=== PATIENT | male | born 1990 | race American Indian/Alaskan Native ===

== ENCOUNTER 2017-10-02 16:16 | Emergency (ER) | payer OTHER ==
--- NOTE | 2017-10-02 17:42 | XRay Report ---
FINAL REPORT EXAM: XR CHEST ROUTINE 2V HISTORY: Shortness of breath TECHNIQUE: 2 view examination of the chest PRIORS: None FINDINGS: Limited examination due to prominent soft tissue attenuation. Lung bases partly obscured. Lateral view limited. There is no visible pulmonary consolidation, pleural effusion, or pneumothorax. The regional skeleton is without acute pathology. The cardiac silhouette size is slightly enlarged without evidence of vascular congestion or pulmonary edema. IMPRESSION: No evidence of acute pulmonary disease Suggestion of slight cardiomegaly without definite radiographic evidence of vascular congestion.
[2017-10-02 17:55] LABS: Basophils # (Auto) 0.1 K/mm3 (0.0-0.1); Basophils % (Auto) 1.2 % (0.0-1.8); Eosinophils # (Auto) 0.1 K/mm3 (0.0-0.4); Eosinophils % (Auto) 1.5 % (0.0-4.3); Hemoglobin 15.9 gm/dl (11.8-15.2); Lymphocytes # (Auto) 1.4 K/mm3 (1.2-5.4); Lymphocytes % (Auto) 20.5 % (13.4-35.0); Mean Corpuscular HGB Conc 32 % (32-34); Mean Corpuscular Hemoglobin 30 pg (28-32); Mean Corpuscular Volume 93 fl (84-94); Monocytes # (Auto) 0.6 K/mm3 (0.0-0.8); Monocytes % (Auto) 9.4 % (0.0-7.3); Platelet Count 227 K/mm3 (140-440); Red Blood Count 5.39 M/mm3 (3.65-5.03); Red Cell Distribution Width 15.2 % (13.2-15.2)
[2017-10-02 18:22] LABS: BUN/Creatinine Ratio 15; Blood Urea Nitrogen 19 mg/dL (9-20); Calcium 8.8 mg/dL (8.4-10.2); Hemolysis Index 34
--- NOTE | 2017-10-02 19:03 | Emergency Department Report ---
Blank Doc - Documentation Documentation: Patient is a 27-year-old black male who is presenting with shortness of breath for 2 days. Patient states that she shortness of breath is worse when he lays flat it feels like he is drowning and also when he will exerts himself. Patient denies any chest pain. Patient blood pressure was severely elevated he has run out of his blood pressure medicines. Patient does not have a history of CHF and knows of. Patient will be moved to the main for blood pressure control on Lasix he does have a large body habitus but does have some lower extremity edema and Rales
[2017-10-02] MEDS ORDERED: NORMODYNE IV ONE ×4 (19:04→22:56)
[2017-10-02] MEDS ORDERED: LASIX IV ONE (19:04)
[2017-10-02] MEDS ORDERED: ULTRAM PO ONE (19:36)
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
[2017-10-02 20:12] LABS: Alanine Aminotransferase 23 units/L (7-56); Albumin 2.8 g/dL (3.9-5); BUN/Creatinine Ratio 17; Blood Urea Nitrogen 20 mg/dL (9-20); Calcium 8.4 mg/dL (8.4-10.2); Hemolysis Index 28
[2017-10-02 20:18] LABS: INR 1.03 (0.87-1.13)
[2017-10-02 20:19] LABS: Partial Thromboplastin Time 31.8 Sec. (24.2-36.6)
[2017-10-02] MEDS ORDERED: NACL ONE (20:25)
--- NOTE | 2017-10-02 20:38 | XRay Report ---
FINAL REPORT EXAM: XR KNEE 1-2V LT HISTORY: Knee pain TECHNIQUE: Left knee 4 views PRIORS: None. FINDINGS: No fracture is identified. No dislocation seen. No evidence of joint effusion. Patella demonstrates normal positioning. No acute bony abnormality identified. IMPRESSION: Negative knee series
--- NOTE | 2017-10-02 22:11 | Cat Scan Report ---
FINAL REPORT EXAM: CT ANGIO CHEST HISTORY: hypo TECHNIQUE: CT chest CT angiogram with reconstructions PRIORS: None. FINDINGS: There is no evidence of filling defect within the central pulmonary vasculature to suggest the presence of acute pulmonary embolus. There is an intimal flap present within the descending thoracic aorta originating just distal to the origin of the great vessels. The dissection continues through the visualized portion of the abdominal aorta and cannot be evaluated below the level of the origin of the celiac artery which appears patent. No evidence of mediastinal pathologic lymph node enlargement Heart and great vessels are unremarkable. The aorta is normal in caliber. No focal pulmonary infiltrate identified. No pleural fluid collection seen. No acute pulmonary abnormality noted. IMPRESSION: Findings are consistent with an acute type B aortic dissection originating just below the origin great vessels continuing through the descending aorta and visualized portion of the abdominal aorta. Additional evaluation of the abdominal aorta recommended Findings were discussed with Dr. Pulido at 10:05 p.m. EST on October 02, 2017
[2017-10-02] MEDS ORDERED: BREVIBLOC DRIP 2.5GM/250ML 2.5 GM/250 ML BAG IV ONE (22:17)
[2017-10-02] MEDS ORDERED: BREVIBLOC IV ONE (22:31)
--- NOTE | 2017-10-03 00:13 | Emergency Department Report ---
Blank Doc - Documentation Documentation: I received a call from radiology regarding Mr Abebe chest CTA that showed Aortic Dissection. I immediately at 10:07 PM, informed my colleague Dr Syed who is taking care of this patient.
[2017-10-03 00:22] VITALS: BP 188/124
== END 2017-10-03 00:30 | disposition other institution (70) ==
LOC: ED 16:16
DX: I71.00 Dissection of unspecified site of aorta (principal); I16.1 Hypertensive emergency; I10 Essential (primary) hypertension; M25.562 Pain in left knee; V87.7XXA Person injured in collision between other specified motor vehicles (traffic), initial encounter; Y93.89 Activity, other specified; Y99.8 Other external cause status; Y92.410 Unspecified street and highway as the place of occurrence of the external cause
CPT/HCPCS: 36415; 71046; 71275; 73560; 80048; 80053; 83880; 84484; 85025; 85610; 85730; 93005; 93010; 96365; 96375; 96376; 99285; J1940; Q9967

== ENCOUNTER 2017-10-20 11:53 | Emergency (ER) | payer OTHER ==
[2017-10-20 12:34] LABS: BUN/Creatinine Ratio 13; Blood Urea Nitrogen 16 mg/dL (9-20); Calcium 8.9 mg/dL (8.4-10.2); Hemolysis Index 11
[2017-10-20 12:35] LABS: Basophils # (Auto) 0.1 K/mm3 (0.0-0.1); Basophils % (Auto) 1.3 % (0.0-1.8); Eosinophils # (Auto) 0.1 K/mm3 (0.0-0.4); Eosinophils % (Auto) 2.7 % (0.0-4.3); Hemoglobin 13.8 gm/dl (11.8-15.2); Lymphocytes # (Auto) 0.7 K/mm3 (1.2-5.4); Lymphocytes % (Auto) 14.3 % (13.4-35.0); Mean Corpuscular HGB Conc 33 % (32-34); Mean Corpuscular Hemoglobin 30 pg (28-32); Mean Corpuscular Volume 91 fl (84-94); Monocytes # (Auto) 0.5 K/mm3 (0.0-0.8); Monocytes % (Auto) 10.8 % (0.0-7.3); Platelet Count 203 K/mm3 (140-440); Red Blood Count 4.64 M/mm3 (3.65-5.03); Red Cell Distribution Width 14.5 % (13.2-15.2)
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
--- NOTE | 2017-10-20 12:43 | XRay Report ---
AP CHEST: HISTORY: Dyspnea Compared to 10/02/17. Heart size and pulmonary vascularity are borderline. The lungs are clear. No evidence for pneumonia, CHF or pneumothorax. The bony structures are grossly intact. IMPRESSION: Borderline heart size and pulmonary vascularity.
[2017-10-20] MEDS ORDERED: NACL 0.9% 1000 ML 1,000 ML ONE (14:52)
--- NOTE | 2017-10-20 16:14 | Cat Scan Report ---
FINAL REPORT EXAM: CT ANGIO ABDOMEN PELVIS HISTORY: dissection . recent diagnosis of acute type B aortic dissection in the chest. Evaluate extension into the abdomen. TECHNIQUE: Standard enhanced CT of the abdomen and pelvis. Coronal and sagittal reconstruction was also performed. 3D reconstruction of the aorta was also obtained. Contrast: Intravenous contrast given PRIORS: CT chest 10/02/2017 FINDINGS: This exam is technically limited due to the patient's body habitus. However, within those limits, with correlation with the prior CT of the chest, there is evidence for a complicated aortic dissection which extends to the level of aortic bifurcation. I cannot confirm extension beyond the bifurcation, due to technical limits. However, on sagittal imaging, there is a suspicion of the intimal flap extending into the left common iliac artery. No evidence for aortic rupture or periaortic hematoma is identified. The thoracic false lumen appears to be located to the right side of the aorta to the level of the left pulmonary veins and extends 2 the level of the origins of the superior mesenteric artery (sagittal image 141). At the level of the left pulmonary veins, there appears to be a 2nd intimal flap along the left side of the aorta (axial image 5) with the true lumen located centrally (cat's eye appearance). At the level of the diaphragmatic hiatus, the tortuosity of the aorta accentuates the presence of the false lumens. However, at all levels, there is enhanced flow of blood through all true and false lumens. There is normal enhancement of all the branches off the aorta including the celiac artery, SMA, ANABELL, bilateral renal arteries, and both common iliac arteries. Visceral organs appear to have homogeneous enhancement throughout without evidence for infarct. Within the abdomen, the liver, spleen, pancreas, gallbladder, adrenal glands, and kidneys are unremarkable. Low-density ascites is noted around the liver and spleen. No evidence for retroperitoneal or pelvic lymphadenopathy is seen. The bowel loops have normal caliber. No soft tissue mass, fluid collection, inflammatory change, or free air is seen within the abdomen or pelvis. Within the pelvis, the bladder is unremarkable. The prostate is normal. No evidence for mass or lymphadenopathy is seen in the pelvis. Images through the upper abdomen include the lung bases which demonstrates linear atelectasis in each lung base posteriorly. Bony structures show no focal abnormalities and are intact. IMPRESSION: 1. Complex thoracic and abdominal aortic dissection with at least 2 separate intimal flaps identified. The thoracic intimal flap appears to extend to the level just beyond the superior mesenteric artery. There is a suspicion that the 2nd intimal flap extends into the proximal left common iliac arteries although visualization is limited by patient body habitus. There is enhanced blood flow through all lumens including the true and false lumens and all major aortic branches demonstrate enhancement without evidence for infarction of the visceral organs. No evidence for rupture or periaortic hemorrhage is seen. 2. Amount of low-density ascites within the abdomen and pelvis 3. Bibasilar atelectasis
[2017-10-20 18:11] VITALS: BP 163/91
== END 2017-10-20 17:30 | disposition home or self-care (01) ==
LOC: ED 11:53
DX: R07.9 Chest pain, unspecified (principal); M25.562 Pain in left knee; I10 Essential (primary) hypertension
CPT/HCPCS: 36415; 71045; 74174; 80048; 85025; 85379; 93005; 93010; 99285; J7030; Q9967

== ENCOUNTER 2018-05-09 21:11 | Inpatient (IN) | payer OTHER ==
[2018-05-09] MEDS ORDERED: NITRO-BID 2% TP ONE (23:10)
[2018-05-09] MEDS ORDERED: LASIX 100 MG in NACL 0.9% 50 ML IV ONE (23:21)
[2018-05-09] MEDS ORDERED: NORMODYNE IV ONE (23:21)
--- NOTE | 2018-05-09 23:37 | Event Note ---
Date: 05/09/18 27 year old male with type B dissection who presents with SOB with hypertensive urgency being followed by outside vascular provider. Contacted regarding advice regarding treatment of type B dissections. Recommend repeat CTA of the chest/abdomen/pelvis to assess if enlargement of the dissection has occurred or conversion to type A dissection which is unlikely greater than 2 weeks out from the acute dissection. Type A dissection would require transfer to outside facility. Recommend IV antihypertensive drugs to keep SBP less than 130/120, and then the HR less than 60, if patient can tolerate HR less than 60. Antihypertensive drugs and rate controlling drugs are essential for dissections. This has been shown to be optimal medical therapy for dissections to prevent them from enlarging (dissecting aneurysm), and propagating. This also bwill reduce dynamic complications associated with hypoperfusion to the true lumen.
[2018-05-09 23:38] LABS: Hematocrit 48.4 % (35.5-45.6); Hemoglobin 15.8 gm/dl (11.8-15.2); Mean Corpuscular HGB Conc 33 % (32-34); Mean Corpuscular Hemoglobin 29 pg (28-32); Mean Corpuscular Volume 90 fl (84-94); Platelet Count 280 K/mm3 (140-440); Red Blood Count 5.37 M/mm3 (3.65-5.03); Red Cell Distribution Width 15.2 % (13.2-15.2)
[2018-05-09] MEDS ORDERED: NORMODYNE 200 MG in D5W 160 ML IV ONE (23:39)
[2018-05-09] MEDS ORDERED: CARDENE 50 MG in NACL 0.9% 250ML 230 ML IV SCH (23:45)
--- NOTE | 2018-05-09 23:58 | Emergency Department Report ---
ED General Adult HPI - General Chief complaint: Dyspnea/Respdistress Stated complaint: SOB Time Seen by Provider: 05/09/18 23:04 Source: patient Mode of arrival: Wheelchair Limitations: Physical Limitation - History of Present Illness Initial comments: Mr. Abebe is a 27-year-old male with history of sleep apnea, severe obesity, hypertension, type B dissection and chronic kidney disease who presents with shortness of breath and abdominal swelling for the past 2 weeks. . He denies any pain. he admitted that he "slacked off" and did not take his medications for several days. He was diagnosed with type B dissection in September here in our ER. He was transferred to [facility]. He Is Being Medically Managed at This Time Followed by Dr. Blank Who Recommended Annual Evaluation to Monitor Dissection. No known history of CHF. He does take Lasix 40 mg twice a day. Other medications include labetalol isosorbide nitrate. He uses 2 liters NC at home. PCP [facility] - Related Data Allergies Allergy/AdvReac Type Severity Reaction Status Date / Time No Known Allergies Allergy Unverified 10/02/17 17:09 ED Review of Systems ROS: Stated complaint: SOB Other details as noted in HPI Comment: All other systems reviewed and negative Constitutional: denies: fever, malaise Respiratory: shortness of breath. denies: cough Cardiovascular: denies: chest pain ED Past Medical Hx - Past Medical History Previous Medical History?: Yes Hx Hypertension: Yes Additional medical history: heart failure, AORTIC DISSECTION - Social History Smoking Status: Never Smoker Substance Use Type: None ED Physical Exam - General Limitations: Physical Limitation General appearance: alert, other (speaking full words sentences with mild work of breathign) - Head Head exam: Present: atraumatic - Eye Eye exam: Present: normal appearance. Absent: scleral icterus, conjunctival injection - ENT ENT exam: Present: normal orophraynx, mucous membranes moist - Neck Neck exam: Present: normal inspection - Respiratory Respiratory exam: Present: decreased breath sounds. Absent: wheezes, rales, rhonchi - Cardiovascular Cardiovascular Exam: Present: regular rate, normal rhythm. Absent: rubs, gallop - GI/Abdominal GI/Abdominal exam: Present: soft, distended, other (abdominal wall edema with hyperpigmentation due to venous stasis). Absent: tenderness, guarding, rebound , rigid - Extremities Exam Extremities exam: Present: pedal edema, other (leg edema with venous stasis changes lichenification) - Neurological Exam Neurological exam: Present: alert, oriented X3 - Psychiatric Psychiatric exam: Present: normal affect, normal mood - Skin Skin exam: Present: warm, dry, intact, normal color ED Course Vital Signs 05/09/18 05/09/18 05/09/18 22:42 22:46 23:02 Temperature 99.0 F 99 F Pulse Rate 91 H 91 H 92 H Respiratory 16 24 16 Rate Blood Pressure 204/150 204/150 O2 Sat by Pulse 94 95 88 Oximetry 05/09/18 05/09/18 05/09/18 23:15 23:29 23:31 Temperature Pulse Rate 90 93 H 84 Respiratory 20 13 17 Rate Blood Pressure 183/122 183/122 154/55 O2 Sat by Pulse 93 94 95 Oximetry 05/09/18 05/09/18 05/09/18 23:32 23:35 23:42 Temperature Pulse Rate 81 83 Respiratory 13 29 H Rate Blood Pressure 161/91 161/91 158/91 O2 Sat by Pulse 92 95 Oximetry 05/09/18 05/09/18 05/09/18 23:45 23:46 23:49 Temperature Pulse Rate 79 80 79 Respiratory 19 17 22 Rate Blood Pressure 159/83 159/83 159/83 O2 Sat by Pulse 97 89 89 Oximetry 05/09/18 05/09/18 05/09/18 23:51 23:53 23:55 Temperature Pulse Rate 79 83 77 Respiratory 14 13 19 Rate Blood Pressure 159/83 159/83 159/83 O2 Sat by Pulse 93 96 92 Oximetry 05/09/18 05/09/18 05/10/18 23:57 23:59 00:00 Temperature Pulse Rate 78 79 67 Respiratory 11 L 19 13 Rate Blood Pressure 159/83 161/91 166/82 O2 Sat by Pulse 83 L 81 L 81 L Oximetry 05/10/18 05/10/18 05/10/18 00:03 00:05 00:07 Temperature Pulse Rate 81 72 76 Respiratory 23 15 12 Rate Blood Pressure 166/82 166/82 166/82 O2 Sat by Pulse 76 L 84 89 Oximetry 05/10/18 05/10/18 05/10/18 00:09 00:11 00:12 Temperature Pulse Rate 79 78 76 Respiratory 13 18 13 Rate Blood Pressure 166/82 166/82 166/82 O2 Sat by Pulse 91 93 95 Oximetry 05/10/18 05/10/18 05/10/18 00:13 00:15 00:17 Temperature Pulse Rate 78 76 77 Respiratory 14 8 L 9 L Rate Blood Pressure 166/82 153/77 153/77 O2 Sat by Pulse 94 92 94 Oximetry 05/10/18 05/10/18 05/10/18 00:19 00:21 00:23 Temperature Pulse Rate 75 76 75 Respiratory 13 11 L 11 L Rate Blood Pressure 153/77 153/77 153/77 O2 Sat by Pulse 93 93 91 Oximetry 05/10/18 05/10/18 05/10/18 00:25 00:27 00:29 Temperature Pulse Rate 75 76 75 Respiratory 13 15 12 Rate Blood Pressure 153/77 153/77 157/100 O2 Sat by Pulse 94 93 94 Oximetry 05/10/18 05/10/18 05/10/18 00:30 00:33 00:35 Temperature Pulse Rate 75 75 74 Respiratory 13 21 20 Rate Blood Pressure 157/100 157/100 157/100 O2 Sat by Pulse 91 93 92 Oximetry ED Medical Decision Making - Lab Data Result diagrams: 05/09/18 23:22 05/09/18 23:22 - EKG Data Interpretation: no acute changes - Medical Decision Making Mr. Abebe presents with anasarca and acute on chronic respiratory failure with hypoxia. Concerned for right sided heart failure, cor pulmonale as a result of sleep apnea and severe obesity. Also suspect obesity hypoventilation syndrome. I highly appreciate the input of Dr. Bullard vascular surgeon who recommended ICU admission for hypertensive crisis. With known hx of type B aortic dissection, Mr Abebe requires tight BP control and HR control. Dr. Bullard recommended IV labetalol continuous infusion. CTA showed stable type B dissection. Dr. Lynch hospitalist agreed to admit. Critical Care Time: Yes Critical care time in (mins) excluding proc time.: 60 Critical care attestation.: If time is entered above; I have spent that time in minutes in the direct care of this critically ill patient, excluding procedure time. 40 minutes of critical care time excluding procedures were used in the care of the patient. Patient required multiple assessments and interventions. I reviewed the electronic medical record. I spoke with consultants involved in the care of the patient. ED Disposition Clinical Impression: Right heart failure, Anasarca, Acute and chronic respiratory failure, H/O aortic dissection, Hypertensive crisis Disposition: DC-[id number] OP ADMIT IP TO THIS HOSP Is pt being admited?: Yes Does the pt Need Aspirin: No Condition: Stable
--- NOTE | 2018-05-10 00:09 | XRay Report ---
FINAL REPORT EXAM: XR CHEST 1V AP HISTORY: Dyspnea TECHNIQUE: A portable view of the chest was obtained and compared to the study of 10/02/2017. FINDINGS: The heart is [id number] enlarged. The lungs are not congested. There are no infiltrates or effusions. The skeletal structures do not show any acute changes. IMPRESSION: Cardiomegaly. No acute process in the chest.
[2018-05-10 00:33] LABS: BUN/Creatinine Ratio 17; Blood Urea Nitrogen 24 mg/dL (9-20); Calcium 8.6 mg/dL (8.4-10.2); Hemolysis Index 57
--- NOTE | 2018-05-10 01:33 | Cat Scan Report ---
FINAL REPORT EXAM: CT ANGIO CHEST HISTORY: dissection TECHNIQUE: A CT angiogram was obtained of the chest abdomen and pelvis following intravenous injection of iodinated contrast. Comparison is made to the previous examinations of 10/20/2017 and 10/02/2017. MIP sagittal coronal reconstructions were obtained. Rotational MIP reconstruction was also obtained. FINDINGS: There is a stable [place] type B thoracoabdominal dissection with both the true and false lumens opacify with contrast. The dissection begins just beyond the origin of the left subclavian artery. There is no involvement of the ascending aorta or aortic arch. The dissection extends well into the abdominal aorta with partial extension into the left common iliac artery. In the thorax there is no evidence of pulmonary embolus. The heart is mildly enlarged. Pericardial fluid is not seen. There is no evidence of adenopathy. The lungs are not congested. Pleural fluid is not seen. In the abdomen and pelvis there is normal visualization of the celiac and superior mesenteric arteries. Both renal arteries opacify normally. The inferior mesenteric artery opacifies normally. The liver, gallbladder, spleen and pancreas appear normal. The adrenal glands appear normal. The kidneys enhance normally. There is minimal free fluid in the upper abdomen. The visualized bowel loops are not distended. The study is limited in the abdomen and pelvis because of the patient's obese habitus. In the pelvis the bladder and prostate gland appear normal. The skeletal structures do not show any acute changes. Patient's and habitus. IMPRESSION: Stable [place] type B thoracoabdominal aortic dissection as described with both the true and false lumens opacifying. No evidence of pulmonary embolus, vascular congestion, or infiltrates in the chest. No evidence of bowel ischemia or other acute process in the abdomen and pelvis.
--- NOTE | 2018-05-10 01:37 | Cat Scan Report ---
FINAL REPORT EXAM: CT ANGIO ABDOMEN PELVIS HISTORY: aortic dissection TECHNIQUE: A CT angiogram was obtained of the abdomen and pelvis following the intravenous injection of iodinated contrast. Correlation is made to the previous study of 10/20/2017. FINDINGS: There is a stable chronic dissection of the thoracoabdominal aorta with both the true and false lumens opacifying. There is normal visualization of the celiac and superior mesenteric arteries. Both renal arteries opacify normally. The inferior mesenteric artery opacifies normally. The dissection flap extends into the left common iliac artery. Once again this is unchanged the previous study. The liver, gallbladder, pancreas, spleen, and adrenal glands appear normal. The kidneys enhance normally. Adenopathy is not seen. The study is limited because the patient's large habitus. In the pelvis the bladder and prostate gland appear normal. The skeletal structures do not show any acute changes. IMPRESSION: Stable chronic thoracoabdominal dissection with both the true and false lumens opacifying. No evidence of vascular compromise involving the great vessels in the abdomen and pelvis. No acute process in the abdomen and pelvis otherwise.
[2018-05-10 02:51] LABS: Band Neutrophils # (Manual) 0.8 K/mm3; Basophils % (Manual) 0 % (0.0-1.8); Eosinophils % (Manual) 0 % (0.0-4.3); Total Cells Counted 100
[2018-05-10 02:52] LABS: Platelet Estimate Consistent w Auto
[2018-05-10] MEDS ORDERED: ZOFRAN IV PRN (03:41)
[2018-05-10] MEDS ORDERED: SODIUM CHLORIDE FLUSH SYRINGE 10 ML IV PRN (03:41)
[2018-05-10] MEDS ORDERED: TYLENOL PO PRN (03:41)
--- NOTE | 2018-05-10 03:44 | History and Physical Report ---
History of Present Illness Date of examination: 05/10/18 History of present illness: 27-year-old man with a history of type B aortic dissection, hypertension, sleep apnea and obesity comes to emergency room with complaint of shortness of breath , dyspnea on exertion and swelling in his abdomen and legs. Symptoms have been ongoing for the last 2 weeks. Patient was given IV Lasix, started on labetalol drip and put on BiPAP Review of systems Constitutional: no weight loss, chills, fever Ears, eyes, nose, mouth and throat: no nasal congestion, no nasal discharge, no sinus pressure, no vision change, no red eye. Neck: No neck pain or rigidity. Cardiovascular: no chest pain, palpitations Respiratory: no cough Gastrointestinal: no abdominal pain hematochezia Genitourinary : no frequency , no hematuria Musculoskeletal: no joint swelling or muscle ache Integumentary: no rash, no pruritis Neurological: no parathesias, no numbness, no focal weakness Endocrine: no cold or heat intolerance, no polyuria or polydipsia Hematologic/Lymphatic: no easy bruising, no easy bleeding, no gland swelling Allergic/Immunologic: no urticaria, no angioedema. PAST MEDICAL HISTORY: type B aortic dissection, hypertension, sleep apnea and obesity PAST SURGICAL HISTORY: None SOCIAL HISTORY: No alcohol, no drugs, tobacco FAMILY HISTORY: Hypertension Medications and Allergies Allergies Allergy/AdvReac Type Severity Reaction Status Date / Time No Known Allergies Allergy Unverified 10/02/17 17:09 Active Meds: Active Medications Acetaminophen (Tylenol) 650 mg PO Q4H PRN PRN Reason: Pain MILD(1-3)/Fever >100.5/[place] Enoxaparin Sodium (Lovenox) 30 mg SUB-Q QDAY ELIEL Furosemide (Lasix) 40 mg IV BID ELIEL Ondansetron HCl (Zofran) 4 mg IV Q8H PRN PRN Reason: Nausea And Vomiting Sodium Chloride (Sodium Chloride Flush Syringe 10 Ml) 10 ml IV BID ELIEL Sodium Chloride (Sodium Chloride Flush Syringe 10 Ml) 10 ml IV PRN PRN PRN Reason: LINE FLUSH Exam - Physical Exam Narrative exam: Gen. appearance: Patient lying in bed, no apparent distress HEENT: Normocephalic, atraumatic, pupils equally round and reactive to light, extraocular movement intact, and no sclericterus,. No JVD or thyromegaly or nodule,neck supple, no carotid bruit ,mucous membranes moist, no exudate or erythema Heart: S1, S2, regular rate and rhythm Lungs: Clear bilaterally, breathing comfortable Abdomen: Positive bowel sounds, + edema, non-tender, nondistended, no organomegaly Extremity:+ edema, no cyanosis, clubbing Skin: no rash, dry, warm Neuro: Oriented 3, cranial nerves II-12 intact, speech is fluent, motor and sensory intact - Constitutional Vitals: Temp Pulse Resp BP Pulse Ox 99 F 68 9 L 133/70 92 05/09/18 22:46 05/10/18 03:30 05/10/18 03:30 05/10/18 03:30 05/10/18 03:30 Results - Labs CBC & Chem 7: 05/10/18 03:45 05/09/18 23:22 Labs: Abnormal lab results 05/09/18 05/09/18 05/09/18 Range/Units 23:22 23:22 23:22 RBC 5.37 H (3.65-5.03) M/mm3 Hgb 15.8 H (11.8-15.2) gm/dl Hct 48.4 H (35.5-45.6) % Lymphocytes % (Manual) 11.0 L (13.4-35.0) % Monocytes % (Manual) 12.0 H (0.0-7.3) % Nucleated RBC % 1.0 H (0.0-0.9) % Lymphocytes # (Manual) 0.9 L (1.2-5.4) K/mm3 Monocytes # (Manual) 1.0 H (0.0-0.8) K/mm3 POC ABG pH (7.35-7.45) POC ABG pCO2 (35-45) POC ABG pO2 (80-105) Chloride 94.3 L (98-107) mmol/L Carbon Dioxide 39 H (22-30) mmol/L BUN 24 H (9-20) mg/dL NT-Pro-B Natriuret Pep 2554 H (0-450) pg/mL 05/10/18 Range/Units 02:40 RBC (3.65-5.03) M/mm3 Hgb (11.8-15.2) gm/dl Hct (35.5-45.6) % Lymphocytes % (Manual) (13.4-35.0) % Monocytes % (Manual) (0.0-7.3) % Nucleated RBC % (0.0-0.9) % Lymphocytes # (Manual) (1.2-5.4) K/mm3 Monocytes # (Manual) (0.0-0.8) K/mm3 POC ABG pH 7.315 L (7.35-7.45) POC ABG pCO2 72.0 H (35-45) POC ABG pO2 64 L (80-105) Chloride (98-107) mmol/L Carbon Dioxide (22-30) mmol/L BUN (9-20) mg/dL NT-Pro-B Natriuret Pep (0-450) pg/mL - Imaging and Cardiology Chest x-ray: report reviewed CT scan - abdomen: report reviewed CT scan - chest: report reviewed CT scan - pelvis: report reviewed Assessment and Plan Assessment Hypertension emergency Shortness of breath, rule out CHF Acute respiratory failure type B aortic dissection sleep apnea obesity Plan Admit to medicine Continue labetalol drip, start IV Lasix Check cardiac enzymes, echo Consult critical care, cardiology DVT prophylaxis
[2018-05-10] MEDS ORDERED: NORMODYNE 200 MG in D5W 160 ML IV ONE (04:13)
[2018-05-10 04:14] LABS: Basophils % (Auto) 0.6 % (0.0-1.8); Eosinophils # (Auto) 0.1 K/mm3 (0.0-0.4); Eosinophils % (Auto) 0.8 % (0.0-4.3); Hematocrit 48.8 % (35.5-45.6); Hemoglobin 15.6 gm/dl (11.8-15.2); Lymphocytes # (Auto) 1.3 K/mm3 (1.2-5.4); Lymphocytes % (Auto) 16.3 % (13.4-35.0); Mean Corpuscular HGB Conc 32 % (32-34); Mean Corpuscular Hemoglobin 29 pg (28-32); Mean Corpuscular Volume 90 fl (84-94); Monocytes # (Auto) 0.6 K/mm3 (0.0-0.8); Monocytes % (Auto) 8.1 % (0.0-7.3); Platelet Count 280 K/mm3 (140-440); Red Blood Count 5.41 M/mm3 (3.65-5.03); Red Cell Distribution Width 15.4 % (13.2-15.2)
[2018-05-10 04:52] LABS: BUN/Creatinine Ratio 18; Blood Urea Nitrogen 24 mg/dL (9-20); Calcium 8.2 mg/dL (8.4-10.2); Hemolysis Index 15
[2018-05-10 04:52] LABS: Creatine Kinase MB 6.5 ng/mL (0.0-4.0)
[2018-05-10 09:45] LABS: Creatine Kinase MB 5.5 ng/mL (0.0-4.0)
[2018-05-10] MEDS ORDERED: LOVENOX SUB-Q SCH (10:00)
--- NOTE | 2018-05-10 10:18 | Event Note ---
Date: 05/10/18 Patient with acute resp failure. I have seen and examined him. Continue BIPAP.
[2018-05-10] MEDS: LOVENOX SUB-Q SCH (10:46)
[2018-05-10] MEDS: LASIX IV SCH ×2 (10:46→21:02)
[2018-05-10] MEDS: SODIUM CHLORIDE FLUSH SYRINGE 10 ML IV SCH ×2 (10:47→21:02)
--- NOTE | 2018-05-10 11:07 | Consultation ---
History of Present Illness Consult date: 05/10/18 Requesting physician: ANTHONY LIN Reason for consult: other (Hypertensive Emergency and Dyspnea) History of present illness: 27 y/o male known HTN, PAUL and type B dissection admitted with Hypertensive Emergency and shortness of breath secondary to noncompliance with medications. Mother at bedside. Patient states that he missed several doses of medication. Shortness of breath has been building up for about 2 weeks. he was recently diagnosed with a type B dissection followed on the outside. He cannot give much history about this, nor can his mother. He is off labetalol drip now and HR is in the 60's and BP is normal. He is on oxygen and does not feel short of breath. Past History Past Medical History: hypertension, hypothyroidism, other (obesity, PAUL) Social history: no significant social history Family history: no significant family history Medications and Allergies Allergies Allergy/AdvReac Type Severity Reaction Status Date / Time No Known Allergies Allergy Unverified 10/02/17 17:09 Home Medications Medication Instructions Recorded Confirmed Last Taken Type Furosemide 40 mg PO DAILY 05/10/18 05/10/18 05/09/18 History Isosorbide Dinitrate 10 mg PO QID 05/10/18 05/10/18 05/09/18 History Labetalol 300 mg PO TID 05/10/18 05/10/18 05/09/18 History Levothyroxine 50 mcg PO DAILY 05/10/18 05/10/18 05/09/18 07:00 History cloNIDine-TTS PATCH 0.3 mg TRANSDERMA 1XW 05/10/18 05/10/18 05/08/18 History Active Meds: Active Medications Acetaminophen (Tylenol) 650 mg PO Q4H PRN PRN Reason: Pain MILD(1-3)/Fever >100.5/[place] Enoxaparin Sodium (Lovenox) 40 mg SUB-Q QDAY@1000 [facility] Last Admin: 05/10/18 10:46 Dose: 40 mg Furosemide (Lasix) 40 mg IV BID [facility] Last Admin: 05/10/18 10:46 Dose: 40 mg Ondansetron HCl (Zofran) 4 mg IV Q8H PRN PRN Reason: Nausea And Vomiting Sodium Chloride (Sodium Chloride Flush Syringe 10 Ml) 10 ml IV BID [facility] Last Admin: 05/10/18 10:47 Dose: 10 ml Sodium Chloride (Sodium Chloride Flush Syringe 10 Ml) 10 ml IV PRN PRN PRN Reason: LINE FLUSH Review of Systems All systems: negative Physical Examination Vital signs: Vital Signs Temp Pulse Resp BP Pulse Ox 99.0 F 91 H 16 204/150 94 05/09/18 22:42 05/09/18 22:42 05/09/18 22:42 05/09/18 22:42 05/09/18 22:42 General appearance: no acute distress, alert, other (morbidly obese) Eyes: non-icteric ENT: oropharynx moist Neck: supple, no lymphadenopathy, other (large in circumference) Effort: normal Ascultation: Bilateral: diminished breath sounds Percussion: Bilateral: not dull Tactile fremitus: Bilateral: diminished (secondary to body habitus) Cardiovascular: regular rate and rhythm Gastrointestinal: normoactive bowel sounds, soft Integumentary: normal Extremities: anasarca normal mental status, non-focal exam Results - Laboratory Findings CBC and BMP: 05/10/18 03:45 05/10/18 03:45 ABG POC ABG pH 7.315 (7.35-7.45) L 05/10/18 02:40 POC ABG pCO2 72.0 (35-45) H 05/10/18 02:40 POC ABG pO2 64 (80-105) L 05/10/18 02:40 POC ABG HCO3 36.7 05/10/18 02:40 POC ABG Total CO2 39 05/10/18 02:40 POC ABG O2 Sat 89 05/10/18 02:40 Abnormal lab findings: Abnormal Labs 05/09/18 05/09/18 05/09/18 23:22 23:22 23:22 RBC 5.37 H Hgb 15.8 H Hct 48.4 H RDW [place] % (Auto) Seg Neutrophils % Lymphocytes % (Manual) 11.0 L Monocytes % (Manual) 12.0 H Nucleated RBC % 1.0 H Lymphocytes # (Manual) 0.9 L Monocytes # (Manual) 1.0 H POC ABG pH POC ABG pCO2 POC ABG pO2 Chloride 94.3 L Carbon Dioxide 39 H BUN 24 H Glucose Calcium Total Creatine Kinase CK-MB (CK-2) NT-Pro-B Natriuret Pep 2554 H 05/10/18 05/10/18 05/10/18 02:40 03:45 03:45 RBC 5.41 H Hgb 15.6 H Hct 48.8 H RDW 15.4 H [place] % (Auto) 8.1 H Seg Neutrophils % 74.2 H Lymphocytes % (Manual) Monocytes % (Manual) Nucleated RBC % Lymphocytes # (Manual) Monocytes # (Manual) POC ABG pH 7.315 L POC ABG pCO2 72.0 H POC ABG pO2 64 L Chloride 97.0 L Carbon Dioxide 33 H BUN 24 H Glucose 111 H Calcium 8.2 L Total Creatine Kinase CK-MB (CK-2) NT-Pro-B Natriuret Pep 05/10/18 05/10/18 03:57 09:12 RBC Hgb Hct RDW [place] % (Auto) Seg Neutrophils % Lymphocytes % (Manual) Monocytes % (Manual) Nucleated RBC % Lymphocytes # (Manual) Monocytes # (Manual) POC ABG pH POC ABG pCO2 POC ABG pO2 Chloride Carbon Dioxide BUN Glucose Calcium Total Creatine Kinase 635 H 487 H CK-MB (CK-2) 6.5 H 5.5 H NT-Pro-B Natriuret Pep - Diagnostic Findings Chest x-ray: image reviewed CT scan - chest: image reviewed Assessment and Plan 27 y/o morbidly obese male with known PAUL, hypothyroidism, HTN and Type B dissection, admitted with Hypertensive urgency and dyspnea. 1. Needs echo if not done in the past 6 months 2. Agree with vascular recs in regards to BP and HR control 3. Re-introduce home medications. Patient currently is wearing a clonidine patch. Will at least restart TID labetalol. Hold on Imdur and Nifedipine for right now 4. Check Thyroid levels 5. Bipap QHS, patient will need outpatient therapy as he does not have a machine at home that works 6. Continue ICU monitoring to make sure BP can be controlled off drip CCT 31 minutes.
--- NOTE | 2018-05-10 11:11 | Consultation ---
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 He is morbidly obese and has PAUL as well as probable chronic heart failure. He is not aware of a history of heart failure, he is on chronic furosemide therapy at 40 mg twice a day. He has hypertension and claims that his BP has been well controlled. About 2 weeks ago, he developed progressively increasing abdominal girth, leg edema as well as exertional dyspnea. He admits to chronic orthopnea. There is no chest pain. Chest and abdominal CT scan revealed stable type B thoracoabdominal dissection. At presentation, his BP was severely elevated. He was apparently placed on IV labetalol and his BP has normalized at this time. Past History Past Medical History: hypertension, other (PAUL, Chronic type B thoracoabdominal aortic dissection.) Past Surgical History: No surgical history Social history: denies: smoking, alcohol abuse Family history: no significant family history Medications and Allergies Allergies Allergy/AdvReac Type Severity Reaction Status Date / Time No Known Allergies Allergy Unverified 10/02/17 17:09 Home Medications Medication Instructions Recorded Confirmed Last Taken Type Furosemide 40 mg PO DAILY 05/10/18 05/10/18 05/09/18 History Isosorbide Dinitrate 10 mg PO QID 05/10/18 05/10/18 05/09/18 History Labetalol 300 mg PO TID 05/10/18 05/10/18 05/09/18 History Levothyroxine 50 mcg PO DAILY 05/10/18 05/10/18 05/09/18 07:00 History cloNIDine-TTS PATCH 0.3 mg TRANSDERMA 1XW 05/10/18 05/10/18 05/08/18 History Active Meds: Active Medications Acetaminophen (Tylenol) 650 mg PO Q4H PRN PRN Reason: Pain MILD(1-3)/Fever >100.5/[place] Enoxaparin Sodium (Lovenox) 40 mg SUB-Q QDAY@1000 [facility] Last Admin: 05/10/18 10:46 Dose: 40 mg Furosemide (Lasix) 40 mg IV BID [facility] Last Admin: 05/10/18 10:46 Dose: 40 mg Ondansetron HCl (Zofran) 4 mg IV Q8H PRN PRN Reason: Nausea And Vomiting Sodium Chloride (Sodium Chloride Flush Syringe 10 Ml) 10 ml IV BID [facility] Last Admin: 05/10/18 10:47 Dose: 10 ml Sodium Chloride (Sodium Chloride Flush Syringe 10 Ml) 10 ml IV PRN PRN PRN Reason: LINE FLUSH Review of Systems Constitutional: no fever, no chills Ears, nose, mouth and throat: no ear pain, no ear discharge, no sore throat Cardiovascular: orthopnea, edema, dyspnea on exertion, no chest pain, no palpitations Respiratory: dyspnea on exertion, no cough, no hemoptysis Gastrointestinal: no abdominal pain, no nausea, no vomiting, no diarrhea, no constipation Genitourinary Male: no dysuria, no urinary frequency Rectal: no pain, no bleeding Musculoskeletal: no neck stiffness, no neck pain, no myalgias Integumentary: no rash, no pruritis Endocrine: no cold intolerance, no heat intolerance Hematologic/Lymphatic: no easy bruising, no easy bleeding Allergic/Immunologic: no urticaria, no wheezing Physical Examination Vital Signs Vital Signs - 12hr 05/09/18 05/09/18 05/09/18 23:29 23:31 23:32 Pulse Rate 93 H 84 81 Respiratory 13 17 13 Rate Blood Pressure 183/122 154/55 161/91 O2 Sat by Pulse 94 95 Oximetry 05/09/18 05/09/18 05/09/18 23:35 23:42 23:45 Pulse Rate 83 79 Respiratory 29 H 19 Rate Blood Pressure 161/91 158/91 159/83 O2 Sat by Pulse 92 95 97 Oximetry 05/09/18 05/09/18 05/09/18 23:46 23:49 23:51 Pulse Rate 80 79 79 Respiratory 17 22 14 Rate Blood Pressure 159/83 159/83 159/83 O2 Sat by Pulse 89 89 93 Oximetry 05/09/18 05/09/18 05/09/18 23:53 23:55 23:57 Pulse Rate 83 77 78 Respiratory 13 19 11 L Rate Blood Pressure 159/83 159/83 159/83 O2 Sat by Pulse 96 92 83 L Oximetry 05/09/18 05/10/18 05/10/18 23:59 00:00 00:03 Pulse Rate 79 67 81 Respiratory 19 24 23 Rate Blood Pressure 161/91 166/82 166/82 O2 Sat by Pulse 81 L 93 76 L Oximetry 05/10/18 05/10/18 05/10/18 00:05 00:07 00:09 Pulse Rate 72 76 79 Respiratory 15 12 13 Rate Blood Pressure 166/82 166/82 166/82 O2 Sat by Pulse 84 89 91 Oximetry 05/10/18 05/10/18 05/10/18 00:11 00:12 00:13 Pulse Rate 78 76 78 Respiratory 18 13 14 Rate Blood Pressure 166/82 166/82 166/82 O2 Sat by Pulse 93 95 94 Oximetry 05/10/18 05/10/18 05/10/18 00:15 00:17 00:19 Pulse Rate 76 77 75 Respiratory 8 L 9 L 13 Rate Blood Pressure 153/77 153/77 153/77 O2 Sat by Pulse 92 94 93 Oximetry 05/10/18 05/10/18 05/10/18 00:21 00:23 00:25 Pulse Rate 76 75 75 Respiratory 11 L 11 L 13 Rate Blood Pressure 153/77 153/77 153/77 O2 Sat by Pulse 93 91 94 Oximetry 05/10/18 05/10/18 05/10/18 00:27 00:29 00:30 Pulse Rate 76 75 75 Respiratory 15 12 13 Rate Blood Pressure 153/77 157/100 157/100 O2 Sat by Pulse 93 94 91 Oximetry 05/10/18 05/10/18 05/10/18 00:33 00:35 00:45 Pulse Rate 75 74 74 Respiratory 21 20 24 Rate Blood Pressure 157/100 157/100 157/100 O2 Sat by Pulse 93 92 Oximetry 05/10/18 05/10/18 05/10/18 01:33 01:45 02:01 Pulse Rate 76 73 77 Respiratory 36 H 25 H Rate Blood Pressure 157/100 154/92 157/100 O2 Sat by Pulse 92 91 90 Oximetry 05/10/18 05/10/18 05/10/18 02:08 02:15 02:31 Pulse Rate 72 103 H 73 Respiratory 13 8 L Rate Blood Pressure 154/92 151/94 127/77 O2 Sat by Pulse 84 90 Oximetry 05/10/18 05/10/18 05/10/18 02:45 03:00 03:10 Pulse Rate 62 61 71 Respiratory 17 26 H 20 Rate Blood Pressure 144/56 139/67 O2 Sat by Pulse 94 90 97 Oximetry 05/10/18 05/10/18 05/10/18 03:15 03:30 03:45 Pulse Rate 81 68 66 Respiratory 30 H 9 L 20 Rate Blood Pressure 139/67 133/70 128/71 O2 Sat by Pulse 100 92 92 Oximetry 05/10/18 05/10/18 05/10/18 05:07 05:38 05:41 Pulse Rate 78 68 66 Respiratory 21 26 H 25 H Rate Blood Pressure O2 Sat by Pulse 89 84 89 Oximetry 05/10/18 05/10/18 05/10/18 05:51 06:01 06:10 Pulse Rate 65 65 64 Respiratory 16 24 12 Rate Blood Pressure 118/58 O2 Sat by Pulse 86 85 87 Oximetry 05/10/18 05/10/18 05/10/18 06:21 06:30 06:41 Pulse Rate 63 64 63 Respiratory 24 22 16 Rate Blood Pressure 118/58 122/63 122/63 O2 Sat by Pulse 89 87 92 Oximetry Last Vital Signs Temp 99 F 05/09/18 22:46 Pulse 57 L 05/10/18 08:51 Resp 29 H 05/10/18 08:51 BP 117/69 05/10/18 08:51 Pulse Ox 94 05/10/18 09:20 General appearance: no acute distress HEENT: Positive: EOMI, Normocephaly, Mucus Membranes Moist Neck: Positive: neck supple, trachea midline, JVD/HJR (elevated) Cardiac: Positive: Reg Rate and Rhythm, S1/S2 Lungs: Positive: clear to auscultation Neuro: Positive: Grossly Intact Abdomen: Positive: Soft, Active Bowel Sounds. Negative: Tender Skin: Positive: Other (venous stasis changes in both legs.) Musculoskeletal: Normal Range of Motion Extremities: Present: +2 Edema (pitting bilateral edema) Results 05/10/18 03:45 05/10/18 03:45 Cardiac Enzymes 05/10/18 05/10/18 Range/Units 03:57 09:12 CK-MB (CK-2) 6.5 H 5.5 H (0.0-4.0) ng/mL CBC 05/09/18 05/10/18 Range/Units 23:22 03:45 WBC 8.5 7.9 (4.5-11.0) K/mm3 RBC 5.37 H 5.41 H (3.65-5.03) M/mm3 Hgb 15.8 H 15.6 H (11.8-15.2) gm/dl Hct 48.4 H 48.8 H (35.5-45.6) % Plt Count 280 280 (140-440) K/mm3 Lymph # 1.3 (1.2-5.4) K/mm3 [place] # 0.6 (0.0-0.8) K/mm3 Eos # 0.1 (0.0-0.4) K/mm3 Baso # 0.0 (0.0-0.1) K/mm3 Comprehensive Metabolic Panel 05/09/18 05/10/18 Range/Units 23:22 03:45 Sodium 140 138 (137-145) mmol/L Potassium 4.6 4.6 (3.6-5.0) mmol/L Chloride 94.3 L 97.0 L (98-107) mmol/L Carbon Dioxide 39 H 33 H (22-30) mmol/L BUN 24 H 24 H (9-20) mg/dL Creatinine 1.4 1.3 (0.8-1.5) mg/dL Glucose 95 111 H (75-100) mg/dL Calcium 8.6 8.2 L (8.4-10.2) mg/dL - Imaging and Cardiology EKG: image reviewed EKG interpretations - Telemetry EKG Rhythm: Sinus Rhythm - EKG Sinus rhythms and dysrhythmias: sinus rhythm AV and intraventricular conduction: right bundle branch block Assessment and Plan Will initiate oral antihypertensive regimen and IV diuretics. Obtain echocardiogram. - Patient Problems (1) Acute on chronic heart failure Current Visit: Yes Status: Acute (2) Chronic thoracic aortic dissection Current Visit: Yes Status: Chronic (3) Hypertensive emergency Current Visit: Yes Status: Acute (4) PAUL (obstructive sleep apnea) Current Visit: Yes Status: Chronic (5) Morbid obesity Current Visit: Yes Status: Chronic
[2018-05-10] MEDS: NORMODYNE PO SCH ×2 (14:11→22:04)
--- NOTE | 2018-05-10 18:28 | Consultation ---
History of Present Illness - Reason for Consult Consult date: 05/10/18 Type B dissection - History of Present Illness 64 year old male with past medical history of severely morbidly obese, type B thoracoabdominal aortic dissection diagnosed in October 2017, PAUL, chronic heart failure that was diagnosed by cardiology with uncontrolled hypertension. About 2 weeks ago, he developed progressively increasing abdominal girth, leg edema as well as exertional dyspnea. He admits to chronic orthopnea. There is no chest pain. At presentation, his BP was severely elevated. Patient's blood pressure has been poorly controlled because he has been titrating his blood pressure medications so that he could drive without issue. Past History Past Medical History: hypertension, other (PAUL, Chronic type B thoracoabdominal aortic dissection.) Past Surgical History: No surgical history Social history: denies: smoking, alcohol abuse Family history: no significant family history Medications and Allergies Allergies Allergy/AdvReac Type Severity Reaction Status Date / Time No Known Allergies Allergy Unverified 10/02/17 17:09 Home Medications Medication Instructions Recorded Confirmed Last Taken Type Furosemide 40 mg PO DAILY 05/10/18 05/10/18 05/09/18 History Isosorbide Dinitrate 10 mg PO QID 05/10/18 05/10/18 05/09/18 History Labetalol 300 mg PO TID 05/10/18 05/10/18 05/09/18 History Levothyroxine 50 mcg PO DAILY 05/10/18 05/10/18 05/09/18 07:00 History Nifedipine ER 90 mg PO BID 05/10/18 05/10/18 Unknown History cloNIDine-TTS PATCH 0.3 mg TRANSDERMA 1XW 05/10/18 05/10/18 05/08/18 History Active Meds: Active Medications Acetaminophen (Tylenol) 650 mg PO Q4H PRN PRN Reason: Pain MILD(1-3)/Fever >100.5/[place] Enoxaparin Sodium (Lovenox) 40 mg SUB-Q QDAY@1000 [facility] Last Admin: 05/10/18 10:46 Dose: 40 mg Furosemide (Lasix) 40 mg IV BID [facility] Last Admin: 05/10/18 10:46 Dose: 40 mg Labetalol HCl (Normodyne) 300 mg PO Q8HR [facility] Last Admin: 05/10/18 14:11 Dose: 300 mg Lisinopril (Zestril) 20 mg PO BID [facility] Ondansetron HCl (Zofran) 4 mg IV Q8H PRN PRN Reason: Nausea And Vomiting Sodium Chloride (Sodium Chloride Flush Syringe 10 Ml) 10 ml IV BID [facility] Last Admin: 05/10/18 10:47 Dose: 10 ml Sodium Chloride (Sodium Chloride Flush Syringe 10 Ml) 10 ml IV PRN PRN PRN Reason: LINE FLUSH Review of Systems All systems: negative (see HPI) Exam - Constitutional Vitals: Temp Pulse Resp BP Pulse Ox 99 F 64 24 131/72 92 05/09/18 22:46 05/10/18 17:31 05/10/18 17:31 05/10/18 17:31 05/10/18 17:31 General appearance: Present: no acute distress - EENT Eyes: Present: EOM intact ENT: hearing intact - Respiratory Respiratory effort: normal, other (5L NC) - Extremities Extremities: normal temperature, normal color - Abdominal General gastrointestinal: Present: non-tender - Psychiatric Psychiatric: appropriate mood/affect, cooperative Results - Labs CBC & Chem 7: 05/10/18 03:45 05/10/18 03:45 Labs: Abnormal lab results 05/09/18 05/09/18 05/09/18 Range/Units 23:22 23:22 23:22 RBC 5.37 H (3.65-5.03) M/mm3 Hgb 15.8 H (11.8-15.2) gm/dl Hct 48.4 H (35.5-45.6) % RDW (13.2-15.2) % [place] % (Auto) (0.0-7.3) % Seg Neutrophils % (40.0-70.0) % Lymphocytes % (Manual) 11.0 L (13.4-35.0) % Monocytes % (Manual) 12.0 H (0.0-7.3) % Nucleated RBC % 1.0 H (0.0-0.9) % Lymphocytes # (Manual) 0.9 L (1.2-5.4) K/mm3 Monocytes # (Manual) 1.0 H (0.0-0.8) K/mm3 POC ABG pH (7.35-7.45) POC ABG pCO2 (35-45) POC ABG pO2 (80-105) Chloride 94.3 L (98-107) mmol/L Carbon Dioxide 39 H (22-30) mmol/L BUN 24 H (9-20) mg/dL Glucose (75-100) mg/dL Calcium (8.4-10.2) mg/dL Total Creatine Kinase (55-170) units/L CK-MB (CK-2) (0.0-4.0) ng/mL NT-Pro-B Natriuret Pep 2554 H (0-450) pg/mL 05/10/18 05/10/18 05/10/18 Range/Units 02:40 03:45 03:45 RBC 5.41 H (3.65-5.03) M/mm3 Hgb 15.6 H (11.8-15.2) gm/dl Hct 48.8 H (35.5-45.6) % RDW 15.4 H (13.2-15.2) % [place] % (Auto) 8.1 H (0.0-7.3) % Seg Neutrophils % 74.2 H (40.0-70.0) % Lymphocytes % (Manual) (13.4-35.0) % Monocytes % (Manual) (0.0-7.3) % Nucleated RBC % (0.0-0.9) % Lymphocytes # (Manual) (1.2-5.4) K/mm3 Monocytes # (Manual) (0.0-0.8) K/mm3 POC ABG pH 7.315 L (7.35-7.45) POC ABG pCO2 72.0 H (35-45) POC ABG pO2 64 L (80-105) Chloride 97.0 L (98-107) mmol/L Carbon Dioxide 33 H (22-30) mmol/L BUN 24 H (9-20) mg/dL Glucose 111 H (75-100) mg/dL Calcium 8.2 L (8.4-10.2) mg/dL Total Creatine Kinase (55-170) units/L CK-MB (CK-2) (0.0-4.0) ng/mL NT-Pro-B Natriuret Pep (0-450) pg/mL 05/10/18 05/10/18 Range/Units 03:57 09:12 RBC (3.65-5.03) M/mm3 Hgb (11.8-15.2) gm/dl Hct (35.5-45.6) % RDW (13.2-15.2) % [place] % (Auto) (0.0-7.3) % Seg Neutrophils % (40.0-70.0) % Lymphocytes % (Manual) (13.4-35.0) % Monocytes % (Manual) (0.0-7.3) % Nucleated RBC % (0.0-0.9) % Lymphocytes # (Manual) (1.2-5.4) K/mm3 Monocytes # (Manual) (0.0-0.8) K/mm3 POC ABG pH (7.35-7.45) POC ABG pCO2 (35-45) POC ABG pO2 (80-105) Chloride (98-107) mmol/L Carbon Dioxide (22-30) mmol/L BUN (9-20) mg/dL Glucose (75-100) mg/dL Calcium (8.4-10.2) mg/dL Total Creatine Kinase 635 H 487 H (55-170) units/L CK-MB (CK-2) 6.5 H 5.5 H (0.0-4.0) ng/mL NT-Pro-B Natriuret Pep (0-450) pg/mL - Imaging and Cardiology CT scan - abdomen: report reviewed, image reviewed CT scan - chest: report reviewed, image reviewed Assessment and Plan 27-year-old male with type B dissection who presents with shortness of breath with exertion for the last 2 weeks who presented. Patient also presents with a hypertensive urgency likely secondary to patient self adjusting his blood pressure medications. CT demonstrates stable type B dissection with involvement of his visceral vessels. Initially placed on IV labetalol which has controlled his blood pressure and heart rate. Optimally, systolic blood pressure should be below 130 or 120, and heart rate should be below 60. No acute surgical interventions required. Patient will require outpatient follow-up with his outside vascular provider. I discussed with him that if he continues to adjust his blood pressure medications, he is at high risk for mobility and mortality. Explain the importance of maintaining his blood pressure and heart rate.
[2018-05-10] MEDS: ZESTRIL PO SCH (21:01)
[2018-05-11] MEDS ORDERED: MORPHINE IV PRN (03:40)
[2018-05-11 05:40] LABS: Hematocrit 49.4 % (35.5-45.6); Hemoglobin 15.6 gm/dl (11.8-15.2); Mean Corpuscular HGB Conc 32 % (32-34); Mean Corpuscular Hemoglobin 29 pg (28-32); Mean Corpuscular Volume 91 fl (84-94); Platelet Count 256 K/mm3 (140-440); Red Blood Count 5.42 M/mm3 (3.65-5.03); Red Cell Distribution Width 15.9 % (13.2-15.2)
[2018-05-11 06:09] LABS: BUN/Creatinine Ratio 17; Blood Urea Nitrogen 27 mg/dL (9-20); Calcium 8.3 mg/dL (8.4-10.2); Hemolysis Index 32
[2018-05-11] MEDS: NORMODYNE PO SCH ×3 (06:32→23:03)
--- NOTE | 2018-05-11 09:13 | Progress Note ---
Assessment and Plan Assessment and plan: Acute respiratory failure. Admitted in ICU Was on BIPAP yesterday, now on Oxygen by [place] Pulmonology following Acute on chronic CHF. Echo done, report pending Hypertensive emergency. Now on Labetalol, Lisinopril sleep apnea. CPAP Type B Aortic dissection Morbid Obesity Full code status Discussed with case management about assisting him obtain CPAP machine History Interval history: Feels much better, less shortness of breath Hospitalist Physical - Constitutional Vitals: Temp Pulse Resp BP Pulse Ox 98.5 F 60 22 116/62 93 05/11/18 03:37 05/11/18 07:01 05/11/18 07:01 05/11/18 07:01 05/11/18 08:40 General appearance: Present: no acute distress, obese (morbidly obese) - EENT Eyes: Present: PERRL ENT: hearing intact - Neck Neck: Present: supple - Respiratory Respiratory: bilateral: diminished, rales, rhonchi - Cardiovascular Rhythm: regular Heart Sounds: Present: S1 & S2 (S1 and s2 reg, no murmurs,rubs or gallop) - Abdominal General gastrointestinal: soft, non-tender, non-distended, normal bowel sounds - Psychiatric Psychiatric: appropriate mood/affect, intact judgment & insight - Neurologic Neurologic: moves all extremities, other (AAO x 3) Results - Labs CBC & Chem 7: 05/11/18 05:20 05/11/18 05:20 Labs: Laboratory Last Values WBC 6.6 K/mm3 (4.5-11.0) 05/11/18 05:20 RBC 5.42 M/mm3 (3.65-5.03) H 05/11/18 05:20 Hgb 15.6 gm/dl (11.8-15.2) H 05/11/18 05:20 Hct 49.4 % (35.5-45.6) H 05/11/18 05:20 MCV 91 fl (84-94) 05/11/18 05:20 MCH 29 pg (28-32) 05/11/18 05:20 MCHC 32 % (32-34) 05/11/18 05:20 RDW 15.9 % (13.2-15.2) H 05/11/18 05:20 Plt Count 256 K/mm3 (140-440) 05/11/18 05:20 Lymph % (Auto) 16.3 % (13.4-35.0) 05/10/18 03:45 [place] % (Auto) 8.1 % (0.0-7.3) H 05/10/18 03:45 Eos % (Auto) 0.8 % (0.0-4.3) 05/10/18 03:45 Baso % (Auto) 0.6 % (0.0-1.8) 05/10/18 03:45 Lymph # 1.3 K/mm3 (1.2-5.4) 05/10/18 03:45 [place] # 0.6 K/mm3 (0.0-0.8) 05/10/18 03:45 Eos # 0.1 K/mm3 (0.0-0.4) 05/10/18 03:45 Baso # 0.0 K/mm3 (0.0-0.1) 05/10/18 03:45 Add Manual Diff Complete 05/09/18 23:22 Total Counted 100 05/09/18 23:22 Seg Neutrophils % 74.2 % (40.0-70.0) H 05/10/18 03:45 Seg Neuts % (Manual) 68.0 % (40.0-70.0) 05/09/18 23:22 Band Neutrophils % 9.0 % 05/09/18 23:22 Lymphocytes % (Manual) 11.0 % (13.4-35.0) L 05/09/18 23:22 Reactive Lymphs % (Man) 0 % 05/09/18 23:22 Monocytes % (Manual) 12.0 % (0.0-7.3) H 05/09/18 23:22 Eosinophils % (Manual) 0 % (0.0-4.3) 05/09/18 23:22 Basophils % (Manual) 0 % (0.0-1.8) 05/09/18 23:22 Metamyelocytes % 0 % 05/09/18 23:22 Myelocytes % 0 % 05/09/18 23:22 Promyelocytes % 0 % 05/09/18 23:22 Blast Cells % 0 % 05/09/18 23:22 Nucleated RBC % 1.0 % (0.0-0.9) H 05/09/18 23:22 Seg Neutrophils # 5.9 K/mm3 (1.8-7.7) 05/10/18 03:45 Seg Neutrophils # Man 5.8 K/mm3 (1.8-7.7) 05/09/18 23:22 Band Neutrophils # 0.8 K/mm3 05/09/18 23:22 Lymphocytes # (Manual) 0.9 K/mm3 (1.2-5.4) L 05/09/18 23:22 Abs React Lymphs (Man) 0.0 K/mm3 05/09/18 23:22 Monocytes # (Manual) 1.0 K/mm3 (0.0-0.8) H 05/09/18 23:22 Eosinophils # (Manual) 0.0 K/mm3 (0.0-0.4) 05/09/18 23:22 Basophils # (Manual) 0.0 K/mm3 (0.0-0.1) 05/09/18 23:22 Metamyelocytes # 0.0 K/mm3 05/09/18 23:22 Myelocytes # 0.0 K/mm3 05/09/18 23:22 Promyelocytes # 0.0 K/mm3 05/09/18 23:22 Blast Cells # 0.0 K/mm3 05/09/18 23:22 WBC Morphology Not Reportable 05/09/18 23:22 Hypersegmented Neuts Not Reportable 05/09/18 23:22 Hyposegmented Neuts Not Reportable 05/09/18 23:22 Hypogranular Neuts Not Reportable 05/09/18 23:22 Smudge Cells Not Reportable 05/09/18 23:22 Toxic Granulation Not Reportable 05/09/18 23:22 Toxic Vacuolation Not Reportable 05/09/18 23:22 Dohle Bodies Not Reportable 05/09/18 23:22 Pelger-Huet Anomaly Not Reportable 05/09/18 23:22 Carlito Rods Not Reportable 05/09/18 23:22 Platelet Estimate Consistent w auto 05/09/18 23:22 Clumped Platelets Not Reportable 05/09/18 23:22 Plt Clumps, EDTA Not Reportable 05/09/18 23:22 Large Platelets Not Reportable 05/09/18 23:22 Giant Platelets Not Reportable 05/09/18 23:22 Platelet Satelliting Not Reportable 05/09/18 23:22 Plt Morphology Comment Not Reportable 05/09/18 23:22 RBC Morphology Not Reportable 05/09/18 23:22 Dimorphic RBCs Not Reportable 05/09/18 23:22 Polychromasia 1+ 05/09/18 23:22 Hypochromasia Not Reportable 05/09/18 23:22 Poikilocytosis Not Reportable 05/09/18 23:22 Anisocytosis Not Reportable 05/09/18 23:22 Microcytosis Not Reportable 05/09/18 23:22 Macrocytosis Not Reportable 05/09/18 23:22 Spherocytes Not Reportable 05/09/18 23:22 Pappenheimer Bodies Not Reportable 05/09/18 23:22 Sickle Cells Not Reportable 05/09/18 23:22 Target Cells Not Reportable 05/09/18 23:22 Tear Drop Cells Not Reportable 05/09/18 23:22 Ovalocytes Not Reportable 05/09/18 23:22 Helmet Cells Not Reportable 05/09/18 23:22 [place] Bodies Not Reportable 05/09/18 23:22 [place] Rings Not Reportable 05/09/18 23:22 Ana Cells Not Reportable 05/09/18 23:22 Bite Cells Not Reportable 05/09/18 23:22 Crenated Cell Not Reportable 05/09/18 23:22 Elliptocytes Not Reportable 05/09/18 23:22 Acanthocytes (Spur) Not Reportable 05/09/18 23:22 Rouleaux Not Reportable 05/09/18 23:22 Hemoglobin C Crystals Not Reportable 05/09/18 23:22 Schistocytes Not Reportable 05/09/18 23:22 Malaria parasites Not Reportable 05/09/18 23:22 Nicolas Bodies Not Reportable 05/09/18 23:22 Hem Pathologist Commnt No 05/09/18 23:22 POC ABG pH 7.315 (7.35-7.45) L 05/10/18 02:40 POC ABG pCO2 72.0 (35-45) H 05/10/18 02:40 POC ABG pO2 64 (80-105) L 05/10/18 02:40 POC ABG HCO3 36.7 05/10/18 02:40 POC ABG Total CO2 39 05/10/18 02:40 POC ABG O2 Sat 89 05/10/18 02:40 POC ABG Base Excess 11 05/10/18 02:40 FiO2 36 % 05/10/18 02:40 Sodium 141 mmol/L (137-145) 05/11/18 05:20 Potassium 4.9 mmol/L (3.6-5.0) 05/11/18 05:20 Chloride 94.3 mmol/L (98-107) L 05/11/18 05:20 Carbon Dioxide 36 mmol/L (22-30) H 05/11/18 05:20 Anion Gap 16 mmol/L 05/11/18 05:20 BUN 27 mg/dL (9-20) H 05/11/18 05:20 Creatinine 1.6 mg/dL (0.8-1.5) H 05/11/18 05:20 Estimated GFR > 60 ml/min 05/11/18 05:20 BUN/Creatinine Ratio 17 % 05/11/18 05:20 Glucose 98 mg/dL (75-100) 05/11/18 05:20 Calcium 8.3 mg/dL (8.4-10.2) L 05/11/18 05:20 Total Creatine Kinase 487 units/L (55-170) H 05/10/18 09:12 CK-MB (CK-2) 5.5 ng/mL (0.0-4.0) H 05/10/18 09:12 CK-MB (CK-2) Rel Index 1.1 (0-4) 05/10/18 09:12 Troponin T < 0.010 ng/mL (0.00-0.029) 05/10/18 09:16 NT-Pro-B Natriuret Pep 2554 pg/mL (0-450) H 05/09/18 23:22 TSH 5.180 mlU/mL (0.270-4.200) H 05/10/18 17:50 Free T4 1.03 ng/dL (0.76-1.46) 05/10/18 17:50 Thyroxine (T4) 4.9 ug/dL (4.0-12.0) 05/10/18 17:50
--- NOTE | 2018-05-11 09:45 | Progress Note ---
Assessment and Plan Cont present cardiac regimen. Monitor renal indices. Await echo. TSH noted to be elevated and pt was taking synthroid at home - recommend continuation per primary. Currently stable cardiac status. Pt may tx out of CCU to telemetry from cardiology standpoint. The patient has been seen in conjunction with Dr. Mckee who agrees with the assessment and plan of care. - Patient Problems (1) Acute on chronic heart failure Current Visit: Yes Status: Acute (2) Hypertensive emergency Current Visit: Yes Status: Acute (3) Chronic thoracic aortic dissection Current Visit: Yes Status: Chronic (4) SHAWNA (acute kidney injury) Current Visit: Yes Status: Acute (5) Morbid obesity Current Visit: Yes Status: Chronic (6) PAUL (obstructive sleep apnea) Current Visit: Yes Status: Chronic (7) Hypothyroidism Current Visit: Yes Status: Chronic (8) Medical non-compliance Current Visit: Yes Status: Chronic Subjective Date of service: 05/11/18 Principal diagnosis: HF; chronic type B aortic dissection Interval history: Pt resting comfortably in bed, states he is feeling better. Objective Last Vital Signs Temp 98.5 F 05/11/18 03:37 Pulse 60 05/11/18 07:01 Resp 22 05/11/18 07:01 BP 116/62 05/11/18 07:01 Pulse Ox 93 05/11/18 08:40 - Physical Examination HEENT: Positive: EOMI, Normocephaly, Mucus Membranes Moist Neck: Positive: neck supple, trachea midline, JVD/HJR (elevated) Cardiac: Positive: Reg Rate and Rhythm, S1/S2 Lungs: Positive: Decreased Breath Sounds Neuro: Positive: Grossly Intact Abdomen: Positive: Soft, Active Bowel Sounds. Negative: Tender Skin: Positive: Other (venous stasis changes in both legs.) Musculoskeletal: Normal Range of Motion Extremities: Present: +2 Edema (pitting bilateral edema) - Labs and Meds Cardiac Enzymes 05/10/18 Range/Units 09:12 CK-MB (CK-2) 5.5 H (0.0-4.0) ng/mL CBC 05/11/18 Range/Units 05:20 WBC 6.6 (4.5-11.0) K/mm3 RBC 5.42 H (3.65-5.03) M/mm3 Hgb 15.6 H (11.8-15.2) gm/dl Hct 49.4 H (35.5-45.6) % Plt Count 256 (140-440) K/mm3 Comprehensive Metabolic Panel 05/11/18 Range/Units 05:20 Sodium 141 (137-145) mmol/L Potassium 4.9 (3.6-5.0) mmol/L Chloride 94.3 L (98-107) mmol/L Carbon Dioxide 36 H (22-30) mmol/L BUN 27 H (9-20) mg/dL Creatinine 1.6 H (0.8-1.5) mg/dL Glucose 98 (75-100) mg/dL Calcium 8.3 L (8.4-10.2) mg/dL - Imaging and Cardiology EKG: report reviewed, image reviewed Echo: pending - Telemetry EKG Rhythm: Sinus Rhythm - EKG Sinus rhythms and dysrhythmias: sinus rhythm AV and intraventricular conduction: right bundle branch block
[2018-05-11] MEDS: ZESTRIL PO SCH ×2 (10:04→23:04)
[2018-05-11] MEDS: SODIUM CHLORIDE FLUSH SYRINGE 10 ML IV SCH ×2 (10:04→23:04)
[2018-05-11] MEDS: LOVENOX SUB-Q SCH (10:04)
[2018-05-11] MEDS: LASIX IV SCH ×2 (10:36→23:04)
--- NOTE | 2018-05-11 15:30 | Progress Note ---
Assessment and Plan Imp: 1. Accelerated HTN due to noncompliance 2. Type B Aortic dissection related to #1 3. Severe PAUL, noncompliant with CPAP x years 4. OHS 5. Morbid obesity 6. Polycythemia 2/2 #3 7. A/C respiratory failure, hypoxia and hypercapnea Rec: 1. Weight loss 2. BP control and adherence to meds; see vascular note 3. Diuretics as tolerated; f/u Echo 4. Optimally needs BIPAP at home for OHS, but CPAP QHS would be okay as well; he will need repeat sleep studies as an outpatient (initial sleep studies were done in our office a few years ago and he refused therapy at that time) 5. Has home O2 6. Poor long-term prognosis due to medical noncompliance Plan of care reviewed w/ patient, he understands/agrees; no family present Subjective Date of service: 05/11/18 Principal diagnosis: HF; chronic type B aortic dissection Interval history: No events. Awake, alert. On NC. SOB better. No new complaints. Active Medications Acetaminophen (Tylenol) 650 mg PO Q4H PRN PRN Reason: Pain MILD(1-3)/Fever >100.5/[place] Enoxaparin Sodium (Lovenox) 40 mg SUB-Q QDAY@1000 [facility] Last Admin: 05/11/18 10:04 Dose: 40 mg Furosemide (Lasix) 40 mg IV BID [facility] Last Admin: 05/11/18 10:36 Dose: 40 mg Labetalol HCl (Normodyne) 300 mg PO Q8HR [facility] Last Admin: 05/11/18 13:34 Dose: 300 mg Lisinopril (Zestril) 20 mg PO BID [facility] Last Admin: 05/11/18 10:04 Dose: 20 mg Morphine Sulfate (Morphine) 2 mg IV Q4H PRN PRN Reason: Pain, Moderate (4-6) Last Admin: 05/11/18 03:55 Dose: 2 mg Ondansetron HCl (Zofran) 4 mg IV Q8H PRN PRN Reason: Nausea And Vomiting Sodium Chloride (Sodium Chloride Flush Syringe 10 Ml) 10 ml IV BID [facility] Last Admin: 05/11/18 10:04 Dose: 10 ml Sodium Chloride (Sodium Chloride Flush Syringe 10 Ml) 10 ml IV PRN PRN PRN Reason: LINE FLUSH Objective Vital Signs - 12hr 05/11/18 05/11/18 05/11/18 03:30 03:37 03:41 Temperature 98.5 F Pulse Rate 61 Pulse Rate [ From Monitor] Respiratory 21 13 Rate Blood Pressure 138/73 138/73 O2 Sat by Pulse 95 89 Oximetry 05/11/18 05/11/18 05/11/18 03:50 03:55 04:00 Temperature Pulse Rate 63 Pulse Rate [ 65 From Monitor] Respiratory 28 H 18 12 Rate Blood Pressure 122/80 O2 Sat by Pulse 95 95 Oximetry 05/11/18 05/11/18 05/11/18 04:01 04:11 04:21 Temperature Pulse Rate 65 60 58 L Pulse Rate [ From Monitor] Respiratory 21 11 L 14 Rate Blood Pressure 140/64 140/64 140/64 O2 Sat by Pulse 80 L 94 93 Oximetry 05/11/18 05/11/18 05/11/18 04:31 04:41 04:51 Temperature Pulse Rate 59 L 67 60 Pulse Rate [ From Monitor] Respiratory 15 13 12 Rate Blood Pressure 140/79 140/79 140/79 O2 Sat by Pulse 92 Oximetry 05/11/18 05/11/18 05/11/18 05:01 05:10 05:21 Temperature Pulse Rate 61 59 L 60 Pulse Rate [ From Monitor] Respiratory 16 13 20 Rate Blood Pressure 140/79 151/99 151/99 O2 Sat by Pulse 83 L 92 94 Oximetry 05/11/18 05/11/18 05/11/18 05:31 05:41 05:51 Temperature Pulse Rate 62 56 L 64 Pulse Rate [ From Monitor] Respiratory 21 21 25 H Rate Blood Pressure 135/82 135/82 135/82 O2 Sat by Pulse 82 L 66 L 84 Oximetry 05/11/18 05/11/18 05/11/18 06:01 06:11 06:21 Temperature Pulse Rate 66 67 64 Pulse Rate [ From Monitor] Respiratory 24 24 18 Rate Blood Pressure 153/72 153/72 153/72 O2 Sat by Pulse 76 L 72 L 87 Oximetry 05/11/18 05/11/18 05/11/18 06:31 06:32 06:41 Temperature Pulse Rate 63 66 62 Pulse Rate [ From Monitor] Respiratory 18 15 Rate Blood Pressure 144/66 144/66 144/66 O2 Sat by Pulse 87 93 Oximetry 05/11/18 05/11/18 05/11/18 06:51 07:01 07:11 Temperature Pulse Rate 60 60 61 Pulse Rate [ From Monitor] Respiratory 23 22 14 Rate Blood Pressure 144/66 116/62 116/62 O2 Sat by Pulse 88 40 L 92 Oximetry 05/11/18 05/11/18 05/11/18 07:21 07:31 07:41 Temperature Pulse Rate 63 63 55 L Pulse Rate [ From Monitor] Respiratory 11 L 16 19 Rate Blood Pressure 116/62 123/70 123/70 O2 Sat by Pulse 94 93 95 Oximetry 05/11/18 05/11/18 05/11/18 07:51 08:00 08:01 Temperature 98.8 F Pulse Rate 62 59 L Pulse Rate [ 67 From Monitor] Respiratory 15 15 16 Rate Blood Pressure 123/70 126/69 O2 Sat by Pulse 94 88 95 Oximetry 05/11/18 05/11/18 05/11/18 08:11 08:21 08:31 Temperature Pulse Rate 63 58 L 62 Pulse Rate [ From Monitor] Respiratory 11 L 11 L 18 Rate Blood Pressure 126/69 126/69 173/104 O2 Sat by Pulse 91 95 95 Oximetry 05/11/18 05/11/18 05/11/18 08:40 08:41 08:51 Temperature Pulse Rate 61 66 Pulse Rate [ From Monitor] Respiratory 9 L 11 L Rate Blood Pressure 173/104 173/104 O2 Sat by Pulse 93 93 93 Oximetry 05/11/18 05/11/18 05/11/18 09:00 09:11 09:21 Temperature Pulse Rate 63 64 59 L Pulse Rate [ From Monitor] Respiratory 16 29 H 10 L Rate Blood Pressure 173/104 106/86 106/86 O2 Sat by Pulse 90 89 89 Oximetry 05/11/18 05/11/18 05/11/18 09:30 09:41 09:51 Temperature Pulse Rate 64 65 66 Pulse Rate [ From Monitor] Respiratory 11 L 15 21 Rate Blood Pressure 109/76 109/76 109/76 O2 Sat by Pulse 92 91 91 Oximetry 05/11/18 05/11/18 05/11/18 10:00 10:01 10:11 Temperature Pulse Rate 60 68 65 Pulse Rate [ From Monitor] Respiratory 17 19 Rate Blood Pressure 109/76 155/77 O2 Sat by Pulse 92 92 Oximetry 05/11/18 05/11/18 05/11/18 10:21 10:31 10:41 Temperature Pulse Rate 61 57 L 67 Pulse Rate [ From Monitor] Respiratory 13 20 14 Rate Blood Pressure 155/77 137/74 137/74 O2 Sat by Pulse 91 82 L 80 L Oximetry 05/11/18 05/11/18 05/11/18 10:51 11:00 11:11 Temperature Pulse Rate 70 65 68 Pulse Rate [ From Monitor] Respiratory 12 16 18 Rate Blood Pressure 137/74 140/78 140/78 O2 Sat by Pulse 76 L 93 89 Oximetry 05/11/18 05/11/18 05/11/18 11:21 11:30 11:41 Temperature Pulse Rate 61 52 L 61 Pulse Rate [ From Monitor] Respiratory 11 L 13 16 Rate Blood Pressure 140/78 149/86 149/86 O2 Sat by Pulse 91 66 L 94 Oximetry 05/11/18 05/11/18 05/11/18 11:50 11:51 12:00 Temperature 97.4 F L Pulse Rate 57 L 60 59 L Pulse Rate [ 65 From Monitor] Respiratory 20 14 25 H Rate Blood Pressure 149/86 149/86 133/73 O2 Sat by Pulse 96 98 88 Oximetry 05/11/18 05/11/18 05/11/18 12:11 12:21 12:30 Temperature Pulse Rate 55 L 55 L 62 Pulse Rate [ From Monitor] Respiratory 20 25 H 14 Rate Blood Pressure 133/73 133/73 130/76 O2 Sat by Pulse 97 98 97 Oximetry 05/11/18 05/11/18 05/11/18 12:41 12:51 13:00 Temperature Pulse Rate 57 L 66 65 Pulse Rate [ From Monitor] Respiratory 20 22 22 Rate Blood Pressure 133/73 133/73 132/75 O2 Sat by Pulse 94 87 87 Oximetry 05/11/18 05/11/18 05/11/18 13:11 13:21 13:30 Temperature Pulse Rate 66 67 69 Pulse Rate [ From Monitor] Respiratory 19 24 16 Rate Blood Pressure 130/76 130/76 139/112 O2 Sat by Pulse 86 87 91 Oximetry 05/11/18 05/11/18 05/11/18 13:34 13:41 13:50 Temperature Pulse Rate 70 65 66 Pulse Rate [ From Monitor] Respiratory 13 12 Rate Blood Pressure 139/112 139/112 139/112 O2 Sat by Pulse 93 Oximetry Constitutional: no acute distress, alert, other (morbidly obese) Eyes: non-icteric ENT: oropharynx moist Neck: supple, no lymphadenopathy, other (large in circumference) Effort: normal Ascultation: Bilateral: diminished breath sounds Tactile fremitus: Bilateral: diminished (secondary to body habitus) Cardiovascular: regular rate and rhythm Gastrointestinal: normoactive bowel sounds, soft Integumentary: other (chronic venous stasis dermatitis changes lower extremities ) Extremities: no cyanosis, anasarca Neurologic: normal mental status, non-focal exam, pupils equal and round Psychiatric: mood appropriate, affect normal CBC and BMP: 05/11/18 05:20 05/11/18 05:20 ABG, PT/INR, D-dimer: ABG POC ABG pH 7.315 (7.35-7.45) L 05/10/18 02:40 POC ABG pCO2 72.0 (35-45) H 05/10/18 02:40 POC ABG pO2 64 (80-105) L 05/10/18 02:40 POC ABG HCO3 36.7 05/10/18 02:40 POC ABG Total CO2 39 05/10/18 02:40 POC ABG O2 Sat 89 05/10/18 02:40 Abnormal lab findings: Abnormal Labs 05/09/18 05/09/18 05/09/18 23:22 23:22 23:22 RBC 5.37 H Hgb 15.8 H Hct 48.4 H RDW [place] % (Auto) Seg Neutrophils % Lymphocytes % (Manual) 11.0 L Monocytes % (Manual) 12.0 H Nucleated RBC % 1.0 H Lymphocytes # (Manual) 0.9 L Monocytes # (Manual) 1.0 H POC ABG pH POC ABG pCO2 POC ABG pO2 Chloride 94.3 L Carbon Dioxide 39 H BUN 24 H Creatinine Glucose Calcium Total Creatine Kinase CK-MB (CK-2) NT-Pro-B Natriuret Pep 2554 H TSH 05/10/18 05/10/18 05/10/18 02:40 03:45 03:45 RBC 5.41 H Hgb 15.6 H Hct 48.8 H RDW 15.4 H [place] % (Auto) 8.1 H Seg Neutrophils % 74.2 H Lymphocytes % (Manual) Monocytes % (Manual) Nucleated RBC % Lymphocytes # (Manual) Monocytes # (Manual) POC ABG pH 7.315 L POC ABG pCO2 72.0 H POC ABG pO2 64 L Chloride 97.0 L Carbon Dioxide 33 H BUN 24 H Creatinine Glucose 111 H Calcium 8.2 L Total Creatine Kinase CK-MB (CK-2) NT-Pro-B Natriuret Pep TSH 05/10/18 05/10/18 05/10/18 03:57 09:12 17:50 RBC Hgb Hct RDW [place] % (Auto) Seg Neutrophils % Lymphocytes % (Manual) Monocytes % (Manual) Nucleated RBC % Lymphocytes # (Manual) Monocytes # (Manual) POC ABG pH POC ABG pCO2 POC ABG pO2 Chloride Carbon Dioxide BUN Creatinine Glucose Calcium Total Creatine Kinase 635 H 487 H CK-MB (CK-2) 6.5 H 5.5 H NT-Pro-B Natriuret Pep TSH 5.180 H 05/11/18 05/11/18 05:20 05:20 RBC 5.42 H Hgb 15.6 H Hct 49.4 H RDW 15.9 H [place] % (Auto) Seg Neutrophils % Lymphocytes % (Manual) Monocytes % (Manual) Nucleated RBC % Lymphocytes # (Manual) Monocytes # (Manual) POC ABG pH POC ABG pCO2 POC ABG pO2 Chloride 94.3 L Carbon Dioxide 36 H BUN 27 H Creatinine 1.6 H Glucose Calcium 8.3 L Total Creatine Kinase CK-MB (CK-2) NT-Pro-B Natriuret Pep TSH Chest x-ray: report reviewed, image reviewed CT scan - chest: report reviewed, image reviewed
[2018-05-11] MEDS ORDERED: LEVOTHYROXINE 50 MCG PO SCH (18:15)
[2018-05-11] MEDS ORDERED: ISOSORBIDE DINITRATE 10 MG PO SCH (22:00)
[2018-05-11] MEDS: ISORDIL TITRADOSE PO SCH (23:02)
[2018-05-12] MEDS: NORMODYNE PO SCH ×3 (05:49→21:37)
[2018-05-12] MEDS: SYNTHROID PO SCH (05:49)
[2018-05-12 06:20] LABS: BUN/Creatinine Ratio 18; Blood Urea Nitrogen 28 mg/dL (9-20); Calcium 8.1 mg/dL (8.4-10.2); Hemolysis Index 17
[2018-05-12] MEDS: ISORDIL TITRADOSE PO SCH ×4 (09:47→21:38)
[2018-05-12] MEDS: LASIX IV SCH ×2 (09:47→21:39)
[2018-05-12] MEDS: SODIUM CHLORIDE FLUSH SYRINGE 10 ML IV SCH ×2 (09:48→21:39)
[2018-05-12] MEDS: LOVENOX SUB-Q SCH (09:48)
[2018-05-12] MEDS: ZESTRIL PO SCH ×2 (09:49→21:38)
--- NOTE | 2018-05-12 12:56 | Progress Note ---
Assessment and Plan Cont present cardiac regimen. Monitor renal indices. Will obtain serum Mg and cont beta tiffanie in setting of NSVT. Await echo. Synthroid resumed per primary. The patient has been seen in conjunction with Dr. Mckee who agrees with the assessment and plan of care. - Patient Problems (1) Acute on chronic heart failure Current Visit: Yes Status: Acute (2) Hypertensive emergency Current Visit: Yes Status: Acute (3) Chronic thoracic aortic dissection Current Visit: Yes Status: Chronic (4) SHAWNA (acute kidney injury) Current Visit: Yes Status: Acute (5) Morbid obesity Current Visit: Yes Status: Chronic (6) PAUL (obstructive sleep apnea) Current Visit: Yes Status: Chronic (7) Hypothyroidism Current Visit: Yes Status: Chronic (8) NSVT (nonsustained ventricular tachycardia) Current Visit: Yes Status: Acute (9) Medical non-compliance Current Visit: Yes Status: Chronic Subjective Date of service: 05/12/18 Principal diagnosis: HF; chronic type B aortic dissection Interval history: Pt sitting at bedside, he is very sleep today and states he did not sleep well last night due to frequent interruptions. tele reviewed - pt in SR with 6 beat NSVT noted this AM, pt asymptomatic. Objective Last Vital Signs Temp 97.9 F 05/12/18 12:43 Pulse 61 05/12/18 12:43 Resp 18 05/12/18 12:43 BP 118/55 05/12/18 12:43 Pulse Ox 90 05/12/18 12:43 - Physical Examination General: No Apparent Distress HEENT: Positive: EOMI, Normocephaly, Mucus Membranes Moist Neck: Positive: neck supple, trachea midline, JVD/HJR (elevated) Cardiac: Positive: Reg Rate and Rhythm, S1/S2 Lungs: Positive: Decreased Breath Sounds Neuro: Positive: Grossly Intact Abdomen: Positive: Soft, Active Bowel Sounds. Negative: Tender Skin: Positive: Other (venous stasis changes in both legs.) Musculoskeletal: Normal Range of Motion Extremities: Present: +2 Edema (pitting bilateral edema) - Labs and Meds Comprehensive Metabolic Panel 05/12/18 Range/Units 04:38 Sodium 138 (137-145) mmol/L Potassium 4.5 (3.6-5.0) mmol/L Chloride 95.2 L (98-107) mmol/L Carbon Dioxide 34 H (22-30) mmol/L BUN 28 H (9-20) mg/dL Creatinine 1.6 H (0.8-1.5) mg/dL Glucose 83 (75-100) mg/dL Calcium 8.1 L (8.4-10.2) mg/dL - Imaging and Cardiology EKG: report reviewed, image reviewed Echo: pending - EKG Sinus rhythms and dysrhythmias: sinus rhythm AV and intraventricular conduction: right bundle branch block
--- NOTE | 2018-05-12 13:18 | Progress Note ---
Assessment and Plan Assessment and plan: Acute respiratory failure. Continue BIPAP as clinically indicated, now on Oxygen by NC. Optimally needs BIPAP at home for OHS, Pulmonology following Acute on chronic CHF. Echo done, report pending Accelerated hypertension. Continue Labetalol, Lisinopril sleep apnea. CPAP Type B Aortic dissection Morbid Obesity. Patient has been counseled on weight loss and lifestyle modifications. Full code status Disposition/discharge planning. We will Discuss with case management about assisting him in obtaining a CPAP last BiPAP machine History Interval history: No new issues overnight. Hospitalist Physical - Constitutional Vitals: Temp Pulse Resp BP Pulse Ox 97.9 F 61 18 118/55 90 05/12/18 12:43 05/12/18 12:43 05/12/18 12:43 05/12/18 12:43 05/12/18 12:43 General appearance: Present: no acute distress, obese (morbidly obese) - EENT Eyes: Present: PERRL, EOM intact ENT: hearing intact, clear oral mucosa, dentition normal - Neck Neck: Present: supple, normal ROM - Respiratory Respiratory effort: normal Respiratory: bilateral: CTA - Cardiovascular Rhythm: regular Heart Sounds: Present: S1 & S2. Absent: gallop, rub - Extremities Extremities: no ischemia, No edema, Full ROM - Abdominal General gastrointestinal: soft, non-tender, non-distended, normal bowel sounds - Integumentary Integumentary: Present: clear, warm, dry - Neurologic Neurologic: CNII-XII intact, moves all extremities Results - Labs CBC & Chem 7: 05/11/18 05:20 05/12/18 04:38 Labs: Laboratory Last Values WBC 6.6 K/mm3 (4.5-11.0) 05/11/18 05:20 RBC 5.42 M/mm3 (3.65-5.03) H 05/11/18 05:20 Hgb 15.6 gm/dl (11.8-15.2) H 05/11/18 05:20 Hct 49.4 % (35.5-45.6) H 05/11/18 05:20 MCV 91 fl (84-94) 05/11/18 05:20 MCH 29 pg (28-32) 05/11/18 05:20 MCHC 32 % (32-34) 05/11/18 05:20 RDW 15.9 % (13.2-15.2) H 05/11/18 05:20 Plt Count 256 K/mm3 (140-440) 05/11/18 05:20 Lymph % (Auto) 16.3 % (13.4-35.0) 05/10/18 03:45 [place] % (Auto) 8.1 % (0.0-7.3) H 05/10/18 03:45 Eos % (Auto) 0.8 % (0.0-4.3) 05/10/18 03:45 Baso % (Auto) 0.6 % (0.0-1.8) 05/10/18 03:45 Lymph # 1.3 K/mm3 (1.2-5.4) 05/10/18 03:45 [place] # 0.6 K/mm3 (0.0-0.8) 05/10/18 03:45 Eos # 0.1 K/mm3 (0.0-0.4) 05/10/18 03:45 Baso # 0.0 K/mm3 (0.0-0.1) 05/10/18 03:45 Add Manual Diff Complete 05/09/18 23:22 Total Counted 100 05/09/18 23:22 Seg Neutrophils % 74.2 % (40.0-70.0) H 05/10/18 03:45 Seg Neuts % (Manual) 68.0 % (40.0-70.0) 05/09/18 23:22 Band Neutrophils % 9.0 % 05/09/18 23:22 Lymphocytes % (Manual) 11.0 % (13.4-35.0) L 05/09/18 23:22 Reactive Lymphs % (Man) 0 % 05/09/18 23:22 Monocytes % (Manual) 12.0 % (0.0-7.3) H 05/09/18 23:22 Eosinophils % (Manual) 0 % (0.0-4.3) 05/09/18 23:22 Basophils % (Manual) 0 % (0.0-1.8) 05/09/18 23:22 Metamyelocytes % 0 % 05/09/18 23:22 Myelocytes % 0 % 05/09/18 23:22 Promyelocytes % 0 % 05/09/18 23:22 Blast Cells % 0 % 05/09/18 23:22 Nucleated RBC % 1.0 % (0.0-0.9) H 05/09/18 23:22 Seg Neutrophils # 5.9 K/mm3 (1.8-7.7) 05/10/18 03:45 Seg Neutrophils # Man 5.8 K/mm3 (1.8-7.7) 05/09/18 23:22 Band Neutrophils # 0.8 K/mm3 05/09/18 23:22 Lymphocytes # (Manual) 0.9 K/mm3 (1.2-5.4) L 05/09/18 23:22 Abs React Lymphs (Man) 0.0 K/mm3 05/09/18 23:22 Monocytes # (Manual) 1.0 K/mm3 (0.0-0.8) H 05/09/18 23:22 Eosinophils # (Manual) 0.0 K/mm3 (0.0-0.4) 05/09/18 23:22 Basophils # (Manual) 0.0 K/mm3 (0.0-0.1) 05/09/18 23:22 Metamyelocytes # 0.0 K/mm3 05/09/18 23:22 Myelocytes # 0.0 K/mm3 05/09/18 23:22 Promyelocytes # 0.0 K/mm3 05/09/18 23:22 Blast Cells # 0.0 K/mm3 05/09/18 23:22 WBC Morphology Not Reportable 05/09/18 23:22 Hypersegmented Neuts Not Reportable 05/09/18 23:22 Hyposegmented Neuts Not Reportable 05/09/18 23:22 Hypogranular Neuts Not Reportable 05/09/18 23:22 Smudge Cells Not Reportable 05/09/18 23:22 Toxic Granulation Not Reportable 05/09/18 23:22 Toxic Vacuolation Not Reportable 05/09/18 23:22 Dohle Bodies Not Reportable 05/09/18 23:22 Pelger-Huet Anomaly Not Reportable 05/09/18 23:22 Carlito Rods Not Reportable 05/09/18 23:22 Platelet Estimate Consistent w auto 05/09/18 23:22 Clumped Platelets Not Reportable 05/09/18 23:22 Plt Clumps, EDTA Not Reportable 05/09/18 23:22 Large Platelets Not Reportable 05/09/18 23:22 Giant Platelets Not Reportable 05/09/18 23:22 Platelet Satelliting Not Reportable 05/09/18 23:22 Plt Morphology Comment Not Reportable 05/09/18 23:22 RBC Morphology Not Reportable 05/09/18 23:22 Dimorphic RBCs Not Reportable 05/09/18 23:22 Polychromasia 1+ 05/09/18 23:22 Hypochromasia Not Reportable 05/09/18 23:22 Poikilocytosis Not Reportable 05/09/18 23:22 Anisocytosis Not Reportable 05/09/18 23:22 Microcytosis Not Reportable 05/09/18 23:22 Macrocytosis Not Reportable 05/09/18 23:22 Spherocytes Not Reportable 05/09/18 23:22 Pappenheimer Bodies Not Reportable 05/09/18 23:22 Sickle Cells Not Reportable 05/09/18 23:22 Target Cells Not Reportable 05/09/18 23:22 Tear Drop Cells Not Reportable 05/09/18 23:22 Ovalocytes Not Reportable 05/09/18 23:22 Helmet Cells Not Reportable 05/09/18 23:22 [place] Bodies Not Reportable 05/09/18 23:22 [place] Rings Not Reportable 05/09/18 23:22 Ana Cells Not Reportable 05/09/18 23:22 Bite Cells Not Reportable 05/09/18 23:22 Crenated Cell Not Reportable 05/09/18 23:22 Elliptocytes Not Reportable 05/09/18 23:22 Acanthocytes (Spur) Not Reportable 05/09/18 23:22 Rouleaux Not Reportable 05/09/18 23:22 Hemoglobin C Crystals Not Reportable 05/09/18 23:22 Schistocytes Not Reportable 05/09/18 23:22 Malaria parasites Not Reportable 05/09/18 23:22 Nicolas Bodies Not Reportable 05/09/18 23:22 Hem Pathologist Commnt No 05/09/18 23:22 POC ABG pH 7.315 (7.35-7.45) L 05/10/18 02:40 POC ABG pCO2 72.0 (35-45) H 05/10/18 02:40 POC ABG pO2 64 (80-105) L 05/10/18 02:40 POC ABG HCO3 36.7 05/10/18 02:40 POC ABG Total CO2 39 05/10/18 02:40 POC ABG O2 Sat 89 05/10/18 02:40 POC ABG Base Excess 11 05/10/18 02:40 FiO2 36 % 05/10/18 02:40 Sodium 138 mmol/L (137-145) 05/12/18 04:38 Potassium 4.5 mmol/L (3.6-5.0) 05/12/18 04:38 Chloride 95.2 mmol/L (98-107) L 05/12/18 04:38 Carbon Dioxide 34 mmol/L (22-30) H 05/12/18 04:38 Anion Gap 13 mmol/L 05/12/18 04:38 BUN 28 mg/dL (9-20) H 05/12/18 04:38 Creatinine 1.6 mg/dL (0.8-1.5) H 05/12/18 04:38 Estimated GFR > 60 ml/min 05/12/18 04:38 BUN/Creatinine Ratio 18 % 05/12/18 04:38 Glucose 83 mg/dL (75-100) 05/12/18 04:38 Calcium 8.1 mg/dL (8.4-10.2) L 05/12/18 04:38 Total Creatine Kinase 487 units/L (55-170) H 05/10/18 09:12 CK-MB (CK-2) 5.5 ng/mL (0.0-4.0) H 05/10/18 09:12 CK-MB (CK-2) Rel Index 1.1 (0-4) 05/10/18 09:12 Troponin T < 0.010 ng/mL (0.00-0.029) 05/10/18 09:16 NT-Pro-B Natriuret Pep 2554 pg/mL (0-450) H 05/09/18 23:22 TSH 5.180 mlU/mL (0.270-4.200) H 05/10/18 17:50 Free T4 1.03 ng/dL (0.76-1.46) 05/10/18 17:50 Thyroxine (T4) 4.9 ug/dL (4.0-12.0) 05/10/18 17:50
--- NOTE | 2018-05-12 14:37 | Progress Note ---
Assessment and Plan Imp: 1. Accelerated HTN due to noncompliance 2. Type B Aortic dissection related to #1 3. Severe PAUL, noncompliant with CPAP x years 4. OHS 5. Morbid obesity 6. Polycythemia 2/2 #3 7. A/C respiratory failure, hypoxia and hypercapnea Rec: 1. Weight loss 2. BP control and adherence to meds; see vascular note 3. Diuretics as tolerated; f/u Echo 4. Optimally needs BIPAP at home for OHS, but CPAP QHS would be okay as well if insurance will cover; he will need repeat sleep studies as an outpatient either way (initial sleep studies were done in our office a few years ago and he refused therapy at that time) 5. Has home O2 6. Poor long-term prognosis due to medical noncompliance Plan of care reviewed w/ patient, he understands/agrees; no family present Subjective Date of service: 05/12/18 Principal diagnosis: HF; chronic type B aortic dissection Interval history: No events. Awake, alert. On NC. SOB better. No new complaints. Active Medications Acetaminophen (Tylenol) 650 mg PO Q4H PRN PRN Reason: Pain MILD(1-3)/Fever >100.5/[place] Enoxaparin Sodium (Lovenox) 40 mg SUB-Q QDAY@1000 [facility] Last Admin: 05/12/18 09:48 Dose: 40 mg Furosemide (Lasix) 40 mg IV BID [facility] Last Admin: 05/12/18 09:47 Dose: 40 mg Isosorbide Dinitrate (Isordil Titradose) 10 mg PO QID [facility] Last Admin: 05/12/18 14:32 Dose: 10 mg Labetalol HCl (Normodyne) 300 mg PO Q8HR [facility] Last Admin: 05/12/18 14:31 Dose: 300 mg Levothyroxine Sodium (Synthroid) 50 mcg PO DAILY@0600 [facility] Last Admin: 05/12/18 05:49 Dose: 50 mcg Lisinopril (Zestril) 20 mg PO BID [facility] Last Admin: 05/12/18 09:49 Dose: 20 mg Morphine Sulfate (Morphine) 2 mg IV Q4H PRN PRN Reason: Pain, Moderate (4-6) Last Admin: 05/11/18 03:55 Dose: 2 mg Ondansetron HCl (Zofran) 4 mg IV Q8H PRN PRN Reason: Nausea And Vomiting Sodium Chloride (Sodium Chloride Flush Syringe 10 Ml) 10 ml IV BID [facility] Last Admin: 05/12/18 09:48 Dose: 10 ml Sodium Chloride (Sodium Chloride Flush Syringe 10 Ml) 10 ml IV PRN PRN PRN Reason: LINE FLUSH Objective Vital Signs - 12hr 05/12/18 05/12/18 05/12/18 04:28 05:20 05:49 Temperature 97.5 F L Pulse Rate 62 62 Respiratory 22 Rate Blood Pressure 145/91 145/91 O2 Sat by Pulse 96 87 Oximetry 05/12/18 05/12/18 05/12/18 08:41 09:47 09:49 Temperature 98.6 F Pulse Rate 58 L 66 66 Respiratory 18 Rate Blood Pressure 130/71 130/70 130/70 O2 Sat by Pulse 90 Oximetry 05/12/18 05/12/18 05/12/18 10:00 12:43 14:31 Temperature 97.9 F Pulse Rate 69 61 61 Respiratory 18 Rate Blood Pressure 118/55 118/55 O2 Sat by Pulse 93 90 Oximetry 05/12/18 14:32 Temperature Pulse Rate 61 Respiratory Rate Blood Pressure 118/55 O2 Sat by Pulse Oximetry Constitutional: no acute distress, alert, other (morbidly obese) Eyes: non-icteric ENT: oropharynx moist Neck: supple, no lymphadenopathy, other (large in circumference) Effort: normal Ascultation: Bilateral: diminished breath sounds Percussion: Bilateral: not dull Tactile fremitus: Bilateral: diminished (secondary to body habitus) Cardiovascular: regular rate and rhythm Gastrointestinal: normoactive bowel sounds, soft Integumentary: other (chronic venous stasis dermatitis changes lower extremities ) Extremities: no cyanosis, anasarca Neurologic: normal mental status, non-focal exam, pupils equal and round Psychiatric: mood appropriate, affect normal CBC and BMP: 05/11/18 05:20 05/12/18 04:38 ABG, PT/INR, D-dimer: ABG POC ABG pH 7.315 (7.35-7.45) L 05/10/18 02:40 POC ABG pCO2 72.0 (35-45) H 05/10/18 02:40 POC ABG pO2 64 (80-105) L 05/10/18 02:40 POC ABG HCO3 36.7 05/10/18 02:40 POC ABG Total CO2 39 05/10/18 02:40 POC ABG O2 Sat 89 05/10/18 02:40 Abnormal lab findings: Abnormal Labs 05/09/18 05/09/18 05/09/18 23:22 23:22 23:22 RBC 5.37 H Hgb 15.8 H Hct 48.4 H RDW [place] % (Auto) Seg Neutrophils % Lymphocytes % (Manual) 11.0 L Monocytes % (Manual) 12.0 H Nucleated RBC % 1.0 H Lymphocytes # (Manual) 0.9 L Monocytes # (Manual) 1.0 H POC ABG pH POC ABG pCO2 POC ABG pO2 Chloride 94.3 L Carbon Dioxide 39 H BUN 24 H Creatinine Glucose Calcium Total Creatine Kinase CK-MB (CK-2) NT-Pro-B Natriuret Pep 2554 H TSH 05/10/18 05/10/18 05/10/18 02:40 03:45 03:45 RBC 5.41 H Hgb 15.6 H Hct 48.8 H RDW 15.4 H [place] % (Auto) 8.1 H Seg Neutrophils % 74.2 H Lymphocytes % (Manual) Monocytes % (Manual) Nucleated RBC % Lymphocytes # (Manual) Monocytes # (Manual) POC ABG pH 7.315 L POC ABG pCO2 72.0 H POC ABG pO2 64 L Chloride 97.0 L Carbon Dioxide 33 H BUN 24 H Creatinine Glucose 111 H Calcium 8.2 L Total Creatine Kinase CK-MB (CK-2) NT-Pro-B Natriuret Pep TSH 05/10/18 05/10/18 05/10/18 03:57 09:12 17:50 RBC Hgb Hct RDW [place] % (Auto) Seg Neutrophils % Lymphocytes % (Manual) Monocytes % (Manual) Nucleated RBC % Lymphocytes # (Manual) Monocytes # (Manual) POC ABG pH POC ABG pCO2 POC ABG pO2 Chloride Carbon Dioxide BUN Creatinine Glucose Calcium Total Creatine Kinase 635 H 487 H CK-MB (CK-2) 6.5 H 5.5 H NT-Pro-B Natriuret Pep TSH 5.180 H 05/11/18 05/11/18 05/12/18 05:20 05:20 04:38 RBC 5.42 H Hgb 15.6 H Hct 49.4 H RDW 15.9 H [place] % (Auto) Seg Neutrophils % Lymphocytes % (Manual) Monocytes % (Manual) Nucleated RBC % Lymphocytes # (Manual) Monocytes # (Manual) POC ABG pH POC ABG pCO2 POC ABG pO2 Chloride 94.3 L 95.2 L Carbon Dioxide 36 H 34 H BUN 27 H 28 H Creatinine 1.6 H 1.6 H Glucose Calcium 8.3 L 8.1 L Total Creatine Kinase CK-MB (CK-2) NT-Pro-B Natriuret Pep TSH Chest x-ray: report reviewed, image reviewed
[2018-05-13 06:16] LABS: Calcium 8.3 mg/dL (8.4-10.2)
[2018-05-13] MEDS: NORMODYNE PO SCH ×3 (06:16→21:32)
[2018-05-13] MEDS: SYNTHROID PO SCH (06:16)
[2018-05-13] MEDS: ZESTRIL PO SCH ×2 (09:11→21:31)
[2018-05-13] MEDS: SODIUM CHLORIDE FLUSH SYRINGE 10 ML IV SCH ×2 (09:12→21:32)
[2018-05-13] MEDS: LOVENOX SUB-Q SCH (09:12)
[2018-05-13] MEDS: ISORDIL TITRADOSE PO SCH ×4 (09:12→21:31)
[2018-05-13] MEDS: LASIX IV SCH ×2 (09:12→21:31)
--- NOTE | 2018-05-13 11:40 | Progress Note ---
Assessment and Plan Echo reviewed - EF 45-50%, impaired relaxation, RV mildly dilated, RV systolic function mod reduced. Cont present cardiac regimen. Possible d/c home tomorrow. The patient has been seen in conjunction with Dr. Mckee who agrees with the assessment and plan of care. - Patient Problems (1) Acute on chronic heart failure Current Visit: Yes Status: Acute (2) Hypertensive emergency Current Visit: Yes Status: Acute (3) Chronic thoracic aortic dissection Current Visit: Yes Status: Chronic (4) SHAWNA (acute kidney injury) Current Visit: Yes Status: Acute (5) Morbid obesity Current Visit: Yes Status: Chronic (6) PAUL (obstructive sleep apnea) Current Visit: Yes Status: Chronic (7) Hypothyroidism Current Visit: Yes Status: Chronic (8) NSVT (nonsustained ventricular tachycardia) Current Visit: Yes Status: Acute (9) Medical non-compliance Current Visit: Yes Status: Chronic Subjective Date of service: 05/13/18 Principal diagnosis: HF; chronic type B aortic dissection Interval history: Pt resting comfortably in bed, he states he is feeling quite well today. tele reviewed - pt in SR, no NSVT noted overnight. Objective Last Vital Signs Temp 98.3 F 05/13/18 07:56 Pulse 67 05/13/18 09:12 Resp 20 05/13/18 07:56 BP 124/59 05/13/18 09:12 Pulse Ox 92 05/13/18 07:56 - Physical Examination General: No Apparent Distress HEENT: Positive: EOMI, Normocephaly, Mucus Membranes Moist Neck: Positive: neck supple, trachea midline, JVD/HJR (elevated) Cardiac: Positive: Reg Rate and Rhythm, S1/S2 Lungs: Positive: Decreased Breath Sounds Neuro: Positive: Grossly Intact Abdomen: Positive: Soft, Active Bowel Sounds. Negative: Tender Skin: Positive: Other (venous stasis changes in both legs.) Musculoskeletal: Normal Range of Motion Extremities: Present: +2 Edema (pitting bilateral edema) - Labs and Meds Comprehensive Metabolic Panel 05/13/18 Range/Units 05:41 Sodium 140 (137-145) mmol/L Potassium 5.0 (3.6-5.0) mmol/L Chloride 95.0 L (98-107) mmol/L Carbon Dioxide 39 H (22-30) mmol/L BUN 24 H (9-20) mg/dL Creatinine 1.7 H (0.8-1.5) mg/dL Glucose 97 (75-100) mg/dL Calcium 8.3 L (8.4-10.2) mg/dL - Imaging and Cardiology EKG: report reviewed, image reviewed Echo: pending - EKG Sinus rhythms and dysrhythmias: sinus rhythm AV and intraventricular conduction: right bundle branch block
--- NOTE | 2018-05-13 13:07 | Progress Note ---
Assessment and Plan Assessment and plan: Acute respiratory failure. Continue BIPAP as clinically indicated, now on Oxygen by DC. Patient has home O2. Optimally needs BIPAP at home for OHS, awake his management follow-up. Pulmonology following Acute on chronic CHF. Echo done, report pending Accelerated hypertension. Continue Labetalol, Lisinopril sleep apnea. CPAP Type B Aortic dissection Morbid Obesity. Patient has been counseled on weight loss and lifestyle modifications. Full code status Disposition/discharge planning. We will Discuss with case management about assisting him in obtaining a CPAP last BiPAP machine History Interval history: No new issues overnight. Hospitalist Physical - Constitutional Vitals: Temp Pulse Resp BP Pulse Ox 97.6 F 73 22 125/74 96 05/13/18 11:51 05/13/18 13:02 05/13/18 11:51 05/13/18 13:02 05/13/18 11:51 General appearance: Present: no acute distress, obese (morbidly obese) - EENT Eyes: Present: PERRL, EOM intact ENT: hearing intact, clear oral mucosa, dentition normal - Neck Neck: Present: supple, normal ROM - Respiratory Respiratory effort: normal Respiratory: bilateral: CTA - Cardiovascular Rhythm: regular Heart Sounds: Present: S1 & S2. Absent: gallop, rub - Extremities Extremities: no ischemia, No edema, Full ROM - Abdominal General gastrointestinal: soft, non-tender, non-distended, normal bowel sounds - Integumentary Integumentary: Present: clear, warm, dry - Neurologic Neurologic: CNII-XII intact, moves all extremities Results - Labs CBC & Chem 7: 05/11/18 05:20 05/13/18 05:41 Labs: Laboratory Last Values WBC 6.6 K/mm3 (4.5-11.0) 05/11/18 05:20 RBC 5.42 M/mm3 (3.65-5.03) H 05/11/18 05:20 Hgb 15.6 gm/dl (11.8-15.2) H 05/11/18 05:20 Hct 49.4 % (35.5-45.6) H 05/11/18 05:20 MCV 91 fl (84-94) 05/11/18 05:20 MCH 29 pg (28-32) 05/11/18 05:20 MCHC 32 % (32-34) 05/11/18 05:20 RDW 15.9 % (13.2-15.2) H 05/11/18 05:20 Plt Count 256 K/mm3 (140-440) 05/11/18 05:20 Lymph % (Auto) 16.3 % (13.4-35.0) 05/10/18 03:45 [place] % (Auto) 8.1 % (0.0-7.3) H 05/10/18 03:45 Eos % (Auto) 0.8 % (0.0-4.3) 05/10/18 03:45 Baso % (Auto) 0.6 % (0.0-1.8) 05/10/18 03:45 Lymph # 1.3 K/mm3 (1.2-5.4) 05/10/18 03:45 [place] # 0.6 K/mm3 (0.0-0.8) 05/10/18 03:45 Eos # 0.1 K/mm3 (0.0-0.4) 05/10/18 03:45 Baso # 0.0 K/mm3 (0.0-0.1) 05/10/18 03:45 Add Manual Diff Complete 05/09/18 23:22 Total Counted 100 05/09/18 23:22 Seg Neutrophils % 74.2 % (40.0-70.0) H 05/10/18 03:45 Seg Neuts % (Manual) 68.0 % (40.0-70.0) 05/09/18 23:22 Band Neutrophils % 9.0 % 05/09/18 23:22 Lymphocytes % (Manual) 11.0 % (13.4-35.0) L 05/09/18 23:22 Reactive Lymphs % (Man) 0 % 05/09/18 23:22 Monocytes % (Manual) 12.0 % (0.0-7.3) H 05/09/18 23:22 Eosinophils % (Manual) 0 % (0.0-4.3) 05/09/18 23:22 Basophils % (Manual) 0 % (0.0-1.8) 05/09/18 23:22 Metamyelocytes % 0 % 05/09/18 23:22 Myelocytes % 0 % 05/09/18 23:22 Promyelocytes % 0 % 05/09/18 23:22 Blast Cells % 0 % 05/09/18 23:22 Nucleated RBC % 1.0 % (0.0-0.9) H 05/09/18 23:22 Seg Neutrophils # 5.9 K/mm3 (1.8-7.7) 05/10/18 03:45 Seg Neutrophils # Man 5.8 K/mm3 (1.8-7.7) 05/09/18 23:22 Band Neutrophils # 0.8 K/mm3 05/09/18 23:22 Lymphocytes # (Manual) 0.9 K/mm3 (1.2-5.4) L 05/09/18 23:22 Abs React Lymphs (Man) 0.0 K/mm3 05/09/18 23:22 Monocytes # (Manual) 1.0 K/mm3 (0.0-0.8) H 05/09/18 23:22 Eosinophils # (Manual) 0.0 K/mm3 (0.0-0.4) 05/09/18 23:22 Basophils # (Manual) 0.0 K/mm3 (0.0-0.1) 05/09/18 23:22 Metamyelocytes # 0.0 K/mm3 05/09/18 23:22 Myelocytes # 0.0 K/mm3 05/09/18 23:22 Promyelocytes # 0.0 K/mm3 05/09/18 23:22 Blast Cells # 0.0 K/mm3 05/09/18 23:22 WBC Morphology Not Reportable 05/09/18 23:22 Hypersegmented Neuts Not Reportable 05/09/18 23:22 Hyposegmented Neuts Not Reportable 05/09/18 23:22 Hypogranular Neuts Not Reportable 05/09/18 23:22 Smudge Cells Not Reportable 05/09/18 23:22 Toxic Granulation Not Reportable 05/09/18 23:22 Toxic Vacuolation Not Reportable 05/09/18 23:22 Dohle Bodies Not Reportable 05/09/18 23:22 Pelger-Huet Anomaly Not Reportable 05/09/18 23:22 Carlito Rods Not Reportable 05/09/18 23:22 Platelet Estimate Consistent w auto 05/09/18 23:22 Clumped Platelets Not Reportable 05/09/18 23:22 Plt Clumps, EDTA Not Reportable 05/09/18 23:22 Large Platelets Not Reportable 05/09/18 23:22 Giant Platelets Not Reportable 05/09/18 23:22 Platelet Satelliting Not Reportable 05/09/18 23:22 Plt Morphology Comment Not Reportable 05/09/18 23:22 RBC Morphology Not Reportable 05/09/18 23:22 Dimorphic RBCs Not Reportable 05/09/18 23:22 Polychromasia 1+ 05/09/18 23:22 Hypochromasia Not Reportable 05/09/18 23:22 Poikilocytosis Not Reportable 05/09/18 23:22 Anisocytosis Not Reportable 05/09/18 23:22 Microcytosis Not Reportable 05/09/18 23:22 Macrocytosis Not Reportable 05/09/18 23:22 Spherocytes Not Reportable 05/09/18 23:22 Pappenheimer Bodies Not Reportable 05/09/18 23:22 Sickle Cells Not Reportable 05/09/18 23:22 Target Cells Not Reportable 05/09/18 23:22 Tear Drop Cells Not Reportable 05/09/18 23:22 Ovalocytes Not Reportable 05/09/18 23:22 Helmet Cells Not Reportable 05/09/18 23:22 [place] Bodies Not Reportable 05/09/18 23:22 [place] Rings Not Reportable 05/09/18 23:22 [place] Cells Not Reportable 05/09/18 23:22 Bite Cells Not Reportable 05/09/18 23:22 Crenated Cell Not Reportable 05/09/18 23:22 Elliptocytes Not Reportable 05/09/18 23:22 Acanthocytes (Spur) Not Reportable 05/09/18 23:22 Rouleaux Not Reportable 05/09/18 23:22 Hemoglobin C Crystals Not Reportable 05/09/18 23:22 Schistocytes Not Reportable 05/09/18 23:22 Malaria parasites Not Reportable 05/09/18 23:22 Nicolas Bodies Not Reportable 05/09/18 23:22 Hem Pathologist Commnt No 05/09/18 23:22 POC ABG pH 7.315 (7.35-7.45) L 05/10/18 02:40 POC ABG pCO2 72.0 (35-45) H 05/10/18 02:40 POC ABG pO2 64 (80-105) L 05/10/18 02:40 POC ABG HCO3 36.7 05/10/18 02:40 POC ABG Total CO2 39 05/10/18 02:40 POC ABG O2 Sat 89 05/10/18 02:40 POC ABG Base Excess 11 05/10/18 02:40 FiO2 36 % 05/10/18 02:40 Sodium 140 mmol/L (137-145) 05/13/18 05:41 Potassium 5.0 mmol/L (3.6-5.0) 05/13/18 05:41 Chloride 95.0 mmol/L (98-107) L 05/13/18 05:41 Carbon Dioxide 39 mmol/L (22-30) H 05/13/18 05:41 Anion Gap 11 mmol/L 05/13/18 05:41 BUN 24 mg/dL (9-20) H 05/13/18 05:41 Creatinine 1.7 mg/dL (0.8-1.5) H 05/13/18 05:41 Estimated GFR 58 ml/min 05/13/18 05:41 BUN/Creatinine Ratio 14 % 05/13/18 05:41 Glucose 97 mg/dL (75-100) 05/13/18 05:41 Calcium 8.3 mg/dL (8.4-10.2) L 05/13/18 05:41 Magnesium 2.00 mg/dL (1.7-2.3) 05/12/18 04:38 Total Creatine Kinase 487 units/L (55-170) H 05/10/18 09:12 CK-MB (CK-2) 5.5 ng/mL (0.0-4.0) H 05/10/18 09:12 CK-MB (CK-2) Rel Index 1.1 (0-4) 05/10/18 09:12 Troponin T < 0.010 ng/mL (0.00-0.029) 05/10/18 09:16 NT-Pro-B Natriuret Pep 2554 pg/mL (0-450) H 05/09/18 23:22 TSH 5.180 mlU/mL (0.270-4.200) H 05/10/18 17:50 Free T4 1.03 ng/dL (0.76-1.46) 05/10/18 17:50 Thyroxine (T4) 4.9 ug/dL (4.0-12.0) 05/10/18 17:50
--- NOTE | 2018-05-13 14:23 | Progress Note ---
Assessment and Plan Imp: 1. Accelerated HTN due to noncompliance 2. Type B Aortic dissection related to #1 3. Severe PAUL, noncompliant with CPAP x years 4. OHS 5. Morbid obesity 6. Polycythemia 2/2 #3 7. A/C respiratory failure, hypoxia and hypercapnea 8. 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 Weight loss 2. BP control and adherence to meds; see vascular note 3. Diuretics as tolerated; f/u Echo 4. Optimally needs BIPAP at home for OHS, but CPAP QHS would be okay as well if insurance will cover; he will need repeat sleep studies as an outpatient either way (initial sleep studies were done in our office a few years ago and he refused therapy at that time) 5. Has home O2 6. Poor long-term prognosis due to medical noncompliance and poor f/u Plan of care reviewed w/ patient, he understands/agrees; no family present Subjective Date of service: 05/13/18 Principal diagnosis: HF; chronic type B aortic dissection Interval history: No events. Asleep. Snoring. Having hypopneas. On 2-3L NC. Active Medications Acetaminophen (Tylenol) 650 mg PO Q4H PRN PRN Reason: Pain MILD(1-3)/Fever >100.5/[place] Enoxaparin Sodium (Lovenox) 40 mg SUB-Q QDAY@1000 [facility] Last Admin: 05/13/18 09:12 Dose: 40 mg Furosemide (Lasix) 40 mg IV BID [facility] Last Admin: 05/13/18 09:12 Dose: 40 mg Isosorbide Dinitrate (Isordil Titradose) 10 mg PO QID [facility] Last Admin: 05/13/18 13:02 Dose: 10 mg Labetalol HCl (Normodyne) 300 mg PO Q8HR [facility] Last Admin: 05/13/18 13:00 Dose: 300 mg Levothyroxine Sodium (Synthroid) 50 mcg PO DAILY@0600 [facility] Last Admin: 05/13/18 06:16 Dose: 50 mcg Lisinopril (Zestril) 20 mg PO BID [facility] Last Admin: 05/13/18 09:11 Dose: 20 mg Morphine Sulfate (Morphine) 2 mg IV Q4H PRN PRN Reason: Pain, Moderate (4-6) Last Admin: 05/11/18 03:55 Dose: 2 mg Ondansetron HCl (Zofran) 4 mg IV Q8H PRN PRN Reason: Nausea And Vomiting Sodium Chloride (Sodium Chloride Flush Syringe 10 Ml) 10 ml IV BID [facility] Last Admin: 05/13/18 09:12 Dose: 10 ml Sodium Chloride (Sodium Chloride Flush Syringe 10 Ml) 10 ml IV PRN PRN PRN Reason: LINE FLUSH Objective Vital Signs - 12hr 05/13/18 05/13/18 05/13/18 03:30 06:16 07:56 Temperature 98.3 F Pulse Rate 64 68 67 Respiratory 20 20 Rate Blood Pressure 123/73 124/59 Blood Pressure [Left] O2 Sat by Pulse 98 92 Oximetry 05/13/18 05/13/18 05/13/18 09:11 09:12 11:51 Temperature 97.6 F Pulse Rate 67 67 73 Respiratory 22 Rate Blood Pressure 124/59 124/59 Blood Pressure 125/74 [Left] O2 Sat by Pulse 96 Oximetry 05/13/18 05/13/18 13:00 13:02 Temperature Pulse Rate 73 73 Respiratory Rate Blood Pressure 125/74 125/74 Blood Pressure [Left] O2 Sat by Pulse Oximetry Constitutional: no acute distress, asleep, other (morbidly obese) Eyes: non-icteric ENT: oropharynx moist Neck: supple, no lymphadenopathy, other (large in circumference) Effort: normal Ascultation: Bilateral: diminished breath sounds (due to obesity) Cardiovascular: regular rate and rhythm (no mrg) Gastrointestinal: normoactive bowel sounds, soft Integumentary: other (chronic venous stasis dermatitis changes lower extremities ) Extremities: no cyanosis, anasarca Neurologic: normal mental status, non-focal exam, pupils equal and round Psychiatric: mood appropriate, affect normal CBC and BMP: 05/11/18 05:20 05/13/18 05:41 ABG, PT/INR, D-dimer: ABG POC ABG pH 7.315 (7.35-7.45) L 05/10/18 02:40 POC ABG pCO2 72.0 (35-45) H 05/10/18 02:40 POC ABG pO2 64 (80-105) L 05/10/18 02:40 POC ABG HCO3 36.7 05/10/18 02:40 POC ABG Total CO2 39 09/30/18 02:40 POC ABG O2 Sat 89 05/10/18 02:40 Abnormal lab findings: Abnormal Labs 05/09/18 05/09/18 05/09/18 23:22 23:22 23:22 RBC 5.37 H Hgb 15.8 H Hct 48.4 H RDW [place] % (Auto) Seg Neutrophils % Lymphocytes % (Manual) 11.0 L Monocytes % (Manual) 12.0 H Nucleated RBC % 1.0 H Lymphocytes # (Manual) 0.9 L Monocytes # (Manual) 1.0 H POC ABG pH POC ABG pCO2 POC ABG pO2 Chloride 94.3 L Carbon Dioxide 39 H BUN 24 H Creatinine Glucose Calcium Total Creatine Kinase CK-MB (CK-2) NT-Pro-B Natriuret Pep 2554 H TSH 05/10/18 05/10/18 05/10/18 02:40 03:45 03:45 RBC 5.41 H Hgb 15.6 H Hct 48.8 H RDW 15.4 H [place] % (Auto) 8.1 H Seg Neutrophils % 74.2 H Lymphocytes % (Manual) Monocytes % (Manual) Nucleated RBC % Lymphocytes # (Manual) Monocytes # (Manual) POC ABG pH 7.315 L POC ABG pCO2 72.0 H POC ABG pO2 64 L Chloride 97.0 L Carbon Dioxide 33 H BUN 24 H Creatinine Glucose 111 H Calcium 8.2 L Total Creatine Kinase CK-MB (CK-2) NT-Pro-B Natriuret Pep TSH 05/10/18 05/10/18 05/10/18 03:57 09:12 17:50 RBC Hgb Hct RDW [place] % (Auto) Seg Neutrophils % Lymphocytes % (Manual) Monocytes % (Manual) Nucleated RBC % Lymphocytes # (Manual) Monocytes # (Manual) POC ABG pH POC ABG pCO2 POC ABG pO2 Chloride Carbon Dioxide BUN Creatinine Glucose Calcium Total Creatine Kinase 635 H 487 H CK-MB (CK-2) 6.5 H 5.5 H NT-Pro-B Natriuret Pep TSH 5.180 H 05/11/18 05/11/18 05/12/18 05:20 05:20 04:38 RBC 5.42 H Hgb 15.6 H Hct 49.4 H RDW 15.9 H [place] % (Auto) Seg Neutrophils % Lymphocytes % (Manual) Monocytes % (Manual) Nucleated RBC % Lymphocytes # (Manual) Monocytes # (Manual) POC ABG pH POC ABG pCO2 POC ABG pO2 Chloride 94.3 L 95.2 L Carbon Dioxide 36 H 34 H BUN 27 H 28 H Creatinine 1.6 H 1.6 H Glucose Calcium 8.3 L 8.1 L Total Creatine Kinase CK-MB (CK-2) NT-Pro-B Natriuret Pep TSH 05/13/18 05:41 RBC Hgb Hct RDW [place] % (Auto) Seg Neutrophils % Lymphocytes % (Manual) Monocytes % (Manual) Nucleated RBC % Lymphocytes # (Manual) Monocytes # (Manual) POC ABG pH POC ABG pCO2 POC ABG pO2 Chloride 95.0 L Carbon Dioxide 39 H BUN 24 H Creatinine 1.7 H Glucose Calcium 8.3 L Total Creatine Kinase CK-MB (CK-2) NT-Pro-B Natriuret Pep TSH Chest x-ray: report reviewed, image reviewed
[2018-05-14] MEDS: SYNTHROID PO SCH (05:58)
[2018-05-14] MEDS: NORMODYNE PO SCH ×3 (05:58→21:10)
[2018-05-14] MEDS: LOVENOX SUB-Q SCH (09:50)
[2018-05-14] MEDS: ISORDIL TITRADOSE PO SCH ×4 (09:50→21:11)
[2018-05-14] MEDS: LASIX IV SCH (09:50)
[2018-05-14] MEDS: SODIUM CHLORIDE FLUSH SYRINGE 10 ML IV SCH ×2 (09:51→21:11)
[2018-05-14] MEDS: ZESTRIL PO SCH ×2 (09:51→21:11)
--- NOTE | 2018-05-14 10:53 | Progress Note ---
Assessment and Plan Assessment and plan: Acute respiratory failure. Continue BIPAP as clinically indicated, now on Oxygen by MS. Patient has home O2. Optimally needs BIPAP at home for OHS, awake his management follow-up. Pulmonology following Acute on chronic diastolic CHF. Echo revealed left ventricular chamber size mildly dilated with EF of 45-50%. Patient with abnormal left ventricular diastolic filling consistent with impaired relaxation. Accelerated hypertension. Continue Labetalol, Lisinopril sleep apnea. CPAP. Patient ideally needs BiPAP Type B Aortic dissection Morbid Obesity. Patient has been counseled on weight loss and lifestyle modifications. Full code status Disposition/discharge planning. We will Discuss with case management about assisting him in obtaining a BiPAP machine History Interval history: No new issues overnight. Hospitalist Physical - Constitutional Vitals: Temp Pulse Resp BP Pulse Ox 98.5 F 71 22 144/80 98 05/14/18 07:46 05/14/18 09:50 05/14/18 07:46 05/14/18 09:50 05/14/18 09:27 General appearance: Present: no acute distress, obese (morbidly obese) - EENT Eyes: Present: PERRL, EOM intact ENT: hearing intact, clear oral mucosa, dentition normal - Neck Neck: Present: supple, normal ROM - Respiratory Respiratory effort: normal Respiratory: bilateral: CTA - Cardiovascular Rhythm: regular Heart Sounds: Present: S1 & S2. Absent: gallop, rub - Extremities Extremities: no ischemia, No edema, Full ROM - Abdominal General gastrointestinal: soft, non-tender, non-distended, normal bowel sounds - Integumentary Integumentary: Present: clear, warm, dry - Neurologic Neurologic: CNII-XII intact, moves all extremities Results - Labs CBC & Chem 7: 05/11/18 05:20 05/13/18 05:41 Labs: Laboratory Last Values WBC 6.6 K/mm3 (4.5-11.0) 05/11/18 05:20 RBC 5.42 M/mm3 (3.65-5.03) H 05/11/18 05:20 Hgb 15.6 gm/dl (11.8-15.2) H 05/11/18 05:20 Hct 49.4 % (35.5-45.6) H 05/11/18 05:20 MCV 91 fl (84-94) 05/11/18 05:20 MCH 29 pg (28-32) 05/11/18 05:20 MCHC 32 % (32-34) 05/11/18 05:20 RDW 15.9 % (13.2-15.2) H 05/11/18 05:20 Plt Count 256 K/mm3 (140-440) 05/11/18 05:20 Lymph % (Auto) 16.3 % (13.4-35.0) 05/10/18 03:45 Park % (Auto) 8.1 % (0.0-7.3) H 05/10/18 03:45 Eos % (Auto) 0.8 % (0.0-4.3) 05/10/18 03:45 Baso % (Auto) 0.6 % (0.0-1.8) 05/10/18 03:45 Lymph # 1.3 K/mm3 (1.2-5.4) 05/10/18 03:45 Park # 0.6 K/mm3 (0.0-0.8) 05/10/18 03:45 Eos # 0.1 K/mm3 (0.0-0.4) 05/10/18 03:45 Baso # 0.0 K/mm3 (0.0-0.1) 05/10/18 03:45 Add Manual Diff Complete 05/09/18 23:22 Total Counted 100 05/09/18 23:22 Seg Neutrophils % 74.2 % (40.0-70.0) H 05/10/18 03:45 Seg Neuts % (Manual) 68.0 % (40.0-70.0) 05/09/18 23:22 Band Neutrophils % 9.0 % 05/09/18 23:22 Lymphocytes % (Manual) 11.0 % (13.4-35.0) L 05/09/18 23:22 Reactive Lymphs % (Man) 0 % 05/09/18 23:22 Monocytes % (Manual) 12.0 % (0.0-7.3) H 05/09/18 23:22 Eosinophils % (Manual) 0 % (0.0-4.3) 05/09/18 23:22 Basophils % (Manual) 0 % (0.0-1.8) 05/09/18 23:22 Metamyelocytes % 0 % 05/09/18 23:22 Myelocytes % 0 % 05/09/18 23:22 Promyelocytes % 0 % 05/09/18 23:22 Blast Cells % 0 % 05/09/18 23:22 Nucleated RBC % 1.0 % (0.0-0.9) H 05/09/18 23:22 Seg Neutrophils # 5.9 K/mm3 (1.8-7.7) 05/10/18 03:45 Seg Neutrophils # Man 5.8 K/mm3 (1.8-7.7) 05/09/18 23:22 Band Neutrophils # 0.8 K/mm3 05/09/18 23:22 Lymphocytes # (Manual) 0.9 K/mm3 (1.2-5.4) L 05/09/18 23:22 Abs React Lymphs (Man) 0.0 K/mm3 05/09/18 23:22 Monocytes # (Manual) 1.0 K/mm3 (0.0-0.8) H 05/09/18 23:22 Eosinophils # (Manual) 0.0 K/mm3 (0.0-0.4) 05/09/18 23:22 Basophils # (Manual) 0.0 K/mm3 (0.0-0.1) 05/09/18 23:22 Metamyelocytes # 0.0 K/mm3 05/09/18 23:22 Myelocytes # 0.0 K/mm3 05/09/18 23:22 Promyelocytes # 0.0 K/mm3 05/09/18 23:22 Blast Cells # 0.0 K/mm3 05/09/18 23:22 WBC Morphology Not Reportable 05/09/18 23:22 Hypersegmented Neuts Not Reportable 05/09/18 23:22 Hyposegmented Neuts Not Reportable 05/09/18 23:22 Hypogranular Neuts Not Reportable 05/09/18 23:22 Smudge Cells Not Reportable 05/09/18 23:22 Toxic Granulation Not Reportable 05/09/18 23:22 Toxic Vacuolation Not Reportable 05/09/18 23:22 Dohle Bodies Not Reportable 05/09/18 23:22 Pelger-Huet Anomaly Not Reportable 05/09/18 23:22 Carlito Rods Not Reportable 05/09/18 23:22 Platelet Estimate Consistent w auto 05/09/18 23:22 Clumped Platelets Not Reportable 05/09/18 23:22 Plt Clumps, EDTA Not Reportable 05/09/18 23:22 Large Platelets Not Reportable 05/09/18 23:22 Giant Platelets Not Reportable 05/09/18 23:22 Platelet Satelliting Not Reportable 05/09/18 23:22 Plt Morphology Comment Not Reportable 05/09/18 23:22 RBC Morphology Not Reportable 05/09/18 23:22 Dimorphic RBCs Not Reportable 05/09/18 23:22 Polychromasia 1+ 05/09/18 23:22 Hypochromasia Not Reportable 05/09/18 23:22 Poikilocytosis Not Reportable 05/09/18 23:22 Anisocytosis Not Reportable 05/09/18 23:22 Microcytosis Not Reportable 05/09/18 23:22 Macrocytosis Not Reportable 05/09/18 23:22 Spherocytes Not Reportable 05/09/18 23:22 Pappenheimer Bodies Not Reportable 05/09/18 23:22 Sickle Cells Not Reportable 05/09/18 23:22 Target Cells Not Reportable 05/09/18 23:22 Tear Drop Cells Not Reportable 05/09/18 23:22 Ovalocytes Not Reportable 05/09/18 23:22 Helmet Cells Not Reportable 05/09/18 23:22 [place] Bodies Not Reportable 05/09/18 23:22 [place] Rings Not Reportable 05/09/18 23:22 [place] Cells Not Reportable 05/09/18 23:22 Bite Cells Not Reportable 05/09/18 23:22 Crenated Cell Not Reportable 05/09/18 23:22 Elliptocytes Not Reportable 05/09/18 23:22 Acanthocytes (Spur) Not Reportable 05/09/18 23:22 Rouleaux Not Reportable 05/09/18 23:22 Hemoglobin C Crystals Not Reportable 05/09/18 23:22 Schistocytes Not Reportable 05/09/18 23:22 Malaria parasites Not Reportable 05/09/18 23:22 Nicolas Bodies Not Reportable 05/09/18 23:22 Hem Pathologist Commnt No 05/09/18 23:22 POC ABG pH 7.315 (7.35-7.45) L 05/10/18 02:40 POC ABG pCO2 72.0 (35-45) H 05/10/18 02:40 POC ABG pO2 64 (80-105) L 05/10/18 02:40 POC ABG HCO3 36.7 05/10/18 02:40 POC ABG Total CO2 39 05/10/18 02:40 POC ABG O2 Sat 89 05/10/18 02:40 POC ABG Base Excess 11 05/10/18 02:40 FiO2 36 % 05/10/18 02:40 Sodium 140 mmol/L (137-145) 05/13/18 05:41 Potassium 5.0 mmol/L (3.6-5.0) 05/13/18 05:41 Chloride 95.0 mmol/L (98-107) L 05/13/18 05:41 Carbon Dioxide 39 mmol/L (22-30) H 05/13/18 05:41 Anion Gap 11 mmol/L 05/13/18 05:41 BUN 24 mg/dL (9-20) H 05/13/18 05:41 Creatinine 1.7 mg/dL (0.8-1.5) H 05/13/18 05:41 Estimated GFR 58 ml/min 05/13/18 05:41 BUN/Creatinine Ratio 14 % 05/13/18 05:41 Glucose 97 mg/dL (75-100) 05/13/18 05:41 Calcium 8.3 mg/dL (8.4-10.2) L 05/13/18 05:41 Magnesium 2.00 mg/dL (1.7-2.3) 05/12/18 04:38 Total Creatine Kinase 487 units/L (55-170) H 05/10/18 09:12 CK-MB (CK-2) 5.5 ng/mL (0.0-4.0) H 05/10/18 09:12 CK-MB (CK-2) Rel Index 1.1 (0-4) 05/10/18 09:12 Troponin T < 0.010 ng/mL (0.00-0.029) 05/10/18 09:16 NT-Pro-B Natriuret Pep 2554 pg/mL (0-450) H 05/09/18 23:22 TSH 5.180 mlU/mL (0.270-4.200) H 05/10/18 17:50 Free T4 1.03 ng/dL (0.76-1.46) 05/10/18 17:50 Thyroxine (T4) 4.9 ug/dL (4.0-12.0) 05/10/18 17:50
--- NOTE | 2018-05-14 12:35 | Progress Note ---
Assessment and Plan Currently stable cardiac status. Pt appears to be nearing/at euvolemia. Convert IV lasix to 40mg PO daily. Repeat BMP now as serum Cr was slowly trending upwards. Pending renal function is stable, pt may discharge home from cardiology standpoint. Pt states that [place] He states that he will follow up with his nursing program chair within 3-5 days of hospital discharge. If desired, pt may follow up in our office with Dr. Chavez ([phone]). The patient has been seen in conjunction with Dr. Mckee who agrees with the assessment and plan of care. - Patient Problems (1) Acute on chronic heart failure Current Visit: Yes Status: Acute (2) Hypertensive emergency Current Visit: Yes Status: Acute (3) Chronic thoracic aortic dissection Current Visit: Yes Status: Chronic (4) SHAWNA (acute kidney injury) Current Visit: Yes Status: Acute (5) Morbid obesity Current Visit: Yes Status: Chronic (6) PAUL (obstructive sleep apnea) Current Visit: Yes Status: Chronic (7) Hypothyroidism Current Visit: Yes Status: Chronic (8) NSVT (nonsustained ventricular tachycardia) Current Visit: Yes Status: Acute (9) Medical non-compliance Current Visit: Yes Status: Chronic Subjective Date of service: 05/14/18 Principal diagnosis: HF; chronic type B aortic dissection Interval history: Pt resting comfortably in bed, he states he is feeling quite well today and is ready to discharge home. tele reviewed - pt in SR, no NSVT noted overnight. Objective Last Vital Signs Temp 98.4 F 05/14/18 11:27 Pulse 65 05/14/18 11:27 Resp 20 05/14/18 11:27 BP 143/81 05/14/18 11:27 Pulse Ox 95 05/14/18 11:27 - Physical Examination General: No Apparent Distress HEENT: Positive: EOMI, Normocephaly, Mucus Membranes Moist Neck: Positive: neck supple, trachea midline, JVD/HJR (elevated) Cardiac: Positive: Reg Rate and Rhythm, S1/S2 Lungs: Positive: clear to auscultation Neuro: Positive: Grossly Intact Abdomen: Positive: Soft, Active Bowel Sounds. Negative: Tender Skin: Positive: Other (venous stasis changes in both legs.) Musculoskeletal: Normal Range of Motion Extremities: Present: +2 Edema (pitting bilateral edema) - Imaging and Cardiology EKG: report reviewed, image reviewed Echo: report reviewed (EF 45-50%, impaired relaxation, RV mildly dilated, RV systolic function mod reduced) - Telemetry EKG Rhythm: Sinus Rhythm - EKG Sinus rhythms and dysrhythmias: sinus rhythm AV and intraventricular conduction: right bundle branch block
--- NOTE | 2018-05-14 14:08 | Progress Note ---
Assessment and Plan Imp: 1. Accelerated HTN due to noncompliance 2. Type B Aortic dissection related to #1 3. Severe PAUL, noncompliant with CPAP x years 4. OHS 5. Morbid obesity 6. Polycythemia 2/2 #3 7. A/C respiratory failure, hypoxia and hypercapnea 8. 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 Weight loss 2. BP control and adherence to meds; see vascular note 3. Diuretics as tolerated; d/w him re: 2 gram sodium restriction and fluid restriction 4. Optimally needs BIPAP at home for OHS, but CPAP QHS would be okay as well if insurance will cover; he will need repeat sleep studies as an outpatient either way (initial sleep studies were done in our office a few years ago and he refused therapy at that time) 5. Has home O2 -> advised to use this 03/03 6. Poor long-term prognosis will be expected if he continues to be noncompliant with medical recommendations/CPAP, etc.; this was again discussed in great detail in the presence of his mother, they expressed understanding 7. Can go home pulm-lee once all equipment arranged, etc. Plan of care reviewed w/ patient/mother, they understand/agree Subjective Date of service: 05/14/18 Principal diagnosis: HF; chronic type B aortic dissection Interval history: No events. SOB and LE edema better. Wants to go home. Active Medications Acetaminophen (Tylenol) 650 mg PO Q4H PRN PRN Reason: Pain MILD(1-3)/Fever >100.5/[place] Enoxaparin Sodium (Lovenox) 40 mg SUB-Q QDAY@1000 [facility] Last Admin: 05/14/18 09:50 Dose: 40 mg Furosemide (Lasix) 40 mg PO QDAY [facility] Isosorbide Dinitrate (Isordil Titradose) 10 mg PO QID [facility] Last Admin: 05/14/18 13:52 Dose: 10 mg Labetalol HCl (Normodyne) 300 mg PO Q8HR [facility] Last Admin: 05/14/18 13:51 Dose: 300 mg Levothyroxine Sodium (Synthroid) 50 mcg PO DAILY@0600 [facility] Last Admin: 05/14/18 05:58 Dose: 50 mcg Lisinopril (Zestril) 20 mg PO BID [facility] Last Admin: 05/14/18 09:51 Dose: 20 mg Morphine Sulfate (Morphine) 2 mg IV Q4H PRN PRN Reason: Pain, Moderate (4-6) Last Admin: 05/11/18 03:55 Dose: 2 mg Ondansetron HCl (Zofran) 4 mg IV Q8H PRN PRN Reason: Nausea And Vomiting Sodium Chloride (Sodium Chloride Flush Syringe 10 Ml) 10 ml IV BID [facility] Last Admin: 05/14/18 09:51 Dose: 10 ml Sodium Chloride (Sodium Chloride Flush Syringe 10 Ml) 10 ml IV PRN PRN PRN Reason: LINE FLUSH Objective Vital Signs - 12hr 05/14/18 05/14/18 05/14/18 03:00 05:48 05:58 Temperature Pulse Rate 63 63 Respiratory 18 Rate Blood Pressure 150/76 150/76 O2 Sat by Pulse 98 Oximetry 05/14/18 05/14/18 05/14/18 07:46 09:27 09:50 Temperature 98.5 F Pulse Rate 71 71 Respiratory 22 Rate Blood Pressure 144/80 144/80 O2 Sat by Pulse 94 98 Oximetry 05/14/18 05/14/18 05/14/18 11:27 13:51 13:52 Temperature 98.4 F Pulse Rate 65 65 65 Respiratory 20 Rate Blood Pressure 143/81 143/81 143/81 O2 Sat by Pulse 95 Oximetry Constitutional: no acute distress, asleep, other (morbidly obese) Eyes: non-icteric ENT: oropharynx moist Neck: supple, no lymphadenopathy, other (large in circumference) Effort: normal Ascultation: Bilateral: diminished breath sounds (due to obesity) Percussion: Bilateral: not dull Cardiovascular: regular rate and rhythm (no mrg) Gastrointestinal: normoactive bowel sounds, soft, non-tender, other (obese) Integumentary: other (chronic venous stasis dermatitis changes lower extremities ) Extremities: no cyanosis, edema (2+ bilateral LE edema) Neurologic: normal mental status, non-focal exam, pupils equal and round Psychiatric: mood appropriate, affect normal CBC and BMP: 05/11/18 05:20 05/13/18 05:41 ABG, PT/INR, D-dimer: ABG POC ABG pH 7.315 (7.35-7.45) L 05/10/18 02:40 POC ABG pCO2 72.0 (35-45) H 05/10/18 02:40 POC ABG pO2 64 (80-105) L 05/10/18 02:40 POC ABG HCO3 36.7 05/10/18 02:40 POC ABG Total CO2 39 05/10/18 02:40 POC ABG O2 Sat 89 05/10/18 02:40 Abnormal lab findings: Abnormal Labs 05/09/18 05/09/18 05/09/18 23:22 23:22 23:22 RBC 5.37 H Hgb 15.8 H Hct 48.4 H RDW [place] % (Auto) Seg Neutrophils % Lymphocytes % (Manual) 11.0 L Monocytes % (Manual) 12.0 H Nucleated RBC % 1.0 H Lymphocytes # (Manual) 0.9 L Monocytes # (Manual) 1.0 H POC ABG pH POC ABG pCO2 POC ABG pO2 Chloride 94.3 L Carbon Dioxide 39 H BUN 24 H Creatinine Glucose Calcium Total Creatine Kinase CK-MB (CK-2) NT-Pro-B Natriuret Pep 2554 H TSH 05/10/18 05/10/18 05/10/18 02:40 03:45 03:45 RBC 5.41 H Hgb 15.6 H Hct 48.8 H RDW 15.4 H [place] % (Auto) 8.1 H Seg Neutrophils % 74.2 H Lymphocytes % (Manual) Monocytes % (Manual) Nucleated RBC % Lymphocytes # (Manual) Monocytes # (Manual) POC ABG pH 7.315 L POC ABG pCO2 72.0 H POC ABG pO2 64 L Chloride 97.0 L Carbon Dioxide 33 H BUN 24 H Creatinine Glucose 111 H Calcium 8.2 L Total Creatine Kinase CK-MB (CK-2) NT-Pro-B Natriuret Pep TSH 05/10/18 05/10/18 05/10/18 03:57 09:12 17:50 RBC Hgb Hct RDW [place] % (Auto) Seg Neutrophils % Lymphocytes % (Manual) Monocytes % (Manual) Nucleated RBC % Lymphocytes # (Manual) Monocytes # (Manual) POC ABG pH POC ABG pCO2 POC ABG pO2 Chloride Carbon Dioxide BUN Creatinine Glucose Calcium Total Creatine Kinase 635 H 487 H CK-MB (CK-2) 6.5 H 5.5 H NT-Pro-B Natriuret Pep TSH 5.180 H 05/11/18 05/11/18 05/12/18 05:20 05:20 04:38 RBC 5.42 H Hgb 15.6 H Hct 49.4 H RDW 15.9 H [place] % (Auto) Seg Neutrophils % Lymphocytes % (Manual) Monocytes % (Manual) Nucleated RBC % Lymphocytes # (Manual) Monocytes # (Manual) POC ABG pH POC ABG pCO2 POC ABG pO2 Chloride 94.3 L 95.2 L Carbon Dioxide 36 H 34 H BUN 27 H 28 H Creatinine 1.6 H 1.6 H Glucose Calcium 8.3 L 8.1 L Total Creatine Kinase CK-MB (CK-2) NT-Pro-B Natriuret Pep TSH 05/13/18 05:41 RBC Hgb Hct RDW [place] % (Auto) Seg Neutrophils % Lymphocytes % (Manual) Monocytes % (Manual) Nucleated RBC % Lymphocytes # (Manual) Monocytes # (Manual) POC ABG pH POC ABG pCO2 POC ABG pO2 Chloride 95.0 L Carbon Dioxide 39 H BUN 24 H Creatinine 1.7 H Glucose Calcium 8.3 L Total Creatine Kinase CK-MB (CK-2) NT-Pro-B Natriuret Pep TSH Chest x-ray: report reviewed, image reviewed
[2018-05-14 14:28] LABS: BUN/Creatinine Ratio 18; Blood Urea Nitrogen 20 mg/dL (9-20); Calcium 8.8 mg/dL (8.4-10.2); Hemolysis Index 21
[2018-05-15] MEDS: SYNTHROID PO SCH (05:12)
[2018-05-15] MEDS: NORMODYNE PO SCH (05:12)
[2018-05-15 08:19] VITALS: BP 132/76
--- NOTE | 2018-05-15 09:14 | Discharge Summary ---
Providers - Providers Date of Admission: 05/10/18 03:41 Date of discharge: 05/15/18 Attending physician: MOR HAYNES 05/09/18 23:36 Consult to Physician [CONS] Stat Comment: Dr. Underwood spoke with Dr. Zapien @ [phone] Consulting Provider: BERNARDO ZAPIEN Physician Instructions: Reason For Exam: aortic dissection 05/10/18 02:12 Consult to Physician [CONS] Stat Comment: Dr. Underwood spoke with Dr. Arias @ [phone] Consulting Provider: JOLYNN ARIAS Physician Instructions: Reason For Exam: CHF 05/10/18 03:45 Consult to Physician [CONS] Routine Comment: Consulting Provider: RAMYA HOPKINS Physician Instructions: Reason For Exam: sob. e/o chf 05/14/18 11:08 Consult to Case Management [CONS] Stat Services Needed at Discharge: DME Equipment Notified:: Judith Was contact made?: Yes Additional Physician Instructions: Please arrange for patient to have CPAP machine-NPI#[id number], 99 months Primary care physician: [employer] Hospitalization Reason for admission: Hypertensive Emergency and Dyspnea Condition: Stable Hospital course: 27 y/o male known HTN, PAUL and type B dissection admitted with Hypertensive Emergency secondary to medical noncompliance with medications and acute on chronic hypoxemic hypercapnic respiratory failure secondary to pulmonary hypertension, PAUL/OHS and diastolic CHF. Patient stated that he missed several doses of medication. Shortness of breath had been building up for about 2 weeks [employer]. He was recently diagnosed with a type B dissection followed on the outside. The patient was admitted to the ICU and placed on a labetalol drip for the hypertensive emergency which was later weaned off. The patient was later transferred to the floor. Patient was seen by pulmonary in consultation. Patient's blood pressure was much better controlled with by mouth medications. Recommendations were for the patient to have weight loss and close blood pressure control and adherence to medications. Pulmonary felt that the patient Optimally needs BIPAP at home for OHS, but CPAP QHS would be okay as well if insurance will cover and he will need repeat sleep studies as an outpatient. Case management was consult and arrange for the outpatient sleep study. Unfortunately, the patient has oor long-term prognosis will be expected if he continues to be noncompliant with medical recommendations/CPAP, etc.; this was again discussed in great detail in the presence of his mother and they expressed understanding. Dedicated discharge time 32 minutes. Disposition: DC-01 TO HOME OR SELFCARE Time spent for discharge: 32 - Discharge Diagnoses (1) Acute and chronic respiratory failure Status: Acute (2) Acute on chronic heart failure Status: Acute (3) H/O aortic dissection Status: Acute (4) Hypertensive emergency Status: Acute (5) Hypothyroidism Status: Chronic (6) Medical non-compliance Status: Chronic (7) Morbid obesity Status: Chronic (8) PAUL (obstructive sleep apnea) Status: Chronic Core Measure Documentation - Palliative Care Palliative Care/ Comfort Measures: Not Applicable - Core Measures Any of the following diagnoses?: none Exam - Constitutional Vitals: Temp Pulse Resp BP Pulse Ox 98.2 F 75 18 132/76 72 L 05/15/18 07:09 05/15/18 07:09 05/15/18 07:09 05/15/18 07:09 05/15/18 07:09 General appearance: Present: no acute distress, well-nourished - EENT Eyes: Present: PERRL ENT: hearing intact, clear oral mucosa - Neck Neck: Present: supple, normal ROM - Respiratory Respiratory effort: normal Respiratory: bilateral: CTA - Cardiovascular Heart Sounds: Present: S1 & S2. Absent: rub, click - Extremities Extremities: pulses symmetrical, No edema Peripheral Pulses: within normal limits - Abdominal General gastrointestinal: Present: soft, non-tender, non-distended, normal bowel sounds Male genitourinary: Present: normal - Integumentary Integumentary: Present: clear, warm, dry - Musculoskeletal Musculoskeletal: gait normal, strength equal bilaterally - Psychiatric Psychiatric: appropriate mood/affect, intact judgment & insight - Neurologic Neurologic: CNII-XII intact, moves all extremities Plan Activity: no restrictions Weight Bearing Status: Full Weight Bearing Diet: low fat, low cholesterol Durable Medical Equipment Needed Upon Discharge: other (CPAP or BIPAp whichever is covered. Preferably bipap) Follow up with: [facility] AUGUST MD [Primary Care Provider] - 7 Days ELADIO DE ANDA MD [Staff Physician] - 7 Days Prescriptions: cloNIDine-TTS PATCH 0.3 mg TRANSDERMA 1XW #6 Furosemide 40 mg PO DAILY #30 Isosorbide Dinitrate 10 mg PO QID #120 Labetalol 300 mg PO TID #90 Levothyroxine 50 mcg PO DAILY #30 Lisinopril [Zestril TAB] 20 mg PO BID #60 tablet Nifedipine ER 90 mg PO BID #60
[2018-05-15] MEDS ORDERED: LASIX PO SCH (10:00)
[2018-05-15] MEDS: LOVENOX SUB-Q SCH (10:48)
[2018-05-15] MEDS: ZESTRIL PO SCH (10:49)
[2018-05-15] MEDS: ISORDIL TITRADOSE PO SCH (10:49)
[2018-05-15] MEDS: SODIUM CHLORIDE FLUSH SYRINGE 10 ML IV SCH (10:56)
== END 2018-05-15 13:00 | disposition home or self-care (01) | DRG 291 ==
LOC: ED 21:11 → CC1 05-10 03:41 → 4A 05-11 14:40
PROVIDERS: ADMIT Internal Medicine; ATTEND Hospitalist
PROC: 4A033R1 Measurement of Arterial Saturation, Peripheral, Percutaneous Approach (ICD-10-PCS; principal; 2018-05-10)
PROC: 5A09357 Assistance with Respiratory Ventilation, Less than 24 Consecutive Hours, Continuous Positive Airway Pressure (ICD-10-PCS; 2018-05-10)
PROC: 5A09357 Assistance with Respiratory Ventilation, Less than 24 Consecutive Hours, Continuous Positive Airway Pressure (ICD-10-PCS; 2018-05-11)
PROC: 5A09357 Assistance with Respiratory Ventilation, Less than 24 Consecutive Hours, Continuous Positive Airway Pressure (ICD-10-PCS; 2018-05-12)
PROC: 5A09357 Assistance with Respiratory Ventilation, Less than 24 Consecutive Hours, Continuous Positive Airway Pressure (ICD-10-PCS; 2018-05-13)
PROC: 5A09357 Assistance with Respiratory Ventilation, Less than 24 Consecutive Hours, Continuous Positive Airway Pressure (ICD-10-PCS; 2018-05-14)
DX: I11.0 Hypertensive heart disease with heart failure (principal); J96.22 Acute and chronic respiratory failure with hypercapnia; J96.21 Acute and chronic respiratory failure with hypoxia; I71.01 Dissection of thoracic aorta; N17.9 Acute kidney failure, unspecified; Z68.44 Body mass index [BMI] 60.0-69.9, adult; I16.1 Hypertensive emergency; E66.2 Morbid (severe) obesity with alveolar hypoventilation; I47.2 Ventricular tachycardia; I50.33 Acute on chronic diastolic (congestive) heart failure; E03.9 Hypothyroidism, unspecified; I27.20 Pulmonary hypertension, unspecified; D75.1 Secondary polycythemia; I16.0 Hypertensive urgency; I50.810 Right heart failure, unspecified; Z82.49 Family history of ischemic heart disease and other diseases of the circulatory system; Z91.14 Patient's other noncompliance with medication regimen; Z71.3 Dietary counseling and surveillance
CPT/HCPCS: 36415; 71045; 71275; 74174; 80048; 82550; 82553; 82803; 83735; 83880; 84436; 84439; 84443; 84484; 85007; 85025; 85027; 93005; 93010; 93306; 94660; 94760; 96365; 96375; J1650; J1940; J2270; J7050; Q9967

== ENCOUNTER 2018-09-01 13:39 | Inpatient (IN) | payer OTHER ==
--- NOTE | 2018-09-01 14:13 | Emergency Department Report ---
HPI - General Chief Complaint: Chest Pain Time Seen by Provider: 09/01/18 13:57 - HPI HPI: 28-year-old -M[place]ese male with a past medical history of sleep apnea, CHF, chronic type B aortic dissection, presents to the emergency department with 2 or 3 days of shortness of breath, orthopnea, fluid retention/edema, and feeling very sleepy. The patient says he has not gotten much sleep because he is unable to lay flat. He says he has been compliant with his CPAP and his medications including his Lasix. He denies any current chest pain but says he's been having some intermittent "grabbing" sensation in the middle of his chest. He denies any tobacco use. He is partially oxygen dependent, mostly at night. His primary care physician is a Dr. Muhammad but he does not currently have a director operations broadcast. No recent travel or sick contacts at home. Patient also complains of some left leg pain, around the knee. ED Past Medical Hx - Past Medical History Previous Medical History?: Yes Hx Hypertension: Yes Hx Congestive Heart Failure: Yes Hx Asthma: No Hx COPD: Yes (on home O2 and CPAP) Additional medical history: heart failure, AORTIC DISSECTION. sleep apnea - Surgical History Past Surgical History?: No - Social History Smoking Status: Never Smoker Substance Use Type: None - Medications Home Medications: Home Medications Medication Instructions Recorded Confirmed Last Taken Type Aspirin [Aspirin BABY CHEW TAB] 81 mg PO QDAY #30 tab.chew 08/04/18 Unknown Rx Furosemide [Lasix TAB] 40 mg PO BID #60 tablet 08/04/18 Unknown Rx Labetalol [Normodyne TAB] 300 mg PO Q8HR 30 Days tablet 08/04/18 Unknown Rx Levothyroxine [Synthroid] 50 mcg PO DAILY@0600 #30 tablet 08/04/18 Unknown Rx NIFEdipine XL [Procardia Xl] 90 mg PO BID #60 tablet 08/04/18 Unknown Rx Potassium Chloride [K-Dur] 10 meq PO BID #60 tablet 08/04/18 Unknown Rx cloNIDine-TTS PATCH 0.3 mg TRANSDERMA 1XW #4 08/04/18 Unknown Rx ED Review of Systems ROS: Stated complaint: CHEST PAIN Other details as noted in HPI Comment: All other systems reviewed and negative Constitutional: denies: chills, fever Eyes: denies: eye pain, vision change ENT: denies: ear pain, throat pain Respiratory: orthopnea, shortness of breath Cardiovascular: chest pain, edema Gastrointestinal: denies: abdominal pain, vomiting Genitourinary: denies: dysuria, discharge Musculoskeletal: denies: back pain, arthralgia Skin: denies: rash, lesions Neurological: denies: headache, weakness Physical Exam - Physical Exam Vital Signs: Vital Signs 09/01/18 13:42 Pulse Rate 76 Respiratory 24 Rate O2 Sat by Pulse 87 Oximetry Physical Exam: GENERAL: The patient is well-developed well-nourished. HEENT: Normocephalic. Atraumatic. Patient has moist mucous membranes. EYES: Extraocular motions are intact. Pupils are equal and reactive to light bilaterally. NECK: Supple. Trachea is midline. CHEST/LUNGS: Clear to auscultation. Tachypnea without accessory muscle use. No respiratory distress noted. HEART/CARDIOVASCULAR: Regular. There is no tachycardia. There is no obvious murmur. ABDOMEN: Abdomen is soft, nontender. Patient has normal bowel sounds. There is obese habitus. SKIN: There is pitting edema to the bilateral lower extremities and up through the lower abdomen. NEURO: The patient is awake, alert, and oriented. The patient is cooperative. The patient has no focal neurologic deficits. The patient has normal speech. MUSCULOSKELETAL: There is no tenderness or deformity. There is no evidence of acute injury. ED Course Vital Signs 09/01/18 13:42 Pulse Rate 76 Respiratory 24 Rate O2 Sat by Pulse 87 Oximetry - Reevaluation(s) Reevaluation #1: The patient's original ABG showed some respiratory acidosis and hypercapnia. This was when the patient was not very compliant with keeping on his nonrebreather and had refused the BiPAP machine. We explained the necessity of the BiPAP machine to the patient to avoid any further hypoxia, hypercapnia or any further demand ischemia of his heart. The patient has been on the BiPAP compliantly for the past hour and a repeat ABG was done that shows worsening acidosis and worsening hypercapnia with a PCO2 of 105. The patient is becoming harder to arouse and appears very lethargic. At this point the patient is going to be intubated for hypercapnia and respiratory failure and his admission will be changed to the ICU. Secondary to his respiratory acidosis and hypercapnia, the patient does not appear to have any medical decision-making capacity and I feel that without intubation there will likely be a life-threatening decompensation. 09/01/18 19:34 - Consultations Consultation #1: Patient was seen by the PA for [facility] cardiology, Ramona Mendez, regarding patient's elevated troponin level. They will continue see the patient as a consult. 09/01/18 20:24 - ABG Interpretation Ph: [phone] PCO2: 89 PO2: 88 Bicarbonate: 38 Interpretation: respiratory acidosis, metabolic alkalosis - Intubation Time Out Performed: Yes Sedative: Ketamine Mg Given: 150 Paralytic: Succinylcholine Mg Given: 150 Laryngoscope: other (Glydescope) Size: 4 ET Tube Size: 7.5 Tube Secured Depth (cm): 24 Tube Secured Location: lips Tube Placement Confirmation: visualized tube passing t, equal breath sounds bilat, confirmation by capnometr Patient Tolerated Procedure: well Intubation Complications: none ED Medical Decision Making - Lab Data Result diagrams: 09/02/18 08:16 09/02/18 08:16 - EKG Data -: EKG Interpreted by Me EKG shows normal: sinus rhythm, axis (left axis deviation), intervals, QRS complexes (Q waves to the anterior and inferior leads), ST-T waves Rate: normal - EKG Data When compared to previous EKG there are: no significant change Interpretation: unchanged when compared t (08/02/18) - Radiology Data Radiology results: report reviewed, image reviewed interpreted by me: Chest x-ray shows cardiomegaly and some pulmonary vascular congestion. No pneumonia. No pneumothorax. Left lower extremity venous Doppler is negative for DVT - Medical Decision Making This patient presents with complaint of some chest pain, shortness of breath, edema. He appears to be noncompliant with his oxygen, CPAP, and outpatient follow-up with cardiology. Patient has some tachypnea but does not appear to be in any respiratory distress at first. However he does appear to be very fatigued and can fall sleep very easily. For this reason, I obtained an ABG which did show some respiratory acidosis and hypercapnia. Without supplemental oxygen, especially if the patient is sleeping, the patient will have oxygen desaturation/hypoxia. At first, the patient is not compliant with keeping on his nonrebreather and had refused BiPAP. However, as the patient's PCO2 increased, he became more sleepy and was able to keep the BiPAP on an extended period of time. Repeat ABG showed worsening respiratory acidosis and hypercapnia and the patient became hard to arouse from sleep and therefore the decision was made to intubate the patient. Prior to all of this, the patient had a first troponin come back positive at 0.125. He was evaluated in the emergency department by the cardiology service. The patient also shows signs of CHF. The patient was accepted for admission to the ICU by the hospitalist, Dr. Silverman. - Differential Diagnosis CHF, MT, PE, obstructive sleep apnea Critical Care Time: Yes Critical care time in (mins) excluding proc time.: 35 Critical care attestation.: If time is entered above; I have spent that time in minutes in the direct care of this critically ill patient, excluding procedure time. Critical care time was spent on this patient during his initial evaluation, multiple re- evaluations, ordering interpretation of labs and imaging, discussion with the cardiology and hospitalist services, ventilator management. This does not include the time spent doing the intubation procedure. Critical Care Time: 35 minutes ED Disposition Clinical Impression: Elevated troponin Respiratory failure with hypoxia and hypercapnia Qualifiers: Chronicity: acute Qualified Code(s): J96.01 - Acute respiratory failure with hypoxia Acute exacerbation of CHF (congestive heart failure) Qualifiers: Heart failure type: unspecified Qualified Code(s): I50.9 - Heart failure, unspecified Disposition: 09 OP ADMIT IP TO THIS HOSP Is pt being admited?: Yes Condition: Serious Time of Disposition: 20:26
--- NOTE | 2018-09-01 14:41 | XRay Report ---
AP CHEST: HISTORY: Short of breath Mild cardiomegaly and mild central pulmonary venous congestion appears stable since 08/02/18. The lungs are generally clear. No obvious infiltrate, large pleural effusion or pneumothorax. The bony structures are grossly intact. IMPRESSION: Mild cardiomegaly and pulmonary venous congestion.
[2018-09-01 15:34] LABS: Basophils % (Auto) 0.7 % (0.0-1.8); Eosinophils # (Auto) 0.1 K/mm3 (0.0-0.4); Lymphocytes % (Auto) 17.1 % (13.4-35.0); Mean Corpuscular HGB Conc 31 % (32-34); Mean Corpuscular Volume 89 fl (84-94); Monocytes # (Auto) 0.7 K/mm3 (0.0-0.8); Platelet Count 252 K/mm3 (140-440); Red Blood Count 5.37 M/mm3 (3.65-5.03); Red Cell Distribution Width 17.1 % (13.2-15.2)
[2018-09-01 15:41] LABS: Hematocrit 47.8 % (35.5-45.6); Hemoglobin 14.6 gm/dl (11.8-15.2)
[2018-09-01 15:50] LABS: BUN/Creatinine Ratio 15; Blood Urea Nitrogen 21 mg/dL (9-20); Calcium 8.4 mg/dL (8.4-10.2); Hemolysis Index 10
[2018-09-01 15:54] LABS: INR 1.14 (0.87-1.13)
[2018-09-01 15:55] LABS: Partial Thromboplastin Time 29.1 Sec. (24.2-36.6)
--- NOTE | 2018-09-01 16:41 | Consultation ---
History of Present Illness Consult date: 09/01/18 Requesting physician: ELIDA COELLO Consult reason: abnormal cardiac enzymes, congestive heart failure History of present illness: The pt is a 28-year-old -[place] male with a past medical history of morbid obesity, sleep apnea, heart failure, chronic type B aortic dissection, hypothyroidism who presented to the emergency department with 2 or 3 days of shortness of breath, orthopnea, fluid retention/edema, and feeling very sleepy. The patient says he has not gotten much sleep because he is unable to lay flat because his bed is not comfortable. He says he has been compliant with his CPAP and his medications including his Lasix. He reports an intermittent "grabbing" sensation in the middle of his chest which has been present for the past 2-3 weeks. He denies any tobacco use. He is partially oxygen dependent, mostly at night. His primary care physician is a Dr. Muhammad but he does not currently have a bean dumper. No recent travel or sick contacts at home. Echo done 05/10/2018 showed EF 45-50%, impaired relaxation, RV mildly dilated, RV systolic function mod reduced. Past History Past Medical History: heart failure, hypertension Medications and Allergies Allergies Allergy/AdvReac Type Severity Reaction Status Date / Time No Known Allergies Allergy Unverified 10/02/17 17:09 Home Medications Medication Instructions Recorded Confirmed Last Taken Type Aspirin [Aspirin BABY CHEW TAB] 81 mg PO QDAY #30 tab.chew 08/04/18 Unknown Rx Furosemide [Lasix TAB] 40 mg PO BID #60 tablet 08/04/18 Unknown Rx Labetalol [Normodyne TAB] 300 mg PO Q8HR 30 Days tablet 08/04/18 Unknown Rx Levothyroxine [Synthroid] 50 mcg PO DAILY@0600 #30 tablet 08/04/18 Unknown Rx NIFEdipine XL [Procardia Xl] 90 mg PO BID #60 tablet 08/04/18 Unknown Rx Potassium Chloride [K-Dur] 10 meq PO BID #60 tablet 08/04/18 Unknown Rx cloNIDine-TTS PATCH 0.3 mg TRANSDERMA 1XW #4 08/04/18 Unknown Rx Review of Systems Constitutional: no fever, no chills, no sweats Ears, nose, mouth and throat: no ear pain, no nose pain, no sinus pressure, no sinus pain Cardiovascular: chest pain (discomfort), orthopnea, edema, shortness of breath, dyspnea on exertion, paroxysmal nocturnal dyspnea, leg edema, no palpitations, no rapid/irregular heart beat, no syncope, no lightheadedness Respiratory: shortness of breath, dyspnea on exertion, no cough, no congestion, no wheezing, no pain on inspiration Gastrointestinal: no abdominal pain, no nausea, no vomiting, no diarrhea, no constipation Genitourinary Male: no dysuria, no hematuria, no flank pain, no discharge, no urinary frequency, no urinary hesitancy Musculoskeletal: no neck stiffness, no neck pain, no shooting arm pain, no arm numbness/tingling, no low back pain, no shooting leg pain, no leg numbness/tingling Integumentary: no rash, no pruritis, no redness, no sores, no wounds Neurological: no head injury, no paralysis, no weakness, no parathesias, no numbness, no tingling, no seizures, no syncope Psychiatric: no anxiety Endocrine: no cold intolerance, no heat intolerance Hematologic/Lymphatic: no easy bruising, no easy bleeding Allergic/Immunologic: no urticaria, no wheezing Physical Examination Vital Signs Pulse Resp Pulse Ox 76 24 87 09/01/18 13:42 09/01/18 13:42 09/01/18 13:42 General appearance: no acute distress HEENT: Positive: PERRL, Normocephaly, Mucus Membranes Moist Neck: Positive: neck supple, trachea midline Cardiac: Positive: Reg Rate and Rhythm, S1/S2 Lungs: Positive: Decreased Breath Sounds Neuro: Positive: Grossly Intact Abdomen: Negative: Tender Skin: Negative: Rash Musculoskeletal: No Pain Extremities: Present: +1 Edema (BLE) Results 09/01/18 15:15 09/01/18 15:15 Coagulation 09/01/18 Range/Units 15:15 PT 15.0 H (12.2-14.9) Sec. INR 1.14 H (0.87-1.13) APTT 29.1 (24.2-36.6) Sec. CBC 09/01/18 Range/Units 15:15 WBC 6.0 (4.5-11.0) K/mm3 RBC 5.37 H (3.65-5.03) M/mm3 Hgb 14.6 (11.8-15.2) gm/dl Hct 47.8 H (35.5-45.6) % Plt Count 252 (140-440) K/mm3 Lymph # 1.0 L (1.2-5.4) K/mm3 Caroline # 0.7 (0.0-0.8) K/mm3 Eos # 0.1 (0.0-0.4) K/mm3 Baso # 0.0 (0.0-0.1) K/mm3 Comprehensive Metabolic Panel 09/01/18 Range/Units 15:15 Sodium 143 (137-145) mmol/L Potassium 4.8 (3.6-5.0) mmol/L Chloride 99.4 (98-107) mmol/L Carbon Dioxide 39 H (22-30) mmol/L BUN 21 H (9-20) mg/dL Creatinine 1.4 (0.8-1.5) mg/dL Glucose 106 H (75-100) mg/dL Calcium 8.4 (8.4-10.2) mg/dL - Imaging and Cardiology Echo: report reviewed (05/10/2018 showed EF 45-50%, impaired relaxation, RV mildly dilated, RV systolic function mod reduced. ) EKG: report reviewed, image reviewed EKG interpretations - Telemetry EKG Rhythm: Sinus Rhythm - EKG Sinus rhythms and dysrhythmias: sinus rhythm Assessment and Plan DDimer elevated - chest CTA pending. Initiate IV lasix BID and resume home cardiac regimen. Cont to trend Severo. ECG with no acute ischemic changes. Consider heparinization if Severo trend upwards and if no contraindication. The patient has been seen in conjunction with Dr. MIRZA Ren who agrees with the assessment and plan of care. - Patient Problems (1) Acute on chronic heart failure Current Visit: Yes Status: Acute (2) Elevated troponin Current Visit: Yes Status: Acute (3) Chest pain Current Visit: Yes Status: Acute (4) Chronic thoracic aortic dissection Current Visit: Yes Status: Chronic (5) Morbid obesity Current Visit: Yes Status: Chronic (6) PAUL (obstructive sleep apnea) Current Visit: Yes Status: Chronic (7) Hypothyroidism Current Visit: Yes Status: Chronic (8) NSVT (nonsustained ventricular tachycardia) Current Visit: Yes Status: Acute (9) Medical non-compliance Current Visit: Yes Status: Chronic (10) HTN Current Visit: Yes Status: Chronic (11) Diabetes Current Visit: Yes Status: Chronic
[2018-09-01 16:43] LABS: Chol/HDL Ratio 2.81 %; HDL Cholesterol 33 mg/dL (40-59); LDL Cholesterol,Direct 62 mg/dL (50-130)
--- NOTE | 2018-09-01 18:20 | History and Physical Report ---
History of Present Illness Chief complaint: I cant breathe History of present illness: 28 YO Male with MO, CHF, Obesity Hypoventilation, HTN, Lymphedema presents to ED for evaluation. Pt states that he has experienced shortness of breath over the past three days with persistent symptoms over the same time frame. Pt ac knowledges Orthopnea/PND, Decreased exercise tolerance, Dypsnea on exeertion. Pt denies fever, chills, CP, Palpitations, NVD, Trauma, Productive cough or recent ill contacts. Pt denies back pain, or chest pain that radiates to his back. Pt transported to [facility] for further care and evaluation. Pt seen and evaluated in ED and found to have Hypercapnic Respiratory Failure, CHF. Pt initiated on NIPPV wi thout improvement. Pt intubated and placed on vent support in ED. Pt admitted to ICU and placed on heparin drip protocol. Cardiology and Pulmonary teams consulted in ED. Past History Past Medical History: heart failure, hypertension Past Surgical History: abd. aortic aneurysm repair Social history: single Family history: hypertension Medications and Allergies Allergies Allergy/AdvReac Type Severity Reaction Status Date / Time No Known Allergies Allergy Unverified 10/02/17 17:09 Home Medications Medication Instructions Recorded Confirmed Last Taken Type Aspirin [Aspirin BABY CHEW TAB] 81 mg PO QDAY #30 tab.chew 08/04/18 Unknown Rx Furosemide [Lasix TAB] 40 mg PO BID #60 tablet 08/04/18 Unknown Rx Labetalol [Normodyne TAB] 300 mg PO Q8HR 30 Days tablet 08/04/18 Unknown Rx Levothyroxine [Synthroid] 50 mcg PO DAILY@0600 #30 tablet 08/04/18 Unknown Rx NIFEdipine XL [Procardia Xl] 90 mg PO BID #60 tablet 08/04/18 Unknown Rx Potassium Chloride [K-Dur] 10 meq PO BID #60 tablet 08/04/18 Unknown Rx cloNIDine-TTS PATCH 0.3 mg TRANSDERMA 1XW #4 08/04/18 Unknown Rx Active Meds: Active Medications Furosemide (Lasix) 40 mg IV BID ELIEL Review of Systems Constitutional: no weight loss, no weight gain, no fever Ears, nose, mouth and throat: no ear pain, no tinnitis, no nasal congestion Cardiovascular: orthopnea, shortness of breath, dyspnea on exertion, paroxysmal nocturnal dyspnea, decreased exercise tolerance, no chest pain, no edema, no high blood pressure Respiratory: no cough, no cough with sputum, no excessive sputum, no wheezing, no pleurisy Gastrointestinal: no abdominal pain, no vomiting, no constipation Genitourinary Male: no hematuria, no discharge, no urinary frequency Rectal: no pain, no incontinence, no bleeding Musculoskeletal: no neck pain, no arm numbness/tingling, no shooting leg pain, no leg numbness/tingling Integumentary: no rash, no redness, no wounds Neurological: no head injury, no paralysis, no parathesias Psychiatric: no anxiety, no change in sleep habits, no insomnia, no change in appetite Endocrine: no cold intolerance, no heat intolerance, no polyphagia Hematologic/Lymphatic: no easy bruising, no easy bleeding, no lymphadenopathy, no lymphedema Allergic/Immunologic: no urticaria, no allergic rhinitis Exam - Constitutional Vitals: Temp Pulse Resp BP Pulse Ox 76 24 87 09/01/18 13:42 09/01/18 13:42 09/01/18 13:42 General appearance: Present: severe distress, obese - EENT Eyes: Present: PERRL ENT: hearing intact, clear oral mucosa - Neck Neck: Present: supple, normal ROM - Respiratory Respiratory effort: labored Respiratory: bilateral: diminished, rhonchi - Cardiovascular Heart Sounds: Present: S1 & S2. Absent: rub, click - Extremities Extremities: pulses symmetrical Extremity abnormal: edema Peripheral Pulses: within normal limits - Abdominal General gastrointestinal: Present: soft, non-tender, non-distended, normal bowel sounds Male genitourinary: Present: normal - Integumentary Integumentary: Present: clear, warm, dry - Musculoskeletal Musculoskeletal: generalized weakness - Psychiatric Psychiatric: appropriate mood/affect, intact judgment & insight - Neurologic Neurologic: CNII-XII intact, moves all extremities Results - Labs CBC & Chem 7: 09/02/18 04:35 09/02/18 04:35 Labs: Abnormal lab results 09/01/18 09/01/18 09/01/18 Range/Units 15:15 15:15 15:15 RBC 5.37 H (3.65-5.03) M/mm3 Hct 47.8 H (35.5-45.6) % MCH 27 L (28-32) pg MCHC 31 L (32-34) % RDW 17.1 H (13.2-15.2) % [place] % (Auto) 11.0 H (0.0-7.3) % Lymph # 1.0 L (1.2-5.4) K/mm3 Seg Neutrophils % 70.2 H (40.0-70.0) % PT 15.0 H (12.2-14.9) Sec. INR 1.14 H (0.87-1.13) D-Dimer (0-234) ng/mlDDU POC ABG pH (7.35-7.45) POC ABG pCO2 (35-45) Carbon Dioxide 39 H (22-30) mmol/L BUN 21 H (9-20) mg/dL Glucose 106 H (75-100) mg/dL Troponin T 0.125 H* (0.00-0.029) ng/mL NT-Pro-B Natriuret Pep (0-450) pg/mL HDL Cholesterol 33 L (40-59) mg/dL 09/01/18 09/01/18 09/01/18 Range/Units 15:15 15:15 15:28 RBC (3.65-5.03) M/mm3 Hct (35.5-45.6) % MCH (28-32) pg MCHC (32-34) % RDW (13.2-15.2) % [place] % (Auto) (0.0-7.3) % Lymph # (1.2-5.4) K/mm3 Seg Neutrophils % (40.0-70.0) % PT (12.2-14.9) Sec. INR (0.87-1.13) D-Dimer 869.27 H (0-234) ng/mlDDU POC ABG pH 7.235 L (7.35-7.45) POC ABG pCO2 89.8 H (35-45) Carbon Dioxide (22-30) mmol/L BUN (9-20) mg/dL Glucose (75-100) mg/dL Troponin T (0.00-0.029) ng/mL NT-Pro-B Natriuret Pep 1764 H (0-450) pg/mL HDL Cholesterol (40-59) mg/dL Assessment and Plan - Patient Problems (1) Respiratory failure with hypoxia and hypercapnia Current Visit: Yes Status: Acute Qualifiers: Chronicity: acute Qualified Code(s): J96.01 - Acute respiratory failure with hypoxia; J96.02 - Acute respiratory failure with hypercapnia Plan to address problem: Admit to ICU. Pt intubated placed on vent support. CTA chest unavailable. Initiated on heparin drip protocol, ABG, wean vent as tolerated, chest x ray, d dimer, The high probability of a clinically significant, sudden or life threatening deterioration of the [Pulmonary,cardiac,neuro] system(s) required my full and direct attention, intervention and personal management. The aggregate critical care time was [65] minutes. This time is in addition to time spent performing reported procedures but includes the following: [x] Data Review and interpretation [x] Patient assessment and monitoring of vital signs [x] Documentation [x] Medication orders and management (2) Obesity hypoventilation syndrome Current Visit: Yes Status: Acute Plan to address problem: Supplemental oxygen, nebulizer therapy, supportive care, pulmonary consulted (3) Acute exacerbation of CHF (congestive heart failure) Current Visit: Yes Status: Chronic Qualifiers: Heart failure type: unspecified Qualified Code(s): I50.9 - Heart failure, unspecified Plan to address problem: Cardiology consulted in ED, diuresis, Strict I/O, daily weight, afterload reduction, blood pressure control, monitor uop q shift, chest x ray. (4) DVT prophylaxis Current Visit: Yes Status: Acute Plan to address problem: SCD to BLE while in bed.
[2018-09-01] MEDS ORDERED: PROVENTIL IH PRN (18:25)
[2018-09-01] MEDS ORDERED: SODIUM CHLORIDE FLUSH SYRINGE 10 ML IV PRN (18:25)
[2018-09-01] MEDS ORDERED: CLONIDINE TRANSDERMA SCH (18:30)
[2018-09-01] MEDS ORDERED: [UNRECOGNIZED DRUG - OTHER] TRANSDERMA SCH (18:30)
[2018-09-01] MEDS ORDERED: QUELICIN IV ONE (19:40)
[2018-09-01] MEDS ORDERED: KETALAR IV ONE (19:40)
[2018-09-01] MEDS ORDERED: DIPRIVAN 10 MG/ML 1,000 MG/100 ML BOTTLE IV ONE ×2 (19:44→22:48)
[2018-09-01] MEDS ORDERED: VASELINE LIP THERAPY TP PRN (19:56)
[2018-09-01] MEDS ORDERED: ARTIFICIAL TEARS OPHTH OINT OU PRN (19:56)
[2018-09-01] MEDS: DIPRIVAN 10 MG/ML 1,000 MG/100 ML BOTTLE IV SCH (20:00)
--- NOTE | 2018-09-01 21:24 | XRay Report ---
FINAL REPORT EXAM: XR CHEST 1V AP HISTORY: ETT placement TECHNIQUE: Single AP view of the chest semi upright PRIORS: Comparison is dated August 02, 2018 FINDINGS: There been an ET tube present. Tip is just below the thoracic inlet 5.6 centimeters above the willi. There is an NG tube present. The side port overlies the distal esophagus with the tip at the gastroe sophageal junction. Recommend advancement. Cardiac silhouette is enlarged. There is some pulmonary vascular congestion suggestive of CHF. IMPRESSION: ET tube in satisfactory position NG tube with tip overlying the gastroesophageal junction suggest advancement Cardiomegaly. For findings suggestive of CHF
[2018-09-01] MEDS ORDERED: SUBLIMAZE ONE (21:25)
[2018-09-01 21:26] LABS: Hematocrit 46.4 % (35.5-45.6); Hemoglobin 14.6 gm/dl (11.8-15.2)
[2018-09-01] MEDS ORDERED: SUBLIMAZE IV ONE (21:29)
[2018-09-01 21:38] LABS: INR 1.15 (0.87-1.13)
[2018-09-01 21:39] LABS: Partial Thromboplastin Time 30.2 Sec. (24.2-36.6)
[2018-09-01] MEDS ORDERED: K-DUR PO SCH (22:00)
[2018-09-01] MEDS ORDERED: CATAPRES-TTS PATCH TD SCH (22:00)
[2018-09-01] MEDS ORDERED: PROCARDIA XL PO SCH (22:00)
[2018-09-02] MEDS ORDERED: LASIX ONE (00:28)
[2018-09-02] MEDS: LASIX IV SCH ×3 (00:31→21:12)
[2018-09-02] MEDS ORDERED: APRESOLINE ONE (01:10)
[2018-09-02] MEDS: APRESOLINE IV PRN ×4 (01:40→23:45)
[2018-09-02] MEDS ORDERED: DIPRIVAN 10 MG/ML 1,000 MG/100 ML BOTTLE IV ONE (01:56)
[2018-09-02] MEDS: HEPARIN/ 0.45% NACL-25,000 UNIT/500 ML 25,000 UNIT/500 ML BAG IV SCH ×2 (03:02→21:53)
[2018-09-02] MEDS: SODIUM CHLORIDE FLUSH SYRINGE 10 ML IV SCH ×3 (03:11→21:13)
[2018-09-02] MEDS: NORMODYNE PO SCH ×5 (03:12→22:54)
--- NOTE | 2018-09-02 03:16 | XRay Report ---
FINAL REPORT EXAM: XR CHEST 1V AP HISTORY: follow up respiratory failure TECHNIQUE: A portable semi-upright view the chest was obtained and compared to the study of 09/01/19. FINDINGS: The heart is moderately enlarged. Allowing for the depth of inspiration the lungs are not overtly con gested. The tip of the ET tube is 4 cm above the willi. The tip of the NG tube is in the mid esophag us and needs to be advanced much further into the stomach. The skeletal structures otherwise are unch anged. IMPRESSION: Cardiomegaly. Suboptimal inspiratory effort. No localized infiltrates identified. ET tube in good position above the willi. The NG tube is position with the tip in the mid esophagus. It needs to be advanced at least 20 centim eters to reach the stomach.
[2018-09-02] MEDS: DIPRIVAN 10 MG/ML 1,000 MG/100 ML BOTTLE IV SCH ×7 (04:17→22:19)
[2018-09-02] MEDS: CARDENE 50 MG in NACL 0.9% 250ML 230 ML IV SCH (05:19)
[2018-09-02 05:32] LABS: Basophils # (Auto) 0.1 K/mm3 (0.0-0.1); Basophils % (Auto) 0.8 % (0.0-1.8); Eosinophils # (Auto) 0.1 K/mm3 (0.0-0.4); Eosinophils % (Auto) 0.9 % (0.0-4.3); Hematocrit 50.6 % (35.5-45.6); Hemoglobin 15.8 gm/dl (11.8-15.2); Lymphocytes % (Auto) 12.2 % (13.4-35.0); Mean Corpuscular HGB Conc 31 % (32-34); Mean Corpuscular Volume 89 fl (84-94); Monocytes % (Auto) 12.6 % (0.0-7.3); Platelet Count 261 K/mm3 (140-440); Red Blood Count 5.67 M/mm3 (3.65-5.03); Red Cell Distribution Width 17.9 % (13.2-15.2)
[2018-09-02 05:44] LABS: BUN/Creatinine Ratio 15; Blood Urea Nitrogen 21 mg/dL (9-20); Calcium 9.1 mg/dL (8.4-10.2); Hemolysis Index 23
[2018-09-02] MEDS ORDERED: D50W (25GM) Syringe IV NR (06:04)
--- NOTE | 2018-09-02 06:59 | Vascular Lab Report ---
FINAL REPORT EXAM: VL VENOUS DUPLEX LE LT HISTORY: LLE pain and swelling TECHNIQUE: Routine Doppler compression imaging was obtained of the deep venous system of the left lo wer extremity extending from the common femoral vein through the popliteal vein. The calf veins were also examined. Augmentation maneuvers and waveforms were recorded. FINDINGS: All veins compress normally. The waveforms appear normal. IMPRESSION: Normal exam. No evidence of DVT in the left lower extremity.
[2018-09-02 08:39] LABS: Basophils # (Auto) 0.1 K/mm3 (0.0-0.1); Basophils % (Auto) 0.7 % (0.0-1.8); Eosinophils # (Auto) 0.1 K/mm3 (0.0-0.4); Eosinophils % (Auto) 0.9 % (0.0-4.3); Hematocrit 49.9 % (35.5-45.6); Hemoglobin 15.4 gm/dl (11.8-15.2); Lymphocytes # (Auto) 1.1 K/mm3 (1.2-5.4); Lymphocytes % (Auto) 13.8 % (13.4-35.0); Mean Corpuscular HGB Conc 31 % (32-34); Mean Corpuscular Volume 88 fl (84-94); Monocytes % (Auto) 12.7 % (0.0-7.3); Platelet Count 239 K/mm3 (140-440); Red Blood Count 5.68 M/mm3 (3.65-5.03); Red Cell Distribution Width 18.1 % (13.2-15.2)
[2018-09-02 08:58] LABS: Alanine Aminotransferase 24 units/L (7-56); Albumin 2.8 g/dL (3.9-5); BUN/Creatinine Ratio 15; Blood Urea Nitrogen 21 mg/dL (9-20); Calcium 8.6 mg/dL (8.4-10.2); Hemolysis Index 21
[2018-09-02] MEDS: SYNTHROID PO SCH (09:12)
--- NOTE | 2018-09-02 09:59 | Progress Note ---
Assessment and Plan Acute hypercapnic respiratory failure Acute on chronic heart failure, EF 45-50% per echo 04/28 Elevated troponin Elevated D-dimer Chest pain Chronic thoracic aortic dissection Morbid obesity PAUL Hypothyroidism NSVT Medical non-compliance Hypertension Diabetes Plan: Troponin mildly elevated but flat. Initiate PO anti-hypertensive regimen (pt. has NGT) and wean cardene gtt as tolerated. Continue IV lasix and close monitoring of volume status and renal indices. The patient has been seen in conjunction with Dr. MIRZA Ren who agrees with the assessment and plan of care. Subjective Date of service: 09/02/18 Principal diagnosis: acute respiratory failure, elevated troponin Interval history: The patient is intubated and sedated. Cardene gtt at 7.5mg/hr. Sinus rhythm on the monitor. Objective Last Vital Signs Temp 99.3 F 09/02/18 08:00 Pulse 78 09/02/18 09:20 Resp 20 09/02/18 09:20 BP 127/65 09/02/18 09:20 Pulse Ox 94 09/02/18 09:20 - Physical Examination General: No Apparent Distress (intubated, sedated) HEENT: Positive: PERRL, Normocephaly, Mucus Membranes Moist Neck: Positive: neck supple, trachea midline Cardiac: Positive: Reg Rate and Rhythm, S1/S2 Lungs: Positive: Decreased Breath Sounds Neuro: Positive: Grossly Intact Abdomen: Positive: Soft. Negative: Tender Skin: Negative: Rash Musculoskeletal: No Pain Extremities: Present: +1 Edema (BLE, chronic skin changes) - Labs and Meds Cardiac Enzymes 09/02/18 Range/Units 08:16 AST 43 H (5-40) units/L Coagulation 09/01/18 09/01/18 Range/Units 15:15 21:20 PT 15.0 H 15.1 H (12.2-14.9) Sec. INR 1.14 H 1.15 H (0.87-1.13) APTT 29.1 30.2 (24.2-36.6) Sec. Lipids 09/01/18 Range/Units 15:15 Triglycerides 63 (2-149) mg/dL Cholesterol 93 (50-199) mg/dL HDL Cholesterol 33 L (40-59) mg/dL Cholesterol/HDL Ratio 2.81 % CBC 09/01/18 09/01/18 09/02/18 Range/Units 15:15 21:20 04:35 WBC 6.0 8.0 (4.5-11.0) K/mm3 RBC 5.37 H 5.67 H (3.65-5.03) M/mm3 Hgb 14.6 14.6 15.8 H (11.8-15.2) gm/dl Hct 47.8 H 46.4 H 50.6 H (35.5-45.6) % Plt Count 252 252 261 (140-440) K/mm3 Lymph # 1.0 L 1.0 L (1.2-5.4) K/mm3 [place] # 0.7 1.0 H (0.0-0.8) K/mm3 Eos # 0.1 0.1 (0.0-0.4) K/mm3 Baso # 0.0 0.1 (0.0-0.1) K/mm3 09/02/18 Range/Units 08:16 WBC 7.7 (4.5-11.0) K/mm3 RBC 5.68 H (3.65-5.03) M/mm3 Hgb 15.4 H (11.8-15.2) gm/dl Hct 49.9 H (35.5-45.6) % Plt Count 239 (140-440) K/mm3 Lymph # 1.1 L (1.2-5.4) K/mm3 [place] # 1.0 H (0.0-0.8) K/mm3 Eos # 0.1 (0.0-0.4) K/mm3 Baso # 0.1 (0.0-0.1) K/mm3 Comprehensive Metabolic Panel 09/01/18 09/02/18 09/02/18 Range/Units 15:15 04:35 08:16 Sodium 143 145 143 (137-145) mmol/L Potassium 4.8 4.9 4.1 (3.6-5.0) mmol/L Chloride 99.4 97.7 L 98.3 (98-107) mmol/L Carbon Dioxide 39 H 36 H 35 H (22-30) mmol/L BUN 21 H 21 H 21 H (9-20) mg/dL Creatinine 1.4 1.4 1.4 (0.8-1.5) mg/dL Glucose 106 H 69 L 93 (75-100) mg/dL Calcium 8.4 9.1 8.6 (8.4-10.2) mg/dL AST 43 H (5-40) units/L ALT 24 (7-56) units/L Alkaline Phosphatase 114 (35-129) units/L Total Protein 6.2 L (6.3-8.2) g/dL Albumin 2.8 L (3.9-5) g/dL - Imaging and Cardiology EKG: report reviewed, image reviewed Echo: report reviewed (05/10/2018 showed EF 45-50%, impaired relaxation, RV mildly dilated, RV systolic function mod reduced. ) - Telemetry EKG Rhythm: Sinus Rhythm - EKG Sinus rhythms and dysrhythmias: sinus rhythm
--- NOTE | 2018-09-02 10:35 | Consultation ---
History of Present Illness Consult date: 09/02/18 Requesting physician: RONNY FISHER History of present illness: 28 YO Male with MO, CHF, Obesity Hypoventilation, Chronic AORTIC DISSECTION, HTN, Hypothyrodism, Lymphedema presents to ED for evaluation. Pt states that he has experienced shortness of breath over the past three days with persistent symptoms over the same time frame. Pt acknowledges Orthopnea/PND, Decreased exercise tolerance, Dypsnea on exeertion. Pt denies fever, chills, CP, Palpitations, NVD, Trauma, Productive cough or recent ill contacts. Pt denies back pain, or chest pain that radiates to his back. Pt transported to [facility] for further care and evaluation. Pt seen and evaluated in ED and found to have Hypercapnic Respiratory Failure, CHF. Pt initiated on NIPPV without improvement. Pt intubated and placed on vent support in ED. Pt admitted to ICU and placed on heparin drip protocol. Cardiology and Pulmonary teams consulted in ED. Patient was seen and examined. Vitals, labs, medications, chart and imaging reviewed Past History Past Medical History: heart failure, hypertension Past Surgical History: abd. aortic aneurysm repair Social history: single Family history: hypertension Medications and Allergies Allergies Allergy/AdvReac Type Severity Reaction Status Date / Time No Known Allergies Allergy Unverified 10/02/17 17:09 Home Medications Medication Instructions Recorded Confirmed Last Taken Type Aspirin [Aspirin BABY CHEW TAB] 81 mg PO QDAY #30 tab.chew 08/04/18 09/07/18 Unknown Rx Furosemide [Lasix TAB] 40 mg PO BID #60 tablet 08/04/18 09/07/18 Unknown Rx Labetalol [Normodyne TAB] 300 mg PO Q8HR 30 Days tablet 08/04/18 09/07/18 Unknown Rx Levothyroxine [Synthroid] 50 mcg PO DAILY@0600 #30 tablet 08/04/18 09/07/18 Unknown Rx NIFEdipine XL [Procardia Xl] 90 mg PO BID #60 tablet 08/04/18 09/07/18 Unknown Rx Potassium Chloride [K-Dur] 10 meq PO BID #60 tablet 08/04/18 09/07/18 Unknown Rx cloNIDine-TTS PATCH 0.3 mg TRANSDERMA 1XW #4 08/04/18 09/07/18 Unknown Rx Active Meds: Active Medications Albuterol (Proventil) 2.5 mg IH Q3HRT PRN PRN Reason: Shortness Of Breath Amlodipine Besylate (Norvasc) 10 mg PO DAILY [facility] Aspirin (Baby Aspirin) 81 mg PO QDAY [facility] Clonidine HCl (Catapres-Tts Patch) 0.3 mg TD Tu [facility] Last Admin: 09/02/18 03:10 Dose: 0.3 mg Documented by: Famotidine (Pepcid) 20 mg IV BID [facility] Furosemide (Lasix) 40 mg IV BID [facility] Last Admin: 09/02/18 00:31 Dose: 40 mg Documented by: Hydralazine HCl (Apresoline) 5 mg IV Q6HR PRN PRN Reason: Blood Pressure Last Admin: 09/02/18 04:16 Dose: 5 mg Documented by: Hydrophilic Ointment (Vaseline Lip Therapy) 1 applic TP Q2HR PRN PRN Reason: Dry Lips Heparin Sodium/Sodium Chloride (Heparin/ 0.45% Nacl-25,000 Unit/500 Ml) 25,000 unit in 500 mls @ 20 mls/hr IV TITRATE [facility]; Protocol Last Admin: 09/02/18 03:02 Dose: 1,000 units/hr, 20 mls/hr Documented by: Propofol (Diprivan 10 Mg/Ml) 1,000 mg in 100 mls @ 5.443 mls/hr IV TITR [facility]; Protocol Last Admin: 09/02/18 09:08 Dose: 35 mcg/kg/min, 38.102 mls/hr Documented by: Nicardipine HCl 50 mg/ Sodium (Chloride) 250 mls @ 25 mls/hr IV TITR [facility]; Protocol Last Titration: 09/02/18 09:01 Dose: 7.5 mg/hr, 37.5 mls/hr Documented by: Fentanyl Citrate (Fentanyl Drip Premix) 2,000 mcg in 100 mls @ 12.205 mls/hr IV TITR [facility]; Protocol Labetalol HCl (Normodyne) 300 mg PO Q8HR [facility] Last Admin: 09/02/18 09:12 Dose: Not Given Documented by: Levothyroxine Sodium (Synthroid) 50 mcg PO DAILY@0600 [facility] Last Admin: 09/02/18 09:12 Dose: Not Given Documented by: Multi-Ingred Cream/Lotion/Oil/Oint (Artificial Tears Ophth Oint) 1 applic OU Q4HR PRN PRN Reason: Dry Eye(s) Sodium Chloride (Sodium Chloride Flush Syringe 10 Ml) 10 ml IV BID [facility] Last Admin: 09/02/18 03:11 Dose: 10 ml Documented by: Sodium Chloride (Sodium Chloride Flush Syringe 10 Ml) 10 ml IV PRN PRN PRN Reason: LINE FLUSH Physical Examination Vital signs: Vital Signs Pulse Resp Pulse Ox 76 24 87 09/01/18 13:42 09/01/18 13:42 09/01/18 13:42 - Physical exam Narrative exam: General appearance: Present: Sedated and on mechanical ventilation - EENT Eyes: Present: PERRL ENT: hearing intact, clear oral mucosa - Neck Neck: Present: supple, normal ROM - Respiratory Respiratory: bilateral: diminished, rhonchi - Cardiovascular Heart Sounds: Present: S1 & S2. Absent: rub, click - Extremities Extremities: pulses symmetrical Extremity abnormal: edema Peripheral Pulses: within normal limits - Abdominal General gastrointestinal: Present: soft, non-tender, non-distended, normal bowel sounds Male genitourinary: Present: normal - Integumentary Integumentary: Present: clear, warm, dry - Musculoskeletal Musculoskeletal: generalized weakness - Psychiatric Psychiatric: appropriate mood/affect, intact judgment & insight - Neurologic Neurologic: CNII-XII intact, moves all extremities Results - Laboratory Findings CBC and BMP: 09/09/18 05:20 09/10/18 04:30 ABG POC ABG pH 7.396 (7.35-7.45) 09/02/18 04:18 POC ABG pCO2 62.2 (35-45) H 09/02/18 04:18 POC ABG pO2 90 (80-105) 09/02/18 04:18 POC ABG HCO3 38.2 09/02/18 04:18 POC ABG Total CO2 40 09/02/18 04:18 POC ABG O2 Sat 97 09/02/18 04:18 PT/INR, D-dimer PT 15.1 Sec. (12.2-14.9) H 09/01/18 21:20 INR 1.15 (0.87-1.13) H 09/01/18 21:20 D-Dimer 869.27 ng/mlDDU (0-234) H 09/01/18 15:15 Abnormal lab findings: Abnormal Labs 09/01/18 09/01/18 09/01/18 15:15 15:15 15:15 RBC 5.37 H Hgb Hct 47.8 H MCH 27 L MCHC 31 L RDW 17.1 H Lymph % (Auto) [place] % (Auto) 11.0 H Lymph # 1.0 L [place] # Seg Neutrophils % 70.2 H PT 15.0 H INR 1.14 H D-Dimer POC ABG pH POC ABG pCO2 POC ABG pO2 Chloride Carbon Dioxide 39 H BUN 21 H Glucose 106 H Total Bilirubin AST Troponin T 0.125 H* NT-Pro-B Natriuret Pep Total Protein Albumin HDL Cholesterol 33 L 09/01/18 09/01/18 09/01/18 15:15 15:15 15:28 RBC Hgb Hct MCH MCHC RDW Lymph % (Auto) [place] % (Auto) Lymph # [place] # Seg Neutrophils % PT INR D-Dimer 869.27 H POC ABG pH 7.235 L POC ABG pCO2 89.8 H POC ABG pO2 Chloride Carbon Dioxide BUN Glucose Total Bilirubin AST Troponin T NT-Pro-B Natriuret Pep 1764 H Total Protein Albumin HDL Cholesterol 09/01/18 09/01/18 09/01/18 17:45 19:28 21:20 RBC Hgb Hct MCH MCHC RDW Lymph % (Auto) [place] % (Auto) Lymph # [place] # Seg Neutrophils % PT INR D-Dimer POC ABG pH 7.175 L POC ABG pCO2 105.5 H POC ABG pO2 111 H Chloride Carbon Dioxide BUN Glucose Total Bilirubin AST Troponin T 0.130 H* 0.132 H* NT-Pro-B Natriuret Pep Total Protein Albumin HDL Cholesterol 09/01/18 09/01/18 09/01/18 21:20 21:20 23:29 RBC Hgb Hct 46.4 H MCH MCHC RDW Lymph % (Auto) [place] % (Auto) Lymph # [place] # Seg Neutrophils % PT 15.1 H INR 1.15 H D-Dimer POC ABG pH 7.349 L POC ABG pCO2 76.4 H POC ABG pO2 35 L Chloride Carbon Dioxide BUN Glucose Total Bilirubin AST Troponin T NT-Pro-B Natriuret Pep Total Protein Albumin HDL Cholesterol 09/01/18 09/02/18 09/02/18 23:34 04:18 04:35 RBC 5.67 H Hgb 15.8 H Hct 50.6 H MCH MCHC 31 L RDW 17.9 H Lymph % (Auto) 12.2 L [place] % (Auto) 12.6 H Lymph # 1.0 L [place] # 1.0 H Seg Neutrophils % 73.5 H PT INR D-Dimer POC ABG pH 7.294 L POC ABG pCO2 77.7 H 62.2 H POC ABG pO2 235 H Chloride Carbon Dioxide BUN Glucose Total Bilirubin AST Troponin T NT-Pro-B Natriuret Pep Total Protein Albumin HDL Cholesterol 09/02/18 09/02/18 09/02/18 04:35 08:16 08:16 RBC 5.68 H Hgb 15.4 H Hct 49.9 H MCH 27 L MCHC 31 L RDW 18.1 H Lymph % (Auto) [place] % (Auto) 12.7 H Lymph # 1.1 L [place] # 1.0 H Seg Neutrophils % 71.9 H PT INR D-Dimer POC ABG pH POC ABG pCO2 POC ABG pO2 Chloride 97.7 L Carbon Dioxide 36 H 35 H BUN 21 H 21 H Glucose 69 L Total Bilirubin 1.60 H AST 43 H Troponin T NT-Pro-B Natriuret Pep Total Protein 6.2 L Albumin 2.8 L HDL Cholesterol Assessment and Plan Acute Hypoxemic Hypercapnic Respiratory Failure Hypertensive Emergency H/O Type B Aortic Dissection (No surgery recommended in October 2017) Extreme Obesity PAUL/OHS Acute exacerbation of SYSTOLIC CHF NSTEMI TYPE 2 Diabetes Mellitus -VAP bundle addressed - continue bronchodilators with pulmonary hygiene per RT - continue to wean oxygen for target O2 Sat's > 89 - 90% - begin enteral nutrition as tolerated, once position of feeding tube is confirmed -Blood pressure control -dias catheter in this critically ill patient with some renal impairment -monitor electrolytes and replace as indicated - mobility protocol for pressure ulcer prophylaxis - GI & VTE prophylaxis( SCDs for VTE prophylaxis for now) - glycemic control with SSI for target BG 140 - 180 mg/dL -cardioprotective measures ...... re-evaluate in am & prn The high probability of a clinically significant, sudden or life threatening deterioration of the [Pulmonary,cardiac and Vascular] system(s) required my full and direct attention, intervention and personal management. The aggregate critical care time was [65] minutes. This time is in addition to time spent performing reported procedures but includes the following: [x] Data Review and interpretation [x] Patient assessment and monitoring of vital signs [x] Documentation
[2018-09-02] MEDS: PEPCID IV SCH ×2 (10:46→21:12)
[2018-09-02] MEDS: BABY ASPIRIN PO SCH (10:46)
[2018-09-02] MEDS: fentaNYL DRIP Premix 2,000 MCG/100 ML BAG IV SCH ×3 (10:48→20:45)
[2018-09-02] MEDS: NORVASC PO SCH (11:37)
[2018-09-02] MEDS ORDERED: HEPARIN IV ONE (12:00)
[2018-09-02] MEDS ORDERED: D50W (25GM) Syringe IV ONE (15:00)
--- NOTE | 2018-09-02 15:14 | Progress Note ---
Assessment and Plan Assessment and plan: 28 YO Male with MO, CHF, Obesity Hypoventilation, Chronic AORTIC DISSECTION, HTN, Hypothyrodism, Lymphedema presents to ED for evaluation. Pt states that he has experienced shortness of breath over the past three days with persistent symptoms over the same time frame. Pt acknowledges Orthopnea/PND, Decreased exercise tolerance, Dypsnea on exeertion. Pt denies fever, chills, CP, Palpitations, NVD, Trauma, Productive cough or recent ill contacts. Pt denies back pain, or chest pain that radiates to his back. Pt transported to [facility] for further care and evaluation. Pt seen and evaluated in ED and found to have Hypercapnic Respiratory Failure, CHF. Pt initiated on NIPPV without improvement. Pt intubated and placed on vent support in ED. Pt admitted to ICU and placed on heparin drip protocol. Cardiology and Pulmonary teams consulted in ED. (1) Respiratory failure with hypoxia and hypercapnia Current Visit: Yes Status: Acute Qualifiers: Chronicity: acute Qualified Code(s): J96.01 - Acute respiratory failure with hypoxia; J96.02 - Acute respiratory failure with hypercapnia Plan to address problem: Continue with ICU. Pt intubated placed on vent support. CTA chest unavailable. Initiated on heparin drip protocol, ABG, wean vent as tolerated, chest x ray, d dimer, (2) Hypertensive Urgency: Cardene drip (3) Acute exacerbation of SYSTOLIC CHF (congestive heart failure) Current Visit: Yes Status: Chronic Qualifiers: Heart failure type: unspecified Qualified Code(s): I50.9 - Heart failure, unspecified Plan to address problem: Cardiology consulted in ED, diuresis, Strict I/O, daily weight, afterload reduction, blood pressure control, monitor uop q shift, chest x ray. (4) NSTEMI TYPE 2: Cardiology following. (5) Diabetes Mellitus: Hypoglycemia. Will start on TUBE FEED AND ALSO GIVE D50 X1 NOW (6) Obesity hypoventilation syndrome Current Visit: Yes Status: Acute Plan to address problem: Supplemental oxygen, nebulizer therapy, supportive care, pulmonary consulted (7) DVT prophylaxis Current Visit: Yes Status: Acute Plan to address problem: SCD to BLE while in bed. The high probability of a clinically significant, sudden or life threatening deterioration of the [Pulmonary,cardiac,neuro] system(s) required my full and direct attention, intervention and personal management. The aggregate critical care time was [65] minutes. This time is in addition to time spent performing reported procedures but includes the following: [x] Data Review and interpretation [x] Patient assessment and monitoring of vital signs [x] Documentation [x] Medication orders and management History Interval history: Patient seen and examined, remains intubated. Discussed with Nursing staff hypoglycemia Hospitalist Physical - Physical exam Narrative exam: General appearance: Present: Sedated and on mechanical ventilation - EENT Eyes: Present: PERRL ENT: hearing intact, clear oral mucosa - Neck Neck: Present: supple, normal ROM - Respiratory Respiratory: bilateral: diminished, rhonchi - Cardiovascular Heart Sounds: Present: S1 & S2. Absent: rub, click - Extremities Extremities: pulses symmetrical Extremity abnormal: edema Peripheral Pulses: within normal limits - Abdominal General gastrointestinal: Present: soft, non-tender, non-distended, normal bowel sounds Male genitourinary: Present: normal - Integumentary Integumentary: Present: clear, warm, dry - Musculoskeletal Musculoskeletal: generalized weakness - Psychiatric Psychiatric: appropriate mood/affect, intact judgment & insight - Neurologic Neurologic: CNII-XII intact, moves all extremities - Constitutional Vitals: Temp Pulse Resp BP Pulse Ox 98.7 F 75 20 168/87 96 09/02/18 12:00 09/02/18 15:08 09/02/18 14:40 09/02/18 15:08 09/02/18 14:40 General appearance: Present: severe distress, obese Results - Labs CBC & Chem 7: 09/02/18 08:16 09/02/18 08:16 Labs: Laboratory Last Values WBC 7.7 K/mm3 (4.5-11.0) 09/02/18 08:16 RBC 5.68 M/mm3 (3.65-5.03) H 09/02/18 08:16 Hgb 15.4 gm/dl (11.8-15.2) H 09/02/18 08:16 Hct 49.9 % (35.5-45.6) H 09/02/18 08:16 MCV 88 fl (84-94) 09/02/18 08:16 MCH 27 pg (28-32) L 09/02/18 08:16 MCHC 31 % (32-34) L 09/02/18 08:16 RDW 18.1 % (13.2-15.2) H 09/02/18 08:16 Plt Count 239 K/mm3 (140-440) 09/02/18 08:16 Lymph % (Auto) 13.8 % (13.4-35.0) 09/02/18 08:16 [place] % (Auto) 12.7 % (0.0-7.3) H 09/02/18 08:16 Eos % (Auto) 0.9 % (0.0-4.3) 09/02/18 08:16 Baso % (Auto) 0.7 % (0.0-1.8) 09/02/18 08:16 Lymph # 1.1 K/mm3 (1.2-5.4) L 09/02/18 08:16 [place] # 1.0 K/mm3 (0.0-0.8) H 09/02/18 08:16 Eos # 0.1 K/mm3 (0.0-0.4) 09/02/18 08:16 Baso # 0.1 K/mm3 (0.0-0.1) 09/02/18 08:16 Seg Neutrophils % 71.9 % (40.0-70.0) H 09/02/18 08:16 Seg Neutrophils # 5.6 K/mm3 (1.8-7.7) 09/02/18 08:16 PT 15.1 Sec. (12.2-14.9) H 09/01/18 21:20 INR 1.15 (0.87-1.13) H 09/01/18 21:20 APTT 30.2 Sec. (24.2-36.6) 09/01/18 21:20 D-Dimer 869.27 ng/mlDDU (0-234) H 09/01/18 15:15 Heparin Anti-Xa Level < 0.10 U.I./ml (0.3-0.7) L 09/02/18 10:24 POC ABG pH 7.396 (7.35-7.45) 09/02/18 04:18 POC ABG pCO2 62.2 (35-45) H 09/02/18 04:18 POC ABG pO2 90 (80-105) 09/02/18 04:18 POC ABG HCO3 38.2 09/02/18 04:18 POC ABG Total CO2 40 09/02/18 04:18 POC ABG O2 Sat 97 09/02/18 04:18 POC ABG Base Excess 13 09/02/18 04:18 FiO2 45 % 09/02/18 04:18 Sodium 143 mmol/L (137-145) 09/02/18 08:16 Potassium 4.1 mmol/L (3.6-5.0) 09/02/18 08:16 Chloride 98.3 mmol/L (98-107) 09/02/18 08:16 Carbon Dioxide 35 mmol/L (22-30) H 09/02/18 08:16 Anion Gap 14 mmol/L 09/02/18 08:16 BUN 21 mg/dL (9-20) H 09/02/18 08:16 Creatinine 1.4 mg/dL (0.8-1.5) 09/02/18 08:16 Estimated GFR > 60 ml/min 09/02/18 08:16 BUN/Creatinine Ratio 15 % 09/02/18 08:16 Glucose 93 mg/dL (75-100) 09/02/18 08:16 POC Glucose 69 (70-105) L 09/02/18 14:29 Calcium 8.6 mg/dL (8.4-10.2) 09/02/18 08:16 Total Bilirubin 1.60 mg/dL (0.1-1.2) H 09/02/18 08:16 AST 43 units/L (5-40) H 09/02/18 08:16 ALT 24 units/L (7-56) 09/02/18 08:16 Alkaline Phosphatase 114 units/L (35-129) 09/02/18 08:16 Troponin T 0.132 ng/mL (0.00-0.029) H* 09/01/18 21:20 NT-Pro-B Natriuret Pep 1764 pg/mL (0-450) H 09/01/18 15:15 Total Protein 6.2 g/dL (6.3-8.2) L 09/02/18 08:16 Albumin 2.8 g/dL (3.9-5) L 09/02/18 08:16 Albumin/Globulin Ratio 0.8 % 09/02/18 08:16 Triglycerides 63 mg/dL (2-149) 09/01/18 15:15 Cholesterol 93 mg/dL (50-199) 09/01/18 15:15 LDL Cholesterol Direct 62 mg/dL (50-130) 09/01/18 15:15 HDL Cholesterol 33 mg/dL (40-59) L 09/01/18 15:15 Cholesterol/HDL Ratio 2.81 % 09/01/18 15:15
[2018-09-02] MEDS ORDERED: HEPARIN 10,000 UNITS/10 ML IV ONE (20:30)
[2018-09-03] MEDS: fentaNYL DRIP Premix 2,000 MCG/100 ML BAG IV SCH ×5 (01:00→22:29)
[2018-09-03] MEDS: APRESOLINE IV PRN ×2 (03:08→15:20)
[2018-09-03 03:29] LABS: Hematocrit 48.7 % (35.5-45.6); Hemoglobin 15.5 gm/dl (11.8-15.2); Mean Corpuscular HGB Conc 32 % (32-34); Mean Corpuscular Volume 87 fl (84-94); Platelet Count 232 K/mm3 (140-440); Red Blood Count 5.57 M/mm3 (3.65-5.03)
[2018-09-03 03:49] LABS: BUN/Creatinine Ratio 15; Blood Urea Nitrogen 18 mg/dL (9-20); Calcium 8.4 mg/dL (8.4-10.2); Hemolysis Index 199
--- NOTE | 2018-09-03 04:54 | XRay Report ---
FINAL REPORT PROCEDURE: XR CHEST 1V AP TECHNIQUE: Chest radiograph anteroposterior view. CPT 87638 HISTORY: follow up respiratory failure COMPARISON: 09/02/2018 FINDINGS: Heart: Heart is enlarged Mediastinum/Vessels: Normal. Lungs/Pleural space: There is suboptimal inspiration. There is pulmonary vascular congestion and mild pulmonary edema.. Bony thorax: No acute osseous abnormality. Life support devices: Endotracheal tube is the mid trachea. NG tube is in the stomach.. IMPRESSION: Heart is enlarged There is suboptimal inspiration. There is pulmonary vascular congestion and mild pulmonary edema.. Endotracheal tube is the mid trachea. NG tube is in the stomach.. .
--- NOTE | 2018-09-03 04:57 | XRay Report ---
FINAL REPORT PROCEDURE: XR ABDOMEN 1V AP TECHNIQUE: Abdominal radiograph, single supine AP view. HISTORY: NG TUBE CONFIRMATION to be done @ 2 am per kayla ( nurse) COMPARISON: No prior studies are available for comparison. FINDINGS: Bowel gas pattern:Nonobstructive. Masses or calcifications:None. Bony structures:No significant abnormality. Other:None. NG tube is in the stomach. IMPRESSION: NG tube is in the stomach.
[2018-09-03] MEDS: SYNTHROID PO SCH (05:40)
[2018-09-03] MEDS: NORMODYNE PO SCH ×3 (05:40→21:54)
--- NOTE | 2018-09-03 07:47 | Progress Note ---
Assessment and Plan Assessment and plan: 28 YO Male with MO, CHF, Obesity Hypoventilation, Chronic AORTIC DISSECTION, HTN, Hypothyrodism, Lymphedema presents to ED for evaluation. Pt states that he has experienced shortness of breath over the past three days with persistent symptoms over the same time frame. Pt acknowledges Orthopnea/PND, Decreased exercise tolerance, Dypsnea on exeertion. Pt denies fever, chills, CP, Palpitations, NVD, Trauma, Productive cough or recent ill contacts. Pt denies back pain, or chest pain that radiates to his back. Pt transported to [facility] for further care and evaluation. Pt seen and evaluated in ED and found to have Hypercapnic Respiratory Failure, CHF. Pt initiated on NIPPV without improvement. Pt intubated and placed on vent support in ED. Pt admitted to ICU and placed on heparin drip protocol. Cardiology and Pulmonary teams consulted in ED. (1) Respiratory failure with hypoxia and hypercapnia Current Visit: Yes Status: Acute Qualifiers: Chronicity: acute Qualified Code(s): J96.01 - Acute respiratory failure with hypoxia; J96.02 - Acute respiratory failure with hypercapnia Plan to address problem: Continue with ICU. Pt intubated placed on vent support. CTA chest unavailable due to weight limitation. Initiated on heparin drip protocol, ABG, wean vent as tolerated, chest x ray, d dimer, (2) Hypertensive Urgency: Cardene drip- Restart due to fluctuation with BP. Adjust BP meds to aid successful weaning of cardene. Add Isosorbid (3) Acute exacerbation of SYSTOLIC CHF (congestive heart failure) Current Visit: Yes Status: Chronic Qualifiers: Heart failure type: unspecified Qualified Code(s): I50.9 - Heart failure, unspecified Plan to address problem: Cardiology consulted in ED, diuresis, Strict I/O, daily weight, afterload reduction, blood pressure control, monitor uop q shift, chest x ray. (4) NSTEMI TYPE 2: Cardiology following. PATIENT WITH KNOWN HX OF DISSECTION. Awaiting Repeat ECHO. (5) Diabetes Mellitus: Hypoglycemia. Persist. Start patient on D5NS. (6) Obesity hypoventilation syndrome Current Visit: Yes Status: Acute Plan to address problem: Supplemental oxygen, nebulizer therapy, supportive care, pulmonary consulted (7) Tranaminitis- Monitor (8) Morbid Obesity but with Moderate Protein calorie Malnutrition- Started on Tube feeds (9) DVT prophylaxis Current Visit: Yes Status: Acute Plan to address problem: SCD to BLE while in bed. The high probability of a clinically significant, sudden or life threatening deterioration of the [Pulmonary,cardiac,neuro] system(s) required my full and direct attention, intervention and personal management. The aggregate critical care time was [35] minutes. This time is in addition to time spent performing reported procedures but includes the following: [x] Data Review and interpretation [x] Patient assessment and monitoring of vital signs [x] Documentation [x] Medication orders and management History Interval history: Patient seen and examined, remains intubated. Hospitalist Physical - Physical exam Narrative exam: General appearance: Present: Sedated and on mechanical ventilation - EENT Eyes: Present: PERRL ENT: hearing intact, clear oral mucosa - Neck Neck: Present: supple, normal ROM - Respiratory Respiratory: bilateral: diminished, rhonchi - Cardiovascular Heart Sounds: Present: S1 & S2. Absent: rub, click - Extremities Extremities: pulses symmetrical Extremity abnormal: edema Peripheral Pulses: within normal limits - Abdominal General gastrointestinal: Present: soft, non-tender, non-distended, normal bowel sounds Male genitourinary: Present: normal - Integumentary Integumentary: Present: clear, warm, dry - Musculoskeletal Musculoskeletal: generalized weakness - Psychiatric Psychiatric: unable to assess - Neurologic Neurologic: CNII-XII intact, moves all extremities - Constitutional Vitals: Temp Pulse Resp BP Pulse Ox 99.5 F 81 20 184/93 95 09/03/18 00:00 09/03/18 05:40 09/03/18 01:00 09/03/18 05:40 09/03/18 05:31 General appearance: Present: severe distress, obese Results - Labs CBC & Chem 7: 09/03/18 03:20 09/03/18 03:20 Labs: Laboratory Last Values WBC 7.7 K/mm3 (4.5-11.0) 09/03/18 03:20 RBC 5.57 M/mm3 (3.65-5.03) H 09/03/18 03:20 Hgb 15.5 gm/dl (11.8-15.2) H 09/03/18 03:20 Hct 48.7 % (35.5-45.6) H 09/03/18 03:20 MCV 87 fl (84-94) 09/03/18 03:20 MCH 28 pg (28-32) 09/03/18 03:20 MCHC 32 % (32-34) 09/03/18 03:20 RDW 18.0 % (13.2-15.2) H 09/03/18 03:20 Plt Count 232 K/mm3 (140-440) 09/03/18 03:20 Lymph % (Auto) 13.8 % (13.4-35.0) 09/02/18 08:16 [place] % (Auto) 12.7 % (0.0-7.3) H 09/02/18 08:16 Eos % (Auto) 0.9 % (0.0-4.3) 09/02/18 08:16 Baso % (Auto) 0.7 % (0.0-1.8) 09/02/18 08:16 Lymph # 1.1 K/mm3 (1.2-5.4) L 09/02/18 08:16 [place] # 1.0 K/mm3 (0.0-0.8) H 09/02/18 08:16 Eos # 0.1 K/mm3 (0.0-0.4) 09/02/18 08:16 Baso # 0.1 K/mm3 (0.0-0.1) 09/02/18 08:16 Seg Neutrophils % 71.9 % (40.0-70.0) H 09/02/18 08:16 Seg Neutrophils # 5.6 K/mm3 (1.8-7.7) 09/02/18 08:16 PT 15.1 Sec. (12.2-14.9) H 09/01/18 21:20 INR 1.15 (0.87-1.13) H 09/01/18 21:20 APTT 30.2 Sec. (24.2-36.6) 09/01/18 21:20 D-Dimer 869.27 ng/mlDDU (0-234) H 09/01/18 15:15 Heparin Anti-Xa Level 0.40 U.I./ml (0.3-0.7) 09/03/18 01:40 POC ABG pH 7.433 (7.35-7.45) 09/03/18 05:48 POC ABG pCO2 62.0 (35-45) H 09/03/18 05:48 POC ABG pO2 82 (80-105) 09/03/18 05:48 POC ABG HCO3 41.4 09/03/18 05:48 POC ABG Total CO2 43 09/03/18 05:48 POC ABG O2 Sat 96 09/03/18 05:48 POC ABG Base Excess 17 09/03/18 05:48 FiO2 45 % 09/03/18 05:48 Sodium 142 mmol/L (137-145) 09/03/18 03:20 Potassium 5.1 mmol/L (3.6-5.0) H D 09/03/18 03:20 Chloride 97.2 mmol/L (98-107) L 09/03/18 03:20 Carbon Dioxide 33 mmol/L (22-30) H 09/03/18 03:20 Anion Gap 17 mmol/L 09/03/18 03:20 BUN 18 mg/dL (9-20) 09/03/18 03:20 Creatinine 1.2 mg/dL (0.8-1.5) 09/03/18 03:20 Estimated GFR > 60 ml/min 09/03/18 03:20 BUN/Creatinine Ratio 15 % 09/03/18 03:20 Glucose 62 mg/dL (75-100) L 09/03/18 03:20 POC Glucose 73 (70-105) 09/03/18 00:13 Calcium 8.4 mg/dL (8.4-10.2) 09/03/18 03:20 Total Bilirubin 1.60 mg/dL (0.1-1.2) H 09/02/18 08:16 AST 43 units/L (5-40) H 09/02/18 08:16 ALT 24 units/L (7-56) 09/02/18 08:16 Alkaline Phosphatase 114 units/L (35-129) 09/02/18 08:16 Troponin T 0.132 ng/mL (0.00-0.029) H* 09/01/18 21:20 NT-Pro-B Natriuret Pep 1764 pg/mL (0-450) H 09/01/18 15:15 Total Protein 6.2 g/dL (6.3-8.2) L 09/02/18 08:16 Albumin 2.8 g/dL (3.9-5) L 09/02/18 08:16 Albumin/Globulin Ratio 0.8 % 09/02/18 08:16 Triglycerides 63 mg/dL (2-149) 09/01/18 15:15 Cholesterol 93 mg/dL (50-199) 09/01/18 15:15 LDL Cholesterol Direct 62 mg/dL (50-130) 09/01/18 15:15 HDL Cholesterol 33 mg/dL (40-59) L 09/01/18 15:15 Cholesterol/HDL Ratio 2.81 % 09/01/18 15:15 Nutrition/Malnutrition Assess - Dietary Evaluation Nutrition/Malnutrition Findings: Nutrition Notes Start: 09/02/18 15:06 Freq: Status: Active Protocol: Document 09/02/18 15:06 GHAZAL (Rec: 09/02/18 15:34 GHAZAL [email or web address]) Co-Sign 09/02/18 15:06 OL Nutrition Notes Need for Assessment generated from: MD Order Initial or Follow up Assessment Current Diagnosis COPD Hypertension Heart Failure Other Pertinent Diagnosis SOB, sleep apnea, aortic dissection Current Diet NPO Labs/Tests Glu: 69 BUN: 21 Pertinent Medications Lasix Propofol at 32.659 ml/hr (862 kcal) Height 5 ft 9 in Weight 244.8 kg [place] Body Weight (lbs) 160.0 BMI 79.6 Weight change and time frame Wt. obtaind from bed scale Burn Absent Trauma Absent Current % PO Negligible #1 Nutrition Diagnosis Inadequate oral intake Etiology vent As Evidenced by Signs and Symptoms NPO status Is patient on ventilator? Yes Is Patient Ambulatory and/or Out of Bed No REE-([facility]-confined to bed) [phone] Additional Notes IBW: 73kg Kcal needs: 2321-6919 kcals/ day (22-25 kcal/kg IBW) Pro: 182g/day (2.5g/kg IBW) Fluid: 0041-2506 ml/day Nutrition Intervention Change Diet Order: TF Nutrition Support: Off Propofol: Vital High Protein at 75 ml/hr . Provide flush of 50 ml q4h or per MD. Start TF at 15ml/hr and increase by 15ml q8h until goal rate of 75ml/hr is achieved. On Propofol: Vital high protein at 65 ml/hr . Provide water flush of 50 ml q4h or per MD. Start vital high protein at 15 ml/hr and increase by 10 ml/ hr until goal rate of 65 ml/hr is achieved Provides: 1560 kcals 137g Pro 1304 mls free water Kcal 1,800 Protein (gm) 158 Fluid (mL) 1,505 Goal #1 TF initiation Goal #2 TF to meet at least 80% of energy and protein needs Anticipated Discharge Needs: Unknown at this time Follow-Up By: 09/04/18 Additional Comments F/u for TF consult
[2018-09-03] MEDS: HEPARIN/ 0.45% NACL-25,000 UNIT/500 ML 25,000 UNIT/500 ML BAG IV SCH ×2 (07:54→19:23)
[2018-09-03] MEDS: DIPRIVAN 10 MG/ML 1,000 MG/100 ML BOTTLE IV SCH (08:03)
[2018-09-03] MEDS ORDERED: D5NS 1,000 ML IV SCH (09:00)
[2018-09-03] MEDS: NORVASC PO SCH (09:53)
[2018-09-03] MEDS: ISORDIL TITRADOSE PO SCH ×3 (09:53→21:53)
[2018-09-03] MEDS: PEPCID PO SCH ×2 (09:54→21:54)
[2018-09-03] MEDS: LASIX IV SCH ×2 (09:54→21:54)
[2018-09-03] MEDS: BABY ASPIRIN PO SCH (09:54)
[2018-09-03] MEDS: SODIUM CHLORIDE FLUSH SYRINGE 10 ML IV SCH (09:55)
--- NOTE | 2018-09-03 10:39 | Progress Note ---
Assessment and Plan Acute Hypoxemic Hypercapnic Respiratory Failure Hypertensive Emergency H/O Type B Aortic Dissection (No surgery recommended in October 2017) Morbid Obesity PAUL/OHS Acute exacerbation of SYSTOLIC CHF NSTEMI TYPE 2 Diabetes Mellitus (I am bothered by the type B dissection history and his presentation here; hopefully no significant extension upwards that may necessitate surgical intervention as he has obviously not had good blood pressure control) - will get MOMO to evaluate for type A dissection - reduce set rate to 12/min - begin daily SBT's - begin daily SAT's (all sedatio held now) - continue bronchodilators with pulmonary hygiene per RT - continue to wean oxygen for target O2 Sat's > 89 - 90% - VAP bundle addressed - begin enteral nutrition as tolerated - discontinue dias catheter - get serum Mg & PO4 levels and adjust as necessary - mobility protocol for pressure ulcer prophylaxis - GI & VTE prophylaxis - re-introduce oral anti-hypertensives - glycemic control with SSI for target BG 140 - 180 mg/dL - continue other care per attending / other consultants ...... re-evaluate in am & prn The high probability of a clinically significant, sudden or life threatening deterioration of the [Pulmonary,cardiac and Vascular] system(s) required my full and direct attention, intervention and personal management. The aggregate critical care time was [40] minutes. This time is in addition to time spent performing reported procedures but includes the following: [x] Data Review and interpretation [x] Patient assessment and monitoring of vital signs [x] Documentation Subjective Date of service: 09/03/18 Principal diagnosis: Ac on Ch Hypoxemic Hypercapnic Resp Failure; Type B aortic dissection Interval history: Patient is seen today for: Acute Hypoxemic Hypercapnic Respiratory Failure; Hypertensive Emergency; H/O Type B Aortic Dissection (No surgery recommended in October 2017); Morbid Obesity Seen and examined at bedside; 24hour events reviewed; nursing and respiratory care staff consulted; no adverse overnight events reported to me; resting p eacefully in bed; remains on MVS; AC/500/20/8/0.45 FiO2; sedated to RASS -2; no emesis or overt aspiration reported; off cardene drip; BP's better controlled Objective Vital Signs - 12hr 09/02/18 09/02/18 09/02/18 22:40 22:42 22:50 Temperature Pulse Rate 72 75 73 Pulse Rate [ From Monitor] Respiratory 19 20 20 Rate Blood Pressure 153/75 153/75 154/80 O2 Sat by Pulse 95 94 94 Oximetry 09/02/18 09/02/18 09/02/18 22:55 23:00 23:01 Temperature Pulse Rate 73 72 73 Pulse Rate [ From Monitor] Respiratory 20 20 20 Rate Blood Pressure 154/80 155/81 155/81 O2 Sat by Pulse 94 94 94 Oximetry 09/02/18 09/02/18 09/02/18 23:10 23:20 23:30 Temperature Pulse Rate 73 71 74 Pulse Rate [ From Monitor] Respiratory 19 20 20 Rate Blood Pressure 155/81 162/82 164/83 O2 Sat by Pulse 94 95 94 Oximetry 09/02/18 09/02/18 09/02/18 23:40 23:45 23:50 Temperature Pulse Rate 73 72 72 Pulse Rate [ From Monitor] Respiratory 19 22 Rate Blood Pressure 164/83 164/83 157/77 O2 Sat by Pulse 94 94 Oximetry 09/03/18 09/03/18 09/03/18 00:00 00:10 00:20 Temperature 99.5 F Pulse Rate 73 74 74 Pulse Rate [ 75 From Monitor] Respiratory 20 19 20 Rate Blood Pressure 151/76 151/76 152/76 O2 Sat by Pulse 94 94 94 Oximetry 09/03/18 09/03/18 09/03/18 00:30 00:40 00:41 Temperature Pulse Rate 74 74 74 Pulse Rate [ From Monitor] Respiratory 20 20 Rate Blood Pressure 151/77 151/77 151/77 O2 Sat by Pulse 94 94 94 Oximetry 09/03/18 09/03/18 09/03/18 00:50 01:00 01:10 Temperature Pulse Rate 74 74 75 Pulse Rate [ From Monitor] Respiratory 20 20 20 Rate Blood Pressure 152/76 160/81 160/81 O2 Sat by Pulse 94 94 94 Oximetry 09/03/18 09/03/18 09/03/18 01:20 01:30 01:40 Temperature Pulse Rate 76 76 76 Pulse Rate [ From Monitor] Respiratory 20 21 20 Rate Blood Pressure 151/77 159/82 159/82 O2 Sat by Pulse 94 94 94 Oximetry 09/03/18 09/03/18 09/03/18 01:50 02:00 02:10 Temperature Pulse Rate 77 79 76 Pulse Rate [ From Monitor] Respiratory 21 20 20 Rate Blood Pressure 159/82 172/82 172/82 O2 Sat by Pulse 94 94 94 Oximetry 09/03/18 09/03/18 09/03/18 02:20 02:30 02:40 Temperature Pulse Rate 78 76 82 Pulse Rate [ From Monitor] Respiratory 20 20 20 Rate Blood Pressure 173/84 179/84 179/84 O2 Sat by Pulse 94 94 96 Oximetry 09/03/18 09/03/18 09/03/18 02:50 03:00 03:08 Temperature Pulse Rate 82 79 80 Pulse Rate [ From Monitor] Respiratory 20 20 Rate Blood Pressure 173/84 201/93 201/93 O2 Sat by Pulse 96 96 Oximetry 09/03/18 09/03/18 09/03/18 03:10 03:20 03:30 Temperature Pulse Rate 80 82 81 Pulse Rate [ From Monitor] Respiratory 20 20 21 Rate Blood Pressure 201/93 189/91 179/78 O2 Sat by Pulse 96 96 96 Oximetry 09/03/18 09/03/18 09/03/18 03:40 03:50 04:00 Temperature 98.3 F Pulse Rate 80 81 78 Pulse Rate [ 76 From Monitor] Respiratory 21 20 21 Rate Blood Pressure 179/78 160/81 168/81 O2 Sat by Pulse 96 96 96 Oximetry 09/03/18 09/03/18 09/03/18 04:10 04:20 04:30 Temperature Pulse Rate 81 79 79 Pulse Rate [ From Monitor] Respiratory 19 20 20 Rate Blood Pressure 168/81 171/75 174/84 O2 Sat by Pulse 96 97 96 Oximetry 09/03/18 09/03/18 09/03/18 04:40 04:50 05:00 Temperature Pulse Rate 86 94 H 87 Pulse Rate [ From Monitor] Respiratory 15 24 26 H Rate Blood Pressure 174/84 181/94 181/94 O2 Sat by Pulse 93 93 94 Oximetry 09/03/18 09/03/18 09/03/18 05:10 05:20 05:30 Temperature Pulse Rate 84 83 82 Pulse Rate [ From Monitor] Respiratory 17 20 20 Rate Blood Pressure 153/74 171/85 184/93 O2 Sat by Pulse 96 96 95 Oximetry 09/03/18 09/03/18 09/03/18 05:31 05:40 05:50 Temperature Pulse Rate 82 80 81 Pulse Rate [ From Monitor] Respiratory 21 20 Rate Blood Pressure 184/93 184/93 228/110 O2 Sat by Pulse 95 95 96 Oximetry 09/03/18 09/03/18 09/03/18 06:00 06:10 06:20 Temperature Pulse Rate 80 80 82 Pulse Rate [ From Monitor] Respiratory 20 20 20 Rate Blood Pressure 228/110 185/84 178/87 O2 Sat by Pulse 96 96 95 Oximetry 09/03/18 09/03/18 09/03/18 06:30 06:40 06:50 Temperature Pulse Rate 82 83 81 Pulse Rate [ From Monitor] Respiratory 20 20 20 Rate Blood Pressure 191/88 191/88 186/89 O2 Sat by Pulse 95 96 95 Oximetry 09/03/18 09/03/18 09/03/18 07:00 07:10 07:20 Temperature Pulse Rate 81 78 76 Pulse Rate [ From Monitor] Respiratory 16 20 25 H Rate Blood Pressure 191/88 161/86 164/68 O2 Sat by Pulse 95 95 95 Oximetry 09/03/18 09/03/18 09/03/18 07:30 07:40 07:50 Temperature Pulse Rate 75 74 75 Pulse Rate [ From Monitor] Respiratory 20 20 20 Rate Blood Pressure 151/68 151/68 160/72 O2 Sat by Pulse 95 95 95 Oximetry 09/03/18 09/03/18 09/03/18 08:00 08:10 08:20 Temperature 99.8 F H Pulse Rate 72 72 73 Pulse Rate [ From Monitor] Respiratory 20 20 20 Rate Blood Pressure 161/70 161/70 162/74 O2 Sat by Pulse 95 95 95 Oximetry 09/03/18 09/03/18 09/03/18 08:26 08:30 08:40 Temperature Pulse Rate 71 70 71 Pulse Rate [ From Monitor] Respiratory 20 20 Rate Blood Pressure 162/74 140/65 140/65 O2 Sat by Pulse 95 95 95 Oximetry 09/03/18 09/03/18 09/03/18 08:50 09:00 09:10 Temperature Pulse Rate 71 70 70 Pulse Rate [ From Monitor] Respiratory 20 20 20 Rate Blood Pressure 147/67 150/72 150/72 O2 Sat by Pulse 95 95 95 Oximetry 09/03/18 09/03/18 09/03/18 09:20 09:30 09:40 Temperature Pulse Rate 70 70 70 Pulse Rate [ From Monitor] Respiratory 20 20 20 Rate Blood Pressure 149/68 149/69 149/69 O2 Sat by Pulse 95 95 95 Oximetry 09/03/18 09:53 Temperature Pulse Rate 70 Pulse Rate [ From Monitor] Respiratory Rate Blood Pressure 150/73 O2 Sat by Pulse Oximetry Constitutional: no acute distress, other (young morbidly obese AAM, normocep halic and atraumatic on MVS) Eyes: non-icteric ENT: oropharynx moist, other (ETT 23 cm JANE) Neck: supple, no lymphadenopathy, no JVD, other (large neck circumference) Effort: mildly labored Ascultation: Bilateral: diminished breath sounds, rhonchi (bases) Percussion: Bilateral: not dull Cardiovascular: regular rate and rhythm, other (No R/M) Gastrointestinal: normoactive bowel sounds, soft, non-tender, other (protuberant) Integumentary: rash Extremities: no cyanosis, pulses normal, no ischemia or petechiae, edema Neurologic: non-focal exam (grossly), pupils equal and round, motor strength normal and, other (sedated) Psychiatric: other (unable to assess) CBC and BMP: 09/03/18 03:20 09/03/18 03:20 ABG, PT/INR, D-dimer: ABG POC ABG pH 7.433 (7.35-7.45) 09/03/18 05:48 POC ABG pCO2 62.0 (35-45) H 09/03/18 05:48 POC ABG pO2 82 (80-105) 09/03/18 05:48 POC ABG HCO3 41.4 09/03/18 05:48 POC ABG Total CO2 43 09/03/18 05:48 POC ABG O2 Sat 96 09/03/18 05:48 PT/INR, D-dimer PT 15.1 Sec. (12.2-14.9) H 09/01/18 21:20 INR 1.15 (0.87-1.13) H 09/01/18 21:20 D-Dimer 869.27 ng/mlDDU (0-234) H 09/01/18 15:15 Abnormal lab findings: Abnormal Labs 09/01/18 09/01/18 09/01/18 15:15 15:15 15:15 RBC 5.37 H Hgb Hct 47.8 H MCH 27 L MCHC 31 L RDW 17.1 H Lymph % (Auto) [place] % (Auto) 11.0 H Lymph # 1.0 L [place] # Seg Neutrophils % 70.2 H PT 15.0 H INR 1.14 H D-Dimer Heparin Anti-Xa Level POC ABG pH POC ABG pCO2 POC ABG pO2 Potassium Chloride Carbon Dioxide 39 H BUN 21 H Glucose 106 H POC Glucose Total Bilirubin AST Troponin T 0.125 H* NT-Pro-B Natriuret Pep Total Protein Albumin HDL Cholesterol 33 L 09/01/18 09/01/18 09/01/18 15:15 15:15 15:28 RBC Hgb Hct MCH MCHC RDW Lymph % (Auto) [place] % (Auto) Lymph # [place] # Seg Neutrophils % PT INR D-Dimer 869.27 H Heparin Anti-Xa Level POC ABG pH 7.235 L POC ABG pCO2 89.8 H POC ABG pO2 Potassium Chloride Carbon Dioxide BUN Glucose POC Glucose Total Bilirubin AST Troponin T NT-Pro-B Natriuret Pep 1764 H Total Protein Albumin HDL Cholesterol 09/01/18 09/01/18 09/01/18 17:45 19:28 21:20 RBC Hgb Hct MCH MCHC RDW Lymph % (Auto) [place] % (Auto) Lymph # [place] # Seg Neutrophils % PT INR D-Dimer Heparin Anti-Xa Level POC ABG pH 7.175 L POC ABG pCO2 105.5 H POC ABG pO2 111 H Potassium Chloride Carbon Dioxide BUN Glucose POC Glucose Total Bilirubin AST Troponin T 0.130 H* 0.132 H* NT-Pro-B Natriuret Pep Total Protein Albumin HDL Cholesterol 09/01/18 09/01/18 09/01/18 21:20 21:20 23:29 RBC Hgb Hct 46.4 H MCH MCHC RDW Lymph % (Auto) [place] % (Auto) Lymph # [place] # Seg Neutrophils % PT 15.1 H INR 1.15 H D-Dimer Heparin Anti-Xa Level POC ABG pH 7.349 L POC ABG pCO2 76.4 H POC ABG pO2 35 L Potassium Chloride Carbon Dioxide BUN Glucose POC Glucose Total Bilirubin AST Troponin T NT-Pro-B Natriuret Pep Total Protein Albumin HDL Cholesterol 09/01/18 09/02/18 09/02/18 23:34 04:18 04:35 RBC 5.67 H Hgb 15.8 H Hct 50.6 H MCH MCHC 31 L RDW 17.9 H Lymph % (Auto) 12.2 L [place] % (Auto) 12.6 H Lymph # 1.0 L [place] # 1.0 H Seg Neutrophils % 73.5 H PT INR D-Dimer Heparin Anti-Xa Level POC ABG pH 7.294 L POC ABG pCO2 77.7 H 62.2 H POC ABG pO2 235 H Potassium Chloride Carbon Dioxide BUN Glucose POC Glucose Total Bilirubin AST Troponin T NT-Pro-B Natriuret Pep Total Protein Albumin HDL Cholesterol 09/02/18 09/02/18 09/02/18 04:35 08:16 08:16 RBC 5.68 H Hgb 15.4 H Hct 49.9 H MCH 27 L MCHC 31 L RDW 18.1 H Lymph % (Auto) [place] % (Auto) 12.7 H Lymph # 1.1 L [place] # 1.0 H Seg Neutrophils % 71.9 H PT INR D-Dimer Heparin Anti-Xa Level POC ABG pH POC ABG pCO2 POC ABG pO2 Potassium Chloride 97.7 L Carbon Dioxide 36 H 35 H BUN 21 H 21 H Glucose 69 L POC Glucose Total Bilirubin 1.60 H AST 43 H Troponin T NT-Pro-B Natriuret Pep Total Protein 6.2 L Albumin 2.8 L HDL Cholesterol 09/02/18 09/02/18 09/02/18 10:24 14:29 17:46 RBC Hgb Hct MCH MCHC RDW Lymph % (Auto) [place] % (Auto) Lymph # [place] # Seg Neutrophils % PT INR D-Dimer Heparin Anti-Xa Level < 0.10 L < 0.10 L POC ABG pH POC ABG pCO2 POC ABG pO2 Potassium Chloride Carbon Dioxide BUN Glucose POC Glucose 69 L Total Bilirubin AST Troponin T NT-Pro-B Natriuret Pep Total Protein Albumin HDL Cholesterol 09/03/18 09/03/18 09/03/18 03:20 03:20 05:48 RBC 5.57 H Hgb 15.5 H Hct 48.7 H MCH MCHC RDW 18.0 H Lymph % (Auto) [place] % (Auto) Lymph # [place] # Seg Neutrophils % PT INR D-Dimer Heparin Anti-Xa Level POC ABG pH POC ABG pCO2 62.0 H POC ABG pO2 Potassium 5.1 H D Chloride 97.2 L Carbon Dioxide 33 H BUN Glucose 62 L POC Glucose Total Bilirubin AST Troponin T NT-Pro-B Natriuret Pep Total Protein Albumin HDL Cholesterol Chest x-ray: image reviewed (Wide Mediastinum; ETT in good position; mild interstitial edema pattern with cardiomegaly) Allied health notes reviewed: nursing
--- NOTE | 2018-09-03 11:07 | Progress Note ---
Assessment and Plan Assessment: Acute hypercapnic respiratory failure Acute on chronic heart failure, EF 45-50% per echo 04/28 Elevated troponin Elevated D-dimer Chest pain Chronic thoracic aortic dissection Morbid obesity PAUL Hypothyroidism NSVT Medical non-compliance Hypertension Diabetes Plan: Troponin mildly elevated but flat. Optimize anti-hypertensive regimen (pt. has NGT). Continue IV lasix and close monitoring of volume status and renal indices. The patient has been seen in conjunction with Dr. Ciro Ren who agrees with the assessment and plan of care. Subjective Date of service: 09/03/18 Principal diagnosis: acute respiratory failure, elevated troponin Interval history: pt remains intubated Objective Last Vital Signs Temp 99.8 F H 09/03/18 08:00 Pulse 71 09/03/18 09:53 Resp 20 09/03/18 09:40 BP 150/73 09/03/18 09:53 Pulse Ox 95 09/03/18 09:40 - Physical Examination General: Other (intubated) HEENT: Positive: PERRL, Normocephaly, Mucus Membranes Moist Neck: Positive: neck supple, trachea midline Cardiac: Positive: Reg Rate and Rhythm, S1/S2 Lungs: Positive: Decreased Breath Sounds, Oxygen, Ventilated Respirations Neuro: Positive: Grossly Intact Abdomen: Positive: Soft. Negative: Tender Skin: Negative: Rash Musculoskeletal: No Pain Extremities: Present: +1 Edema (BLE, chronic skin changes) - Labs and Meds CBC 09/03/18 Range/Units 03:20 WBC 7.7 (4.5-11.0) K/mm3 RBC 5.57 H (3.65-5.03) M/mm3 Hgb 15.5 H (11.8-15.2) gm/dl Hct 48.7 H (35.5-45.6) % Plt Count 232 (140-440) K/mm3 Comprehensive Metabolic Panel 09/03/18 Range/Units 03:20 Sodium 142 (137-145) mmol/L Potassium 5.1 H D (3.6-5.0) mmol/L Chloride 97.2 L (98-107) mmol/L Carbon Dioxide 33 H (22-30) mmol/L BUN 18 (9-20) mg/dL Creatinine 1.2 (0.8-1.5) mg/dL Glucose 62 L (75-100) mg/dL Calcium 8.4 (8.4-10.2) mg/dL - Imaging and Cardiology EKG: report reviewed, image reviewed Echo: report reviewed (05/10/2018 showed EF 45-50%, impaired relaxation, RV mildly dilated, RV systolic function mod reduced. ) - Telemetry EKG Rhythm: Sinus Rhythm - EKG Sinus rhythms and dysrhythmias: sinus rhythm
[2018-09-03] MEDS ORDERED: PANCREAZE DR 10,500 UNIT FEEDTUBE PRN (12:10)
[2018-09-03] MEDS ORDERED: SODIUM BICARBONATE FEEDTUBE PRN (12:10)
[2018-09-03] MEDS ORDERED: SIMPLE SYRUP FEEDTUBE PRN ×2 (12:10)
--- NOTE | 2018-09-03 12:32 | Event Note ---
Date: 09/03/18 MOMO ordered but may need CTA to better evaluate for dissection A&P: Vascular Surgery Consult Placed
--- NOTE | 2018-09-03 18:53 | Consultation ---
History of Present Illness - Reason for Consult Consult date: 09/03/18 Type B aortic dissection - History of Present Illness He is 28 year Black male known to our practice from previous admission and consultation for Type B aortic dissection. He presented to the Emergency Department for chest discomfort, shortness of breath, orthopnea, fluid retention/edema, and feeling very sleepy for the past 2-3 days. He is currently orally intubated per ER admission evaluation, the patient reports he has not gotten much sleep because he is unable to lay flat and he has been compliant with his CPAP and his medications including his Lasix. A vascular surgery consult requested to reevaluate his aortic dissection for progression. Past History Past Medical History: COPD, heart failure, hypertension, other (Type B aortic dissection; Morbid obesity, Hypothyroidism) Social history: single Family history: hypertension Medications and Allergies Allergies Allergy/AdvReac Type Severity Reaction Status Date / Time No Known Allergies Allergy Unverified 10/02/17 17:09 Home Medications Medication Instructions Recorded Confirmed Last Taken Type Aspirin [Aspirin BABY CHEW TAB] 81 mg PO QDAY #30 tab.chew 08/04/18 Unknown Rx Furosemide [Lasix TAB] 40 mg PO BID #60 tablet 08/04/18 Unknown Rx Labetalol [Normodyne TAB] 300 mg PO Q8HR 30 Days tablet 08/04/18 Unknown Rx Levothyroxine [Synthroid] 50 mcg PO DAILY@0600 #30 tablet 08/04/18 Unknown Rx NIFEdipine XL [Procardia Xl] 90 mg PO BID #60 tablet 08/04/18 Unknown Rx Potassium Chloride [K-Dur] 10 meq PO BID #60 tablet 08/04/18 Unknown Rx cloNIDine-TTS PATCH 0.3 mg TRANSDERMA 1XW #4 08/04/18 Unknown Rx Active Meds: Active Medications Albuterol (Proventil) 2.5 mg IH Q3HRT PRN PRN Reason: Shortness Of Breath Amlodipine Besylate (Norvasc) 10 mg PO DAILY [facility] Last Admin: 09/03/18 09:53 Dose: 10 mg Documented by: Lipase/Protease/Amylase ([place] 10,500 Unit) 1 each FEEDTUBE PRN PRN PRN Reason: For Clogged Feeding Tube Aspirin (Baby Aspirin) 81 mg PO QDAY [facility] Last Admin: 09/03/18 09:54 Dose: 81 mg Documented by: Clonidine HCl (Catapres-Tts Patch) 0.3 mg TD Tu [facility] Last Admin: 09/02/18 03:10 Dose: 0.3 mg Documented by: Famotidine (Pepcid) 20 mg PO BID [facility] Last Admin: 09/03/18 09:54 Dose: 20 mg Documented by: Furosemide (Lasix) 40 mg IV BID [facility] Last Admin: 09/03/18 09:54 Dose: 40 mg Documented by: Hydralazine HCl (Apresoline) 5 mg IV Q4H PRN PRN Reason: Blood Pressure Last Admin: 09/03/18 15:20 Dose: 5 mg Documented by: Hydrophilic Ointment (Vaseline Lip Therapy) 1 applic TP Q2HR PRN PRN Reason: Dry Lips Heparin Sodium/Sodium Chloride (Heparin/ 0.45% Nacl-25,000 Unit/500 Ml) 25,000 unit in 500 mls @ 20 mls/hr IV TITRATE ELIEL; Protocol Last Admin: 09/03/18 07:54 Dose: 2,400 units/hr, 48 mls/hr Documented by: Nicardipine HCl 50 mg/ Sodium (Chloride) 250 mls @ 25 mls/hr IV TITR ELIEL; Protocol Last Titration: 09/02/18 10:50 Dose: 0 mg/hr, 0 mls/hr Documented by: Fentanyl Citrate (Fentanyl Drip Premix) 2,000 mcg in 100 mls @ 12.205 mls/hr IV TITR ELIEL; Protocol Last Titration: 09/03/18 11:00 Dose: 0 mcg/kg/hr, 0 mls/hr Documented by: Dextrose/Sodium Chloride (D5ns) 1,000 mls @ 75 mls/hr IV DIRECT ELIEL Stop: 09/03/18 23:59 Last Admin: 09/03/18 10:01 Dose: 75 mls/hr Documented by: Isosorbide Dinitrate (Isordil Titradose) 20 mg PO TID [facility] Last Admin: 09/03/18 15:19 Dose: Not Given Documented by: Labetalol HCl (Normodyne) 300 mg PO Q8HR [facility] Last Admin: 09/03/18 13:06 Dose: 300 mg Documented by: Levothyroxine Sodium (Synthroid) 50 mcg PO DAILY@0600 [facility] Last Admin: 09/03/18 05:40 Dose: 50 mcg Documented by: Multi-Ingred Cream/Lotion/Oil/Oint (Artificial Tears Ophth Oint) 1 applic OU Q4HR PRN PRN Reason: Dry Eye(s) Simple Syrup (Simple Syrup) 15 ml FEEDTUBE PRN PRN PRN Reason: Hypoglycemia Simple Syrup (Simple Syrup) 30 ml FEEDTUBE PRN PRN PRN Reason: Hypoglycemia Sodium Bicarbonate (Sodium Bicarbonate) 325 mg FEEDTUBE PRN PRN PRN Reason: For Clogged Feeding Tube Sodium Chloride (Sodium Chloride Flush Syringe 10 Ml) 10 ml IV BID [facility] Last Admin: 09/03/18 09:55 Dose: 10 ml Documented by: Sodium Chloride (Sodium Chloride Flush Syringe 10 Ml) 10 ml IV PRN PRN PRN Reason: LINE FLUSH Review of Systems ROS unobtainable: due to endotracheal tube Exam - Constitutional Vitals: Temp Pulse Resp BP Pulse Ox 99.3 F 83 17 164/106 96 09/03/18 16:00 09/03/18 17:07 09/03/18 17:00 09/03/18 17:11 09/03/18 17:11 General appearance: Present: other (Morbidly obese, orally intubated) - Respiratory Respiratory effort: other (Orally intubated, on ventilator) - Extremities Extremities: abnormal (1+ edema present bilateral lower extremities; bilateral pedal pulses nonpalpable difficult assessment due to edema, all extremities warm no signs or ischemia) - Integumentary Integumentary: Present: warm, dry (Hyperpigmentation, lipodermatosclerosis present lower extremities) - Psychiatric Psychiatric: other (Unable to assess intubated) Results - Labs CBC & Chem 7: 09/03/18 03:20 09/03/18 03:20 Labs: Abnormal lab results 09/03/18 09/03/18 09/03/18 Range/Units 03:20 03:20 05:48 RBC 5.57 H (3.65-5.03) M/mm3 Hgb 15.5 H (11.8-15.2) gm/dl Hct 48.7 H (35.5-45.6) % RDW 18.0 H (13.2-15.2) % POC ABG pH (7.35-7.45) POC ABG pCO2 62.0 H (35-45) Potassium 5.1 H D (3.6-5.0) mmol/L Chloride 97.2 L (98-107) mmol/L Carbon Dioxide 33 H (22-30) mmol/L Glucose 62 L (75-100) mg/dL 09/03/18 Range/Units 17:10 RBC (3.65-5.03) M/mm3 Hgb (11.8-15.2) gm/dl Hct (35.5-45.6) % RDW (13.2-15.2) % POC ABG pH 7.304 L (7.35-7.45) POC ABG pCO2 82.5 H (35-45) Potassium (3.6-5.0) mmol/L Chloride (98-107) mmol/L Carbon Dioxide (22-30) mmol/L Glucose (75-100) mg/dL - Imaging and Cardiology Chest x-ray: image reviewed Assessment and Plan Type B aortic dissection Recommend strict inotropic/chronotropic blood pressure control BP < 120/80 and Heart rate < 60. Weight should be confirmed. Needs repeat CTA chest to assess progression of his dissection.
[2018-09-03] MEDS ORDERED: PNEUMOVAX 23 IM ONE (19:19)
[2018-09-03] MEDS ORDERED: AFLURIA QUAD 2018-2019 SYRINGE IM ONE (19:19)
[2018-09-04] MEDS: fentaNYL DRIP Premix 2,000 MCG/100 ML BAG IV SCH ×6 (02:22→23:51)
[2018-09-04 03:56] LABS: Hematocrit 47.1 % (35.5-45.6); Hemoglobin 14.5 gm/dl (11.8-15.2); Mean Corpuscular HGB Conc 31 % (32-34); Mean Corpuscular Volume 89 fl (84-94); Platelet Count 235 K/mm3 (140-440); Red Cell Distribution Width 18.3 % (13.2-15.2)
[2018-09-04 04:18] LABS: Alanine Aminotransferase 25 units/L (7-56); Albumin 2.3 g/dL (3.9-5); BUN/Creatinine Ratio 14; Blood Urea Nitrogen 22 mg/dL (9-20); Calcium 8.1 mg/dL (8.4-10.2); Hemolysis Index 7
--- NOTE | 2018-09-04 05:34 | XRay Report ---
FINAL REPORT PROCEDURE: XR CHEST 1V AP TECHNIQUE: Chest radiograph anteroposterior view. CPT 58814 HISTORY: follow up respiratory failure COMPARISON: 09/03/2018 FINDINGS: Heart: The heart is enlarged Mediastinum/Vessels: Normal. Lungs/Pleural space: There is suboptimal inspiration. There are right perihilar and lower lobe infilt rates. There is no pleural effusion or pneumothorax.. Bony thorax: No acute osseous abnormality. Life support devices: The endotracheal tube is in the mid trachea. The NG tube is in the stomach.. IMPRESSION: The heart is enlarged There is suboptimal inspiration. There are right perihilar and lower lobe infiltrates. There is no pl eural effusion or pneumothorax.. There has been no significant change since the prior study. The endotracheal tube is in the mid trachea. The NG tube is in the stomach.. .
[2018-09-04] MEDS: NORMODYNE PO SCH (07:08)
[2018-09-04] MEDS: SYNTHROID PO SCH (07:09)
[2018-09-04] MEDS: APRESOLINE IV PRN ×3 (07:22→18:41)
[2018-09-04] MEDS: ISORDIL TITRADOSE PO SCH (08:00)
[2018-09-04] MEDS: HEPARIN/ 0.45% NACL-25,000 UNIT/500 ML 25,000 UNIT/500 ML BAG IV SCH (08:25)
[2018-09-04] MEDS: LASIX IV SCH (10:01)
[2018-09-04] MEDS: NORVASC PO SCH (10:02)
[2018-09-04] MEDS: PEPCID PO SCH ×2 (10:02→22:06)
[2018-09-04] MEDS: BABY ASPIRIN PO SCH (10:02)
--- NOTE | 2018-09-04 10:41 | Progress Note ---
Assessment and Plan Assessment and plan: 28 YO Male with MO, CHF, Obesity Hypoventilation, Chronic AORTIC DISSECTION, HTN, Hypothyrodism, Lymphedema presents to ED for evaluation. Pt states that he has experienced shortness of breath over the past three days with persistent symptoms over the same time frame. Pt acknowledges Orthopnea/PND, Decreased exercise tolerance, Dypsnea on exeertion. Pt denies fever, chills, CP, Palpitations, NVD, Trauma, Productive cough or recent ill contacts. Pt denies back pain, or chest pain that radiates to his back. Pt transported to [facility] for further care and evaluation. Pt seen and evaluated in ED and found to have Hypercapnic Respiratory Failure, CHF. Pt initiated on NIPPV without improvement. Pt intubated and placed on vent support in ED. Pt admitted to ICU and placed on heparin drip protocol. Cardiology and Pulmonary teams consulted in ED. Patient this am, had a code blue secondary to self extubation. He did not have any loss of Pulse but was bradycardia requiring one atropin and one epinephrine. The patient was intubated again by the help of the ED physician. Mother who is at the bedside was updated (1) Respiratory failure with hypoxia and hypercapnia Current Visit: Yes Status: Acute Qualifiers: Chronicity: acute Qualified Code(s): J96.01 - Acute respiratory failure with hypoxia; J96.02 - Acute respiratory failure with hypercapnia Plan to address problem: Continue with ICU. Pt intubated placed on vent support. CTA chest pending, now with shawna, will repeat when patient is more stable and renal function improved. Initiated on heparin drip protocol, ABG, wean vent as tolerated, (2) Hypertensive Urgency: Cardene drip- Restart due to fluctuation with BP. Adjust BP meds to aid successful weaning of cardene. Add Isosorbid (3) Acute exacerbation of SYSTOLIC CHF (congestive heart failure) Current Visit: Yes Status: Chronic Qualifiers: Heart failure type: unspecified Qualified Code(s): I50.9 - Heart failure, unspecified Plan to address problem: Cardiology consulted in ED, diuresis, Strict I/O, daily weight, afterload reduction, blood pressure control, monitor uop q shift, chest x ray. (4) NSTEMI TYPE 2: Cardiology following. PATIENT WITH KNOWN HX OF DISSECTION. Awaiting Repeat ECHO. (5) Diabetes Mellitus: Hypoglycemia. Persist. Start patient on D5NS. (6) Obesity hypoventilation syndrome Current Visit: Yes Status: Acute Plan to address problem: Supplemental oxygen, nebulizer therapy, supportive care, pulmonary consulted (7) Tranaminitis- Monitor (8) Morbid Obesity but with Moderate Protein calorie Malnutrition- Started on Tube feeds (9) SHAWNA secondary to vasomotor nephropathy Hold lasix today Recheck renal function Give some fluids,-250cc. DVT prophylaxis Current Visit: Yes Status: Acute Plan to address problem: SCD to BLE while in bed. The high probability of a clinically significant, sudden or life threatening deterioration of the [Pulmonary,cardiac,neuro] system(s) required my full and direct attention, intervention and personal management. The aggregate critical care time was [35] minutes. This time is in addition to time spent performing reported procedures but includes the following: [x] Data Review and interpretation [x] Patient assessment and monitoring of vital signs [x] Documentation [x] Medication orders and management History Interval history: Patient seen and examined, SELF EXTUBATED AND WAS REINTUBATED Hospitalist Physical - Physical exam Narrative exam: General appearance: Present: Sedated and on mechanical ventilation - EENT Eyes: Present: PERRL ENT: hearing intact, clear oral mucosa - Neck Neck: Present: supple, normal ROM - Respiratory Respiratory: bilateral: diminished, rhonchi - Cardiovascular Heart Sounds: Present: S1 & S2. Absent: rub, click - Extremities Extremities: pulses symmetrical Extremity abnormal: edema Peripheral Pulses: within normal limits - Abdominal General gastrointestinal: Present: soft, non-tender, non-distended, normal bowel sounds Male genitourinary: Present: normal - Integumentary Integumentary: Present: clear, warm, dry - Musculoskeletal Musculoskeletal: generalized weakness - Psychiatric Psychiatric: unable to assess - Neurologic Neurologic: CNII-XII intact, moves all extremities - Constitutional Vitals: Temp Pulse Resp BP Pulse Ox 99.5 F 72 21 156/77 94 09/04/18 08:00 09/04/18 10:02 09/04/18 09:10 09/04/18 10:02 09/04/18 09:10 General appearance: Present: other (Morbidly obese, orally intubated) Results - Labs CBC & Chem 7: 09/05/18 04:00 09/05/18 04:00 Labs: Laboratory Last Values WBC 8.2 K/mm3 (4.5-11.0) 09/04/18 03:12 RBC 5.30 M/mm3 (3.65-5.03) H 09/04/18 03:12 Hgb 14.5 gm/dl (11.8-15.2) 09/04/18 03:12 Hct 47.1 % (35.5-45.6) H 09/04/18 03:12 MCV 89 fl (84-94) 09/04/18 03:12 MCH 27 pg (28-32) L 09/04/18 03:12 MCHC 31 % (32-34) L 09/04/18 03:12 RDW 18.3 % (13.2-15.2) H 09/04/18 03:12 Plt Count 235 K/mm3 (140-440) 09/04/18 03:12 Lymph % (Auto) 13.8 % (13.4-35.0) 09/02/18 08:16 Saline % (Auto) 12.7 % (0.0-7.3) H 09/02/18 08:16 Eos % (Auto) 0.9 % (0.0-4.3) 09/02/18 08:16 Baso % (Auto) 0.7 % (0.0-1.8) 09/02/18 08:16 Lymph # 1.1 K/mm3 (1.2-5.4) L 09/02/18 08:16 Saline # 1.0 K/mm3 (0.0-0.8) H 09/02/18 08:16 Eos # 0.1 K/mm3 (0.0-0.4) 09/02/18 08:16 Baso # 0.1 K/mm3 (0.0-0.1) 09/02/18 08:16 Seg Neutrophils % 71.9 % (40.0-70.0) H 09/02/18 08:16 Seg Neutrophils # 5.6 K/mm3 (1.8-7.7) 09/02/18 08:16 PT 15.1 Sec. (12.2-14.9) H 09/01/18 21:20 INR 1.15 (0.87-1.13) H 09/01/18 21:20 APTT 30.2 Sec. (24.2-36.6) 09/01/18 21:20 D-Dimer 869.27 ng/mlDDU (0-234) H 09/01/18 15:15 Heparin Anti-Xa Level 0.26 U.I./ml (0.3-0.7) L 09/04/18 01:44 POC ABG pH 7.273 (7.35-7.45) L 09/04/18 05:48 POC ABG pCO2 89.9 (35-45) H 09/04/18 05:48 POC ABG pO2 78 (80-105) L 09/04/18 05:48 POC ABG HCO3 41.6 09/04/18 05:48 POC ABG Total CO2 44 09/04/18 05:48 POC ABG O2 Sat 92 09/04/18 05:48 POC ABG Base Excess 15 09/04/18 05:48 FiO2 40 % 09/04/18 05:48 Sodium 144 mmol/L (137-145) 09/04/18 03:12 Potassium 4.2 mmol/L (3.6-5.0) 09/04/18 03:12 Chloride 99.0 mmol/L (98-107) 09/04/18 03:12 Carbon Dioxide 32 mmol/L (22-30) H 09/04/18 03:12 Anion Gap 17 mmol/L 09/04/18 03:12 BUN 22 mg/dL (9-20) H 09/04/18 03:12 Creatinine 1.6 mg/dL (0.8-1.5) H 09/04/18 03:12 Estimated GFR > 60 ml/min 09/04/18 03:12 BUN/Creatinine Ratio 14 % 09/04/18 03:12 Glucose 91 mg/dL (75-100) 09/04/18 03:12 POC Glucose 115 (70-105) H 09/04/18 05:37 Calcium 8.1 mg/dL (8.4-10.2) L 09/04/18 03:12 Phosphorus 3.40 mg/dL (2.5-4.5) 09/03/18 03:20 Magnesium 1.90 mg/dL (1.7-2.3) 09/03/18 03:20 Total Bilirubin 1.90 mg/dL (0.1-1.2) H 09/04/18 03:12 AST 72 units/L (5-40) H 09/04/18 03:12 ALT 25 units/L (7-56) 09/04/18 03:12 Alkaline Phosphatase 97 units/L (35-129) 09/04/18 03:12 Troponin T 0.132 ng/mL (0.00-0.029) H* 09/01/18 21:20 NT-Pro-B Natriuret Pep 1764 pg/mL (0-450) H 09/01/18 15:15 Total Protein 6.0 g/dL (6.3-8.2) L 09/04/18 03:12 Albumin 2.3 g/dL (3.9-5) L 09/04/18 03:12 Albumin/Globulin Ratio 0.6 % 09/04/18 03:12 Triglycerides 68 mg/dL (2-149) 09/04/18 03:12 Cholesterol 93 mg/dL (50-199) 09/01/18 15:15 LDL Cholesterol Direct 62 mg/dL (50-130) 09/01/18 15:15 HDL Cholesterol 33 mg/dL (40-59) L 09/01/18 15:15 Cholesterol/HDL Ratio 2.81 % 09/01/18 15:15 Nutrition/Malnutrition Assess - Dietary Evaluation Nutrition/Malnutrition Findings: Nutrition Notes Start: 09/02/18 15:06 Freq: Status: Active Protocol: Document 09/03/18 12:18 TW (Rec: 09/03/18 12:40 TW [email or web address]) Co-Sign 09/03/18 12:18 OL Nutrition Notes Need for Assessment generated from: MD Order Initial or Follow up Brief Note Other Pertinent Diagnosis SOB, sleep apnea, aortic dissection Current Diet NPO Pertinent Medications Propofol at 10.8 ml/hr (290 kcals) Subjective/Other Information MD consult for TF. NGT has been placed. #1 Nutrition Diagnosis Inadequate oral intake Diagnosis Progress(for reassessment Continues documentation) Nutrition Intervention Nutrition Support: Vital High Protein at 75 ml/hr . Provide flush of 50 ml q4h or per MD. Kcal 1,800 Protein (gm) 158 Fluid (mL) 1,505 Follow-Up By: 09/07/18 Additional Comments F/u for new TF
--- NOTE | 2018-09-04 10:49 | Progress Note ---
Assessment and Plan Assessment: Acute hypercapnic respiratory failure - intubated Acute on chronic heart failure, EF 45-50% per echo 04/28 NSTEMI type II Elevated D-dimer Chest pain Chronic thoracic aortic dissection Morbid obesity PAUL Hypothyroidism NSVT Medical non-compliance Hypertension Diabetes Plan: Shortly following evaluation, pt self extubated and had transient episode of bradycardia, atropine and epi administered, pt reintubated. Vascular consultation noted - Recommend strict blood pressure control BP <120/80 and Heart rate < 60. Weight should be confirmed. Needs repeat CTA chest to assess progression of his dissection. Optimize BP and HR - initiate scheduled IV lopressor, cont PRN IV hydralazine, cont clonidine patch, cont PO norvasc. The patient has been seen in conjunction with Dr. Ciro Ren who agrees with the assessment and plan of care. Subjective Date of service: 09/04/18 Principal diagnosis: acute respiratory failure, elevated troponin Interval history: pt remains intubated. mother at bedside. Objective Last Vital Signs Temp 99.5 F 09/04/18 08:00 Pulse 72 09/04/18 10:02 Resp 21 09/04/18 09:10 BP 156/77 09/04/18 10:02 Pulse Ox 94 09/04/18 09:10 - Physical Examination General: Other (intubated) HEENT: Positive: PERRL, Normocephaly, Mucus Membranes Moist Neck: Positive: neck supple, trachea midline Cardiac: Positive: Reg Rate and Rhythm, S1/S2 Lungs: Positive: Decreased Breath Sounds, Oxygen Neuro: Positive: Grossly Intact Abdomen: Positive: Soft. Negative: Tender Skin: Negative: Rash Musculoskeletal: No Pain Extremities: Present: +1 Edema (BLE, chronic skin changes) - Labs and Meds Cardiac Enzymes 09/04/18 Range/Units 03:12 AST 72 H (5-40) units/L Lipids 09/04/18 Range/Units 03:12 Triglycerides 68 (2-149) mg/dL CBC 09/04/18 Range/Units 03:12 WBC 8.2 (4.5-11.0) K/mm3 RBC 5.30 H (3.65-5.03) M/mm3 Hgb 14.5 (11.8-15.2) gm/dl Hct 47.1 H (35.5-45.6) % Plt Count 235 (140-440) K/mm3 Comprehensive Metabolic Panel 09/04/18 Range/Units 03:12 Sodium 144 (137-145) mmol/L Potassium 4.2 (3.6-5.0) mmol/L Chloride 99.0 (98-107) mmol/L Carbon Dioxide 32 H (22-30) mmol/L BUN 22 H (9-20) mg/dL Creatinine 1.6 H (0.8-1.5) mg/dL Glucose 91 (75-100) mg/dL Calcium 8.1 L (8.4-10.2) mg/dL AST 72 H (5-40) units/L ALT 25 (7-56) units/L Alkaline Phosphatase 97 (35-129) units/L Total Protein 6.0 L (6.3-8.2) g/dL Albumin 2.3 L (3.9-5) g/dL - Imaging and Cardiology EKG: report reviewed, image reviewed Echo: report reviewed (05/10/2018 showed EF 45-50%, impaired relaxation, RV mildly dilated, RV systolic function mod reduced. ) - EKG Sinus rhythms and dysrhythmias: sinus rhythm - Allied health notes Allied health notes reviewed: nursing
--- NOTE | 2018-09-04 10:53 | XRay Report ---
AP CHEST: HISTORY: Endotracheal tube placement confirmation An endotracheal tube is in good position terminating 3.9 cm superior to the willi. A nasogastric tube is followed to the proximal stomach. Moderate cardiomegaly and pulmonary venous congestion are identified. There is poor inspiration but the lungs are grossly clear. No large pleural effusion or pneumothorax. IMPRESSION: Adequate placement of the endotracheal tube. Cardiomegaly and pulmonary venous congestion.
--- NOTE | 2018-09-04 11:19 | Progress Note ---
Assessment and Plan Acute Hypoxemic Hypercapnic Respiratory Failure Hypertensive Emergency H/O Type B Aortic Dissection (No surgery recommended in October 2017) Morbid Obesity PAUL/OHS Acute exacerbation of SYSTOLIC CHF NSTEMI TYPE 2 Diabetes Mellitus (I am bothered by the type B dissection history and his presentation here; hopefully no significant extension upwards that may necessitate surgical intervention as he has obviously not had good blood pressure control) - stop IV heparin re: risk of chronic dissection extension - continue ACS management otherwise per cardiology - await MOMO to evaluate for type A dissection - if able to get CTA we will consider that but take into consideration transport risk - increased set rate to 20/min - continue daily SBT evaluation - continue daily SAT's (all sedation held now) - added prn Versed IV for target RASS 0 to -1 - continue bronchodilators with pulmonary hygiene per RT - continue to wean oxygen for target O2 Sat's > 89 - 90% - VAP bundle addressed - begin enteral nutrition as tolerated - discontinue dias catheter - get serum Mg & PO4 levels and adjust as necessary - mobility protocol for pressure ulcer prophylaxis - GI & VTE prophylaxis - re-introduce oral anti-hypertensives - glycemic control with SSI for target BG 140 - 180 mg/dL - continue other care per attending / other consultants ...... re-evaluate in am & prn The high probability of a clinically significant, sudden or life threatening deterioration of the [Pulmonary,cardiac and Vascular] system(s) required my full and direct attention, intervention and personal management. The aggregate crit ical care time was [35] minutes. This time is in addition to time spent performing reported procedures but includes the following: [x] Data Review and interpretation [x] Patient assessment and monitoring of vital signs [x] Documentation Subjective Date of service: 09/04/18 Principal diagnosis: Ac Hypoxemic Hypercapnic Resp Failure; HTNsive Emergency; Type B dissection Interval history: Patient is seen today for: Acute Hypoxemic Hypercapnic Respiratory Failure; Hypertensive Emergency; H/O Type B Aortic Dissection (No surgery recommended in October 2017); Morbid Obesity Seen and examined at bedside; 24hour events reviewed; nursing and respiratory care staff consulted; no adverse overnight events reported to me; self extubated earlier today and quickly developed bradycardia; CODE BLUE called and he was emergently re-intubated; remains on IV insulin therapy reportedly for ACS; no gross bleeding reported; No emesis or overt aspiration Objective Vital Signs - 12hr 09/03/18 09/03/18 09/03/18 23:20 23:27 23:30 Temperature Pulse Rate 86 83 82 Pulse Rate [ From Monitor] Respiratory 15 14 Rate Blood Pressure 176/76 176/76 151/74 O2 Sat by Pulse 95 95 95 Oximetry 09/03/18 09/03/18 09/04/18 23:40 23:50 00:00 Temperature Pulse Rate 80 78 91 H Pulse Rate [ 76 From Monitor] Respiratory 14 14 12 Rate Blood Pressure 151/74 176/76 178/127 O2 Sat by Pulse 95 94 95 Oximetry 09/04/18 09/04/18 09/04/18 00:10 00:20 00:30 Temperature Pulse Rate 79 77 73 Pulse Rate [ From Monitor] Respiratory 14 14 17 Rate Blood Pressure 178/127 164/82 157/77 O2 Sat by Pulse 94 94 94 Oximetry 09/04/18 09/04/18 09/04/18 00:40 00:50 01:00 Temperature Pulse Rate 74 74 73 Pulse Rate [ From Monitor] Respiratory 14 14 14 Rate Blood Pressure 157/77 147/69 140/62 O2 Sat by Pulse 94 94 94 Oximetry 09/04/18 09/04/18 09/04/18 01:10 01:20 01:30 Temperature Pulse Rate 68 69 69 Pulse Rate [ From Monitor] Respiratory 14 14 14 Rate Blood Pressure 140/62 134/62 136/65 O2 Sat by Pulse 94 94 93 Oximetry 09/04/18 09/04/18 09/04/18 01:40 01:50 02:00 Temperature Pulse Rate 70 67 67 Pulse Rate [ From Monitor] Respiratory 14 14 14 Rate Blood Pressure 136/65 136/65 137/68 O2 Sat by Pulse 93 94 94 Oximetry 09/04/18 09/04/18 09/04/18 02:10 02:20 02:30 Temperature Pulse Rate 71 72 70 Pulse Rate [ From Monitor] Respiratory 16 14 14 Rate Blood Pressure 137/68 168/89 145/74 O2 Sat by Pulse 95 94 98 Oximetry 09/04/18 09/04/18 09/04/18 02:40 02:50 03:00 Temperature Pulse Rate 73 76 70 Pulse Rate [ From Monitor] Respiratory 12 14 14 Rate Blood Pressure 145/74 151/77 151/77 O2 Sat by Pulse 98 97 94 Oximetry 09/04/18 09/04/18 09/04/18 03:10 03:20 03:27 Temperature 99.4 F Pulse Rate 70 71 Pulse Rate [ From Monitor] Respiratory 15 17 Rate Blood Pressure 131/44 126/64 O2 Sat by Pulse 95 95 Oximetry 09/04/18 09/04/18 09/04/18 03:30 03:40 03:50 Temperature Pulse Rate 69 73 72 Pulse Rate [ From Monitor] Respiratory 14 14 14 Rate Blood Pressure 130/70 130/70 130/76 O2 Sat by Pulse 95 91 92 Oximetry 09/04/18 09/04/18 09/04/18 04:00 04:10 04:20 Temperature Pulse Rate 70 70 73 Pulse Rate [ 76 From Monitor] Respiratory 14 14 14 Rate Blood Pressure 130/76 136/70 O2 Sat by Pulse 93 93 92 Oximetry 09/04/18 09/04/18 09/04/18 04:30 04:40 04:50 Temperature Pulse Rate 69 68 70 Pulse Rate [ From Monitor] Respiratory 14 14 14 Rate Blood Pressure 148/74 148/74 151/78 O2 Sat by Pulse 93 92 92 Oximetry 09/04/18 09/04/18 09/04/18 05:00 05:10 05:20 Temperature Pulse Rate 69 95 H Pulse Rate [ From Monitor] Respiratory 14 14 Rate Blood Pressure 143/70 143/70 143/70 O2 Sat by Pulse 93 90 84 Oximetry 09/04/18 09/04/18 09/04/18 05:30 05:40 05:50 Temperature Pulse Rate 89 83 80 Pulse Rate [ From Monitor] Respiratory 19 14 20 Rate Blood Pressure 211/99 211/99 213/79 O2 Sat by Pulse 89 91 94 Oximetry 09/04/18 09/04/18 09/04/18 06:00 06:10 06:20 Temperature Pulse Rate 78 80 79 Pulse Rate [ From Monitor] Respiratory 19 20 19 Rate Blood Pressure 210/80 210/80 193/68 O2 Sat by Pulse 94 93 93 Oximetry 09/04/18 09/04/18 09/04/18 06:30 06:40 06:50 Temperature Pulse Rate 81 77 78 Pulse Rate [ From Monitor] Respiratory 20 20 17 Rate Blood Pressure 202/89 202/89 197/84 O2 Sat by Pulse 93 93 93 Oximetry 09/04/18 09/04/18 09/04/18 07:00 07:08 07:10 Temperature Pulse Rate 93 H 86 83 Pulse Rate [ From Monitor] Respiratory 15 19 Rate Blood Pressure 193/68 197/84 199/95 O2 Sat by Pulse 93 97 Oximetry 09/04/18 09/04/18 09/04/18 07:20 07:22 07:30 Temperature Pulse Rate 78 86 87 Pulse Rate [ From Monitor] Respiratory 20 15 Rate Blood Pressure 189/88 189/88 209/120 O2 Sat by Pulse 96 93 Oximetry 09/04/18 09/04/18 09/04/18 07:40 07:45 07:50 Temperature Pulse Rate 87 83 80 Pulse Rate [ From Monitor] Respiratory 17 20 Rate Blood Pressure 209/120 209/120 209/120 O2 Sat by Pulse 92 94 93 Oximetry 09/04/18 09/04/18 09/04/18 08:00 08:10 08:20 Temperature 99.5 F Pulse Rate 78 74 75 Pulse Rate [ 71 From Monitor] Respiratory 19 19 21 Rate Blood Pressure 141/76 141/76 154/73 O2 Sat by Pulse 93 92 92 Oximetry 09/04/18 09/04/18 09/04/18 08:30 08:40 08:50 Temperature Pulse Rate 74 81 76 Pulse Rate [ From Monitor] Respiratory 17 15 20 Rate Blood Pressure 140/80 140/80 156/64 O2 Sat by Pulse 92 96 96 Oximetry 09/04/18 09/04/18 09/04/18 09:00 09:10 10:02 Temperature Pulse Rate 76 73 72 Pulse Rate [ From Monitor] Respiratory 20 21 Rate Blood Pressure 149/74 149/74 156/77 O2 Sat by Pulse 95 94 Oximetry 09/04/18 09/04/18 10:21 10:43 Temperature Pulse Rate 95 H Pulse Rate [ From Monitor] Respiratory Rate Blood Pressure 126/78 O2 Sat by Pulse 45 L 97 Oximetry Constitutional: no acute distress, other (young morbidly obese AAM, normocephalic and atraumatic on MVS) Eyes: non-icteric ENT: oropharynx moist, other (ETT 23 cm JANE) Neck: supple, no lymphadenopathy, no JVD, other (large neck circumference) Effort: mildly labored Ascultation: Bilateral: diminished breath sounds, rhonchi (bases) Percussion: Bilateral: not dull Cardiovascular: regular rate and rhythm, other (No R/M) Gastrointestinal: normoactive bowel sounds, soft, non-tender, other (protuberant) Integumentary: rash Extremities: no cyanosis, pulses normal, no ischemia or petechiae, edema Neurologic: non-focal exam (grossly), pupils equal and round, motor strength normal and, other (sedated) Psychiatric: other (unable to assess) CBC and BMP: 09/04/18 03:12 09/04/18 03:12 ABG, PT/INR, D-dimer: ABG POC ABG pH 7.273 (7.35-7.45) L 09/04/18 05:48 POC ABG pCO2 89.9 (35-45) H 09/04/18 05:48 POC ABG pO2 78 (80-105) L 09/04/18 05:48 POC ABG HCO3 41.6 09/04/18 05:48 POC ABG Total CO2 44 09/04/18 05:48 POC ABG O2 Sat 92 09/04/18 05:48 PT/INR, D-dimer PT 15.1 Sec. (12.2-14.9) H 09/01/18 21:20 INR 1.15 (0.87-1.13) H 09/01/18 21:20 D-Dimer 869.27 ng/mlDDU (0-234) H 09/01/18 15:15 Abnormal lab findings: Abnormal Labs 09/01/18 09/01/18 09/01/18 15:15 15:15 15:15 RBC 5.37 H Hgb Hct 47.8 H MCH 27 L MCHC 31 L RDW 17.1 H Lymph % (Auto) Russell % (Auto) 11.0 H Lymph # 1.0 L Russell # Seg Neutrophils % 70.2 H PT 15.0 H INR 1.14 H D-Dimer Heparin Anti-Xa Level POC ABG pH POC ABG pCO2 POC ABG pO2 Potassium Chloride Carbon Dioxide 39 H BUN 21 H Creatinine Glucose 106 H POC Glucose Calcium Total Bilirubin AST Troponin T 0.125 H* NT-Pro-B Natriuret Pep Total Protein Albumin HDL Cholesterol 33 L 09/01/18 09/01/18 09/01/18 15:15 15:15 15:28 RBC Hgb Hct MCH MCHC RDW Lymph % (Auto) Russell % (Auto) Lymph # Russell # Seg Neutrophils % PT INR D-Dimer 869.27 H Heparin Anti-Xa Level POC ABG pH 7.235 L POC ABG pCO2 89.8 H POC ABG pO2 Potassium Chloride Carbon Dioxide BUN Creatinine Glucose POC Glucose Calcium Total Bilirubin AST Troponin T NT-Pro-B Natriuret Pep 1764 H Total Protein Albumin HDL Cholesterol 09/01/18 09/01/18 09/01/18 17:45 19:28 21:20 RBC Hgb Hct MCH MCHC RDW Lymph % (Auto) Russell % (Auto) Lymph # Russell # Seg Neutrophils % PT INR D-Dimer Heparin Anti-Xa Level POC ABG pH 7.175 L POC ABG pCO2 105.5 H POC ABG pO2 111 H Potassium Chloride Carbon Dioxide BUN Creatinine Glucose POC Glucose Calcium Total Bilirubin AST Troponin T 0.130 H* 0.132 H* NT-Pro-B Natriuret Pep Total Protein Albumin HDL Cholesterol 09/01/18 09/01/18 09/01/18 21:20 21:20 23:29 RBC Hgb Hct 46.4 H MCH MCHC RDW Lymph % (Auto) Russell % (Auto) Lymph # Russell # Seg Neutrophils % PT 15.1 H INR 1.15 H D-Dimer Heparin Anti-Xa Level POC ABG pH 7.349 L POC ABG pCO2 76.4 H POC ABG pO2 35 L Potassium Chloride Carbon Dioxide BUN Creatinine Glucose POC Glucose Calcium Total Bilirubin AST Troponin T NT-Pro-B Natriuret Pep Total Protein Albumin HDL Cholesterol 09/01/18 09/02/18 09/02/18 23:34 04:18 04:35 RBC 5.67 H Hgb 15.8 H Hct 50.6 H MCH MCHC 31 L RDW 17.9 H Lymph % (Auto) 12.2 L Russell % (Auto) 12.6 H Lymph # 1.0 L Russell # 1.0 H Seg Neutrophils % 73.5 H PT INR D-Dimer Heparin Anti-Xa Level POC ABG pH 7.294 L POC ABG pCO2 77.7 H 62.2 H POC ABG pO2 235 H Potassium Chloride Carbon Dioxide BUN Creatinine Glucose POC Glucose Calcium Total Bilirubin AST Troponin T NT-Pro-B Natriuret Pep Total Protein Albumin HDL Cholesterol 09/02/18 09/02/18 09/02/18 04:35 08:16 08:16 RBC 5.68 H Hgb 15.4 H Hct 49.9 H MCH 27 L MCHC 31 L RDW 18.1 H Lymph % (Auto) Russell % (Auto) 12.7 H Lymph # 1.1 L Russell # 1.0 H Seg Neutrophils % 71.9 H PT INR D-Dimer Heparin Anti-Xa Level POC ABG pH POC ABG pCO2 POC ABG pO2 Potassium Chloride 97.7 L Carbon Dioxide 36 H 35 H BUN 21 H 21 H Creatinine Glucose 69 L POC Glucose Calcium Total Bilirubin 1.60 H AST 43 H Troponin T NT-Pro-B Natriuret Pep Total Protein 6.2 L Albumin 2.8 L HDL Cholesterol 09/02/18 09/02/18 09/02/18 10:24 14:29 17:46 RBC Hgb Hct MCH MCHC RDW Lymph % (Auto) Russell % (Auto) Lymph # Russell # Seg Neutrophils % PT INR D-Dimer Heparin Anti-Xa Level < 0.10 L < 0.10 L POC ABG pH POC ABG pCO2 POC ABG pO2 Potassium Chloride Carbon Dioxide BUN Creatinine Glucose POC Glucose 69 L Calcium Total Bilirubin AST Troponin T NT-Pro-B Natriuret Pep Total Protein Albumin HDL Cholesterol 09/03/18 09/03/18 09/03/18 03:20 03:20 05:48 RBC 5.57 H Hgb 15.5 H Hct 48.7 H MCH MCHC RDW 18.0 H Lymph % (Auto) Russell % (Auto) Lymph # Russell # Seg Neutrophils % PT INR D-Dimer Heparin Anti-Xa Level POC ABG pH POC ABG pCO2 62.0 H POC ABG pO2 Potassium 5.1 H D Chloride 97.2 L Carbon Dioxide 33 H BUN Creatinine Glucose 62 L POC Glucose Calcium Total Bilirubin AST Troponin T NT-Pro-B Natriuret Pep Total Protein Albumin HDL Cholesterol 09/03/18 09/04/18 09/04/18 17:10 01:44 03:12 RBC 5.30 H Hgb Hct 47.1 H MCH 27 L MCHC 31 L RDW 18.3 H Lymph % (Auto) Russell % (Auto) Lymph # Russell # Seg Neutrophils % PT INR D-Dimer Heparin Anti-Xa Level 0.26 L POC ABG pH 7.304 L POC ABG pCO2 82.5 H POC ABG pO2 Potassium Chloride Carbon Dioxide BUN Creatinine Glucose POC Glucose Calcium Total Bilirubin AST Troponin T NT-Pro-B Natriuret Pep Total Protein Albumin HDL Cholesterol 09/04/18 09/04/18 09/04/18 03:12 05:37 05:48 RBC Hgb Hct MCH MCHC RDW Lymph % (Auto) Russell % (Auto) Lymph # Russell # Seg Neutrophils % PT INR D-Dimer Heparin Anti-Xa Level POC ABG pH 7.273 L POC ABG pCO2 89.9 H POC ABG pO2 78 L Potassium Chloride Carbon Dioxide 32 H BUN 22 H Creatinine 1.6 H Glucose POC Glucose 115 H Calcium 8.1 L Total Bilirubin 1.90 H AST 72 H Troponin T NT-Pro-B Natriuret Pep Total Protein 6.0 L Albumin 2.3 L HDL Cholesterol Chest x-ray: image reviewed (ETT in good position now & new Right PICC line in place) Allied health notes reviewed: nursing
--- NOTE | 2018-09-04 11:47 | Event Note ---
Date: 09/04/18 I was called to see this patient in the ICU as a CODE JESSE was called. When I got to the room the patient had a pulse but was bradycardiac. He had self extubated and appeared to have hypoxia and required reintubation. I first took a look with a Mac 3 blade but it was difficult to see the vocal cords secondary to copious secretions in the oropharynx. Suction was used and the glydescope was obtained. Once again it was difficult to see the vocal cords secondary to the secretions and the fact that it was fogging up the camera. The patient started having some desaturation so the first attempt was stopped and we were able to get the pulse ox back up using bag valve ventilation and jaw thrust. Patient was given 200 mg of succinylcholine as he did appear to have a gag reflex that was making the intubation more difficult. After appropriate paralysis, I was able to see the vocal cords using the Mac 3 blade and a bougie. A 7.5 endotracheal tube was placed over the bougie into the trachea at about 26 cm at the lips. There was condensation within the tube, color change capnography and bilateral breath sounds. Patient's pulse ox went up to about 99% after intubation.
[2018-09-04] MEDS ORDERED: AFLURIA QUAD 2018-2019 SYRINGE IM ONE (12:00)
[2018-09-04] MEDS: NACL 0.9% 250ML 250 ML IV ONE ×2 (12:00→14:08)
[2018-09-04] MEDS ORDERED: PNEUMOVAX 23 IM ONE (12:00)
[2018-09-04] MEDS: VERSED IV PRN ×4 (12:38→23:49)
--- NOTE | 2018-09-04 13:04 | XRay Report ---
Portable chest: Tube placement. The heart is big. Right upper lobe patchy infiltrates are present as well as a consolidation at the left lung base. Endotracheal and nasogastric tubes are present in good positions. Compared to prior exam of 10:30 AM these findings are unchanged. There has been interval placement of a right PICC line with the tip identified to it least the mid SVC. Impression: Adequate PICC line positioning.
[2018-09-04] MEDS: SODIUM CHLORIDE FLUSH SYRINGE 10 ML IV SCH ×3 (13:22→22:06)
[2018-09-04] MEDS: LOPRESSOR IV SCH ×3 (13:38→23:49)
[2018-09-04] MEDS ORDERED: NACL 0.9% 250ML 250 ML IV ONE (13:45)
[2018-09-04] MEDS ORDERED: QUELICIN ONE (14:19)
--- NOTE | 2018-09-04 16:24 | Progress Note ---
Assessment and Plan 28-year-old male with chronic type B dissection with concern for progression to type A. I think the pretest probability is low for progression a type A, but is certainly was considering. Patient's weight may be inaccurate, and should be r eassessed. If weight limit is below CT weight limit, then recommend CT angiogram of the chest, abdomen, and pelvis his acute renal failure improves. I believe the risk of obtaining a CT scan and worsening his renal failure outweighs the possible benefit at this time. Another way of dealing with the situation is to obtain a transesophageal echo to assess for conversion to type a dissection. Arterial Doppler of the proximal great vessels (common carotids and subclavian arteries) can be performed in the interim to assess for proximal dissection, but does not exclude proximal dissection. Patient requires more aggressive blood pressure management. Recommend labetalol drip to keep blood pressure below 130/120 systolic. Optimally, if patient can tolerate it, keeping the heart rate below 60 has been shown to be protective for further dissection related events. Subjective Date of service: 09/04/18 Principal diagnosis: Ac Hypoxemic Hypercapnic Resp Failure; HTNsive Emergency; Type B dissection Interval history: Blood pressure 150s to 130s. Extremities warm and non-ischemic. Intubated. Objective - Constitutional Vitals: Vital Signs - 12hr 09/04/18 09/04/18 09/04/18 04:20 04:30 04:40 Temperature Pulse Rate 73 69 68 Pulse Rate [ From Monitor] Respiratory 14 14 14 Rate Blood Pressure 136/70 148/74 148/74 O2 Sat by Pulse 92 93 92 Oximetry 09/04/18 09/04/18 09/04/18 04:50 05:00 05:10 Temperature Pulse Rate 70 69 Pulse Rate [ From Monitor] Respiratory 14 14 Rate Blood Pressure 151/78 143/70 143/70 O2 Sat by Pulse 92 93 90 Oximetry 09/04/18 09/04/18 09/04/18 05:20 05:30 05:40 Temperature Pulse Rate 95 H 89 83 Pulse Rate [ From Monitor] Respiratory 14 19 14 Rate Blood Pressure 143/70 211/99 211/99 O2 Sat by Pulse 84 89 91 Oximetry 09/04/18 09/04/18 09/04/18 05:50 06:00 06:10 Temperature Pulse Rate 80 78 80 Pulse Rate [ From Monitor] Respiratory 20 19 20 Rate Blood Pressure 213/79 210/80 210/80 O2 Sat by Pulse 94 94 93 Oximetry 09/04/18 09/04/18 09/04/18 06:20 06:30 06:40 Temperature Pulse Rate 79 81 77 Pulse Rate [ From Monitor] Respiratory 19 20 20 Rate Blood Pressure 193/68 202/89 202/89 O2 Sat by Pulse 93 93 93 Oximetry 09/04/18 09/04/18 09/04/18 06:50 07:00 07:08 Temperature Pulse Rate 78 93 H 86 Pulse Rate [ From Monitor] Respiratory 17 15 Rate Blood Pressure 197/84 193/68 197/84 O2 Sat by Pulse 93 93 Oximetry 09/04/18 09/04/18 09/04/18 07:10 07:20 07:22 Temperature Pulse Rate 83 78 86 Pulse Rate [ From Monitor] Respiratory 19 20 Rate Blood Pressure 199/95 189/88 189/88 O2 Sat by Pulse 97 96 Oximetry 09/04/18 09/04/18 09/04/18 07:30 07:40 07:45 Temperature Pulse Rate 87 87 83 Pulse Rate [ From Monitor] Respiratory 15 17 Rate Blood Pressure 209/120 209/120 209/120 O2 Sat by Pulse 93 92 94 Oximetry 09/04/18 09/04/18 09/04/18 07:50 08:00 08:10 Temperature 99.5 F Pulse Rate 80 78 74 Pulse Rate [ 71 From Monitor] Respiratory 20 19 19 Rate Blood Pressure 209/120 141/76 141/76 O2 Sat by Pulse 93 93 92 Oximetry 09/04/18 09/04/18 09/04/18 08:20 08:30 08:40 Temperature Pulse Rate 75 74 81 Pulse Rate [ From Monitor] Respiratory 21 17 15 Rate Blood Pressure 154/73 140/80 140/80 O2 Sat by Pulse 92 92 96 Oximetry 09/04/18 09/04/18 09/04/18 08:50 09:00 09:10 Temperature Pulse Rate 76 76 73 Pulse Rate [ From Monitor] Respiratory 20 20 21 Rate Blood Pressure 156/64 149/74 149/74 O2 Sat by Pulse 96 95 94 Oximetry 09/04/18 09/04/18 09/04/18 09:20 09:30 09:40 Temperature Pulse Rate 74 72 71 Pulse Rate [ From Monitor] Respiratory 19 21 24 Rate Blood Pressure 141/59 154/72 154/72 O2 Sat by Pulse 94 94 94 Oximetry 09/04/18 09/04/18 09/04/18 09:50 10:00 10:02 Temperature Pulse Rate 71 69 72 Pulse Rate [ From Monitor] Respiratory 17 20 Rate Blood Pressure 157/82 157/82 156/77 O2 Sat by Pulse 95 94 Oximetry 09/04/18 09/04/18 09/04/18 10:10 10:20 10:21 Temperature Pulse Rate 84 53 L Pulse Rate [ From Monitor] Respiratory 18 13 Rate Blood Pressure 156/77 120/62 O2 Sat by Pulse 94 44 L 45 L Oximetry 09/04/18 09/04/18 09/04/18 10:30 10:40 10:43 Temperature Pulse Rate 106 H 101 H 95 H Pulse Rate [ From Monitor] Respiratory 21 20 Rate Blood Pressure 120/62 181/96 126/78 O2 Sat by Pulse 100 93 97 Oximetry 09/04/18 09/04/18 09/04/18 10:50 11:00 11:10 Temperature Pulse Rate 94 H 89 86 Pulse Rate [ From Monitor] Respiratory 21 20 20 Rate Blood Pressure 126/78 143/77 143/77 O2 Sat by Pulse 99 93 99 Oximetry 09/04/18 09/04/18 09/04/18 11:20 11:30 11:40 Temperature Pulse Rate 86 84 80 Pulse Rate [ From Monitor] Respiratory 22 20 9 L Rate Blood Pressure 132/77 140/74 143/77 O2 Sat by Pulse 99 100 100 Oximetry 09/04/18 09/04/18 09/04/18 11:50 12:00 12:10 Temperature 99.7 F H Pulse Rate 78 77 79 Pulse Rate [ 78 From Monitor] Respiratory 18 19 20 Rate Blood Pressure 154/74 167/76 140/74 O2 Sat by Pulse 99 99 99 Oximetry 09/04/18 09/04/18 09/04/18 12:20 12:24 12:30 Temperature Pulse Rate 89 89 86 Pulse Rate [ From Monitor] Respiratory 14 20 Rate Blood Pressure 212/111 210/120 190/89 O2 Sat by Pulse 98 99 98 Oximetry 09/04/18 09/04/18 09/04/18 12:40 12:50 13:00 Temperature Pulse Rate 78 78 76 Pulse Rate [ From Monitor] Respiratory 20 20 20 Rate Blood Pressure 190/89 178/86 181/86 O2 Sat by Pulse 98 98 98 Oximetry 09/04/18 09/04/18 09/04/18 13:10 13:20 13:30 Temperature Pulse Rate 77 75 75 Pulse Rate [ From Monitor] Respiratory 20 20 20 Rate Blood Pressure 178/86 189/92 182/91 O2 Sat by Pulse 98 98 98 Oximetry 09/04/18 09/04/18 09/04/18 13:38 13:40 13:50 Temperature Pulse Rate 74 76 77 Pulse Rate [ From Monitor] Respiratory 20 20 Rate Blood Pressure 182/91 182/91 164/83 O2 Sat by Pulse 98 97 Oximetry 09/04/18 09/04/18 09/04/18 13:57 14:00 14:10 Temperature Pulse Rate 76 74 80 Pulse Rate [ From Monitor] Respiratory 20 20 Rate Blood Pressure 164/83 156/83 185/88 O2 Sat by Pulse 92 97 Oximetry 09/04/18 09/04/18 09/04/18 14:20 14:30 14:40 Temperature Pulse Rate 85 83 88 Pulse Rate [ From Monitor] Respiratory 16 14 15 Rate Blood Pressure 156/73 145/73 145/73 O2 Sat by Pulse 97 98 99 Oximetry 09/04/18 09/04/18 09/04/18 14:50 15:00 15:10 Temperature Pulse Rate 83 80 77 Pulse Rate [ From Monitor] Respiratory 20 20 20 Rate Blood Pressure 146/81 136/59 145/73 O2 Sat by Pulse 99 99 99 Oximetry 09/04/18 09/04/18 09/04/18 15:20 15:30 16:00 Temperature Pulse Rate 78 75 Pulse Rate [ 76 From Monitor] Respiratory 20 20 20 Rate Blood Pressure 141/64 139/65 O2 Sat by Pulse 99 99 98 Oximetry General appearance: Present: other (intubated) - EENT ENT: other (intubated) - Respiratory Respiratory effort: other (intubated) Extremities: normal temperature, normal color - Psychiatric Psychiatric: other (intubated) - Labs CBC & Chem 7: 09/04/18 03:12 09/04/18 03:12 Labs: Abnormal lab results 09/03/18 09/04/18 09/04/18 Range/Units 17:10 01:44 03:12 RBC 5.30 H (3.65-5.03) M/mm3 Hct 47.1 H (35.5-45.6) % MCH 27 L (28-32) pg MCHC 31 L (32-34) % RDW 18.3 H (13.2-15.2) % Heparin Anti-Xa Level 0.26 L (0.3-0.7) U.I./ml POC ABG pH 7.304 L (7.35-7.45) POC ABG pCO2 82.5 H (35-45) POC ABG pO2 (80-105) Carbon Dioxide (22-30) mmol/L BUN (9-20) mg/dL Creatinine (0.8-1.5) mg/dL POC Glucose (70-105) Calcium (8.4-10.2) mg/dL Total Bilirubin (0.1-1.2) mg/dL AST (5-40) units/L Total Protein (6.3-8.2) g/dL Albumin (3.9-5) g/dL 09/04/18 09/04/18 09/04/18 Range/Units 03:12 05:37 05:48 RBC (3.65-5.03) M/mm3 Hct (35.5-45.6) % MCH (28-32) pg MCHC (32-34) % RDW (13.2-15.2) % Heparin Anti-Xa Level (0.3-0.7) U.I./ml POC ABG pH 7.273 L (7.35-7.45) POC ABG pCO2 89.9 H (35-45) POC ABG pO2 78 L (80-105) Carbon Dioxide 32 H (22-30) mmol/L BUN 22 H (9-20) mg/dL Creatinine 1.6 H (0.8-1.5) mg/dL POC Glucose 115 H (70-105) Calcium 8.1 L (8.4-10.2) mg/dL Total Bilirubin 1.90 H (0.1-1.2) mg/dL AST 72 H (5-40) units/L Total Protein 6.0 L (6.3-8.2) g/dL Albumin 2.3 L (3.9-5) g/dL 09/04/18 Range/Units 11:31 RBC (3.65-5.03) M/mm3 Hct (35.5-45.6) % MCH (28-32) pg MCHC (32-34) % RDW (13.2-15.2) % Heparin Anti-Xa Level (0.3-0.7) U.I./ml POC ABG pH 7.326 L (7.35-7.45) POC ABG pCO2 70.4 H (35-45) POC ABG pO2 155 H (80-105) Carbon Dioxide (22-30) mmol/L BUN (9-20) mg/dL Creatinine (0.8-1.5) mg/dL POC Glucose (70-105) Calcium (8.4-10.2) mg/dL Total Bilirubin (0.1-1.2) mg/dL AST (5-40) units/L Total Protein (6.3-8.2) g/dL Albumin (3.9-5) g/dL Medications & Allergies - Medications Allergies/Adverse Reactions: Allergies No Known Allergies Allergy (Unverified 10/02/17 17:09) Home Medications: Home Medications Medication Instructions Recorded Confirmed Last Taken Type Aspirin [Aspirin BABY CHEW TAB] 81 mg PO QDAY #30 tab.chew 08/04/18 Unknown Rx Furosemide [Lasix TAB] 40 mg PO BID #60 tablet 08/04/18 Unknown Rx Labetalol [Normodyne TAB] 300 mg PO Q8HR 30 Days tablet 08/04/18 Unknown Rx Levothyroxine [Synthroid] 50 mcg PO DAILY@0600 #30 tablet 08/04/18 Unknown Rx NIFEdipine XL [Procardia Xl] 90 mg PO BID #60 tablet 08/04/18 Unknown Rx Potassium Chloride [K-Dur] 10 meq PO BID #60 tablet 08/04/18 Unknown Rx cloNIDine-TTS PATCH 0.3 mg TRANSDERMA 1XW #4 08/04/18 Unknown Rx Active Medications: Generic Name Dose Route Start Last Admin Trade Name Freq PRN Reason Stop Dose Admin Albuterol 2.5 mg 09/01/18 18:25 Proventil IH Q3HRT PRN Shortness Of Breath Amlodipine Besylate 10 mg 09/02/18 11:00 09/04/18 10:02 Norvasc PO 10 mg DAILY ELIEL Administration Lipase/Protease/Amylase 1 each 09/03/18 12:10 [place] 10,500 Unit FEEDTUBE PRN PRN For Clogged Feeding Tube Aspirin 81 mg 09/02/18 10:00 09/04/18 10:02 Baby Aspirin PO 81 mg QDAY [facility] Administration Clonidine HCl 0.3 mg 09/01/18 22:00 09/02/18 03:10 Catapres-Tts Patch TD 0.3 mg Tu [facility] Administration Enoxaparin Sodium 40 mg 09/04/18 22:00 Lovenox SUB-Q QDAY@2200 [facility] Famotidine 20 mg 09/03/18 10:00 09/04/18 10:02 Pepcid PO 20 mg BID [facility] Administration Furosemide 40 mg 09/05/18 06:00 Lasix IV DAILY@0600 [facility] Hydralazine HCl 5 mg 09/03/18 03:10 09/04/18 13:57 Apresoline IV 5 mg Q4H PRN Administration Blood Pressure Hydrophilic Ointment 1 applic 09/01/18 19:56 Vaseline Lip Therapy TP Q2HR PRN Dry Lips Nicardipine HCl 50 mg/ Sodium 250 mls @ 25 mls/hr 09/02/18 04:00 09/02/18 10:50 Chloride IV 0 mg/hr TITR ELIEL 0 mls/hr Titration Protocol 5 MG/HR Fentanyl Citrate 2,000 mcg in 100 mls @ 12.205 mls/hr 09/02/18 11:00 09/04/18 13:06 Fentanyl Drip Premix IV 2 mcg/kg/hr TITR ELIEL 24.41 mls/hr Administration Protocol 1 MCG/KG/HR Labetalol HCl 200 mg/ Dextrose 200 mls @ 120 mls/hr 09/04/18 16:00 IV TITR ELIEL Protocol 2 MG/MIN Levothyroxine Sodium 50 mcg 09/02/18 06:00 09/04/18 07:09 Synthroid PO 50 mcg DAILY@0600 [facility] Administration Metoprolol Tartrate 5 mg 09/04/18 12:00 09/04/18 13:38 Lopressor IV 5 mg Q6HR [facility] Administration Midazolam HCl 2 mg 09/04/18 11:19 09/04/18 14:53 Versed IV 09/09/18 11:18 2 mg Q2H PRN Administration Agitation Multi-Ingred Cream/Lotion/Oil/Oint 1 applic 09/01/18 19:56 Artificial Tears Ophth Oint OU Q4HR PRN Dry Eye(s) Simple Syrup 15 ml 09/03/18 12:10 Simple Syrup FEEDTUBE PRN PRN Hypoglycemia Simple Syrup 30 ml 09/03/18 12:10 Simple Syrup FEEDTUBE PRN PRN Hypoglycemia Sodium Bicarbonate 325 mg 09/03/18 12:10 Sodium Bicarbonate FEEDTUBE PRN PRN For Clogged Feeding Tube Sodium Chloride 10 ml 09/01/18 22:00 09/04/18 13:22 Sodium Chloride Flush Syringe 10 Ml IV 10 ml BID ELIEL Administration Sodium Chloride 10 ml 09/01/18 18:25 Sodium Chloride Flush Syringe 10 Ml IV PRN PRN LINE FLUSH
[2018-09-04] MEDS: NORMODYNE 200 MG in D5W 160 ML IV SCH ×2 (17:27→19:13)
[2018-09-04] MEDS: CARDENE 50 MG in NACL 0.9% 250ML 230 ML IV SCH (20:04)
[2018-09-04] MEDS: LOVENOX SUB-Q SCH (22:06)
[2018-09-04] MEDS ORDERED: TYLENOL PO PRN (23:45)
--- NOTE | 2018-09-05 00:22 | XRay Report ---
FINAL REPORT PROCEDURE: XR CHEST 1V AP TECHNIQUE: Chest radiograph anteroposterior view. CPT 59577 HISTORY: fever COMPARISON: Prior chest x-ray 09/04/2018 FINDINGS: Endotracheal tube remains in place. The tip lies 5.6 centimeter above the willi. NG tube is directed into the stomach. The distal end of the tube is not included on this exam. PICC line is now visualiz ed entering from the right. Tip of the catheter projects in the proximal SVC Heart remains enlarged. Patchy perihilar alveolar densities present bilaterally. These are suboptimal ly visualized due to breathing motion artifact. No effusions or pneumothorax visualized. No acute bon y abnormalities are seen. IMPRESSION: Endotracheal tube NG tube and right subclavian central venous line in place as described. Stable cardiomegaly. Stable perihilar infiltrates and/or atelectasis. These are suboptimally visualized due to breathing m otion artifact.
[2018-09-05 01:08] LABS: Bilirubin,Urine NEG (Negative); Blood,Urine NEG (Negative); Color,Urine Amber (Yellow); Hyaline Casts,Urine 7 /LPF; Mucus,Urine FEW /HPF; Sperm,Urine 2+ /HPF (NP)
[2018-09-05] MEDS: fentaNYL DRIP Premix 2,000 MCG/100 ML BAG IV SCH ×5 (03:32→21:40)
[2018-09-05] MEDS: CARDENE 50 MG in NACL 0.9% 250ML 230 ML IV SCH (03:32)
[2018-09-05] MEDS: VERSED IV PRN ×5 (03:58→22:19)
[2018-09-05 05:25] LABS: Mean Corpuscular HGB Conc 31 % (32-34); Mean Corpuscular Volume 88 fl (84-94); Platelet Count 241 K/mm3 (140-440); Red Blood Count 5.16 M/mm3 (3.65-5.03); Red Cell Distribution Width 17.6 % (13.2-15.2)
[2018-09-05 05:26] LABS: Hemoglobin 14.1 gm/dl (11.8-15.2)
[2018-09-05 05:27] LABS: Hematocrit 45.3 % (35.5-45.6)
[2018-09-05 05:42] LABS: Calcium 8.4 mg/dL (8.4-10.2)
[2018-09-05] MEDS: LOPRESSOR IV SCH ×3 (06:01→17:40)
[2018-09-05] MEDS: LASIX IV SCH (06:01)
[2018-09-05] MEDS: SYNTHROID PO SCH (06:01)
--- NOTE | 2018-09-05 07:47 | Progress Note ---
Assessment and Plan 28yo AAM: Assessment: Acute hypercapnic respiratory failure - intubated Acute on chronic heart failure, EF 45-50% per echo 04/28 NSTEMI type II Elevated D-dimer Chest pain Chronic thoracic type B aortic dissection Morbid obesity PAUL Hypothyroidism NSVT Medical non-compliance Hypertension Diabetes Plan: Pt off sedation communicated that he was cp-free and w/o complaints last night to RN SBP vastly improved and also equal in both arms. Yesterday - shortly following evaluation, pt self extubated and had transient episode of bradycardia, atropine and epi administered, pt reintubated. Vascular consultation noted - Recommend strict blood pressure control BP <120/80 and Heart rate < 60. Weight should be confirmed. Needs repeat CTA chest to assess progression of his dissection. MOMO is far less specific and sensitive to assess for progression en given the initial study was a CTA. Hemodynamically stable now. Optimize BP and HR - initiate scheduled IV lopressor, cont PRN IV hydralazine, cont clonidine patch, cont PO norvasc. Will cont to follow closely. Subjective Date of service: 09/05/18 Principal diagnosis: Ac Hypoxemic Hypercapnic Resp Failure; HTNsive Emergency; Type B dissection Interval history: off sedation for a while last night and communicated that he was w/o complaints or cp Objective Vital Signs Temp Pulse Pulse Resp BP Pulse Ox 09/05/18 06:00 76 20 155/67 96 09/05/18 05:50 72 21 149/66 97 09/05/18 05:40 72 19 146/63 97 09/05/18 05:30 72 18 146/63 97 09/05/18 05:20 71 19 145/66 97 09/05/18 05:10 70 20 144/64 98 09/05/18 05:00 73 20 144/64 98 09/05/18 04:50 73 19 151/63 98 09/05/18 04:40 73 19 145/65 99 09/05/18 04:30 71 20 145/65 99 09/05/18 04:20 72 20 141/65 98 09/05/18 04:10 73 17 146/64 99 09/05/18 04:00 75 76 15 145/65 98 09/05/18 03:50 73 20 145/59 99 09/05/18 03:48 99.6 F 09/05/18 03:40 80 20 141/58 97 09/05/18 03:30 74 19 141/58 97 09/05/18 03:20 76 20 136/60 97 09/05/18 03:10 75 20 135/62 97 09/05/18 03:00 75 23 135/62 98 09/05/18 02:50 77 17 147/66 98 09/05/18 02:40 72 20 146/63 97 09/05/18 02:30 71 20 146/63 97 09/05/18 02:20 72 21 146/65 97 09/05/18 02:10 72 20 148/65 98 09/05/18 02:00 73 21 148/65 97 09/05/18 01:50 72 20 142/65 99 09/05/18 01:40 70 20 138/67 98 09/05/18 01:30 73 17 138/67 98 09/05/18 01:20 71 20 140/60 97 09/05/18 01:10 71 19 145/63 97 09/05/18 01:00 72 20 145/63 97 09/05/18 00:50 74 18 140/58 96 09/05/18 00:40 75 20 141/56 97 09/05/18 00:30 75 20 141/56 97 09/05/18 00:20 77 15 122/70 96 09/05/18 00:10 75 21 139/67 96 09/05/18 00:00 76 20 139/67 97 09/04/18 23:50 76 18 134/60 96 09/04/18 23:40 76 20 134/60 96 09/04/18 23:36 103.3 F H 09/04/18 23:30 77 18 134/60 96 09/04/18 23:20 76 15 124/59 96 09/04/18 23:10 77 15 139/70 96 09/04/18 23:08 74 139/70 96 09/04/18 23:02 76 19 139/70 96 09/04/18 23:00 75 17 139/70 96 09/04/18 22:50 71 21 132/63 97 09/04/18 22:40 72 19 140/59 97 09/04/18 22:30 72 20 140/59 97 09/04/18 22:20 74 20 140/63 97 09/04/18 22:10 73 21 147/71 97 01/25/19 22:00 75 17 147/71 98 09/04/18 21:50 72 21 141/62 98 09/04/18 21:40 72 17 141/62 97 09/04/18 21:30 71 20 141/62 97 09/04/18 21:20 73 20 137/63 97 09/04/18 21:10 72 20 129/59 96 09/04/18 21:00 74 21 129/59 96 09/04/18 20:50 73 20 119/55 96 09/04/18 20:40 74 19 129/55 96 09/04/18 20:30 76 21 129/55 96 09/04/18 20:20 76 21 127/53 97 09/04/18 20:10 78 20 120/52 97 09/04/18 20:00 80 76 21 120/52 97 09/04/18 19:50 101.1 F H 85 14 140/66 97 09/04/18 19:40 83 13 141/63 98 09/04/18 19:30 77 16 141/63 98 09/04/18 19:20 77 18 137/60 96 09/04/18 19:13 77 131/67 09/04/18 19:10 77 13 131/67 96 09/04/18 19:00 78 20 131/67 96 09/04/18 18:50 78 20 139/60 95 09/04/18 18:44 77 144/66 09/04/18 18:41 77 144/66 09/04/18 18:40 79 20 144/66 95 09/04/18 18:30 76 16 144/66 97 09/04/18 18:20 75 20 131/70 97 09/04/18 18:10 81 26 H 143/74 98 09/04/18 18:00 82 19 143/74 96 09/04/18 17:50 79 19 143/69 96 09/04/18 17:40 76 21 148/65 98 09/04/18 17:30 78 17 148/65 99 09/04/18 17:27 81 149/69 09/04/18 17:20 79 20 149/69 98 09/04/18 17:10 80 20 159/66 98 09/04/18 17:00 80 16 149/67 99 09/04/18 16:50 81 19 149/67 98 09/04/18 16:40 86 21 139/73 99 09/04/18 16:30 76 21 141/65 98 09/04/18 16:20 74 27 H 139/73 98 09/04/18 16:16 80 143/66 98 09/04/18 16:10 74 20 143/66 98 09/04/18 16:00 100.7 F H 75 76 20 143/66 98 09/04/18 15:50 78 20 140/66 98 09/04/18 15:40 76 17 139/65 99 09/04/18 15:30 75 20 139/65 99 09/04/18 15:20 78 20 141/64 99 09/04/18 15:10 77 20 145/73 99 09/04/18 15:00 80 20 136/59 99 09/04/18 14:50 83 20 146/81 99 09/04/18 14:40 88 15 145/73 99 09/04/18 14:30 83 14 145/73 98 09/04/18 14:20 85 16 156/73 97 09/04/18 14:10 80 20 185/88 97 09/04/18 14:00 74 20 156/83 92 09/04/18 13:57 76 164/83 09/04/18 13:50 77 20 164/83 97 09/04/18 13:40 76 20 182/91 98 09/04/18 13:38 74 182/91 09/04/18 13:30 75 20 182/91 98 09/04/18 13:20 75 20 189/92 98 09/04/18 13:10 77 20 178/86 98 09/04/18 13:00 76 20 181/86 98 09/04/18 12:50 78 20 178/86 98 09/04/18 12:40 78 20 190/89 98 09/04/18 12:30 86 20 190/89 98 09/04/18 12:24 89 210/120 99 09/04/18 12:20 89 14 212/111 98 09/04/18 12:10 79 20 140/74 99 09/04/18 12:00 99.7 F H 77 78 19 167/76 99 09/04/18 11:50 78 18 154/74 99 09/04/18 11:40 80 9 L 143/77 100 09/04/18 11:30 84 20 140/74 100 09/04/18 11:20 86 22 132/77 99 09/04/18 11:10 86 20 143/77 99 09/04/18 11:00 89 20 143/77 93 09/04/18 10:50 94 H 21 126/78 99 09/04/18 10:43 95 H 126/78 97 09/04/18 10:40 101 H 20 181/96 93 09/04/18 10:30 106 H 21 120/62 100 09/04/18 10:21 45 L 09/04/18 10:20 53 L 13 120/62 44 L 09/04/18 10:10 84 18 156/77 94 09/04/18 10:02 72 156/77 09/04/18 10:00 69 20 157/82 94 09/04/18 09:50 71 17 157/82 95 09/04/18 09:40 71 24 154/72 94 09/04/18 09:30 72 21 154/72 94 09/04/18 09:20 74 19 141/59 94 09/04/18 09:10 73 21 149/74 94 09/04/18 09:00 76 20 149/74 95 09/04/18 08:50 76 20 156/64 96 09/04/18 08:40 81 15 140/80 96 09/04/18 08:30 74 17 140/80 92 09/04/18 08:20 75 21 154/73 92 09/04/18 08:10 74 19 141/76 92 09/04/18 08:00 99.5 F 78 71 19 141/76 93 09/04/18 07:50 80 20 209/120 93 09/04/18 07:45 83 209/120 94 - Physical Examination General: Other (intubated) HEENT: Positive: PERRL, Normocephaly, Mucus Membranes Moist Neck: Positive: neck supple, trachea midline Neuro: Positive: Grossly Intact Abdomen: Positive: Soft. Negative: Tender Skin: Negative: Rash Musculoskeletal: No Pain Extremities: Present: +1 Edema (BLE, chronic skin changes) - Labs and Meds CBC 09/05/18 Range/Units 04:00 WBC 8.8 (4.5-11.0) K/mm3 RBC 5.16 H (3.65-5.03) M/mm3 Hgb 14.1 (11.8-15.2) gm/dl Hct 45.3 (35.5-45.6) % Plt Count 241 (140-440) K/mm3 Comprehensive Metabolic Panel 09/05/18 Range/Units 04:00 Sodium 146 H (137-145) mmol/L Potassium 4.6 (3.6-5.0) mmol/L Chloride 102.1 (98-107) mmol/L Carbon Dioxide 33 H (22-30) mmol/L BUN 27 H (9-20) mg/dL Creatinine 1.7 H (0.8-1.5) mg/dL Glucose 60 L (75-100) mg/dL Calcium 8.4 (8.4-10.2) mg/dL - Imaging and Cardiology EKG: report reviewed, image reviewed Echo: report reviewed (05/10/2018 showed EF 45-50%, impaired relaxation, RV mildly dilated, RV systolic function mod reduced. ) - EKG Sinus rhythms and dysrhythmias: sinus rhythm - Allied health notes Allied health notes reviewed: nursing
[2018-09-05] MEDS: PEPCID PO SCH ×2 (10:14→21:41)
[2018-09-05] MEDS: NORVASC PO SCH (10:14)
[2018-09-05] MEDS: BABY ASPIRIN PO SCH (10:14)
[2018-09-05] MEDS: SODIUM CHLORIDE FLUSH SYRINGE 10 ML IV SCH ×2 (10:15→21:41)
--- NOTE | 2018-09-05 12:08 | Progress Note ---
Assessment and Plan Acute Hypoxemic Hypercapnic Respiratory Failure Hypertensive Emergency H/O Type B Aortic Dissection (No surgery recommended in October 2017) Morbid Obesity PAUL/OHS Acute exacerbation of SYSTOLIC CHF NSTEMI TYPE 2 Diabetes Mellitus (I am bothered by the type B dissection history and his presentation here; hopefully no significant extension upwards that may necessitate surgical intervention as he has obviously not had good blood pressure control) - get CXR to re-assess ETT position - add scopolamine for secretions - schedule oral Metoprolol to target Pulse approx 60-70/min and control BP - Azotemia worsening and nephrology consulted - await MOMO to evaluate for type A dissection - vascular surgery evaluation ongoing - stopped IV heparin re: risk of chronic dissection extension - continue ACS management otherwise per cardiology - CTA cancelled due to azotemia - schedule low dose seroquel to spare versed if agitation persist's - reduce set rate to 12/min - continue daily SBT evaluation - continue daily SAT's (all sedation held now) - added prn Versed IV for target RASS 0 to -1 - continue bronchodilators with pulmonary hygiene per RT - continue to wean oxygen for target O2 Sat's > 89 - 90% - VAP bundle addressed - begin enteral nutrition as tolerated - discontinue dias catheter - get serum Mg & PO4 levels and adjust as necessary - mobility protocol for pressure ulcer prophylaxis - GI & VTE prophylaxis - re-introduce oral anti-hypertensives - glycemic control with SSI for target BG 140 - 180 mg/dL - continue other care per attending / other consultants ...... re-evaluate in am & prn ... care plan discussed with attending The high probability of a clinically significant, sudden or life threatening deterioration of the [Pulmonary,cardiac and Vascular] system(s) required my full and direct attention, intervention and personal management. The aggregate critical care time was [38] minutes. This time is in addition to time spent performing reported procedures but includes the following: [x] Data Review and interpretation [x] Patient assessment and monitoring of vital signs [x] Documentation Subjective Date of service: 09/05/18 Principal diagnosis: Ac Hypoxemic Hypercapnic Resp Failure; HTNsive Emergency; Type B dissection Interval history: Patient is seen today for: Acute Hypoxemic Hypercapnic Respiratory Failure; Hypertensive Emergency; H/O Type B Aortic Dissection (No surgery recommended in October 2017); Morbid Obesity Seen and examined at bedside; 24hour events reviewed; nursing and respiratory care staff consulted; no adverse overnight events reported to me; secretions moderate to large today; follows commands; denies acute chest pains; back on cardene drip; no gross bleeding but off IV heparin Objective Vital Signs - 12hr 09/05/18 09/05/18 09/05/18 00:10 00:20 00:30 Temperature Pulse Rate 75 77 75 Pulse Rate [ From Monitor] Respiratory 21 15 20 Rate Blood Pressure 139/67 122/70 141/56 O2 Sat by Pulse 96 96 97 Oximetry 09/05/18 09/05/18 09/05/18 00:40 00:50 01:00 Temperature Pulse Rate 75 74 72 Pulse Rate [ From Monitor] Respiratory 20 18 20 Rate Blood Pressure 141/56 140/58 145/63 O2 Sat by Pulse 97 96 97 Oximetry 09/05/18 09/05/18 09/05/18 01:10 01:20 01:30 Temperature Pulse Rate 71 71 73 Pulse Rate [ From Monitor] Respiratory 19 20 17 Rate Blood Pressure 145/63 140/60 138/67 O2 Sat by Pulse 97 97 98 Oximetry 09/05/18 09/05/18 09/05/18 01:40 01:50 02:00 Temperature Pulse Rate 70 72 73 Pulse Rate [ From Monitor] Respiratory 20 20 21 Rate Blood Pressure 138/67 142/65 148/65 O2 Sat by Pulse 98 99 97 Oximetry 09/05/18 09/05/18 09/05/18 02:10 02:20 02:30 Temperature Pulse Rate 72 72 71 Pulse Rate [ From Monitor] Respiratory 20 21 20 Rate Blood Pressure 148/65 146/65 146/63 O2 Sat by Pulse 98 97 97 Oximetry 09/05/18 09/05/18 09/05/18 02:40 02:50 03:00 Temperature Pulse Rate 72 77 75 Pulse Rate [ From Monitor] Respiratory 20 17 23 Rate Blood Pressure 146/63 147/66 135/62 O2 Sat by Pulse 97 98 98 Oximetry 09/05/18 09/05/18 09/05/18 03:10 03:20 03:30 Temperature Pulse Rate 75 76 74 Pulse Rate [ From Monitor] Respiratory 20 20 19 Rate Blood Pressure 135/62 136/60 141/58 O2 Sat by Pulse 97 97 97 Oximetry 09/05/18 09/05/18 09/05/18 03:40 03:48 03:50 Temperature 99.6 F Pulse Rate 80 73 Pulse Rate [ From Monitor] Respiratory 20 20 Rate Blood Pressure 141/58 145/59 O2 Sat by Pulse 97 99 Oximetry 09/05/18 09/05/18 09/05/18 04:00 04:10 04:20 Temperature Pulse Rate 75 73 72 Pulse Rate [ 76 From Monitor] Respiratory 15 17 20 Rate Blood Pressure 145/65 146/64 141/65 O2 Sat by Pulse 98 99 98 Oximetry 09/05/18 09/05/18 09/05/18 04:30 04:40 04:50 Temperature Pulse Rate 71 73 73 Pulse Rate [ From Monitor] Respiratory 20 19 19 Rate Blood Pressure 145/65 145/65 151/63 O2 Sat by Pulse 99 99 98 Oximetry 09/05/18 09/05/18 09/05/18 05:00 05:10 05:20 Temperature Pulse Rate 73 70 71 Pulse Rate [ From Monitor] Respiratory 20 20 19 Rate Blood Pressure 144/64 144/64 145/66 O2 Sat by Pulse 98 98 97 Oximetry 09/05/18 09/05/18 09/05/18 05:30 05:40 05:50 Temperature Pulse Rate 72 72 72 Pulse Rate [ From Monitor] Respiratory 18 19 21 Rate Blood Pressure 146/63 146/63 149/66 O2 Sat by Pulse 97 97 97 Oximetry 09/05/18 09/05/18 09/05/18 06:00 07:58 10:14 Temperature Pulse Rate 76 72 71 Pulse Rate [ From Monitor] Respiratory 20 Rate Blood Pressure 155/67 146/68 140/65 O2 Sat by Pulse 96 95 Oximetry 09/05/18 09/05/18 09/05/18 11:25 11:48 11:50 Temperature 98.9 F Pulse Rate 82 93 H Pulse Rate [ From Monitor] Respiratory Rate Blood Pressure 147/72 147/72 O2 Sat by Pulse 96 Oximetry Constitutional: no acute distress, other (young morbidly obese AAM, normoc ephalic and atraumatic on MVS) Eyes: non-icteric ENT: oropharynx moist, oropharyngeal exudate pre, other (ETT 23 cm JANE) Neck: supple, no lymphadenopathy, no JVD, other (large neck circumference) Effort: mildly labored Ascultation: Bilateral: diminished breath sounds, rhonchi (bases) Percussion: Bilateral: not dull Cardiovascular: regular rate and rhythm, other (No R/M) Gastrointestinal: normoactive bowel sounds, soft, non-tender, other (protuberant) Integumentary: rash Extremities: no cyanosis, pulses normal, no ischemia or petechiae, edema Neurologic: normal mental status, non-focal exam (grossly), pupils equal and round, motor strength normal and Psychiatric: mood appropriate, affect normal, other CBC and BMP: 09/05/18 04:00 09/05/18 04:00 ABG, PT/INR, D-dimer: ABG POC ABG pH 7.424 (7.35-7.45) 09/05/18 05:31 POC ABG pCO2 57.0 (35-45) H 09/05/18 05:31 POC ABG pO2 89 (80-105) 09/05/18 05:31 POC ABG HCO3 37.3 09/05/18 05:31 POC ABG Total CO2 39 09/05/18 05:31 POC ABG O2 Sat 97 09/05/18 05:31 PT/INR, D-dimer PT 15.1 Sec. (12.2-14.9) H 09/01/18 21:20 INR 1.15 (0.87-1.13) H 09/01/18 21:20 D-Dimer 869.27 ng/mlDDU (0-234) H 09/01/18 15:15 Abnormal lab findings: Abnormal Labs 09/01/18 09/01/18 09/01/18 15:15 15:15 15:15 RBC 5.37 H Hgb Hct 47.8 H MCH 27 L MCHC 31 L RDW 17.1 H Lymph % (Auto) Marion % (Auto) 11.0 H Lymph # 1.0 L Marion # Seg Neutrophils % 70.2 H PT 15.0 H INR 1.14 H D-Dimer Heparin Anti-Xa Level POC ABG pH POC ABG pCO2 POC ABG pO2 Sodium Potassium Chloride Carbon Dioxide 39 H BUN 21 H Creatinine Glucose 106 H POC Glucose Calcium Total Bilirubin AST Troponin T 0.125 H* NT-Pro-B Natriuret Pep Total Protein Albumin HDL Cholesterol 33 L Urine WBC (Auto) 09/01/18 09/01/18 09/01/18 15:15 15:15 15:28 RBC Hgb Hct MCH MCHC RDW Lymph % (Auto) [place] % (Auto) Lymph # [place] # Seg Neutrophils % PT INR D-Dimer 869.27 H Heparin Anti-Xa Level POC ABG pH 7.235 L POC ABG pCO2 89.8 H POC ABG pO2 Sodium Potassium Chloride Carbon Dioxide BUN Creatinine Glucose POC Glucose Calcium Total Bilirubin AST Troponin T NT-Pro-B Natriuret Pep 1764 H Total Protein Albumin HDL Cholesterol Urine WBC (Auto) 09/01/18 09/01/18 09/01/18 17:45 19:28 21:20 RBC Hgb Hct MCH MCHC RDW Lymph % (Auto) Marion % (Auto) Lymph # [place] # Seg Neutrophils % PT INR D-Dimer Heparin Anti-Xa Level POC ABG pH 7.175 L POC ABG pCO2 105.5 H POC ABG pO2 111 H Sodium Potassium Chloride Carbon Dioxide BUN Creatinine Glucose POC Glucose Calcium Total Bilirubin AST Troponin T 0.130 H* 0.132 H* NT-Pro-B Natriuret Pep Total Protein Albumin HDL Cholesterol Urine WBC (Auto) 09/01/18 09/01/18 09/01/18 21:20 21:20 23:29 RBC Hgb Hct 46.4 H MCH MCHC RDW Lymph % (Auto) Marion % (Auto) Lymph # [place] # Seg Neutrophils % PT 15.1 H INR 1.15 H D-Dimer Heparin Anti-Xa Level POC ABG pH 7.349 L POC ABG pCO2 76.4 H POC ABG pO2 35 L Sodium Potassium Chloride Carbon Dioxide BUN Creatinine Glucose POC Glucose Calcium Total Bilirubin AST Troponin T NT-Pro-B Natriuret Pep Total Protein Albumin HDL Cholesterol Urine WBC (Auto) 09/01/18 09/02/18 09/02/18 23:34 04:18 04:35 RBC 5.67 H Hgb 15.8 H Hct 50.6 H MCH MCHC 31 L RDW 17.9 H Lymph % (Auto) 12.2 L Marion % (Auto) 12.6 H Lymph # 1.0 L Marion # 1.0 H Seg Neutrophils % 73.5 H PT INR D-Dimer Heparin Anti-Xa Level POC ABG pH 7.294 L POC ABG pCO2 77.7 H 62.2 H POC ABG pO2 235 H Sodium Potassium Chloride Carbon Dioxide BUN Creatinine Glucose POC Glucose Calcium Total Bilirubin AST Troponin T NT-Pro-B Natriuret Pep Total Protein Albumin HDL Cholesterol Urine WBC (Auto) 09/02/18 09/02/18 09/02/18 04:35 08:16 08:16 RBC 5.68 H Hgb 15.4 H Hct 49.9 H MCH 27 L MCHC 31 L RDW 18.1 H Lymph % (Auto) Marion % (Auto) 12.7 H Lymph # 1.1 L Marion # 1.0 H Seg Neutrophils % 71.9 H PT INR D-Dimer Heparin Anti-Xa Level POC ABG pH POC ABG pCO2 POC ABG pO2 Sodium Potassium Chloride 97.7 L Carbon Dioxide 36 H 35 H BUN 21 H 21 H Creatinine Glucose 69 L POC Glucose Calcium Total Bilirubin 1.60 H AST 43 H Troponin T NT-Pro-B Natriuret Pep Total Protein 6.2 L Albumin 2.8 L HDL Cholesterol Urine WBC (Auto) 09/02/18 09/02/18 09/02/18 10:24 14:29 17:46 RBC Hgb Hct MCH MCHC RDW Lymph % (Auto) Marion % (Auto) Lymph # [place] # Seg Neutrophils % PT INR D-Dimer Heparin Anti-Xa Level < 0.10 L < 0.10 L POC ABG pH POC ABG pCO2 POC ABG pO2 Sodium Potassium Chloride Carbon Dioxide BUN Creatinine Glucose POC Glucose 69 L Calcium Total Bilirubin AST Troponin T NT-Pro-B Natriuret Pep Total Protein Albumin HDL Cholesterol Urine WBC (Auto) 09/03/18 09/03/18 09/03/18 03:20 03:20 05:48 RBC 5.57 H Hgb 15.5 H Hct 48.7 H MCH MCHC RDW 18.0 H Lymph % (Auto) Marion % (Auto) Lymph # [place] # Seg Neutrophils % PT INR D-Dimer Heparin Anti-Xa Level POC ABG pH POC ABG pCO2 62.0 H POC ABG pO2 Sodium Potassium 5.1 H D Chloride 97.2 L Carbon Dioxide 33 H BUN Creatinine Glucose 62 L POC Glucose Calcium Total Bilirubin AST Troponin T NT-Pro-B Natriuret Pep Total Protein Albumin HDL Cholesterol Urine WBC (Auto) 09/03/18 09/04/18 09/04/18 17:10 00:05 01:44 RBC Hgb Hct MCH MCHC RDW Lymph % (Auto) Marion % (Auto) Lymph # [place] # Seg Neutrophils % PT INR D-Dimer Heparin Anti-Xa Level 0.26 L POC ABG pH 7.304 L POC ABG pCO2 82.5 H POC ABG pO2 Sodium Potassium Chloride Carbon Dioxide BUN Creatinine Glucose POC Glucose Calcium Total Bilirubin AST Troponin T NT-Pro-B Natriuret Pep Total Protein Albumin HDL Cholesterol Urine WBC (Auto) 12.0 H 09/04/18 09/04/18 09/04/18 03:12 03:12 05:37 RBC 5.30 H Hgb Hct 47.1 H MCH 27 L MCHC 31 L RDW 18.3 H Lymph % (Auto) Marion % (Auto) Lymph # [place] # Seg Neutrophils % PT INR D-Dimer Heparin Anti-Xa Level POC ABG pH POC ABG pCO2 POC ABG pO2 Sodium Potassium Chloride Carbon Dioxide 32 H BUN 22 H Creatinine 1.6 H Glucose POC Glucose 115 H Calcium 8.1 L Total Bilirubin 1.90 H AST 72 H Troponin T NT-Pro-B Natriuret Pep Total Protein 6.0 L Albumin 2.3 L HDL Cholesterol Urine WBC (Auto) 09/04/18 09/04/18 09/05/18 05:48 11:31 04:00 RBC 5.16 H Hgb Hct MCH 27 L MCHC 31 L RDW 17.6 H Lymph % (Auto) Marion % (Auto) Lymph # [place] # Seg Neutrophils % PT INR D-Dimer Heparin Anti-Xa Level POC ABG pH 7.273 L 7.326 L POC ABG pCO2 89.9 H 70.4 H POC ABG pO2 78 L 155 H Sodium Potassium Chloride Carbon Dioxide BUN Creatinine Glucose POC Glucose Calcium Total Bilirubin AST Troponin T NT-Pro-B Natriuret Pep Total Protein Albumin HDL Cholesterol Urine WBC (Auto) 09/05/18 09/05/18 04:00 05:31 RBC Hgb Hct MCH MCHC RDW Lymph % (Auto) Marion % (Auto) Lymph # [place] # Seg Neutrophils % PT INR D-Dimer Heparin Anti-Xa Level POC ABG pH POC ABG pCO2 57.0 H POC ABG pO2 Sodium 146 H Potassium Chloride Carbon Dioxide 33 H BUN 27 H Creatinine 1.7 H Glucose 60 L POC Glucose Calcium Total Bilirubin AST Troponin T NT-Pro-B Natriuret Pep Total Protein Albumin HDL Cholesterol Urine WBC (Auto) Chest x-ray: pending Allied health notes reviewed: nursing
--- NOTE | 2018-09-05 12:14 | Progress Note ---
Assessment and Plan Assessment and plan: 28 YO Male with MO, CHF, Obesity Hypoventilation, Chronic AORTIC DISSECTION, HTN, Hypothyrodism, Lymphedema presents to ED for evaluation. Pt states that he has experienced shortness of breath over the past three days with persistent symptoms over the same time frame. Pt acknowledges Orthopnea/PND, Decreased exercise tolerance, Dypsnea on exeertion. Pt denies fever, chills, CP, Palpitations, NVD, Trauma, Productive cough or recent ill contacts. Pt denies back pain, or chest pain that radiates to his back. Pt transported to [facility] for further care and evaluation. Pt seen and evaluated in ED and found to have Hypercapnic Respiratory Failure, CHF. Pt initiated on NIPPV without improvement. Pt intubated and placed on vent support in ED. Pt admitted to ICU and placed on heparin drip protocol. Cardiology and Pulmonary teams consulted in ED. Patient this am, had a code blue secondary to self extubation. He did not have any loss of Pulse but was bradycardia requiring one atropin and one epinephrine. The patient was intubated again by the help of the ED physician. Mother who is at the bedside was updated (1) Respiratory failure with hypoxia and hypercapnia Current Visit: Yes Status: Acute Qualifiers: Chronicity: acute Qualified Code(s): J96.01 - Acute respiratory failure with hypoxia; J96.02 - Acute respiratory failure with hypercapnia Plan to address problem: Continue with ICU. Pt intubated placed on vent support. CTA chest pending, now with shawna, will repeat when patient is more stable and renal function improved. Initiated on heparin drip protocol, ABG, wean vent as tolerated, (2) Hypertensive Urgency: LABETALOL DRIP RECOMMENDED BY VASCULAR. UPTITRATE ORAL MEDS, GOAL SBP 120 OR LESS. (3) Acute exacerbation of SYSTOLIC CHF (congestive heart failure) Current Visit: Yes Status: Chronic Qualifiers: Heart failure type: unspecified Qualified Code(s): I50.9 - Heart failure, unspecified Plan to address problem: Cardiology consulted in ED, diuresis, Strict I/O, daily weight, afterload reduction, blood pressure control, monitor uop q shift, chest x ray. (4) NSTEMI TYPE 2: Cardiology following. PATIENT WITH KNOWN HX OF DISSECTION. Awaiting Repeat ECHO. (5) Diabetes Mellitus: Hypoglycemia. Persist. Start patient on D5NS. (6) Obesity hypoventilation syndrome Current Visit: Yes Status: Acute Plan to address problem: Supplemental oxygen, nebulizer therapy, supportive care, pulmonary consulted (7) Tranaminitis- Monitor (8) Morbid Obesity but with Moderate Protein calorie Malnutrition- Started on Tube feeds (9) SHAWNA secondary to vasomotor nephropathy Hold lasix today Renal consult. DVT prophylaxis Current Visit: Yes Status: Acute Plan to address problem: SCD to BLE while in bed. The high probability of a clinically significant, sudden or life threatening deterioration of the [Pulmonary,cardiac,neuro] system(s) required my full and direct attention, intervention and personal management. The aggregate critical care time was [35] minutes. This time is in addition to time spent performing reported procedures but includes the following: [x] Data Review and interpretation [x] Patient assessment and monitoring of vital signs [x] Documentation [x] Medication orders and management History Interval history: Patient seen and examined, No new complaints. Hospitalist Physical - Physical exam Narrative exam: General appearance: Present: Sedated and on mechanical ventilation - EENT Eyes: Present: PERRL ENT: hearing intact, clear oral mucosa - Neck Neck: Present: supple, normal ROM - Respiratory Respiratory: bilateral: diminished, rhonchi - Cardiovascular Heart Sounds: Present: S1 & S2. Absent: rub, click - Extremities Extremities: pulses symmetrical Extremity abnormal: edema Peripheral Pulses: within normal limits - Abdominal General gastrointestinal: Present: soft, non-tender, non-distended, normal bowel sounds Male genitourinary: Present: normal - Integumentary Integumentary: Present: clear, warm, dry - Musculoskeletal Musculoskeletal: generalized weakness - Psychiatric Psychiatric: unable to assess - Neurologic Neurologic: CNII-XII intact, moves all extremities - Constitutional Vitals: Temp Pulse Resp BP Pulse Ox 98.9 F 93 H 20 147/72 96 09/05/18 11:25 09/05/18 11:50 09/05/18 06:00 09/05/18 11:50 09/05/18 11:50 General appearance: Present: other (Morbidly obese, orally intubated) Results - Labs CBC & Chem 7: 09/05/18 04:00 09/05/18 04:00 Labs: Laboratory Last Values WBC 8.8 K/mm3 (4.5-11.0) 09/05/18 04:00 RBC 5.16 M/mm3 (3.65-5.03) H 09/05/18 04:00 Hgb 14.1 gm/dl (11.8-15.2) 09/05/18 04:00 Hct 45.3 % (35.5-45.6) 09/05/18 04:00 MCV 88 fl (84-94) 09/05/18 04:00 MCH 27 pg (28-32) L 09/05/18 04:00 MCHC 31 % (32-34) L 09/05/18 04:00 RDW 17.6 % (13.2-15.2) H 09/05/18 04:00 Plt Count 241 K/mm3 (140-440) 09/05/18 04:00 Lymph % (Auto) 13.8 % (13.4-35.0) 09/02/18 08:16 Ness % (Auto) 12.7 % (0.0-7.3) H 09/02/18 08:16 Eos % (Auto) 0.9 % (0.0-4.3) 09/02/18 08:16 Baso % (Auto) 0.7 % (0.0-1.8) 09/02/18 08:16 Lymph # 1.1 K/mm3 (1.2-5.4) L 09/02/18 08:16 Ness # 1.0 K/mm3 (0.0-0.8) H 09/02/18 08:16 Eos # 0.1 K/mm3 (0.0-0.4) 09/02/18 08:16 Baso # 0.1 K/mm3 (0.0-0.1) 09/02/18 08:16 Seg Neutrophils % 71.9 % (40.0-70.0) H 09/02/18 08:16 Seg Neutrophils # 5.6 K/mm3 (1.8-7.7) 09/02/18 08:16 PT 15.1 Sec. (12.2-14.9) H 09/01/18 21:20 INR 1.15 (0.87-1.13) H 09/01/18 21:20 APTT 30.2 Sec. (24.2-36.6) 09/01/18 21:20 D-Dimer 869.27 ng/mlDDU (0-234) H 09/01/18 15:15 Heparin Anti-Xa Level 0.26 U.I./ml (0.3-0.7) L 09/04/18 01:44 POC ABG pH 7.424 (7.35-7.45) 09/05/18 05:31 POC ABG pCO2 57.0 (35-45) H 09/05/18 05:31 POC ABG pO2 89 (80-105) 09/05/18 05:31 POC ABG HCO3 37.3 09/05/18 05:31 POC ABG Total CO2 39 09/05/18 05:31 POC ABG O2 Sat 97 09/05/18 05:31 POC ABG Base Excess 13 09/05/18 05:31 FiO2 75 % 09/05/18 05:31 Sodium 146 mmol/L (137-145) H 09/05/18 04:00 Potassium 4.6 mmol/L (3.6-5.0) 09/05/18 04:00 Chloride 102.1 mmol/L (98-107) 09/05/18 04:00 Carbon Dioxide 33 mmol/L (22-30) H 09/05/18 04:00 Anion Gap 16 mmol/L 09/05/18 04:00 BUN 27 mg/dL (9-20) H 09/05/18 04:00 Creatinine 1.7 mg/dL (0.8-1.5) H 09/05/18 04:00 Estimated GFR 58 ml/min 09/05/18 04:00 BUN/Creatinine Ratio 16 % 09/05/18 04:00 Glucose 60 mg/dL (75-100) L 09/05/18 04:00 POC Glucose 85 (70-105) 09/05/18 11:11 Calcium 8.4 mg/dL (8.4-10.2) 09/05/18 04:00 Phosphorus 3.40 mg/dL (2.5-4.5) 09/03/18 03:20 Magnesium 1.90 mg/dL (1.7-2.3) 09/03/18 03:20 Total Bilirubin 1.90 mg/dL (0.1-1.2) H 09/04/18 03:12 AST 72 units/L (5-40) H 09/04/18 03:12 ALT 25 units/L (7-56) 09/04/18 03:12 Alkaline Phosphatase 97 units/L (35-129) 09/04/18 03:12 Troponin T 0.132 ng/mL (0.00-0.029) H* 09/01/18 21:20 NT-Pro-B Natriuret Pep 1764 pg/mL (0-450) H 09/01/18 15:15 Total Protein 6.0 g/dL (6.3-8.2) L 09/04/18 03:12 Albumin 2.3 g/dL (3.9-5) L 09/04/18 03:12 Albumin/Globulin Ratio 0.6 % 09/04/18 03:12 Triglycerides 68 mg/dL (2-149) 09/04/18 03:12 Cholesterol 93 mg/dL (50-199) 09/01/18 15:15 LDL Cholesterol Direct 62 mg/dL (50-130) 09/01/18 15:15 HDL Cholesterol 33 mg/dL (40-59) L 09/01/18 15:15 Cholesterol/HDL Ratio 2.81 % 09/01/18 15:15 Urine Color Jennifer (Yellow) 09/04/18 00:05 Urine Turbidity Clear (Clear) 09/04/18 00:05 Urine pH 5.0 (5.0-7.0) 09/04/18 00:05 Ur Specific [place] 1.010 (1.003-1.030) 09/04/18 00:05 Urine Protein 30 mg/dl mg/dL (Negative) 09/04/18 00:05 Urine Glucose (UA) Neg mg/dL (Negative) 09/04/18 00:05 Urine Ketones Neg mg/dL (Negative) 09/04/18 00:05 Urine Blood Neg (Negative) 09/04/18 00:05 Urine Nitrite Neg (Negative) 09/04/18 00:05 Urine Bilirubin Neg (Negative) 09/04/18 00:05 Urine Urobilinogen 4.0 mg/dL (<2.0) 09/04/18 00:05 Ur Leukocyte Esterase Neg (Negative) 09/04/18 00:05 Urine WBC (Auto) 12.0 /HPF (0.0-6.0) H 09/04/18 00:05 Urine RBC (Auto) 10.0 /HPF (0.0-6.0) 09/04/18 00:05 U Epithel Cells (Auto) 1.0 /HPF (0-13.0) 09/04/18 00:05 Hyaline Casts 7 /LPF 09/04/18 00:05 Urine Mucus Few /HPF 09/04/18 00:05 Urine Sperm 2+ /HPF (DISCHARGE PLANNER) 09/04/18 00:05 Nutrition/Malnutrition Assess - Dietary Evaluation Nutrition/Malnutrition Findings: Nutrition Notes Start: 09/02/18 15:06 Freq: Status: Active Protocol: Document 09/03/18 12:18 TW (Rec: 09/03/18 12:40 TW [email or web address]) Co-Sign 09/03/18 12:18 OL Nutrition Notes Need for Assessment generated from: MD Order Initial or Follow up Brief Note Other Pertinent Diagnosis SOB, sleep apnea, aortic dissection Current Diet NPO Pertinent Medications Propofol at 10.8 ml/hr (290 kcals) Subjective/Other Information MD consult for TF. NGT has been placed. #1 Nutrition Diagnosis Inadequate oral intake Diagnosis Progress(for reassessment Continues documentation) Nutrition Intervention Nutrition Support: Vital High Protein at 75 ml/hr . Provide flush of 50 ml q4h or per MD. Kcal 1,800 Protein (gm) 158 Fluid (mL) 1,505 Follow-Up By: 09/07/18 Additional Comments F/u for new TF
--- NOTE | 2018-09-05 12:23 | Progress Note ---
Assessment and Plan 28y male with known chronic type B dissection continue tight BP control very low probability for type A transformation in case of chronic type B dissection Subjective Date of service: 09/05/18 Principal diagnosis: Ac Hypoxemic Hypercapnic Resp Failure; HTNsive Emergency; Type B dissection Interval history: patient is intubated, sedated Objective - Exam Narrative Exam: on cardene drip and Fentanyl - Constitutional Vitals: Vital Signs - 12hr 09/05/18 09/05/18 09/05/18 00:20 00:30 00:40 Temperature Pulse Rate 77 75 75 Pulse Rate [ From Monitor] Respiratory 15 20 20 Rate Blood Pressure 122/70 141/56 141/56 O2 Sat by Pulse 96 97 97 Oximetry 09/05/18 09/05/18 09/05/18 00:50 01:00 01:10 Temperature Pulse Rate 74 72 71 Pulse Rate [ From Monitor] Respiratory 18 20 19 Rate Blood Pressure 140/58 145/63 145/63 O2 Sat by Pulse 96 97 97 Oximetry 09/05/18 09/05/18 09/05/18 01:20 01:30 01:40 Temperature Pulse Rate 71 73 70 Pulse Rate [ From Monitor] Respiratory 20 17 20 Rate Blood Pressure 140/60 138/67 138/67 O2 Sat by Pulse 97 98 98 Oximetry 09/05/18 09/05/18 09/05/18 01:50 02:00 02:10 Temperature Pulse Rate 72 73 72 Pulse Rate [ From Monitor] Respiratory 20 21 20 Rate Blood Pressure 142/65 148/65 148/65 O2 Sat by Pulse 99 97 98 Oximetry 09/05/18 09/05/18 09/05/18 02:20 02:30 02:40 Temperature Pulse Rate 72 71 72 Pulse Rate [ From Monitor] Respiratory 21 20 20 Rate Blood Pressure 146/65 146/63 146/63 O2 Sat by Pulse 97 97 97 Oximetry 09/05/18 09/05/18 09/05/18 02:50 03:00 03:10 Temperature Pulse Rate 77 75 75 Pulse Rate [ From Monitor] Respiratory 17 23 20 Rate Blood Pressure 147/66 135/62 135/62 O2 Sat by Pulse 98 98 97 Oximetry 09/05/18 09/05/18 09/05/18 03:20 03:30 03:40 Temperature Pulse Rate 76 74 80 Pulse Rate [ From Monitor] Respiratory 20 19 20 Rate Blood Pressure 136/60 141/58 141/58 O2 Sat by Pulse 97 97 97 Oximetry 09/05/18 09/05/18 09/05/18 03:48 03:50 04:00 Temperature 99.6 F Pulse Rate 73 75 Pulse Rate [ 76 From Monitor] Respiratory 20 15 Rate Blood Pressure 145/59 145/65 O2 Sat by Pulse 99 98 Oximetry 09/05/18 09/05/18 09/05/18 04:10 04:20 04:30 Temperature Pulse Rate 73 72 71 Pulse Rate [ From Monitor] Respiratory 17 20 20 Rate Blood Pressure 146/64 141/65 145/65 O2 Sat by Pulse 99 98 99 Oximetry 09/05/18 09/05/18 09/05/18 04:40 04:50 05:00 Temperature Pulse Rate 73 73 73 Pulse Rate [ From Monitor] Respiratory 19 19 20 Rate Blood Pressure 145/65 151/63 144/64 O2 Sat by Pulse 99 98 98 Oximetry 09/05/18 09/05/18 09/05/18 05:10 05:20 05:30 Temperature Pulse Rate 70 71 72 Pulse Rate [ From Monitor] Respiratory 20 19 18 Rate Blood Pressure 144/64 145/66 146/63 O2 Sat by Pulse 98 97 97 Oximetry 09/05/18 09/05/18 09/05/18 05:40 05:50 06:00 Temperature Pulse Rate 72 72 76 Pulse Rate [ From Monitor] Respiratory 19 21 20 Rate Blood Pressure 146/63 149/66 155/67 O2 Sat by Pulse 97 97 96 Oximetry 09/05/18 09/05/18 09/05/18 07:58 10:14 11:25 Temperature 98.9 F Pulse Rate 72 71 Pulse Rate [ From Monitor] Respiratory Rate Blood Pressure 146/68 140/65 O2 Sat by Pulse 95 Oximetry 09/05/18 09/05/18 11:48 11:50 Temperature Pulse Rate 82 93 H Pulse Rate [ From Monitor] Respiratory Rate Blood Pressure 147/72 147/72 O2 Sat by Pulse 96 Oximetry General appearance: Present: no acute distress Extremity abnormal: edema - Labs CBC & Chem 7: 09/05/18 04:00 09/05/18 04:00 Labs: Abnormal lab results 09/04/18 09/05/18 09/05/18 Range/Units 00:05 04:00 04:00 RBC 5.16 H (3.65-5.03) M/mm3 MCH 27 L (28-32) pg MCHC 31 L (32-34) % RDW 17.6 H (13.2-15.2) % POC ABG pCO2 (35-45) Sodium 146 H (137-145) mmol/L Carbon Dioxide 33 H (22-30) mmol/L BUN 27 H (9-20) mg/dL Creatinine 1.7 H (0.8-1.5) mg/dL Glucose 60 L (75-100) mg/dL Urine WBC (Auto) 12.0 H (0.0-6.0) /HPF 09/05/18 Range/Units 05:31 RBC (3.65-5.03) M/mm3 MCH (28-32) pg MCHC (32-34) % RDW (13.2-15.2) % POC ABG pCO2 57.0 H (35-45) Sodium (137-145) mmol/L Carbon Dioxide (22-30) mmol/L BUN (9-20) mg/dL Creatinine (0.8-1.5) mg/dL Glucose (75-100) mg/dL Urine WBC (Auto) (0.0-6.0) /HPF Medications & Allergies - Medications Allergies/Adverse Reactions: Allergies No Known Allergies Allergy (Unverified 10/02/17 17:09) Home Medications: Home Medications Medication Instructions Recorded Confirmed Last Taken Type Aspirin [Aspirin BABY CHEW TAB] 81 mg PO QDAY #30 tab.chew 08/04/18 Unknown Rx Furosemide [Lasix TAB] 40 mg PO BID #60 tablet 08/04/18 Unknown Rx Labetalol [Normodyne TAB] 300 mg PO Q8HR 30 Days tablet 08/04/18 Unknown Rx Levothyroxine [Synthroid] 50 mcg PO DAILY@0600 #30 tablet 08/04/18 Unknown Rx NIFEdipine XL [Procardia Xl] 90 mg PO BID #60 tablet 08/04/18 Unknown Rx Potassium Chloride [K-Dur] 10 meq PO BID #60 tablet 08/04/18 Unknown Rx cloNIDine-TTS PATCH 0.3 mg TRANSDERMA 1XW #4 08/04/18 Unknown Rx Active Medications: Generic Name Dose Route Start Last Admin Trade Name Freq PRN Reason Stop Dose Admin Acetaminophen 650 mg 09/04/18 23:45 09/05/18 00:41 Tylenol PO 650 mg Q6H PRN Administration Pain, Mild (1-3) Albuterol 2.5 mg 09/01/18 18:25 Proventil IH Q3HRT PRN Shortness Of Breath Amlodipine Besylate 10 mg 09/02/18 11:00 09/05/18 10:14 Norvasc PO 10 mg DAILY ELIEL Administration Lipase/Protease/Amylase 1 each 09/03/18 12:[address] 10,500 Unit FEEDTUBE PRN PRN For Clogged Feeding Tube Aspirin 81 mg 09/02/18 10:00 09/05/18 10:14 Baby Aspirin PO 81 mg QDAY ELIEL Administration Clonidine HCl 0.3 mg 09/01/18 22:00 09/02/18 03:10 Catapres-Tts Patch TD 0.3 mg Tu ELIEL Administration Enoxaparin Sodium 40 mg 09/04/18 22:00 09/04/18 22:06 Lovenox SUB-Q 40 mg QDAY@2200 ELIEL Administration Famotidine 20 mg 09/03/18 10:00 09/05/18 10:14 Pepcid PO 20 mg BID ELIEL Administration Furosemide 40 mg 09/05/18 06:00 09/05/18 06:01 Lasix IV 40 mg DAILY@0600 ELIEL Administration Hydralazine HCl 5 mg 09/03/18 03:10 09/04/18 18:41 Apresoline IV 5 mg Q4H PRN Administration Blood Pressure Hydrophilic Ointment 1 applic 09/01/18 19:56 Vaseline Lip Therapy TP Q2HR PRN Dry Lips Fentanyl Citrate 2,000 mcg in 100 mls @ 12.205 mls/hr 09/02/18 11:00 09/05/18 11:09 Fentanyl Drip Premix IV 2 mcg/kg/hr TITR ELIEL 24.41 mls/hr Titration Protocol 1 MCG/KG/HR Labetalol HCl 200 mg/ Dextrose 200 mls @ 120 mls/hr 09/04/18 16:00 09/04/18 20:05 IV 0 mg/min TITR ELIEL 0 mls/hr Titration Protocol 2 MG/MIN Levothyroxine Sodium 50 mcg 09/02/18 06:00 09/05/18 06:01 Synthroid PO 50 mcg DAILY@0600 ELIEL Administration Metoprolol Tartrate 5 mg 09/04/18 12:00 09/05/18 11:48 Lopressor IV 5 mg Q6HR ELIEL Administration Midazolam HCl 2 mg 09/04/18 11:19 09/05/18 06:12 Versed IV 09/09/18 11:18 2 mg Q2H PRN Administration Agitation Multi-Ingred Cream/Lotion/Oil/Oint 1 applic 09/01/18 19:56 Artificial Tears Ophth Oint OU Q4HR PRN Dry Eye(s) Simple Syrup 15 ml 09/03/18 12:10 Simple Syrup FEEDTUBE PRN PRN Hypoglycemia Simple Syrup 30 ml 09/03/18 12:10 Simple Syrup FEEDTUBE PRN PRN Hypoglycemia Sodium Bicarbonate 325 mg 09/03/18 12:10 Sodium Bicarbonate FEEDTUBE PRN PRN For Clogged Feeding Tube Sodium Chloride 10 ml 09/01/18 22:00 09/05/18 10:15 Sodium Chloride Flush Syringe 10 Ml IV 10 ml BID ELIEL Administration Sodium Chloride 10 ml 09/01/18 18:25 Sodium Chloride Flush Syringe 10 Ml IV PRN PRN LINE FLUSH
--- NOTE | 2018-09-05 14:09 | XRay Report ---
FINAL REPORT PROCEDURE: XR CHEST 1V AP TECHNIQUE: Chest radiograph anteroposterior view at 12:34. CPT 72136 HISTORY: ETT repositioned to confirm location COMPARISON: 09/05/2018 at 12:26 FINDINGS: Heart: Prominent cardiac silhouette Mediastinum/Vessels: Prominent central vessels. Lungs/Pleural space: Patchy right perihilar airspace opacities. Bony thorax: No acute osseous abnormality. Life support devices: Endotracheal tube tip projects 3 centimeters superior to the willi. IMPRESSION: Endotracheal tube tip projects 3 centimeters superior to the willi. Patchy right perihilar airspace opacities
--- NOTE | 2018-09-05 14:11 | XRay Report ---
FINAL REPORT PROCEDURE: XR CHEST 1V AP TECHNIQUE: Chest radiograph anteroposterior view at 12:26. CPT 54522 HISTORY: ETT position COMPARISON: 09/04/2018 FINDINGS: Heart: Prominent cardiac silhouette Mediastinum/Vessels: Prominent central vessels. Lungs/Pleural space: Patchy right perihilar airspace opacities. Bony thorax: No acute osseous abnormality. Life support devices: Endotracheal tube tip projects 6.4 centimeters superior to the willi. Nasogast sheree tube tip is in the upper abdomen. IMPRESSION: Endotracheal tube tip projects 6.4 centimeters superior to the willi. Nasogastric tube tip is in the upper abdomen.
[2018-09-05] MEDS: LOPRESSOR PO SCH ×2 (14:54→21:41)
--- NOTE | 2018-09-05 17:45 | XRay Report ---
FINAL REPORT PROCEDURE: XR ABDOMEN 1V AP TECHNIQUE: AP views of the upper abdomen HISTORY: NGT placement COMPARISON: 09/03/2018 FINDINGS: Nasogastric tube tip is at the gastroesophageal junction and should be advanced approximately 12 cent imeters. Bowel gas pattern is not fully evaluated. No acute osseous abnormality is seen. IMPRESSION: The nasogastric tube tip is near the gastroesophageal junction and should be advanced approximately 1 2 centimeters
[2018-09-05] MEDS: LOVENOX SUB-Q SCH (21:43)
[2018-09-05] MEDS: APRESOLINE IV PRN (22:18)
[2018-09-06] MEDS: LOPRESSOR IV SCH ×5 (00:57→23:54)
[2018-09-06] MEDS: fentaNYL DRIP Premix 2,000 MCG/100 ML BAG IV SCH ×8 (02:09→20:31)
[2018-09-06] MEDS: VERSED IV PRN ×2 (04:21→07:39)
[2018-09-06] MEDS: LOPRESSOR PO SCH ×3 (06:59→21:00)
[2018-09-06] MEDS: LASIX IV SCH (06:59)
[2018-09-06] MEDS: SYNTHROID PO SCH (06:59)
[2018-09-06] MEDS: NORMODYNE 200 MG in D5W 160 ML IV SCH ×6 (08:18→20:01)
[2018-09-06 09:20] LABS: Calcium 7.9 mg/dL (8.4-10.2); Hemolysis Index 0
[2018-09-06 09:49] LABS: Alanine Aminotransferase 26 units/L (7-56); Albumin 2.3 g/dL (3.9-5); BUN/Creatinine Ratio 16; Blood Urea Nitrogen 31 mg/dL (9-20)
[2018-09-06] MEDS: DIPRIVAN 10 MG/ML 1,000 MG/100 ML BOTTLE IV SCH ×6 (10:35→20:31)
[2018-09-06] MEDS: CARDENE 50 MG in NACL 0.9% 250ML 230 ML IV SCH ×3 (12:12→21:00)
--- NOTE | 2018-09-06 12:12 | Progress Note ---
Assessment and Plan 28y male with known chronic type B dissection very low probability for type A transformation in case of chronic type B dissection continue tight BP control. Discussed with ICU team, add Propofol and if needed cardene. Subjective Date of service: 09/06/18 Principal diagnosis: Ac Hypoxemic Hypercapnic Resp Failure; HTNsive Emergency; Type B dissection Interval history: patient is intubated, sedated Objective - Exam Narrative Exam: on labetalol, poorly controlled BP - Constitutional Vitals: Vital Signs - 12hr 09/06/18 09/06/18 09/06/18 00:57 01:00 02:00 Temperature Pulse Rate 82 86 73 Respiratory 12 20 Rate Blood Pressure 169/74 169/77 164/74 O2 Sat by Pulse 95 96 Oximetry 09/06/18 09/06/18 09/06/18 03:00 03:17 04:00 Temperature 100.1 F H Pulse Rate 80 84 79 Respiratory 17 20 Rate Blood Pressure 158/70 129/75 162/73 O2 Sat by Pulse 95 97 96 Oximetry 09/06/18 09/06/18 09/06/18 05:00 06:00 06:59 Temperature Pulse Rate 73 82 96 H Respiratory 20 18 Rate Blood Pressure 169/76 152/90 228/93 O2 Sat by Pulse 94 96 Oximetry 09/06/18 08:00 Temperature Pulse Rate 76 Respiratory Rate Blood Pressure 159/66 O2 Sat by Pulse 95 Oximetry - Labs CBC & Chem 7: 09/05/18 04:00 09/06/18 08:44 Labs: Abnormal lab results 09/06/18 09/06/18 Range/Units 03:28 08:44 POC ABG pCO2 65.0 H (35-45) Chloride 60.0 L (98-107) mmol/L Carbon Dioxide 32 H (22-30) mmol/L BUN 31 H (9-20) mg/dL Creatinine 1.9 H (0.8-1.5) mg/dL Glucose 199 H (75-100) mg/dL Calcium 7.9 L (8.4-10.2) mg/dL AST 63 H (5-40) units/L Total Protein 5.9 L (6.3-8.2) g/dL Albumin 2.3 L (3.9-5) g/dL Medications & Allergies - Medications Allergies/Adverse Reactions: Allergies No Known Allergies Allergy (Unverified 10/02/17 17:09) Home Medications: Home Medications Medication Instructions Recorded Confirmed Last Taken Type Aspirin [Aspirin BABY CHEW TAB] 81 mg PO QDAY #30 tab.chew 08/04/18 Unknown Rx Furosemide [Lasix TAB] 40 mg PO BID #60 tablet 08/04/18 Unknown Rx Labetalol [Normodyne TAB] 300 mg PO Q8HR 30 Days tablet 08/04/18 Unknown Rx Levothyroxine [Synthroid] 50 mcg PO DAILY@0600 #30 tablet 08/04/18 Unknown Rx NIFEdipine XL [Procardia Xl] 90 mg PO BID #60 tablet 08/04/18 Unknown Rx Potassium Chloride [K-Dur] 10 meq PO BID #60 tablet 08/04/18 Unknown Rx cloNIDine-TTS PATCH 0.3 mg TRANSDERMA 1XW #4 08/04/18 Unknown Rx Active Medications: Generic Name Dose Route Start Last Admin Trade Name Freq PRN Reason Stop Dose Admin Acetaminophen 650 mg 09/04/18 23:45 09/05/18 00:41 Tylenol PO 650 mg Q6H PRN Administration Pain, Mild (1-3) Albuterol 2.5 mg 09/01/18 18:25 Proventil IH Q3HRT PRN Shortness Of Breath Amlodipine Besylate 10 mg 09/02/18 11:00 09/05/18 10:14 Norvasc PO 10 mg DAILY ELIEL Administration Lipase/Protease/Amylase 1 each 09/03/18 12:10 [place] [place] 10,500 Unit FEEDTUBE PRN PRN For Clogged Feeding Tube Aspirin 81 mg 09/02/18 10:00 09/05/18 10:14 Baby Aspirin PO 81 mg QDAY ELIEL Administration Clonidine HCl 0.3 mg 09/01/18 22:00 09/02/18 03:10 Catapres-Tts Patch TD 0.3 mg Tu ELIEL Administration Enoxaparin Sodium 40 mg 09/04/18 22:00 09/05/18 21:43 Lovenox SUB-Q 40 mg QDAY@2200 ELIEL Administration Famotidine 20 mg 09/03/18 10:00 09/05/18 21:41 Pepcid PO 20 mg BID ELIEL Administration Furosemide 40 mg 09/05/18 06:00 09/06/18 06:59 Lasix IV 40 mg DAILY@0600 ELIEL Administration Hydralazine HCl 5 mg 09/03/18 03:10 09/05/18 22:18 Apresoline IV 5 mg Q4H PRN Administration Blood Pressure Hydrophilic Ointment 1 applic 09/01/18 19:56 Vaseline Lip Therapy TP Q2HR PRN Dry Lips Fentanyl Citrate 2,000 mcg in 100 mls @ 12.205 mls/hr 09/02/18 11:00 09/06/18 10:14 Fentanyl Drip Premix IV 4 mcg/kg/hr TITR ELIEL 48.82 mls/hr Administration Protocol 1 MCG/KG/HR Labetalol HCl 200 mg/ Dextrose 200 mls @ 120 mls/hr 09/04/18 16:00 09/06/18 11:04 IV 3 mg/min TITR LEIEL 180 mls/hr Administration Protocol 2 MG/MIN Propofol 1,000 mg in 100 mls @ 7.344 mls/hr 09/06/18 11:00 Diprivan 10 Mg/Ml IV TITR ELIEL Protocol 5 MCG/KG/MIN Nicardipine HCl 50 mg/ Sodium 250 mls @ 25 mls/hr 09/06/18 11:00 Chloride IV TITR ELIEL Protocol 5 MG/HR Levothyroxine Sodium 50 mcg 09/02/18 06:00 09/06/18 06:59 Synthroid PO 50 mcg DAILY@0600 COUNTS INCLUDE 234 BEDS AT [facility] Administration Metoprolol Tartrate 5 mg 09/04/18 12:00 09/06/18 06:59 Lopressor IV 5 mg Q6HR ELIEL Administration Metoprolol Tartrate 25 mg 09/05/18 14:00 09/06/18 06:59 Lopressor PO 25 mg Q8H ELIEL Administration Midazolam HCl 2 mg 09/04/18 11:19 09/06/18 07:39 Versed IV 09/09/18 11:18 2 mg Q2H PRN Administration Agitation Multi-Ingred Cream/Lotion/Oil/Oint 1 applic 09/01/18 19:56 Artificial Tears Ophth Oint OU Q4HR PRN Dry Eye(s) Quetiapine Fumarate 50 mg 09/05/18 22:00 09/05/18 21:42 Seroquel PO 50 mg QHS ELIEL Administration Simple Syrup 15 ml 09/03/18 12:10 Simple Syrup FEEDTUBE PRN PRN Hypoglycemia Simple Syrup 30 ml 09/03/18 12:10 Simple Syrup FEEDTUBE PRN PRN Hypoglycemia Sodium Bicarbonate 325 mg 09/03/18 12:10 Sodium Bicarbonate FEEDTUBE PRN PRN For Clogged Feeding Tube Sodium Chloride 10 ml 09/01/18 22:00 09/05/18 21:41 Sodium Chloride Flush Syringe 10 Ml IV 10 ml BID ELIEL Administration Sodium Chloride 10 ml 09/01/18 18:25 Sodium Chloride Flush Syringe 10 Ml IV PRN PRN LINE FLUSH
--- NOTE | 2018-09-06 12:28 | Progress Note ---
Assessment and Plan 28yo AAM: Assessment: Acute hypercapnic respiratory failure - intubated Acute on chronic heart failure, EF 45-50% per echo 04/28 NSTEMI type II Elevated D-dimer Chest pain Chronic thoracic type B aortic dissection Morbid obesity PAUL Hypothyroidism NSVT Medical non-compliance Hypertension Diabetes Plan: SBP now improved and also equal in both arms. Vascular consultation noted - Recommend strict blood pressure control BP <120/80 and Heart rate < 60. Weight should be confirmed. Needs repeat CTA chest to assess progression of his dissection. MOMO is far less specific and sensitive to assess for progression en given the initial study was a CTA. Hemodynamically stable now. Needs tighter BP/HR control - now on labetolol and cardene gtts Will cont to follow closely. Subjective Date of service: 09/06/18 Principal diagnosis: Ac Hypoxemic Hypercapnic Resp Failure; HTNsive Emergency; Type B dissection Interval history: off sedation for a while last night and communicated that he was w/o complaints or cp Objective Vital Signs Temp Pulse Pulse Resp BP Pulse Ox 09/06/18 08:00 76 159/66 95 09/06/18 06:59 96 H 228/93 09/06/18 06:00 82 18 152/90 96 09/06/18 05:00 73 20 169/76 94 09/06/18 04:00 100.1 F H 79 20 162/73 96 09/06/18 03:17 84 129/75 97 09/06/18 03:00 80 17 158/70 95 09/06/18 02:00 73 20 164/74 96 09/06/18 01:00 86 12 169/77 95 09/06/18 00:57 82 169/74 09/06/18 00:00 100.3 F H 85 18 159/94 96 09/05/18 23:14 78 159/74 96 09/05/18 23:00 75 20 159/74 96 09/05/18 22:18 78 173/73 09/05/18 22:00 84 20 171/82 96 09/05/18 21:41 102 H 169/80 09/05/18 21:06 93 H 15 163/84 95 09/05/18 21:00 88 18 163/84 94 09/05/18 20:50 80 20 157/79 94 09/05/18 20:40 80 20 157/79 95 09/05/18 20:30 92 H 17 167/89 94 09/05/18 20:20 78 19 167/89 95 09/05/18 20:10 84 17 157/78 97 09/05/18 20:00 100.8 F H 75 19 157/78 96 09/05/18 19:50 81 20 162/78 94 09/05/18 19:40 79 20 143/86 95 09/05/18 19:30 78 20 143/86 96 09/05/18 19:20 78 19 154/82 96 09/05/18 19:10 90 16 158/76 94 09/05/18 19:04 67 158/75 96 09/05/18 19:00 68 21 158/76 96 09/05/18 18:50 70 20 164/69 97 09/05/18 18:40 69 21 164/69 97 09/05/18 18:30 71 21 164/69 97 09/05/18 18:20 73 18 161/68 97 09/05/18 18:10 83 17 167/76 98 09/05/18 18:00 78 21 130/94 96 09/05/18 17:50 82 13 130/94 97 09/05/18 17:40 77 16 132/69 09/05/18 17:30 76 20 132/69 09/05/18 17:20 81 22 140/59 09/05/18 17:10 76 16 138/65 09/05/18 17:00 77 19 138/65 09/05/18 16:50 79 17 143/63 92 09/05/18 16:43 82 131/71 94 09/05/18 16:40 92 H 18 131/71 93 09/05/18 16:30 78 12 131/71 95 09/05/18 16:20 17 145/95 09/05/18 16:10 79 20 159/84 95 09/05/18 16:00 98.8 F 86 82 20 159/84 92 09/05/18 15:50 72 21 146/67 98 09/05/18 15:40 77 20 144/72 97 09/05/18 15:30 73 20 144/72 97 09/05/18 15:20 73 20 139/65 98 09/05/18 15:10 80 14 137/82 96 09/05/18 15:00 89 12 137/82 95 09/05/18 14:54 79 135/72 09/05/18 14:50 87 15 135/72 96 09/05/18 14:40 80 20 149/71 95 09/05/18 14:30 80 20 149/71 95 09/05/18 14:20 79 20 148/81 96 09/05/18 14:10 76 21 145/70 97 09/05/18 14:00 73 20 146/68 96 09/05/18 13:50 73 20 146/68 97 09/05/18 13:40 90 18 144/66 87 09/05/18 13:30 79 18 144/66 95 09/05/18 13:20 79 20 143/63 93 09/05/18 13:10 76 22 144/62 94 09/05/18 13:00 79 20 144/62 93 09/05/18 12:50 78 20 136/60 95 09/05/18 12:40 80 21 156/65 96 09/05/18 12:30 77 20 145/63 96 - Physical Examination General: Other (intubated) HEENT: Positive: PERRL, Normocephaly, Mucus Membranes Moist Neck: Positive: neck supple, trachea midline Neuro: Positive: Grossly Intact Abdomen: Positive: Soft. Negative: Tender Skin: Negative: Rash Musculoskeletal: No Pain Extremities: Present: +1 Edema (BLE, chronic skin changes) - Labs and Meds Cardiac Enzymes 09/06/18 Range/Units 08:44 AST 63 H (5-40) units/L Comprehensive Metabolic Panel 09/06/18 Range/Units 08:44 Sodium 143 (137-145) mmol/L Potassium 3.8 (3.6-5.0) mmol/L Chloride 60.0 L (98-107) mmol/L Carbon Dioxide 32 H (22-30) mmol/L BUN 31 H (9-20) mg/dL Creatinine 1.9 H (0.8-1.5) mg/dL Glucose 199 H (75-100) mg/dL Calcium 7.9 L (8.4-10.2) mg/dL AST 63 H (5-40) units/L ALT 26 (7-56) units/L Alkaline Phosphatase 76 (35-129) units/L Total Protein 5.9 L (6.3-8.2) g/dL Albumin 2.3 L (3.9-5) g/dL - Imaging and Cardiology EKG: report reviewed, image reviewed Echo: report reviewed (05/10/2018 showed EF 45-50%, impaired relaxation, RV mildly dilated, RV systolic function mod reduced. ) - EKG Sinus rhythms and dysrhythmias: sinus rhythm - Allied health notes Allied health notes reviewed: nursing
--- NOTE | 2018-09-06 12:40 | Progress Note ---
Assessment and Plan Acute Hypoxemic Hypercapnic Respiratory Failure Hypertensive Emergency H/O Type B Aortic Dissection (No surgery recommended in October 2017) Morbid Obesity PAUL/OHS Acute exacerbation of SYSTOLIC CHF NSTEMI TYPE 2 Diabetes Mellitus - switched to APRV ventilation (Ph 40, Plow 5, Thigh 4.0s & Tlow 0.5 s) - hold propofol while on APRV and use fentanyl - place new DHT and resume tube feedings / oral meds - continue scheduled oral Metoprolol to target Pulse approx 60-70/min and target SBP </= 120 mmHg - continue scopolamine for secretions but add Robinul as still moderate secretions - Azotemia worsening and nephrology consulted - await MOMO to evaluate for type A dissection - vascular surgery evaluation ongoing - stopped IV heparin re: risk of chronic dissection extension - continue ACS management otherwise per cardiology - CTA cancelled due to azotemia - scheduled low dose seroquel to spare versed if agitation persist's - continue daily SBT evaluation - continue daily SAT's - sedation for target RASS 0 to -1 - continue bronchodilators with pulmonary hygiene per RT - continue to wean oxygen for target O2 Sat's > 89 - 90% - VAP bundle addressed - continue enteral nutrition as tolerated - discontinue dias catheter - get serum Mg & PO4 levels and adjust as necessary - mobility protocol for pressure ulcer prophylaxis - GI & VTE prophylaxis - re-introduce oral anti-hypertensives - glycemic control with SSI for target BG 140 - 180 mg/dL - continue other care per attending / other consultants ...... re-evaluate in am & prn ... care plan discussed with attending The high probability of a clinically significant, sudden or life threatening deterioration of the [Pulmonary,cardiac and Vascular] system(s) required my full and direct attention, intervention and personal management. The aggregate critical care time was [45] minutes. This time is in addition to time spent performing reported procedures but includes the following: [x] Data Review and interpretation [x] Patient assessment and monitoring of vital signs [x] Documentation Subjective Date of service: 09/06/18 Principal diagnosis: Ac Hypoxemic Hypercapnic Resp Failure; HTNsive Emergency; Type B dissection Interval history: Patient is seen today for: Acute Hypoxemic Hypercapnic Respiratory Failure; Hypertensive Emergency; H/O Type B Aortic Dissection (No surgery recommended in October 2017); Morbid Obesity Seen and examined at bedside; 24hour events reviewed; nursing and respiratory care staff consulted; no adverse overnight events reported to me; decompensated and now requiring 100% FiO2, he does follow commands appropriately; question of emesis with possible aspiration overnight; has failed even a Peep of 16 cmH2O Objective Vital Signs - 12hr 09/06/18 09/06/18 09/06/18 00:57 01:00 02:00 Temperature Pulse Rate 82 86 73 Respiratory 12 20 Rate Blood Pressure 169/74 169/77 164/74 O2 Sat by Pulse 95 96 Oximetry 09/06/18 09/06/18 09/06/18 03:00 03:17 04:00 Temperature 100.1 F H Pulse Rate 80 84 79 Respiratory 17 20 Rate Blood Pressure 158/70 129/75 162/73 O2 Sat by Pulse 95 97 96 Oximetry 09/06/18 09/06/18 09/06/18 05:00 06:00 06:59 Temperature Pulse Rate 73 82 96 H Respiratory 20 18 Rate Blood Pressure 169/76 152/90 228/93 O2 Sat by Pulse 94 96 Oximetry 09/06/18 08:00 Temperature Pulse Rate 76 Respiratory Rate Blood Pressure 159/66 O2 Sat by Pulse 95 Oximetry Constitutional: no acute distress, other (young morbidly obese AAM, normocephalic and atraumatic on MVS) Eyes: non-icteric ENT: oropharynx moist, oropharyngeal exudate pre, other (ETT 24 cm JANE) Neck: supple, no lymphadenopathy, no JVD, other (large neck circumference) Effort: mildly labored Ascultation: Bilateral: diminished breath sounds, rhonchi (bases) Percussion: Bilateral: not dull Cardiovascular: regular rate and rhythm, other (No R/M) Gastrointestinal: normoactive bowel sounds, soft, non-tender, other (protuberant) Integumentary: rash Extremities: no cyanosis, pulses normal, no ischemia or petechiae, edema Neurologic: normal mental status, non-focal exam (grossly), pupils equal and round, motor strength normal and Psychiatric: mood appropriate, affect normal, other CBC and BMP: 09/07/18 04:15 09/07/18 04:15 ABG, PT/INR, D-dimer: ABG POC ABG pH 7.377 (7.35-7.45) 09/06/18 03:28 POC ABG pCO2 65.0 (35-45) H 09/06/18 03:28 POC ABG pO2 88 (80-105) 09/06/18 03:28 POC ABG HCO3 38.2 09/06/18 03:28 POC ABG Total CO2 40 09/06/18 03:28 POC ABG O2 Sat 96 09/06/18 03:28 PT/INR, D-dimer PT 15.1 Sec. (12.2-14.9) H 09/01/18 21:20 INR 1.15 (0.87-1.13) H 09/01/18 21:20 D-Dimer 869.27 ng/mlDDU (0-234) H 09/01/18 15:15 Abnormal lab findings: Abnormal Labs 09/01/18 09/01/18 09/01/18 15:15 15:15 15:15 RBC 5.37 H Hgb Hct 47.8 H MCH 27 L MCHC 31 L RDW 17.1 H Lymph % (Auto) [place] % (Auto) 11.0 H Lymph # 1.0 L [place] # Seg Neutrophils % 70.2 H PT 15.0 H INR 1.14 H D-Dimer Heparin Anti-Xa Level POC ABG pH POC ABG pCO2 POC ABG pO2 Sodium Potassium Chloride Carbon Dioxide 39 H BUN 21 H Creatinine Glucose 106 H POC Glucose Calcium Total Bilirubin AST Troponin T 0.125 H* NT-Pro-B Natriuret Pep Total Protein Albumin HDL Cholesterol 33 L Urine WBC (Auto) 09/01/18 09/01/18 09/01/18 15:15 15:15 15:28 RBC Hgb Hct MCH MCHC RDW Lymph % (Auto) [place] % (Auto) Lymph # [place] # Seg Neutrophils % PT INR D-Dimer 869.27 H Heparin Anti-Xa Level POC ABG pH 7.235 L POC ABG pCO2 89.8 H POC ABG pO2 Sodium Potassium Chloride Carbon Dioxide BUN Creatinine Glucose POC Glucose Calcium Total Bilirubin AST Troponin T NT-Pro-B Natriuret Pep 1764 H Total Protein Albumin HDL Cholesterol Urine WBC (Auto) 09/01/18 09/01/18 09/01/18 17:45 19:28 21:20 RBC Hgb Hct MCH MCHC RDW Lymph % (Auto) [place] % (Auto) Lymph # [place] # Seg Neutrophils % PT INR D-Dimer Heparin Anti-Xa Level POC ABG pH 7.175 L POC ABG pCO2 105.5 H POC ABG pO2 111 H Sodium Potassium Chloride Carbon Dioxide BUN Creatinine Glucose POC Glucose Calcium Total Bilirubin AST Troponin T 0.130 H* 0.132 H* NT-Pro-B Natriuret Pep Total Protein Albumin HDL Cholesterol Urine WBC (Auto) 09/01/18 09/01/18 09/01/18 21:20 21:20 23:29 RBC Hgb Hct 46.4 H MCH MCHC RDW Lymph % (Auto) [place] % (Auto) Lymph # [place] # Seg Neutrophils % PT 15.1 H INR 1.15 H D-Dimer Heparin Anti-Xa Level POC ABG pH 7.349 L POC ABG pCO2 76.4 H POC ABG pO2 35 L Sodium Potassium Chloride Carbon Dioxide BUN Creatinine Glucose POC Glucose Calcium Total Bilirubin AST Troponin T NT-Pro-B Natriuret Pep Total Protein Albumin HDL Cholesterol Urine WBC (Auto) 09/01/18 09/02/18 09/02/18 23:34 04:18 04:35 RBC 5.67 H Hgb 15.8 H Hct 50.6 H MCH MCHC 31 L RDW 17.9 H Lymph % (Auto) 12.2 L [place] % (Auto) 12.6 H Lymph # 1.0 L [place] # 1.0 H Seg Neutrophils % 73.5 H PT INR D-Dimer Heparin Anti-Xa Level POC ABG pH 7.294 L POC ABG pCO2 77.7 H 62.2 H POC ABG pO2 235 H Sodium Potassium Chloride Carbon Dioxide BUN Creatinine Glucose POC Glucose Calcium Total Bilirubin AST Troponin T NT-Pro-B Natriuret Pep Total Protein Albumin HDL Cholesterol Urine WBC (Auto) 09/02/18 09/02/18 09/02/18 04:35 08:16 08:16 RBC 5.68 H Hgb 15.4 H Hct 49.9 H MCH 27 L MCHC 31 L RDW 18.1 H Lymph % (Auto) [place] % (Auto) 12.7 H Lymph # 1.1 L [place] # 1.0 H Seg Neutrophils % 71.9 H PT INR D-Dimer Heparin Anti-Xa Level POC ABG pH POC ABG pCO2 POC ABG pO2 Sodium Potassium Chloride 97.7 L Carbon Dioxide 36 H 35 H BUN 21 H 21 H Creatinine Glucose 69 L POC Glucose Calcium Total Bilirubin 1.60 H AST 43 H Troponin T NT-Pro-B Natriuret Pep Total Protein 6.2 L Albumin 2.8 L HDL Cholesterol Urine WBC (Auto) 09/02/18 09/02/18 09/02/18 10:24 14:29 17:46 RBC Hgb Hct MCH MCHC RDW Lymph % (Auto) [place] % (Auto) Lymph # [place] # Seg Neutrophils % PT INR D-Dimer Heparin Anti-Xa Level < 0.10 L < 0.10 L POC ABG pH POC ABG pCO2 POC ABG pO2 Sodium Potassium Chloride Carbon Dioxide BUN Creatinine Glucose POC Glucose 69 L Calcium Total Bilirubin AST Troponin T NT-Pro-B Natriuret Pep Total Protein Albumin HDL Cholesterol Urine WBC (Auto) 09/03/18 09/03/18 09/03/18 03:20 03:20 05:48 RBC 5.57 H Hgb 15.5 H Hct 48.7 H MCH MCHC RDW 18.0 H Lymph % (Auto) [place] % (Auto) Lymph # [place] # Seg Neutrophils % PT INR D-Dimer Heparin Anti-Xa Level POC ABG pH POC ABG pCO2 62.0 H POC ABG pO2 Sodium Potassium 5.1 H D Chloride 97.2 L Carbon Dioxide 33 H BUN Creatinine Glucose 62 L POC Glucose Calcium Total Bilirubin AST Troponin T NT-Pro-B Natriuret Pep Total Protein Albumin HDL Cholesterol Urine WBC (Auto) 09/03/18 09/04/18 09/04/18 17:10 00:05 01:44 RBC Hgb Hct MCH MCHC RDW Lymph % (Auto) [place] % (Auto) Lymph # [place] # Seg Neutrophils % PT INR D-Dimer Heparin Anti-Xa Level 0.26 L POC ABG pH 7.304 L POC ABG pCO2 82.5 H POC ABG pO2 Sodium Potassium Chloride Carbon Dioxide BUN Creatinine Glucose POC Glucose Calcium Total Bilirubin AST Troponin T NT-Pro-B Natriuret Pep Total Protein Albumin HDL Cholesterol Urine WBC (Auto) 12.0 H 09/04/18 09/04/18 09/04/18 03:12 03:12 05:37 RBC 5.30 H Hgb Hct 47.1 H MCH 27 L MCHC 31 L RDW 18.3 H Lymph % (Auto) [place] % (Auto) Lymph # [place] # Seg Neutrophils % PT INR D-Dimer Heparin Anti-Xa Level POC ABG pH POC ABG pCO2 POC ABG pO2 Sodium Potassium Chloride Carbon Dioxide 32 H BUN 22 H Creatinine 1.6 H Glucose POC Glucose 115 H Calcium 8.1 L Total Bilirubin 1.90 H AST 72 H Troponin T NT-Pro-B Natriuret Pep Total Protein 6.0 L Albumin 2.3 L HDL Cholesterol Urine WBC (Auto) 09/04/18 09/04/18 09/05/18 05:48 11:31 04:00 RBC 5.16 H Hgb Hct MCH 27 L MCHC 31 L RDW 17.6 H Lymph % (Auto) [place] % (Auto) Lymph # [place] # Seg Neutrophils % PT INR D-Dimer Heparin Anti-Xa Level POC ABG pH 7.273 L 7.326 L POC ABG pCO2 89.9 H 70.4 H POC ABG pO2 78 L 155 H Sodium Potassium Chloride Carbon Dioxide BUN Creatinine Glucose POC Glucose Calcium Total Bilirubin AST Troponin T NT-Pro-B Natriuret Pep Total Protein Albumin HDL Cholesterol Urine WBC (Auto) 09/05/18 09/05/18 09/06/18 04:00 05:31 03:28 RBC Hgb Hct MCH MCHC RDW Lymph % (Auto) [place] % (Auto) Lymph # [place] # Seg Neutrophils % PT INR D-Dimer Heparin Anti-Xa Level POC ABG pH POC ABG pCO2 57.0 H 65.0 H POC ABG pO2 Sodium 146 H Potassium Chloride Carbon Dioxide 33 H BUN 27 H Creatinine 1.7 H Glucose 60 L POC Glucose Calcium Total Bilirubin AST Troponin T NT-Pro-B Natriuret Pep Total Protein Albumin HDL Cholesterol Urine WBC (Auto) 09/06/18 08:44 RBC Hgb Hct MCH MCHC RDW Lymph % (Auto) [place] % (Auto) Lymph # [place] # Seg Neutrophils % PT INR D-Dimer Heparin Anti-Xa Level POC ABG pH POC ABG pCO2 POC ABG pO2 Sodium Potassium Chloride 60.0 L Carbon Dioxide 32 H BUN 31 H Creatinine 1.9 H Glucose 199 H POC Glucose Calcium 7.9 L Total Bilirubin AST 63 H Troponin T NT-Pro-B Natriuret Pep Total Protein 5.9 L Albumin 2.3 L HDL Cholesterol Urine WBC (Auto) Chest x-ray: report reviewed, other (unable to pull up images) Allied health notes reviewed: nursing
--- NOTE | 2018-09-06 13:07 | Progress Note ---
Assessment and Plan Assessment and plan: 28 YO Male with MO, CHF, Obesity Hypoventilation, Chronic AORTIC DISSECTION, HTN, Hypothyrodism, Lymphedema presents to ED for evaluation. Pt states that he has experienced shortness of breath over the past three days with persistent symptoms over the same time frame. Pt acknowledges Orthopnea/PND, Decreased exercise tolerance, Dypsnea on exeertion. Pt denies fever, chills, CP, Palpitations, NVD, Trauma, Productive cough or recent ill contacts. Pt denies back pain, or chest pain that radiates to his back. Pt transported to [facility] for further care and evaluation. Pt seen and evaluated in ED and found to have Hypercapnic Respiratory Failure, CHF. Pt initiated on NIPPV without improvement. Pt intubated and placed on vent support in ED. Pt admitted to ICU and placed on heparin drip protocol. Cardiology and Pulmonary teams consulted in ED. Patient this am, had a code blue secondary to self extubation. He did not have any loss of Pulse but was bradycardia requiring one atropin and one epinephrine. The patient was intubated again by the help of the ED physician. Mother who is at the bedside was updated (1) Respiratory failure with hypoxia and hypercapnia Current Visit: Yes Status: Acute Qualifiers: Chronicity: acute Qualified Code(s): J96.01 - Acute respiratory failure with hypoxia; J96.02 - Acute respiratory failure with hypercapnia Plan to address problem: Continue with ICU. Pt intubated placed on vent support. CTA chest pending, now with shawna, will repeat when patient is more stable and renal function improved. Initiated on heparin drip protocol, ABG, wean vent as tolerated, (2) Hypertensive Urgency: LABETALOL DRIP RECOMMENDED BY VASCULAR. UPTITRATE ORAL MEDS, GOAL SBP 120 OR LESS. add cardene drip. Discussed importance of this management with nursing staff. (3) Acute exacerbation of SYSTOLIC CHF (congestive heart failure) Current Visit: Yes Status: Chronic Qualifiers: Heart failure type: unspecified Qualified Code(s): I50.9 - Heart failure, unspecified Plan to address problem: Cardiology consulted in ED, diuresis, Strict I/O, daily weight, afterload reduction, blood pressure control, monitor uop q shift, chest x ray. (4) NSTEMI TYPE 2: Cardiology following. PATIENT WITH KNOWN HX OF DISSECTION. IMAGING STUDIES PENDING. (5) Diabetes Mellitus: Hypoglycemia. Persist. Start patient on D5NS. (6) Obesity hypoventilation syndrome Current Visit: Yes Status: Acute Plan to address problem: Supplemental oxygen, nebulizer therapy, supportive care, pulmonary consulted (7) Tranaminitis- Monitor (8) Morbid Obesity but with Moderate Protein calorie Malnutrition- Started on Tube feeds (9) SHAWNA secondary to vasomotor nephropathy Hold lasix today Renal consult. DVT prophylaxis Current Visit: Yes Status: Acute Plan to address problem: SCD to BLE while in bed. The high probability of a clinically significant, sudden or life threatening deterioration of the [Pulmonary,cardiac,neuro] system(s) required my full and direct attention, intervention and personal management. The aggregate critical care time was [35] minutes. This time is in addition to time spent performing reported procedures but includes the following: [x] Data Review and interpretation [x] Patient assessment and monitoring of vital signs [x] Documentation [x] Medication orders and management History Interval history: Patient seen and examined, No new complaints. remains on mechanical ventilation. Hospitalist Physical - Physical exam Narrative exam: General appearance: Present: Sedated and on mechanical ventilation - EENT Eyes: Present: PERRL ENT: hearing intact, clear oral mucosa - Neck Neck: Present: supple, normal ROM - Respiratory Respiratory: bilateral: diminished, rhonchi - Cardiovascular Heart Sounds: Present: S1 & S2. Absent: rub, click - Extremities Extremities: pulses symmetrical Extremity abnormal: edema Peripheral Pulses: within normal limits - Abdominal General gastrointestinal: Present: soft, non-tender, non-distended, normal bowel sounds Male genitourinary: Present: normal - Integumentary Integumentary: Present: clear, warm, dry - Musculoskeletal Musculoskeletal: generalized weakness - Psychiatric Psychiatric: unable to assess - Neurologic Neurologic: CNII-XII intact, moves all extremities - Constitutional Vitals: Temp Pulse Resp BP Pulse Ox 100.1 F H 82 18 157/82 94 09/06/18 04:00 09/06/18 12:15 09/06/18 06:00 09/06/18 12:15 09/06/18 12:15 General appearance: Present: no acute distress Results - Labs CBC & Chem 7: 09/05/18 04:00 09/06/18 08:44 Labs: Laboratory Last Values WBC 8.8 K/mm3 (4.5-11.0) 09/05/18 04:00 RBC 5.16 M/mm3 (3.65-5.03) H 09/05/18 04:00 Hgb 14.1 gm/dl (11.8-15.2) 09/05/18 04:00 Hct 45.3 % (35.5-45.6) 09/05/18 04:00 MCV 88 fl (84-94) 09/05/18 04:00 MCH 27 pg (28-32) L 09/05/18 04:00 MCHC 31 % (32-34) L 09/05/18 04:00 RDW 17.6 % (13.2-15.2) H 09/05/18 04:00 Plt Count 241 K/mm3 (140-440) 09/05/18 04:00 Lymph % (Auto) 13.8 % (13.4-35.0) 09/02/18 08:16 [place] % (Auto) 12.7 % (0.0-7.3) H 09/02/18 08:16 Eos % (Auto) 0.9 % (0.0-4.3) 09/02/18 08:16 Baso % (Auto) 0.7 % (0.0-1.8) 09/02/18 08:16 Lymph # 1.1 K/mm3 (1.2-5.4) L 09/02/18 08:16 [place] # 1.0 K/mm3 (0.0-0.8) H 09/02/18 08:16 Eos # 0.1 K/mm3 (0.0-0.4) 09/02/18 08:16 Baso # 0.1 K/mm3 (0.0-0.1) 09/02/18 08:16 Seg Neutrophils % 71.9 % (40.0-70.0) H 09/02/18 08:16 Seg Neutrophils # 5.6 K/mm3 (1.8-7.7) 09/02/18 08:16 PT 15.1 Sec. (12.2-14.9) H 09/01/18 21:20 INR 1.15 (0.87-1.13) H 09/01/18 21:20 APTT 30.2 Sec. (24.2-36.6) 09/01/18 21:20 D-Dimer 869.27 ng/mlDDU (0-234) H 09/01/18 15:15 Heparin Anti-Xa Level 0.26 U.I./ml (0.3-0.7) L 09/04/18 01:44 POC ABG pH 7.377 (7.35-7.45) 09/06/18 03:28 POC ABG pCO2 65.0 (35-45) H 09/06/18 03:28 POC ABG pO2 88 (80-105) 09/06/18 03:28 POC ABG HCO3 38.2 09/06/18 03:28 POC ABG Total CO2 40 09/06/18 03:28 POC ABG O2 Sat 96 09/06/18 03:28 POC ABG Base Excess 13 09/06/18 03:28 FiO2 65 % 09/06/18 03:28 Sodium 143 mmol/L (137-145) 09/06/18 08:44 Potassium 3.8 mmol/L (3.6-5.0) 09/06/18 08:44 Chloride 60.0 mmol/L (98-107) L 09/06/18 08:44 Carbon Dioxide 32 mmol/L (22-30) H 09/06/18 08:44 Anion Gap -11 mmol/L 09/06/18 08:44 BUN 31 mg/dL (9-20) H 09/06/18 08:44 Creatinine 1.9 mg/dL (0.8-1.5) H 09/06/18 08:44 Estimated GFR > 60 ml/min 09/06/18 08:44 BUN/Creatinine Ratio 16 % 09/06/18 08:44 Glucose 199 mg/dL (75-100) H 09/06/18 08:44 POC Glucose 72 (70-105) 09/06/18 06:24 Calcium 7.9 mg/dL (8.4-10.2) L 09/06/18 08:44 Phosphorus 3.40 mg/dL (2.5-4.5) 09/03/18 03:20 Magnesium 1.90 mg/dL (1.7-2.3) 09/03/18 03:20 Total Bilirubin < 0.20 mg/dL (0.1-1.2) 09/06/18 08:44 AST 63 units/L (5-40) H 09/06/18 08:44 ALT 26 units/L (7-56) 09/06/18 08:44 Alkaline Phosphatase 76 units/L (35-129) 09/06/18 08:44 Troponin T 0.132 ng/mL (0.00-0.029) H* 09/01/18 21:20 NT-Pro-B Natriuret Pep 1764 pg/mL (0-450) H 09/01/18 15:15 Total Protein 5.9 g/dL (6.3-8.2) L 09/06/18 08:44 Albumin 2.3 g/dL (3.9-5) L 09/06/18 08:44 Albumin/Globulin Ratio 0.6 % 09/06/18 08:44 Triglycerides 68 mg/dL (2-149) 09/04/18 03:12 Cholesterol 93 mg/dL (50-199) 09/01/18 15:15 LDL Cholesterol Direct 62 mg/dL (50-130) 09/01/18 15:15 HDL Cholesterol 33 mg/dL (40-59) L 09/01/18 15:15 Cholesterol/HDL Ratio 2.81 % 09/01/18 15:15 Urine Color Jennifer (Yellow) 09/04/18 00:05 Urine Turbidity Clear (Clear) 09/04/18 00:05 Urine pH 5.0 (5.0-7.0) 09/04/18 00:05 Ur Specific [place] 1.010 (1.003-1.030) 09/04/18 00:05 Urine Protein 30 mg/dl mg/dL (Negative) 09/04/18 00:05 Urine Glucose (UA) Neg mg/dL (Negative) 09/04/18 00:05 Urine Ketones Neg mg/dL (Negative) 09/04/18 00:05 Urine Blood Neg (Negative) 09/04/18 00:05 Urine Nitrite Neg (Negative) 09/04/18 00:05 Urine Bilirubin Neg (Negative) 09/04/18 00:05 Urine Urobilinogen 4.0 mg/dL (<2.0) 09/04/18 00:05 Ur Leukocyte Esterase Neg (Negative) 09/04/18 00:05 Urine WBC (Auto) 12.0 /HPF (0.0-6.0) H 09/04/18 00:05 Urine RBC (Auto) 10.0 /HPF (0.0-6.0) 09/04/18 00:05 U Epithel Cells (Auto) 1.0 /HPF (0-13.0) 09/04/18 00:05 Hyaline Casts 7 /LPF 09/04/18 00:05 Urine Mucus Few /HPF 09/04/18 00:05 Urine Sperm 2+ /HPF ([employer]) 09/04/18 00:05 Nutrition/Malnutrition Assess - Dietary Evaluation Nutrition/Malnutrition Findings: Nutrition Notes Start: 09/02/18 15:06 Freq: Status: Active Protocol: Document 09/03/18 12:18 TW (Rec: 09/03/18 12:40 TW [email or web address]) Co-Sign 09/03/18 12:18 OL Nutrition Notes Need for Assessment generated from: MD Order Initial or Follow up Brief Note Other Pertinent Diagnosis SOB, sleep apnea, aortic dissection Current Diet NPO Pertinent Medications Propofol at 10.8 ml/hr (290 kcals) Subjective/Other Information MD consult for TF. NGT has been placed. #1 Nutrition Diagnosis Inadequate oral intake Diagnosis Progress(for reassessment Continues documentation) Nutrition Intervention Nutrition Support: Vital High Protein at 75 ml/hr . Provide flush of 50 ml q4h or per MD. Kcal 1,800 Protein (gm) 158 Fluid (mL) 1,505 Follow-Up By: 09/07/18 Additional Comments F/u for new TF
[2018-09-06] MEDS: BABY ASPIRIN PO SCH (13:12)
--- NOTE | 2018-09-06 14:44 | Consultation ---
History of Present Illness - Reason for Consult Consult date: 09/06/18 acute renal failure Requesting physician: RONNY FISHER - History of Present Illness This is a 28 y/o male with PMH of CHF, chronic aortic dissection, HTN, hypothyroidism, obesity, and lymphedema who presented to [facility] with c/o shortness of breath. Pt was initially placed on NIPPV without improvement so pt was subsequently intubated in the ED. Pt s/p code blue call secondary to self extubation on 09/04/18. Pt was re-intubated, didn't have loss of pulse, but was bradycardic requiring atropine and epinephrine per medicine note. On admission, SCr level was 1.4, decreased to 1.2 on 09/03/18. Renal function progressively worsening since 09/04/18, SCr level was 1.9 today. Lasix was stopped today. We were consulted to evaluate this pt who has SHAWNA. Pt intubated, no family at bedside, hx obtained from medical record. Past History Past Medical History: COPD, heart failure, hypertension, other (Type B aortic dissection; Morbid obesity, Hypothyroidism) Past Surgical History: abd. aortic aneurysm repair Social history: single Family history: hypertension Medications and Allergies Allergies Allergy/AdvReac Type Severity Reaction Status Date / Time No Known Allergies Allergy Unverified 10/02/17 17:09 Home Medications Medication Instructions Recorded Confirmed Last Taken Type Aspirin [Aspirin BABY CHEW TAB] 81 mg PO QDAY #30 tab.chew 08/04/18 Unknown Rx Furosemide [Lasix TAB] 40 mg PO BID #60 tablet 08/04/18 Unknown Rx Labetalol [Normodyne TAB] 300 mg PO Q8HR 30 Days tablet 08/04/18 Unknown Rx Levothyroxine [Synthroid] 50 mcg PO DAILY@0600 #30 tablet 08/04/18 Unknown Rx NIFEdipine XL [Procardia Xl] 90 mg PO BID #60 tablet 08/04/18 Unknown Rx Potassium Chloride [K-Dur] 10 meq PO BID #60 tablet 08/04/18 Unknown Rx cloNIDine-TTS PATCH 0.3 mg TRANSDERMA 1XW #4 08/04/18 Unknown Rx Active Meds: Active Medications Acetaminophen (Tylenol) 650 mg PO Q6H PRN PRN Reason: Pain, Mild (1-3) Last Admin: 09/05/18 00:41 Dose: 650 mg Documented by: Albuterol (Proventil) 2.5 mg IH Q3HRT PRN PRN Reason: Shortness Of Breath Amlodipine Besylate (Norvasc) 10 mg PO DAILY [facility] Last Admin: 09/05/18 10:14 Dose: 10 mg Documented by: Lipase/Protease/Amylase (Pancreaze Dr 10,500 Unit) 1 each FEEDTUBE PRN PRN PRN Reason: For Clogged Feeding Tube Aspirin (Baby Aspirin) 81 mg PO QDAY [facility] Last Admin: 09/06/18 13:12 Dose: Not Given Documented by: Clonidine HCl (Catapres-Tts Patch) 0.3 mg TD Tu [facility] Last Admin: 09/02/18 03:10 Dose: 0.3 mg Documented by: Enoxaparin Sodium (Lovenox) 40 mg SUB-Q QDAY@2200 [facility] Last Admin: 09/05/18 21:43 Dose: 40 mg Documented by: Famotidine (Pepcid) 20 mg PO BID [facility] Last Admin: 09/05/18 21:41 Dose: 20 mg Documented by: Hydralazine HCl (Apresoline) 5 mg IV Q4H PRN PRN Reason: Blood Pressure Last Admin: 09/05/18 22:18 Dose: 5 mg Documented by: Hydrophilic Ointment (Vaseline Lip Therapy) 1 applic TP Q2HR PRN PRN Reason: Dry Lips Fentanyl Citrate (Fentanyl Drip Premix) 2,000 mcg in 100 mls @ 12.205 mls/hr IV TITR [facility]; Protocol Last Admin: 09/06/18 12:22 Dose: 4 mcg/kg/hr, 48.82 mls/hr Documented by: Labetalol HCl 200 mg/ Dextrose 200 mls @ 120 mls/hr IV TITR ELIEL; Protocol Last Admin: 09/06/18 14:11 Dose: 4 mg/min, 240 mls/hr Documented by: Propofol (Diprivan 10 Mg/Ml) 1,000 mg in 100 mls @ 7.344 mls/hr IV TITR [facility]; Protocol Last Admin: 09/06/18 12:11 Dose: 5 mcg/kg/min, 7.344 mls/hr Documented by: Nicardipine HCl 50 mg/ Sodium (Chloride) 250 mls @ 25 mls/hr IV TITR [facility]; Protocol Last Admin: 09/06/18 12:12 Dose: 5 mg/hr, 25 mls/hr Documented by: Levothyroxine Sodium (Synthroid) 50 mcg PO DAILY@0600 [facility] Last Admin: 09/06/18 06:59 Dose: 50 mcg Documented by: Metoprolol Tartrate (Lopressor) 5 mg IV Q6HR [facility] Last Admin: 09/06/18 13:28 Dose: 5 mg Documented by: Metoprolol Tartrate (Lopressor) 25 mg PO Q8H [facility] Last Admin: 09/06/18 06:59 Dose: 25 mg Documented by: Midazolam HCl (Versed) 2 mg IV Q2H PRN PRN Reason: Agitation Stop: 09/09/18 11:18 Last Admin: 09/06/18 07:39 Dose: 2 mg Documented by: Multi-Ingred Cream/Lotion/Oil/Oint (Artificial Tears Ophth Oint) 1 applic OU Q4HR PRN PRN Reason: Dry Eye(s) Quetiapine Fumarate (Seroquel) 50 mg PO QHS [facility] Last Admin: 09/05/18 21:42 Dose: 50 mg Documented by: Simple Syrup (Simple Syrup) 15 ml FEEDTUBE PRN PRN PRN Reason: Hypoglycemia Simple Syrup (Simple Syrup) 30 ml FEEDTUBE PRN PRN PRN Reason: Hypoglycemia Sodium Bicarbonate (Sodium Bicarbonate) 325 mg FEEDTUBE PRN PRN PRN Reason: For Clogged Feeding Tube Sodium Chloride (Sodium Chloride Flush Syringe 10 Ml) 10 ml IV BID [facility] Last Admin: 09/05/18 21:41 Dose: 10 ml Documented by: Sodium Chloride (Sodium Chloride Flush Syringe 10 Ml) 10 ml IV PRN PRN PRN Reason: LINE FLUSH Review of Systems ROS unobtainable: due to endotracheal tube Exam - Vital Signs Vital signs: Vital Signs Pulse Resp Pulse Ox 76 24 87 09/01/18 13:42 09/01/18 13:42 09/01/18 13:42 - General Appearance General appearance: intubated EENT: ATNC Neck: Present: neck supple Respiratory: Decreased Breath Sounds (intubated on ventilator) Heart: regular, S1S2 Gastrointestinal: Present: normoactive bowel sounds (nasogastric tube intact), obese Integumentary: warm and dry Neurologic: other (intubated) Musculoskeletal: Present: other (1+ edema to BLE ) Psychiatric: other (unable to assess) Results - Lab Results 09/05/18 04:00 09/06/18 08:44 Most recent lab results Calcium 7.9 mg/dL (8.4-10.2) L 09/06/18 08:44 Phosphorus 3.40 mg/dL (2.5-4.5) 09/03/18 03:20 Magnesium 1.90 mg/dL (1.7-2.3) 09/03/18 03:20 Assessment and Plan Acute Kidney Injury possibly prerenal/ATN, diuretics, questionable underlying CKD due to HTN, r/o obstruction: - Renal function reviewed, SCr level was 1.9 today, yesterday's SCr level was 1.6-1.7 - Lasix was stopped on 09/06/18 - Obtain urine lytes/protein - Obtain Renal US - Renally dose meds - Gabriel Catheter: No - Intake= 2064 ml Output= 1450 ml ( Net= 614 ml) - Renal plan d/w Dr Saxena Acute hypercapnic respiratory failure: History of PAUL: - Intubated in ED on admission - Re-intubated s/p self-extubation on 09/04/18 - As per Pulmonology NSTEMI: Chest pain: Chronic thoracic type B aortic dissection: - Vascular surgery on board - Cardiology on board, recommended CTA chest to assess progression of dissection Hypertensive Urgency: - On Labetalol and nicardipine drip - Adjust meds as needed Acute on chronic heart failure: - Echo Apr 2018 showed EF 45-50% per cardiology note - Cardiology on board Hypothyroidism: - On synthroid
--- NOTE | 2018-09-06 14:46 | XRay Report ---
FINAL REPORT EXAM: XR CHEST 1V AP HISTORY: follow up respiratory failure TECHNIQUE: Frontal chest radiograph. PRIORS: 09/05/2018. FINDINGS: The endotracheal tube tip projects in the mid thoracic trachea. The right upper extremity PICC tip pr ojects in the lower SVC. The enteric tube tip likely lies in the distal esophagus. Unchanged cardiome jaida. Worsened bilateral pulmonary edema is seen. Worsened bibasilar opacities are seen. Probable small bilateral pleural effusions noted. No pneumothorax. No acute osseous abnormality. IMPRESSION: Worsened bilateral pulmonary edema. Worsened bibasilar opacities which may reflect atelectasis versus pneumonia. Probable trace bilateral pleural effusions. Enteric tube tip likely lying in the distal esophagus. Recommend advancement.
--- NOTE | 2018-09-06 14:50 | XRay Report ---
FINAL REPORT EXAM: XR ABDOMEN 1V AP HISTORY: NGT plaacement TECHNIQUE: AP abdominal radiograph. PRIORS: 09/05/2018. FINDINGS: The enteric tube tip likely lies in the distal esophagus. There appears to be a focally dilated loop of small bowel in the left upper quadrant. Note that the abdomen was not completely imaged. No organomegaly or masses. No abnormal calcifications. No acute osseous abnormality. IMPRESSION: Enteric tube tip likely lying in the distal esophagus. Recommend advancement. Prominent loop of small bowel in the left upper quadrant may represent focal ileus although obstructi on is not completely excluded as the entire abdomen is not completely included on the study.
--- NOTE | 2018-09-06 16:33 | XRay Report ---
FINAL REPORT EXAM: XR ABDOMEN 1V AP HISTORY: NGT placement TECHNIQUE: Single view of the abdomen. PRIORS: Abdomen x-ray September 06, 2018. FINDINGS: Enteric tube tip is present within the proximal stomach. Side hole is present within the distal esoph gala. Bowel gas appearance is nonspecific and non-distended. There is no pneumoperitoneum. There is no air fluid level. There is no obstructive pattern. IMPRESSION: Nonspecific nonobstructive bowel gas pattern. Recommend advancement of the enteric tube.
[2018-09-06 18:51] LABS: Creatinine,Urine 70.8 mg/dL (0.1-20.0); Microalbumin/Creatinine Ratio 118.6 ug/mg
[2018-09-06] MEDS: PEPCID PO SCH ×2 (19:26→21:01)
[2018-09-06] MEDS: SODIUM CHLORIDE FLUSH SYRINGE 10 ML IV SCH ×2 (19:26→21:02)
[2018-09-06] MEDS: NORVASC PO SCH (19:26)
--- NOTE | 2018-09-06 20:03 | XRay Report ---
FINAL REPORT PROCEDURE: Chest. TECHNIQUE: Portable AP view. HISTORY: Intubation. COMPARISON: Chest done earlier today. FINDINGS: The radiograph is underpenetrated. The lung bases are incompletely imaged. The heart size is enlarged . There is hazy opacity at both lung bases. This could represent consolidation or pleural fluid. A re peat radiograph is suggested. An endotracheal tube is in satisfactory position. A nasogastric tube is faintly visible. IMPRESSION: Very limited study. Repeat radiograph recommended. Satisfactory endotracheal tube placement.
[2018-09-06] MEDS ORDERED: NORMODYNE IV SCH ×2 (21:00→22:00)
[2018-09-06] MEDS ORDERED: D5W IV SCH ×2 (21:00→22:00)
[2018-09-06] MEDS: LOVENOX SUB-Q SCH (21:01)
[2018-09-06] MEDS ORDERED: NORMODYNE 200 MG in D5W 160 ML IV SCH (22:00)
--- NOTE | 2018-09-06 22:56 | XRay Report ---
FINAL REPORT PROCEDURE: Abdomen. TECHNIQUE: Portable AP supine view. HISTORY: Dobhoff tube placement. COMPARISON: Abdomen 09/06/2018. FINDINGS: The radiograph is centered on the diaphragm. There is a Dobhoff tube that terminates in the gastric a ntrum. The bowel gas pattern is normal as far as visualized. IMPRESSION: Satisfactory Dobhoff tube placement.
[2018-09-07] MEDS: VERSED IV PRN ×2 (00:41→10:18)
[2018-09-07] MEDS: APRESOLINE IV PRN ×2 (00:41→11:25)
[2018-09-07 04:48] LABS: Mean Corpuscular HGB Conc 31 % (32-34); Mean Corpuscular Volume 89 fl (84-94); Platelet Count 239 K/mm3 (140-440); Red Cell Distribution Width 17.6 % (13.2-15.2)
[2018-09-07 04:52] LABS: Hematocrit 44.4 % (35.5-45.6); Hemoglobin 13.8 gm/dl (11.8-15.2)
[2018-09-07 05:08] LABS: Albumin 2.6 g/dL (3.9-5); Calcium 8.5 mg/dL (8.4-10.2)
[2018-09-07 05:09] LABS: Calcium 8.5 mg/dL (8.4-10.2)
[2018-09-07] MEDS: fentaNYL DRIP Premix 2,000 MCG/100 ML BAG IV SCH ×3 (05:38→15:27)
[2018-09-07] MEDS: LOPRESSOR PO SCH ×2 (05:39→14:48)
[2018-09-07] MEDS: LOPRESSOR IV SCH (05:39)
[2018-09-07] MEDS: SYNTHROID PO SCH (05:39)
--- NOTE | 2018-09-07 07:58 | XRay Report ---
PORTABLE CHEST INDICATION: Followup respiratory failure. COMPARISON: Yesterday. FINDINGS: Portable, frontal chest radiograph, 7:29 AM, 09/07/2018 suggests improved congestive haziness centrally and towards the bases with now well visualized hemidiaphragms. Cardiomegaly/mild exaggerated cardiomediastinal silhouette, a Dobbhoff tube as also an endotracheal tube tip about the medial clavicular ends again noted. EKG leads. Intact bones. CONCLUSION: Improving congestive pattern radiographically with cardiomegaly and supporting devices again noted, as described. Please correlate. Thank you for the opportunity to participate in this patient's care.
[2018-09-07] MEDS: SODIUM CHLORIDE FLUSH SYRINGE 10 ML IV SCH (10:00)
[2018-09-07] MEDS: CARDENE 50 MG in NACL 0.9% 250ML 230 ML IV SCH ×2 (10:13→23:43)
[2018-09-07] MEDS: PEPCID PO SCH (10:15)
[2018-09-07] MEDS: NORVASC PO SCH (10:17)
[2018-09-07] MEDS: BABY ASPIRIN PO SCH (10:18)
--- NOTE | 2018-09-07 11:08 | Progress Note ---
Assessment and Plan SBP now improved and also equal in both arms, on cardene gtt. Vascular consultation noted - Recommend strict blood pressure control BP <120/80 and Heart rate < 60. Weight should be confirmed. Needs repeat CTA chest to assess progression of his dissection. MOMO is far less specific and sensitive to assess for progression en given the initial study was a CTA. Hemodynamically stable now. Will cont to follow closely. The patient has been seen in conjunction with Dr. Chavez who agrees with the assessment and plan of care. - Patient Problems (1) Respiratory failure with hypoxia and hypercapnia Current Visit: Yes Status: Acute Qualifiers: Chronicity: acute Qualified Code(s): J96.01 - Acute respiratory failure with hypoxia; J96.02 - Acute respiratory failure with hypercapnia (2) Hypertensive emergency Current Visit: Yes Status: Acute (3) Acute HFrEF (heart failure with reduced ejection fraction) Current Visit: Yes Status: Acute (4) Chronic thoracic aortic dissection Current Visit: Yes Status: Chronic (5) SHAWNA (acute kidney injury) Current Visit: Yes Status: Acute (6) NSTEMI (non-ST elevated myocardial infarction) Current Visit: Yes Status: Acute (7) Medical non-compliance Current Visit: Yes Status: Chronic (8) Morbid obesity Current Visit: Yes Status: Chronic (9) PAUL (obstructive sleep apnea) Current Visit: Yes Status: Chronic (10) Obesity hypoventilation syndrome Current Visit: Yes Status: Chronic (11) Diabetes Current Visit: Yes Status: Chronic Subjective Date of service: 09/07/18 Principal diagnosis: Ac Hypoxemic Hypercapnic Resp Failure; HTNsive Emergency; Type B dissection Interval history: pt remains intubated, agitated, sedated. on cardene gtt. Objective Last Vital Signs Temp 99.6 F 09/07/18 08:00 Pulse 66 09/07/18 10:17 Resp 12 09/07/18 08:30 BP 132/75 09/07/18 10:17 Pulse Ox 98 09/07/18 10:15 - Physical Examination General: Other (intubated, agitated ) HEENT: Positive: PERRL, Normocephaly, Mucus Membranes Moist Neck: Positive: neck supple Cardiac: Positive: Reg Rate and Rhythm, S1/S2 Lungs: Positive: Decreased Breath Sounds, Ventilated Respirations Neuro: Positive: Grossly Intact Abdomen: Positive: Soft. Negative: Tender Skin: Negative: Rash Musculoskeletal: No Pain Extremities: Present: +1 Edema (BLE, chronic skin changes) - Labs and Meds Cardiac Enzymes 09/07/18 Range/Units 04:15 AST 64 H (5-40) units/L CBC 09/07/18 Range/Units 04:15 WBC 8.1 (4.5-11.0) K/mm3 RBC 5.00 (3.65-5.03) M/mm3 Hgb 13.8 (11.8-15.2) gm/dl Hct 44.4 (35.5-45.6) % Plt Count 239 (140-440) K/mm3 Comprehensive Metabolic Panel 09/07/18 09/07/18 Range/Units 04:15 04:15 Sodium 145 144 (137-145) mmol/L Potassium 4.2 4.3 (3.6-5.0) mmol/L Chloride 98.8 99.0 (98-107) mmol/L Carbon Dioxide 37 H 36 H (22-30) mmol/L BUN 35 H 35 H (9-20) mg/dL Creatinine 2.1 H 2.1 H (0.8-1.5) mg/dL Glucose 93 94 (75-100) mg/dL Calcium 8.5 8.5 (8.4-10.2) mg/dL AST 64 H (5-40) units/L ALT 30 (7-56) units/L Alkaline Phosphatase 80 (35-129) units/L Total Protein 5.9 L (6.3-8.2) g/dL Albumin 2.6 L (3.9-5) g/dL - Imaging and Cardiology EKG: report reviewed, image reviewed Echo: report reviewed (05/10/2018 showed EF 45-50%, impaired relaxation, RV mildly dilated, RV systolic function mod reduced. ) - EKG Sinus rhythms and dysrhythmias: sinus rhythm - Allied health notes Allied health notes reviewed: nursing
--- NOTE | 2018-09-07 12:06 | Progress Note ---
Assessment and Plan Acute Kidney Injury possibly prerenal/ATN, diuretics, questionable underlying CKD due to HTN, r/o obstruction: - mild rise in cr since yesterday but remains to have good UOP - Lasix was stopped on 09/06/18 - Obtain Renal US - Renally dose meds - Gabriel Catheter: No Acute hypercapnic respiratory failure: History of PAUL: - Intubated in ED on admission - Re-intubated s/p self-extubation on 09/04/18 - As per Pulmonology NSTEMI: Chest pain: Chronic thoracic type B aortic dissection: - Vascular surgery on board - Cardiology on board, recommended CTA chest to assess progression of dissection Hypertensive Urgency: - On Labetalol and nicardipine drip - Adjust meds as needed Acute on chronic heart failure: - Echo Apr 2018 showed EF 45-50% per cardiology note - Cardiology on board Hypothyroidism: - On synthroid Subjective Date of service: 09/07/18 Principal diagnosis: Ac Hypoxemic Hypercapnic Resp Failure; HTNsive Emergency; Type B dissection Interval history: lethargic, no family at bedside Objective - Vital Signs Vital signs: Vital Signs - 12hr 09/07/18 09/07/18 09/07/18 00:15 00:30 00:41 Temperature Pulse Rate 65 Respiratory Rate Blood Pressure 144/65 150/80 150/80 O2 Sat by Pulse Oximetry 09/07/18 09/07/18 09/07/18 01:00 01:15 01:30 Temperature Pulse Rate 65 Respiratory 9 L Rate Blood Pressure 122/48 122/49 133/49 O2 Sat by Pulse 98 Oximetry 09/07/18 09/07/18 09/07/18 01:45 02:00 02:15 Temperature Pulse Rate 69 68 Respiratory 13 5 L Rate Blood Pressure 134/49 134/49 138/51 O2 Sat by Pulse 97 97 Oximetry 09/07/18 09/07/18 09/07/18 02:30 02:45 03:00 Temperature Pulse Rate 68 68 68 Respiratory 10 L 6 L 12 Rate Blood Pressure 138/51 136/58 136/64 O2 Sat by Pulse 98 98 97 Oximetry 09/07/18 09/07/18 09/07/18 03:15 03:30 03:40 Temperature Pulse Rate 68 68 69 Respiratory 9 L 9 L Rate Blood Pressure 119/58 128/56 121/57 O2 Sat by Pulse 96 95 95 Oximetry 09/07/18 09/07/18 09/07/18 03:45 03:50 04:00 Temperature 98.9 F Pulse Rate 69 68 Respiratory 13 9 L Rate Blood Pressure 126/64 121/57 O2 Sat by Pulse 95 95 Oximetry 09/07/18 09/07/18 09/07/18 04:15 04:30 04:45 Temperature Pulse Rate 70 69 73 Respiratory 12 7 L 13 Rate Blood Pressure 138/59 138/59 136/85 O2 Sat by Pulse 95 97 94 Oximetry 09/07/18 09/07/18 09/07/18 05:00 05:16 05:30 Temperature Pulse Rate 71 79 70 Respiratory 15 13 13 Rate Blood Pressure 134/71 136/63 119/58 O2 Sat by Pulse 97 96 Oximetry 09/07/18 09/07/18 09/07/18 05:39 05:45 06:00 Temperature Pulse Rate 72 69 68 Respiratory 11 L 14 Rate Blood Pressure 119/58 116/54 128/59 O2 Sat by Pulse 97 98 Oximetry 09/07/18 09/07/18 09/07/18 06:15 06:30 06:45 Temperature Pulse Rate 70 69 67 Respiratory 20 11 L 15 Rate Blood Pressure 134/65 139/59 132/64 O2 Sat by Pulse 99 99 99 Oximetry 09/07/18 09/07/18 09/07/18 07:00 07:15 07:16 Temperature Pulse Rate 66 65 68 Respiratory 6 L 13 7 L Rate Blood Pressure 136/61 141/61 141/61 O2 Sat by Pulse 97 97 96 Oximetry 09/07/18 09/07/18 09/07/18 07:30 07:46 08:00 Temperature 99.6 F Pulse Rate 68 69 69 Respiratory 12 10 L 13 Rate Blood Pressure 141/61 128/54 121/56 O2 Sat by Pulse 98 96 98 Oximetry 09/07/18 09/07/18 09/07/18 08:15 08:30 08:45 Temperature Pulse Rate 67 66 64 Respiratory 12 12 13 Rate Blood Pressure 123/60 129/62 122/58 O2 Sat by Pulse 97 98 98 Oximetry 09/07/18 09/07/18 09/07/18 09:00 09:15 09:30 Temperature Pulse Rate 67 65 68 Respiratory 13 13 12 Rate Blood Pressure 121/56 130/59 128/60 O2 Sat by Pulse 98 97 98 Oximetry 09/07/18 09/07/18 09/07/18 09:45 10:00 10:15 Temperature Pulse Rate 68 71 70 Respiratory 13 7 L 15 Rate Blood Pressure 128/60 127/72 132/75 O2 Sat by Pulse 98 97 98 Oximetry 09/07/18 09/07/18 09/07/18 10:17 10:30 10:45 Temperature Pulse Rate 66 65 68 Respiratory 14 11 L Rate Blood Pressure 132/75 138/67 148/69 O2 Sat by Pulse 98 98 Oximetry 09/07/18 09/07/18 09/07/18 11:00 11:15 11:25 Temperature Pulse Rate 72 69 68 Respiratory 8 L 9 L Rate Blood Pressure 148/76 145/77 145/77 O2 Sat by Pulse 98 98 Oximetry 09/07/18 11:30 Temperature Pulse Rate 67 Respiratory 11 L Rate Blood Pressure 145/77 O2 Sat by Pulse 98 Oximetry - General Appearance General appearance: well-developed, well-nourished, obese EENT: ATNC, PERRL, mucous membranes moist Neck: no JVD, no carotid bruit Respiratory: Present: Decreased Breath Sounds. Absent: Rales, Ronchi Cardiology: tachycardia Gastrointestinal: normoactive bowel sounds, no tenderness, no distended, obese Integumentary: no rash, warm and dry Neurologic: other (does not follow commands) Musculoskeletal: other (1+ pitting edema in BLE) Psychiatric: other (does not answer questions) - Lab 09/07/18 04:15 09/07/18 04:15 Most recent lab results Calcium 8.5 mg/dL (8.4-10.2) 09/07/18 04:15 Phosphorus 4.60 mg/dL (2.5-4.5) H 09/07/18 04:15 Magnesium 2.10 mg/dL (1.7-2.3) 09/07/18 04:15 Urine Creatinine 70.8 mg/dL (0.1-20.0) H 09/06/18 Unknown Urine Sodium 81 mmol/L 09/06/18 Unknown Urine Total Protein 25 mg/dL (5-11.8) H 09/06/18 Unknown Medications & Allergies - Medications Allergies/Adverse Reactions: Allergies No Known Allergies Allergy (Unverified 10/02/17 17:09) Home Medications: Home Medications Medication Instructions Recorded Confirmed Last Taken Type Aspirin [Aspirin BABY CHEW TAB] 81 mg PO QDAY #30 tab.chew 08/04/18 Unknown Rx Furosemide [Lasix TAB] 40 mg PO BID #60 tablet 08/04/18 Unknown Rx Labetalol [Normodyne TAB] 300 mg PO Q8HR 30 Days tablet 08/04/18 Unknown Rx Levothyroxine [Synthroid] 50 mcg PO DAILY@0600 #30 tablet 08/04/18 Unknown Rx NIFEdipine XL [Procardia Xl] 90 mg PO BID #60 tablet 08/04/18 Unknown Rx Potassium Chloride [K-Dur] 10 meq PO BID #60 tablet 08/04/18 Unknown Rx cloNIDine-TTS PATCH 0.3 mg TRANSDERMA 1XW #4 08/04/18 Unknown Rx Active Medications: Generic Name Dose Route Start Last Admin Trade Name Freq PRN Reason Stop Dose Admin Acetaminophen 650 mg 09/04/18 23:45 09/05/18 00:41 Tylenol PO 650 mg Q6H PRN Administration Pain, Mild (1-3) Albuterol 2.5 mg 09/01/18 18:25 Proventil IH Q3HRT PRN Shortness Of Breath Amlodipine Besylate 10 mg 09/02/18 11:00 09/07/18 10:17 Norvasc PO 10 mg DAILY ELIEL Administration Lipase/Protease/Amylase 1 each 09/03/18 12:10 [place] 10,500 Unit FEEDTUBE PRN PRN For Clogged Feeding Tube Aspirin 81 mg 09/02/18 10:00 09/07/18 10:18 Baby Aspirin PO 81 mg QDAY ELIEL Administration Clonidine HCl 0.3 mg 09/01/18 22:00 09/02/18 03:10 Catapres-Tts Patch TD 0.3 mg Tu ELIEL Administration Enoxaparin Sodium 40 mg 09/04/18 22:00 09/06/18 21:01 Lovenox SUB-Q 40 mg QDAY@2200 EL[facility]EL Administration Famotidine 20 mg 09/03/18 10:00 09/07/18 10:15 Pepcid PO 20 mg BID ELIEL Administration Hydralazine HCl 5 mg 09/03/18 03:10 09/07/18 11:25 Apresoline IV 5 mg Q4H PRN Administration Blood Pressure Hydrophilic Ointment 1 applic 09/01/18 19:56 Vaseline Lip Therapy TP Q2HR PRN Dry Lips Fentanyl Citrate 2,000 mcg in 100 mls @ 12.205 mls/hr 09/02/18 11:00 09/07/18 11:18 Fentanyl Drip Premix IV 2 mcg/kg/hr TITR ELIEL 24.41 mls/hr Administration Protocol 1 MCG/KG/HR Propofol 1,000 mg in 100 mls @ 7.344 mls/hr 09/06/18 11:00 09/06/18 21:30 Diprivan 10 Mg/Ml IV 0 mcg/kg/min TITR ELIEL 0 mls/hr Titration Protocol 5 MCG/KG/MIN Nicardipine HCl 50 mg/ Sodium 250 mls @ 25 mls/hr 09/06/18 11:00 09/07/18 11:58 Chloride IV 5 mg/hr TITR [facility]IEL 25 mls/hr Titration Protocol 5 MG/HR Labetalol HCl 200 mg/ Dextrose 200 mls @ 120 mls/hr 09/06/18 22:00 IV TITR ELIEL Protocol 2 MG/MIN Levothyroxine Sodium 50 mcg 09/02/18 06:00 09/07/18 05:39 Synthroid PO 50 mcg DAILY@0600 ELIEL Administration Metoprolol Tartrate 25 mg 09/05/18 14:00 09/07/18 05:39 Lopressor PO 25 mg Q8H [facility]IEL Administration Midazolam HCl 2 mg 09/04/18 11:19 09/07/18 10:18 Versed IV 09/09/18 11:18 2 mg Q2H PRN Administration Agitation Multi-Ingred Cream/Lotion/Oil/Oint 1 applic 09/01/18 19:56 Artificial Tears Ophth Oint OU Q4HR PRN Dry Eye(s) Quetiapine Fumarate 50 mg 09/05/18 22:00 09/06/18 21:01 Seroquel PO 50 mg QHS ELIEL Administration Simple Syrup 15 ml 09/03/18 12:10 Simple Syrup FEEDTUBE PRN PRN Hypoglycemia Simple Syrup 30 ml 09/03/18 12:10 Simple Syrup FEEDTUBE PRN PRN Hypoglycemia Sodium Bicarbonate 325 mg 09/03/18 12:10 Sodium Bicarbonate FEEDTUBE PRN PRN For Clogged Feeding Tube Sodium Chloride 10 ml 09/01/18 22:00 09/06/18 21:02 Sodium Chloride Flush Syringe 10 Ml IV 10 ml BID ELIEL Administration Sodium Chloride 10 ml 09/01/18 18:25 Sodium Chloride Flush Syringe 10 Ml IV PRN PRN LINE FLUSH
--- NOTE | 2018-09-07 12:30 | Progress Note ---
Assessment and Plan Acute Hypoxemic Hypercapnic Respiratory Failure Hypertensive Emergency H/O Type B Aortic Dissection (No surgery recommended in October 2017) Morbid Obesity PAUL/OHS Acute exacerbation of SYSTOLIC CHF NSTEMI TYPE 2 Diabetes Mellitus - advance ETT 2 cm to 25 cm JANE - continue APRV ventilation (Ph 40, Plow 5, Thigh 4.0s & Tlow 0.5 s) - increase seroquel to spare fentanyl for sedation - stop propofol while on APRV and use fentanyl - resume tube feedings / oral meds - continue scheduled oral Metoprolol to target Pulse approx 60-70/min and target SBP </= 120 mmHg - continue scopolamine for secretions but add Robinul as still moderate secretions - Azotemia worsening and nephrology consulted - await MOMO to evaluate for type A dissection - vascular surgery evaluation ongoing - stopped IV heparin re: risk of chronic dissection extension - continue ACS management otherwise per cardiology - CTA cancelled due to azotemia - change lovenox to bid dosing re: morbid obesity - continue daily SBT evaluation - continue daily SAT's - sedation for target RASS 0 to -1 - continue bronchodilators with pulmonary hygiene per RT - continue to wean oxygen for target O2 Sat's > 89 - 90% - VAP bundle addressed - continue enteral nutrition as tolerated - discontinue dias catheter - get serum Mg & PO4 levels and adjust as necessary - mobility protocol for pressure ulcer prophylaxis - GI & VTE prophylaxis - re-introduce oral anti-hypertensives - glycemic control with SSI for target BG 140 - 180 mg/dL - continue other care per attending / other consultants ...... re-evaluate in am & prn ... care plan discussed with attending The high probability of a clinically significant, sudden or life threatening de terioration of the [Pulmonary,cardiac and Vascular] system(s) required my full and direct attention, intervention and personal management. The aggregate critical care time was [35] minutes. This time is in addition to time spent performing reported procedures but includes the following: [x] Data Review and interpretation [x] Patient assessment and monitoring of vital signs [x] Documentation Subjective Date of service: 09/07/18 Principal diagnosis: Ac Hypoxemic Hypercapnic Resp Failure; HTNsive Emergency; Type B dissection Interval history: Patient is seen today for: Acute Hypoxemic Hypercapnic Respiratory Failure; Hypertensive Emergency; H/O Type B Aortic Dissection (No surgery recommended in October 2017); Morbid Obesity Seen and examined at bedside; 24hour events reviewed; nursing and respiratory care staff consulted; no adverse overnight events reported to me; remains on APRV; oxygenation improved and FiO2 down to 55%; sedated lightly; no emesis or overt aspiration; fentanyl at 2 mics/kg/hr Objective Vital Signs - 12hr 09/07/18 09/07/18 09/07/18 00:30 00:41 01:00 Temperature Pulse Rate 65 65 Respiratory 9 L Rate Blood Pressure 150/80 150/80 122/48 O2 Sat by Pulse 98 Oximetry 09/07/18 09/07/18 09/07/18 01:15 01:30 01:45 Temperature Pulse Rate Respiratory Rate Blood Pressure 122/49 133/49 134/49 O2 Sat by Pulse Oximetry 09/07/18 09/07/18 09/07/18 02:00 02:15 02:30 Temperature Pulse Rate 69 68 68 Respiratory 13 5 L 10 L Rate Blood Pressure 134/49 138/51 138/51 O2 Sat by Pulse 97 97 98 Oximetry 09/07/18 09/07/18 09/07/18 02:45 03:00 03:15 Temperature Pulse Rate 68 68 68 Respiratory 6 L 12 9 L Rate Blood Pressure 136/58 136/64 119/58 O2 Sat by Pulse 98 97 96 Oximetry 09/07/18 09/07/18 09/07/18 03:30 03:40 03:45 Temperature Pulse Rate 68 69 69 Respiratory 9 L 13 Rate Blood Pressure 128/56 121/57 126/64 O2 Sat by Pulse 95 95 95 Oximetry 09/07/18 09/07/18 09/07/18 03:50 04:00 04:15 Temperature 98.9 F Pulse Rate 68 70 Respiratory 9 L 12 Rate Blood Pressure 121/57 138/59 O2 Sat by Pulse 95 95 Oximetry 09/07/18 09/07/18 09/07/18 04:30 04:45 05:00 Temperature Pulse Rate 69 73 71 Respiratory 7 L 13 15 Rate Blood Pressure 138/59 136/85 134/71 O2 Sat by Pulse 97 94 97 Oximetry 09/07/18 09/07/18 09/07/18 05:16 05:30 05:39 Temperature Pulse Rate 79 70 72 Respiratory 13 13 Rate Blood Pressure 136/63 119/58 119/58 O2 Sat by Pulse 96 Oximetry 09/07/18 09/07/18 09/07/18 05:45 06:00 06:15 Temperature Pulse Rate 69 68 70 Respiratory 11 L 14 20 Rate Blood Pressure 116/54 128/59 134/65 O2 Sat by Pulse 97 98 99 Oximetry 09/07/18 09/07/18 09/07/18 06:30 06:45 07:00 Temperature Pulse Rate 69 67 66 Respiratory 11 L 15 6 L Rate Blood Pressure 139/59 132/64 136/61 O2 Sat by Pulse 99 99 97 Oximetry 09/07/18 09/07/18 09/07/18 07:15 07:16 07:30 Temperature Pulse Rate 65 68 68 Respiratory 13 7 L 12 Rate Blood Pressure 141/61 141/61 141/61 O2 Sat by Pulse 97 96 98 Oximetry 09/07/18 09/07/18 09/07/18 07:46 08:00 08:15 Temperature 99.6 F Pulse Rate 69 69 67 Respiratory 10 L 13 12 Rate Blood Pressure 128/54 121/56 123/60 O2 Sat by Pulse 96 98 97 Oximetry 09/07/18 09/07/18 09/07/18 08:30 08:45 09:00 Temperature Pulse Rate 66 64 67 Respiratory 12 13 13 Rate Blood Pressure 129/62 122/58 121/56 O2 Sat by Pulse 98 98 98 Oximetry 09/07/18 09/07/18 09/07/18 09:15 09:30 09:45 Temperature Pulse Rate 65 68 68 Respiratory 13 12 13 Rate Blood Pressure 130/59 128/60 128/60 O2 Sat by Pulse 97 98 98 Oximetry 09/07/18 09/07/18 09/07/18 10:00 10:15 10:17 Temperature Pulse Rate 71 70 66 Respiratory 7 L 15 Rate Blood Pressure 127/72 132/75 132/75 O2 Sat by Pulse 97 98 Oximetry 09/07/18 09/07/18 09/07/18 10:30 10:45 11:00 Temperature Pulse Rate 65 68 72 Respiratory 14 11 L 8 L Rate Blood Pressure 138/67 148/69 148/76 O2 Sat by Pulse 98 98 98 Oximetry 09/07/18 09/07/18 09/07/18 11:15 11:25 11:30 Temperature Pulse Rate 69 68 67 Respiratory 9 L 11 L Rate Blood Pressure 145/77 145/77 145/77 O2 Sat by Pulse 98 98 Oximetry 09/07/18 12:00 Temperature Pulse Rate 72 Respiratory 13 Rate Blood Pressure 143/78 O2 Sat by Pulse 98 Oximetry Constitutional: appears uncomfortable, other (young morbidly obese AAM, normocephalic and atraumatic on MVS) Eyes: non-icteric ENT: oropharynx moist, oropharyngeal exudate pre, other (ETT 23 cm JANE) Neck: supple, no lymphadenopathy, no JVD, other (large neck circumference) Effort: mildly labored Ascultation: Bilateral: diminished breath sounds, rhonchi (bases) Percussion: Bilateral: not dull Cardiovascular: regular rate and rhythm, other (No R/M) Gastrointestinal: normoactive bowel sounds, soft, non-tender, other (protuberant) Integumentary: rash Extremities: no cyanosis, pulses normal, no ischemia or petechiae, edema Neurologic: normal mental status, non-focal exam (grossly), pupils equal and round, motor strength normal and Psychiatric: mood appropriate, affect normal, other CBC and BMP: 09/07/18 04:15 09/07/18 04:15 ABG, PT/INR, D-dimer: ABG POC ABG pH 7.317 (7.35-7.45) L 09/07/18 10:10 POC ABG pCO2 76.6 (35-45) H 09/07/18 10:10 POC ABG pO2 118 (80-105) H 09/07/18 10:10 POC ABG HCO3 39.2 09/07/18 10:10 POC ABG Total CO2 41 09/07/18 10:10 POC ABG O2 Sat 98 09/07/18 10:10 PT/INR, D-dimer PT 15.1 Sec. (12.2-14.9) H 09/01/18 21:20 INR 1.15 (0.87-1.13) H 09/01/18 21:20 D-Dimer 869.27 ng/mlDDU (0-234) H 09/01/18 15:15 Abnormal lab findings: Abnormal Labs 09/01/18 09/01/18 09/01/18 15:15 15:15 15:15 RBC 5.37 H Hgb Hct 47.8 H MCH 27 L MCHC 31 L RDW 17.1 H Lymph % (Auto) [place] % (Auto) 11.0 H Lymph # 1.0 L [place] # Seg Neutrophils % 70.2 H PT 15.0 H INR 1.14 H D-Dimer Heparin Anti-Xa Level POC ABG pH POC ABG pCO2 POC ABG pO2 Sodium Potassium Chloride Carbon Dioxide 39 H BUN 21 H Creatinine Glucose 106 H POC Glucose Calcium Phosphorus Total Bilirubin AST Troponin T 0.125 H* NT-Pro-B Natriuret Pep Total Protein Albumin HDL Cholesterol 33 L PTH Intact Urine WBC (Auto) Urine Creatinine Urine Total Protein 09/01/18 09/01/18 09/01/18 15:15 15:15 15:28 RBC Hgb Hct MCH MCHC RDW Lymph % (Auto) [place] % (Auto) Lymph # [place] # Seg Neutrophils % PT INR D-Dimer 869.27 H Heparin Anti-Xa Level POC ABG pH 7.235 L POC ABG pCO2 89.8 H POC ABG pO2 Sodium Potassium Chloride Carbon Dioxide BUN Creatinine Glucose POC Glucose Calcium Phosphorus Total Bilirubin AST Troponin T NT-Pro-B Natriuret Pep 1764 H Total Protein Albumin HDL Cholesterol PTH Intact Urine WBC (Auto) Urine Creatinine Urine Total Protein 09/01/18 09/01/18 09/01/18 17:45 19:28 21:20 RBC Hgb Hct MCH MCHC RDW Lymph % (Auto) [place] % (Auto) Lymph # [place] # Seg Neutrophils % PT INR D-Dimer Heparin Anti-Xa Level POC ABG pH 7.175 L POC ABG pCO2 105.5 H POC ABG pO2 111 H Sodium Potassium Chloride Carbon Dioxide BUN Creatinine Glucose POC Glucose Calcium Phosphorus Total Bilirubin AST Troponin T 0.130 H* 0.132 H* NT-Pro-B Natriuret Pep Total Protein Albumin HDL Cholesterol PTH Intact Urine WBC (Auto) Urine Creatinine Urine Total Protein 09/01/18 09/01/18 09/01/18 21:20 21:20 23:29 RBC Hgb Hct 46.4 H MCH MCHC RDW Lymph % (Auto) [place] % (Auto) Lymph # [place] # Seg Neutrophils % PT 15.1 H INR 1.15 H D-Dimer Heparin Anti-Xa Level POC ABG pH 7.349 L POC ABG pCO2 76.4 H POC ABG pO2 35 L Sodium Potassium Chloride Carbon Dioxide BUN Creatinine Glucose POC Glucose Calcium Phosphorus Total Bilirubin AST Troponin T NT-Pro-B Natriuret Pep Total Protein Albumin HDL Cholesterol PTH Intact Urine WBC (Auto) Urine Creatinine Urine Total Protein 09/01/18 09/02/18 09/02/18 23:34 04:18 04:35 RBC 5.67 H Hgb 15.8 H Hct 50.6 H MCH MCHC 31 L RDW 17.9 H Lymph % (Auto) 12.2 L [place] % (Auto) 12.6 H Lymph # 1.0 L [place] # 1.0 H Seg Neutrophils % 73.5 H PT INR D-Dimer Heparin Anti-Xa Level POC ABG pH 7.294 L POC ABG pCO2 77.7 H 62.2 H POC ABG pO2 235 H Sodium Potassium Chloride Carbon Dioxide BUN Creatinine Glucose POC Glucose Calcium Phosphorus Total Bilirubin AST Troponin T NT-Pro-B Natriuret Pep Total Protein Albumin HDL Cholesterol PTH Intact Urine WBC (Auto) Urine Creatinine Urine Total Protein 09/02/18 09/02/18 09/02/18 04:35 08:16 08:16 RBC 5.68 H Hgb 15.4 H Hct 49.9 H MCH 27 L MCHC 31 L RDW 18.1 H Lymph % (Auto) [place] % (Auto) 12.7 H Lymph # 1.1 L [place] # 1.0 H Seg Neutrophils % 71.9 H PT INR D-Dimer Heparin Anti-Xa Level POC ABG pH POC ABG pCO2 POC ABG pO2 Sodium Potassium Chloride 97.7 L Carbon Dioxide 36 H 35 H BUN 21 H 21 H Creatinine Glucose 69 L POC Glucose Calcium Phosphorus Total Bilirubin 1.60 H AST 43 H Troponin T NT-Pro-B Natriuret Pep Total Protein 6.2 L Albumin 2.8 L HDL Cholesterol PTH Intact Urine WBC (Auto) Urine Creatinine Urine Total Protein 09/02/18 09/02/18 09/02/18 10:24 14:29 17:46 RBC Hgb Hct MCH MCHC RDW Lymph % (Auto) [place] % (Auto) Lymph # [place] # Seg Neutrophils % PT INR D-Dimer Heparin Anti-Xa Level < 0.10 L < 0.10 L POC ABG pH POC ABG pCO2 POC ABG pO2 Sodium Potassium Chloride Carbon Dioxide BUN Creatinine Glucose POC Glucose 69 L Calcium Phosphorus Total Bilirubin AST Troponin T NT-Pro-B Natriuret Pep Total Protein Albumin HDL Cholesterol PTH Intact Urine WBC (Auto) Urine Creatinine Urine Total Protein 09/03/18 09/03/18 09/03/18 03:20 03:20 05:48 RBC 5.57 H Hgb 15.5 H Hct 48.7 H MCH MCHC RDW 18.0 H Lymph % (Auto) [place] % (Auto) Lymph # [place] # Seg Neutrophils % PT INR D-Dimer Heparin Anti-Xa Level POC ABG pH POC ABG pCO2 62.0 H POC ABG pO2 Sodium Potassium 5.1 H D Chloride 97.2 L Carbon Dioxide 33 H BUN Creatinine Glucose 62 L POC Glucose Calcium Phosphorus Total Bilirubin AST Troponin T NT-Pro-B Natriuret Pep Total Protein Albumin HDL Cholesterol PTH Intact Urine WBC (Auto) Urine Creatinine Urine Total Protein 09/03/18 09/04/18 09/04/18 17:10 00:05 01:44 RBC Hgb Hct MCH MCHC RDW Lymph % (Auto) [place] % (Auto) Lymph # [place] # Seg Neutrophils % PT INR D-Dimer Heparin Anti-Xa Level 0.26 L POC ABG pH 7.304 L POC ABG pCO2 82.5 H POC ABG pO2 Sodium Potassium Chloride Carbon Dioxide BUN Creatinine Glucose POC Glucose Calcium Phosphorus Total Bilirubin AST Troponin T NT-Pro-B Natriuret Pep Total Protein Albumin HDL Cholesterol PTH Intact Urine WBC (Auto) 12.0 H Urine Creatinine Urine Total Protein 09/04/18 09/04/18 09/04/18 03:12 03:12 05:37 RBC 5.30 H Hgb Hct 47.1 H MCH 27 L MCHC 31 L RDW 18.3 H Lymph % (Auto) [place] % (Auto) Lymph # [place] # Seg Neutrophils % PT INR D-Dimer Heparin Anti-Xa Level POC ABG pH POC ABG pCO2 POC ABG pO2 Sodium Potassium Chloride Carbon Dioxide 32 H BUN 22 H Creatinine 1.6 H Glucose POC Glucose 115 H Calcium 8.1 L Phosphorus Total Bilirubin 1.90 H AST 72 H Troponin T NT-Pro-B Natriuret Pep Total Protein 6.0 L Albumin 2.3 L HDL Cholesterol PTH Intact Urine WBC (Auto) Urine Creatinine Urine Total Protein 09/04/18 09/04/18 09/05/18 05:48 11:31 04:00 RBC 5.16 H Hgb Hct MCH 27 L MCHC 31 L RDW 17.6 H Lymph % (Auto) [place] % (Auto) Lymph # [place] # Seg Neutrophils % PT INR D-Dimer Heparin Anti-Xa Level POC ABG pH 7.273 L 7.326 L POC ABG pCO2 89.9 H 70.4 H POC ABG pO2 78 L 155 H Sodium Potassium Chloride Carbon Dioxide BUN Creatinine Glucose POC Glucose Calcium Phosphorus Total Bilirubin AST Troponin T NT-Pro-B Natriuret Pep Total Protein Albumin HDL Cholesterol PTH Intact Urine WBC (Auto) Urine Creatinine Urine Total Protein 09/05/18 09/05/18 09/06/18 04:00 05:31 03:28 RBC Hgb Hct MCH MCHC RDW Lymph % (Auto) [place] % (Auto) Lymph # [place] # Seg Neutrophils % PT INR D-Dimer Heparin Anti-Xa Level POC ABG pH POC ABG pCO2 57.0 H 65.0 H POC ABG pO2 Sodium 146 H Potassium Chloride Carbon Dioxide 33 H BUN 27 H Creatinine 1.7 H Glucose 60 L POC Glucose Calcium Phosphorus Total Bilirubin AST Troponin T NT-Pro-B Natriuret Pep Total Protein Albumin HDL Cholesterol PTH Intact Urine WBC (Auto) Urine Creatinine Urine Total Protein 09/06/18 09/06/18 09/06/18 08:44 17:08 20:20 RBC Hgb Hct MCH [facility] RDW Lymph % (Auto) [place] % (Auto) Lymph # [place] # Seg Neutrophils % PT INR D-Dimer Heparin Anti-Xa Level POC ABG pH 7.497 H POC ABG pCO2 52.6 H 46.1 H POC ABG pO2 47 L 54 L Sodium Potassium Chloride 60.0 L Carbon Dioxide 32 H BUN 31 H Creatinine 1.9 H Glucose 199 H POC Glucose Calcium 7.9 L Phosphorus Total Bilirubin AST 63 H Troponin T NT-Pro-B Natriuret Pep Total Protein 5.9 L Albumin 2.3 L HDL Cholesterol PTH Intact Urine WBC (Auto) Urine Creatinine Urine Total Protein 09/06/18 09/06/18 09/06/18 23:32 Unknown Unknown RBC Hgb Hct MCH MCHC RDW Lymph % (Auto) [place] % (Auto) Lymph # [place] # Seg Neutrophils % PT INR D-Dimer Heparin Anti-Xa Level POC ABG pH 7.323 L POC ABG pCO2 72.2 H POC ABG pO2 Sodium Potassium Chloride Carbon Dioxide BUN Creatinine Glucose POC Glucose Calcium Phosphorus Total Bilirubin AST Troponin T NT-Pro-B Natriuret Pep Total Protein Albumin HDL Cholesterol PTH Intact Urine WBC (Auto) Urine Creatinine 70.7 H 70.8 H Urine Total Protein 25 H 09/07/18 09/07/18 09/07/18 04:15 04:15 04:15 RBC Hgb Hct MCH MCHC 31 L RDW 17.6 H Lymph % (Auto) [place] % (Auto) Lymph # [place] # Seg Neutrophils % PT INR D-Dimer Heparin Anti-Xa Level POC ABG pH POC ABG pCO2 POC ABG pO2 Sodium Potassium Chloride Carbon Dioxide 37 H 36 H BUN 35 H 35 H Creatinine 2.1 H 2.1 H Glucose POC Glucose Calcium Phosphorus 4.60 H Total Bilirubin 2.80 H AST 64 H Troponin T NT-Pro-B Natriuret Pep Total Protein 5.9 L Albumin 2.6 L HDL Cholesterol PTH Intact Urine WBC (Auto) Urine Creatinine Urine Total Protein 09/07/18 09/07/18 09/07/18 04:15 10:10 11:59 RBC Hgb Hct MCH MCHC RDW Lymph % (Auto) [place] % (Auto) Lymph # [place] # Seg Neutrophils % PT INR D-Dimer Heparin Anti-Xa Level POC ABG pH 7.317 L POC ABG pCO2 76.6 H POC ABG pO2 118 H Sodium Potassium Chloride Carbon Dioxide BUN Creatinine Glucose POC Glucose 68 L Calcium Phosphorus Total Bilirubin AST Troponin T NT-Pro-B Natriuret Pep Total Protein Albumin HDL Cholesterol PTH Intact 100.4 H Urine WBC (Auto) Urine Creatinine Urine Total Protein Chest x-ray: image reviewed (ETT riding high, clear lung de [place] otherwise ) Allied health notes reviewed: nursing
[2018-09-07] MEDS: LOVENOX SUB-Q SCH (14:48)
[2018-09-07] MEDS: ROBINUL PO SCH (14:48)
[2018-09-07] MEDS: TRANSDERM-SCOP TD SCH (14:49)
[2018-09-07] MEDS: REGLAN IV SCH ×2 (15:08→23:44)
--- NOTE | 2018-09-07 15:50 | Vascular Lab Report ---
FINAL REPORT EXAM: VL CAROTID DUPLEX BILAT HISTORY: assess 4 common carotid dissection as prox as possib TECHNIQUE: Carotid ultrasound. Degree of carotid stenosis calculated by indirect methods via the pea k systolic velocities of the ICA and CCA and reference with the society of Radiologist and Ultras[employer] consensus conference radiology 2003. PRIORS: None currently available. FINDINGS: RIGHT CCA, ICA, and ECA (cm/s): 112, 117, and 106. Ratio = 1.04. LEFT CCA, ICA, and ECA (cm/s): 136, 91, and 80. Ratio = 0.67. No evidence for dissection of the common carotids. Both vertebral arteries demonstrate antegrade flow. Normal spectral rhythm is identified. IMPRESSION: No hemodynamically significant (>50%) stenosis noted based on the ratios, velocities, and color Do ppler images.
--- NOTE | 2018-09-07 15:56 | Vascular Lab Report ---
FINAL REPORT EXAM: VL ARTERIAL DUPLEX UE BILAT HISTORY: assess for subclavian dissection as prox as possib TECHNIQUE: Hogan scale, color and pulsed Doppler ultrasound with color flow and spectral analysis obey luation of both upper extremities arteries were performed. PRIORS: None currently available. FINDINGS: RIGHT EXTREMITY: Subclavian artery, axillary artery, brachial artery, radial artery, and ulnar artery velocities in cm /sec: 90, 95, 111, 92, and 108. Triphasic flow throughout. No evidence for dissection. LEFT EXTREMITY: Subclavian artery, axillary artery, brachial artery, radial artery, and ulnar artery velocities in cm /sec: 176, 80, 117, 128, and 115. Triphasic and biphasic flow throughout. No evidence for dissection. IMPRESSION: No hemodynamically significant stenosis. No ultrasound evidence for dissection.
--- NOTE | 2018-09-07 16:59 | Progress Note ---
Assessment and Plan Assessment and plan: 28 YO Male with MO, CHF, Obesity Hypoventilation, Chronic AORTIC DISSECTION, HTN, Hypothyrodism, Lymphedema presents to ED for evaluation. Pt states that he has experienced shortness of breath over the past three days with persistent symptoms over the same time frame. Pt acknowledges Orthopnea/PND, Decreased exercise tolerance, Dypsnea on exertion. Pt denies fever, chills, CP, Palpitations, NVD, Trauma, Productive cough or recent ill contacts. Pt denies back pain, or chest pain that radiates to his back. Pt transported to [facility] for further care and evaluation. Pt seen and evaluated in ED and found to have Hypercapnic Respiratory Failure, CHF. Pt initiated on NIPPV without improvement. Pt intubated and placed on vent support in ED. Pt admitted to ICU and placed on heparin drip protocol. Cardiology and Pulmonary teams consulted in ED. * During this admission had a code blue secondary to self extubation. He did not have any loss of Pulse but was bradycardia requiring one atropin and one epinephrine. The patient was intubated again by the help of the ED physician. Mother who is at the bedside was updated * Patient has been on BB and cardene to get stabilization of BP * MOMO is still pending * CTA CHEST TO ASSESS PROGRESSION PENDING- SHAWNA precluding * Nephrology consulted for SHAWNA * Vascular was consulted and recommended labetalol drip, this was unsuccessful in maintain the BP (1) Respiratory failure with hypoxia and hypercapnia Current Visit: Yes Status: Acute Qualifiers: Chronicity: acute Qualified Code(s): J96.01 - Acute respiratory failure with hypoxia; J96.02 - Acute respiratory failure with hypercapnia Plan to address problem: Continue with ICU. Pt intubated placed on vent support. CTA chest pending, now with shawna, will repeat when patient is more stable and renal function improved. Initiated on heparin drip protocol, ABG, wean vent as tolerated, (2) Hypertensive Urgency: LABETALOL DRIP RECOMMENDED BY VASCULAR. UPTITRATE ORAL MEDS, GOAL SBP 120 OR LESS. add cardene drip. Discussed importance of this management with nursing staff. (3) Acute exacerbation of SYSTOLIC CHF (congestive heart failure) Current Visit: Yes Status: Chronic Qualifiers: Heart failure type: unspecified Qualified Code(s): I50.9 - Heart failure, unspecified Plan to address problem: Cardiology consulted in ED, diuresis, Strict I/O, daily weight, afterload reduction, blood pressure control, monitor uop q shift, chest x ray. (4) NSTEMI TYPE 2: Cardiology following. PATIENT WITH KNOWN HX OF DISSECTION. IMAGING STUDIES PENDING. (5) Diabetes Mellitus: Hypoglycemia. Persist. Start patient on D5NS. (6) Obesity hypoventilation syndrome Current Visit: Yes Status: Acute Plan to address problem: Supplemental oxygen, nebulizer therapy, supportive care, pulmonary consulted (7) Tranaminitis- Monitor (8) Morbid Obesity but with Moderate Protein calorie Malnutrition- Started on Tube feeds (9) SHAWNA secondary to vasomotor nephropathy Hold lasix today Renal consult. DVT prophylaxis Current Visit: Yes Status: Acute Plan to address problem: SCD to BLE while in bed. The high probability of a clinically significant, sudden or life threatening deterioration of the [Pulmonary,cardiac,neuro] system(s) required my full and direct attention, intervention and personal management. The aggregate critical care time was [35] minutes. This time is in addition to time spent performing reported procedures but includes the following: [x] Data Review and interpretation [x] Patient assessment and monitoring of vital signs [x] Documentation [x] Medication orders and management History Interval history: Patient seen and examined, No new complaints. remains on mechanical ventilation. Hospitalist Physical - Physical exam Narrative exam: General appearance: Present: Sedated and on mechanical ventilation - EENT Eyes: Present: PERRL ENT: hearing intact, clear oral mucosa - Neck Neck: Present: supple, normal ROM - Respiratory Respiratory: bilateral: diminished, rhonchi - Cardiovascular Heart Sounds: Present: S1 & S2. Absent: rub, click - Extremities Extremities: pulses symmetrical Extremity abnormal: edema Peripheral Pulses: within normal limits - Abdominal General gastrointestinal: Present: soft, non-tender, non-distended, normal bowel sounds Male genitourinary: Present: normal - Integumentary Integumentary: Present: clear, warm, dry - Musculoskeletal Musculoskeletal: generalized weakness - Psychiatric Psychiatric: unable to assess - Neurologic Neurologic: CNII-XII intact, moves all extremities - Constitutional Vitals: Temp Pulse Resp BP Pulse Ox 99.9 F H 69 13 119/55 97 09/07/18 14:49 09/07/18 16:45 09/07/18 16:45 09/07/18 16:45 09/07/18 16:45 General appearance: Present: no acute distress Results - Labs CBC & Chem 7: 09/07/18 04:15 09/07/18 04:15 Labs: Laboratory Last Values WBC 8.1 K/mm3 (4.5-11.0) 09/07/18 04:15 RBC 5.00 M/mm3 (3.65-5.03) 09/07/18 04:15 Hgb 13.8 gm/dl (11.8-15.2) 09/07/18 04:15 Hct 44.4 % (35.5-45.6) 09/07/18 04:15 MCV 89 fl (84-94) 09/07/18 04:15 MCH 28 pg (28-32) 09/07/18 04:15 MCHC 31 % (32-34) L 09/07/18 04:15 RDW 17.6 % (13.2-15.2) H 09/07/18 04:15 Plt Count 239 K/mm3 (140-440) 09/07/18 04:15 Lymph % (Auto) 13.8 % (13.4-35.0) 09/02/18 08:16 [place] % (Auto) 12.7 % (0.0-7.3) H 09/02/18 08:16 Eos % (Auto) 0.9 % (0.0-4.3) 09/02/18 08:16 Baso % (Auto) 0.7 % (0.0-1.8) 09/02/18 08:16 Lymph # 1.1 K/mm3 (1.2-5.4) L 09/02/18 08:16 [place] # 1.0 K/mm3 (0.0-0.8) H 09/02/18 08:16 Eos # 0.1 K/mm3 (0.0-0.4) 09/02/18 08:16 Baso # 0.1 K/mm3 (0.0-0.1) 09/02/18 08:16 Seg Neutrophils % 71.9 % (40.0-70.0) H 09/02/18 08:16 Seg Neutrophils # 5.6 K/mm3 (1.8-7.7) 09/02/18 08:16 PT 15.1 Sec. (12.2-14.9) H 09/01/18 21:20 INR 1.15 (0.87-1.13) H 09/01/18 21:20 APTT 30.2 Sec. (24.2-36.6) 09/01/18 21:20 D-Dimer 869.27 ng/mlDDU (0-234) H 09/01/18 15:15 Heparin Anti-Xa Level 0.26 U.I./ml (0.3-0.7) L 09/04/18 01:44 POC ABG pH 7.317 (7.35-7.45) L 09/07/18 10:10 POC ABG pCO2 76.6 (35-45) H 09/07/18 10:10 POC ABG pO2 118 (80-105) H 09/07/18 10:10 POC ABG HCO3 39.2 09/07/18 10:10 POC ABG Total CO2 41 09/07/18 10:10 POC ABG O2 Sat 98 09/07/18 10:10 POC ABG Base Excess 13 09/07/18 10:10 FiO2 60 % 09/07/18 10:10 Sodium 144 mmol/L (137-145) 09/07/18 04:15 Potassium 4.3 mmol/L (3.6-5.0) 09/07/18 04:15 Chloride 99.0 mmol/L (98-107) 09/07/18 04:15 Carbon Dioxide 36 mmol/L (22-30) H 09/07/18 04:15 Anion Gap 13 mmol/L 09/07/18 04:15 BUN 35 mg/dL (9-20) H 09/07/18 04:15 Creatinine 2.1 mg/dL (0.8-1.5) H 09/07/18 04:15 Estimated GFR 45 ml/min 09/07/18 04:15 BUN/Creatinine Ratio 17 % 09/07/18 04:15 Glucose 94 mg/dL (75-100) 09/07/18 04:15 POC Glucose 68 (70-105) L 09/07/18 11:59 Calcium 8.5 mg/dL (8.4-10.2) 09/07/18 04:15 Phosphorus 4.60 mg/dL (2.5-4.5) H 09/07/18 04:15 Magnesium 2.10 mg/dL (1.7-2.3) 09/07/18 04:15 Total Bilirubin 2.80 mg/dL (0.1-1.2) H 09/07/18 04:15 AST 64 units/L (5-40) H 09/07/18 04:15 ALT 30 units/L (7-56) 09/07/18 04:15 Alkaline Phosphatase 80 units/L (35-129) 09/07/18 04:15 Troponin T 0.132 ng/mL (0.00-0.029) H* 09/01/18 21:20 NT-Pro-B Natriuret Pep 1764 pg/mL (0-450) H 09/01/18 15:15 Total Protein 5.9 g/dL (6.3-8.2) L 09/07/18 04:15 Albumin 2.6 g/dL (3.9-5) L 09/07/18 04:15 Albumin/Globulin Ratio 0.8 % 09/07/18 04:15 Triglycerides 68 mg/dL (2-149) 09/04/18 03:12 Cholesterol 93 mg/dL (50-199) 09/01/18 15:15 LDL Cholesterol Direct 62 mg/dL (50-130) 09/01/18 15:15 HDL Cholesterol 33 mg/dL (40-59) L 09/01/18 15:15 Cholesterol/HDL Ratio 2.81 % 09/01/18 15:15 PTH Intact 100.4 pg/mL (15-65) H 09/07/18 04:15 Urine Color Jennifer (Yellow) 09/04/18 00:05 Urine Turbidity Clear (Clear) 09/04/18 00:05 Urine pH 5.0 (5.0-7.0) 09/04/18 00:05 Ur Specific [place] 1.010 (1.003-1.030) 09/04/18 00:05 Urine Protein 30 mg/dl mg/dL (Negative) 09/04/18 00:05 Urine Glucose (UA) Neg mg/dL (Negative) 09/04/18 00:05 Urine Ketones Neg mg/dL (Negative) 09/04/18 00:05 Urine Blood Neg (Negative) 09/04/18 00:05 Urine Nitrite Neg (Negative) 09/04/18 00:05 Urine Bilirubin Neg (Negative) 09/04/18 00:05 Urine Urobilinogen 4.0 mg/dL (<2.0) 09/04/18 00:05 Ur Leukocyte Esterase Neg (Negative) 09/04/18 00:05 Urine WBC (Auto) 12.0 /HPF (0.0-6.0) H 09/04/18 00:05 Urine RBC (Auto) 10.0 /HPF (0.0-6.0) 09/04/18 00:05 U Epithel Cells (Auto) 1.0 /HPF (0-13.0) 09/04/18 00:05 Hyaline Casts 7 /LPF 09/04/18 00:05 Urine Mucus Few /HPF 09/04/18 00:05 Urine Sperm 2+ /HPF (REFERENCE INVESTIGATOR) 09/04/18 00:05 Urine Creatinine 70.8 mg/dL (0.1-20.0) H 09/06/18 Unknown Urine Microalbumin 8.4 mg/dL (0.1-34.0) 09/06/18 Unknown Microalb/Creat Ratio 118.6 ug/mg 09/06/18 Unknown Urine Sodium 81 mmol/L 09/06/18 Unknown Urine Urea Nitrogen 442 09/06/18 Unknown Urine Total Protein 25 mg/dL (5-11.8) H 09/06/18 Unknown Nutrition/Malnutrition Assess - Dietary Evaluation Nutrition/Malnutrition Findings: Nutrition Notes Start: 09/02/18 15:06 Freq: Status: Active Protocol: Document 09/07/18 13:20 [facility] (Rec: 09/07/18 13:35 [facility] SRW- [id number]) Nutrition Notes Initial or Follow up Reassessment Current Diagnosis Acute Kidney Injury COPD Hypertension Heart Failure Respiratory Failure Other Pertinent Diagnosis Chronic aortic dissection Current Diet TF - Vital High Protein at 75ml/hr Labs/Tests CO2 - 36 BUN 35 Cr 2.1 Phos 4.6 PTH 100.4 Pertinent Medications Labetalol gtt, Cardene gtt Height 5 ft 9 in Weight 244.8 kg Brooks Body Weight (kg) 72.72 BMI 79.6 Subjective/Other Information TF turned off sec to pt vomiting. He remains on vent support. Nephrology following pt. Pt may need a renal TF formula. Burn Absent Trauma Absent #1 Nutrition Diagnosis Inadequate oral intake Diagnosis Progress(for reassessment Continues documentation) Is patient on ventilator? Yes Is Patient Ambulatory and/or Out of Bed No REE-([place]-[facility] [facility]-confined to bed) 4077.996 Additional Notes Energy needs 60-70% of REE: 0379-2091 kcal/day Pro needs 2.5g/kg IBW: 182g/ day Fluid needs per MD Nutrition Intervention Nutrition Support: Resume TF when medically feasible; may need a renal formula. Goal #1 Resume TF to meet nutrient needs Follow-Up By: 09/08/18 Additional Comments F/U: TF restart; need for renal formula
--- NOTE | 2018-09-07 20:20 | Ultrasound Report ---
FINAL REPORT EXAM: US RENAL BILAT HISTORY: SHAWNA TECHNIQUE: Real-time sonography was performed of the kidneys and bladder and images are submitted fo r interpretation. PRIORS: CT scan from 05/09/2018 FINDINGS: The kidneys appear normal in size, shape and echogenicity. The right kidney measures 12.5 x 7.3 x 7.6 cm and the left measures 12.0 x 9.0 x 6.1 cm. There is no hydronephrosis. There are no focal renal l esions. The bladder appears normal. IMPRESSION: Normal kidney and bladder ultrasound.
--- NOTE | 2018-09-08 02:34 | XRay Report ---
FINAL REPORT PROCEDURE: XR CHEST 1V AP TECHNIQUE: Chest radiograph anteroposterior view. CPT 78748 HISTORY: follow up respiratory failure COMPARISON: 09/06/2018 FINDINGS: Heart: Heart is enlarged Mediastinum/Vessels: Normal. Lungs/Pleural space: Lungs are expanded. There are no infiltrates, effusions or pneumothoraces.. Prev iously noted infiltrates have resolved. Bony thorax: No acute osseous abnormality. Life support devices: Endotracheal tube is the mid trachea. The NG tube is in the stomach. There is r ight-sided PICC line. The tip is in the superior vena cava.. IMPRESSION: Heart is enlarged Lungs are expanded. There are no infiltrates, effusions or pneumothoraces.. Previously noted infiltra jl have resolved. Endotracheal tube is the mid trachea. The NG tube is in the stomach. There is right-sided PICC line. The tip is in the superior vena cava.. .
[2018-09-08 06:00] LABS: Calcium 8.7 mg/dL (8.4-10.2)
[2018-09-08] MEDS: ROBINUL PO SCH ×4 (06:38→21:54)
[2018-09-08] MEDS: REGLAN IV SCH ×3 (06:38→17:26)
[2018-09-08] MEDS: SYNTHROID PO SCH (06:38)
[2018-09-08] MEDS: PEPCID PO SCH ×3 (06:39→21:54)
[2018-09-08] MEDS: LOVENOX SUB-Q SCH ×2 (06:40→09:28)
[2018-09-08] MEDS: LOPRESSOR PO SCH ×3 (06:40→13:37)
[2018-09-08] MEDS: SODIUM CHLORIDE FLUSH SYRINGE 10 ML IV SCH ×2 (07:31→09:31)
[2018-09-08] MEDS: CARDENE 50 MG in NACL 0.9% 250ML 230 ML IV SCH ×2 (09:17→16:53)
[2018-09-08] MEDS: NORVASC PO SCH (09:29)
[2018-09-08] MEDS: BABY ASPIRIN PO SCH (09:31)
--- NOTE | 2018-09-08 11:12 | Progress Note ---
Assessment and Plan Acute Kidney Injury possibly prerenal/ATN, diuretics, questionable underlying CKD due to HTN, r/o obstruction: -Cr cont to rise, will start gentle IVF NS 75 cc/h, will also check urine eos - Lasix was stopped on 09/06/18 - renal US negative for obstruction - Renally dose meds - Gabriel Catheter: No Acute hypercapnic respiratory failure: History of PAUL: - Intubated in ED on admission - Re-intubated s/p self-extubation on 09/04/18 - As per Pulmonology NSTEMI: Chest pain: Chronic thoracic type B aortic dissection: - Vascular surgery on board - Cardiology on board, recommended CTA chest to assess progression of dissection Hypertensive Urgency: - On Labetalol and nicardipine drip - Adjust meds as needed Acute on chronic heart failure: - Echo Apr 2018 showed EF 45-50% per cardiology note - Cardiology on board Hypothyroidism: - On synthroid Subjective Date of service: 09/08/18 Principal diagnosis: Ac Hypoxemic Hypercapnic Resp Failure; HTNsive Emergency; Type B dissection Interval history: intubated and sedated, mother at bedside, all questions answered Objective - Vital Signs Vital signs: Vital Signs - 12hr 09/07/18 09/07/18 09/07/18 23:15 23:18 23:20 Temperature 99.2 F 100 F H Pulse Rate 71 Pulse Rate [ From Monitor] Respiratory 16 Rate Blood Pressure 121/61 O2 Sat by Pulse 98 Oximetry 09/07/18 09/07/18 09/07/18 23:21 23:30 23:45 Temperature Pulse Rate 70 62 64 Pulse Rate [ From Monitor] Respiratory 13 14 Rate Blood Pressure 138/58 127/59 130/61 O2 Sat by Pulse 98 97 97 Oximetry 09/08/18 09/08/18 09/08/18 00:00 00:15 00:30 Temperature Pulse Rate 63 60 61 Pulse Rate [ 63 From Monitor] Respiratory 13 13 13 Rate Blood Pressure 127/59 130/58 130/58 O2 Sat by Pulse 97 97 97 Oximetry 09/08/18 09/08/18 09/08/18 00:45 01:00 01:15 Temperature Pulse Rate 61 60 62 Pulse Rate [ From Monitor] Respiratory 13 13 13 Rate Blood Pressure 135/63 135/63 139/64 O2 Sat by Pulse 98 98 97 Oximetry 09/08/18 09/08/1809/08/19 01:30 01:45 02:00 Temperature Pulse Rate 60 62 63 Pulse Rate [ From Monitor] Respiratory 13 9 L 13 Rate Blood Pressure 144/64 143/65 143/65 O2 Sat by Pulse 98 98 98 Oximetry 09/08/18 09/08/18 09/08/18 02:15 02:30 02:45 Temperature Pulse Rate 61 60 60 Pulse Rate [ From Monitor] Respiratory 13 13 13 Rate Blood Pressure 133/67 139/65 140/65 O2 Sat by Pulse 97 97 97 Oximetry 09/08/18 09/08/18 09/08/18 03:00 03:15 03:30 Temperature Pulse Rate 63 59 L 61 Pulse Rate [ From Monitor] Respiratory 13 13 13 Rate Blood Pressure 140/65 142/67 142/67 O2 Sat by Pulse 97 97 97 Oximetry 09/08/18 09/08/18 09/08/18 03:32 03:45 04:00 Temperature 99.5 F Pulse Rate 62 61 Pulse Rate [ 64 From Monitor] Respiratory 13 13 Rate Blood Pressure 142/70 142/70 O2 Sat by Pulse 97 97 Oximetry 09/08/18 09/08/18 09/08/18 04:04 04:16 04:30 Temperature Pulse Rate 62 75 77 Pulse Rate [ From Monitor] Respiratory 12 11 L Rate Blood Pressure 137/66 142/70 175/91 O2 Sat by Pulse 97 95 97 Oximetry 09/08/18 09/08/18 09/08/18 04:46 05:00 05:15 Temperature Pulse Rate 86 78 71 Pulse Rate [ From Monitor] Respiratory 11 L 13 13 Rate Blood Pressure 161/89 161/89 136/66 O2 Sat by Pulse 94 96 96 Oximetry 09/08/18 09/08/18 09/08/18 05:30 05:46 06:00 Temperature Pulse Rate 82 78 78 Pulse Rate [ From Monitor] Respiratory 20 14 10 L Rate Blood Pressure 136/66 125/77 125/77 O2 Sat by Pulse 92 95 93 Oximetry 09/08/18 09/08/18 09/08/18 06:15 06:30 06:40 Temperature Pulse Rate 71 66 61 Pulse Rate [ From Monitor] Respiratory 12 13 Rate Blood Pressure 140/73 140/73 139/59 O2 Sat by Pulse 98 98 Oximetry 01/29/19 01/29/19 01/29/19 06:45 06:51 07:00 Temperature Pulse Rate 63 62 65 Pulse Rate [ From Monitor] Respiratory 13 13 Rate Blood Pressure 143/72 143/72 143/72 O2 Sat by Pulse 98 97 Oximetry 09/08/18 09/08/18 09/08/18 07:15 07:30 07:45 Temperature Pulse Rate 66 62 62 Pulse Rate [ From Monitor] Respiratory 12 13 13 Rate Blood Pressure 130/76 130/76 139/74 O2 Sat by Pulse 98 97 97 Oximetry 09/08/18 09/08/18 09/08/18 08:00 08:13 08:15 Temperature 98.4 F 98.4 F Pulse Rate 63 66 Pulse Rate [ 59 L From Monitor] Respiratory 10 L 11 L Rate Blood Pressure 139/74 144/78 O2 Sat by Pulse 98 98 Oximetry 09/08/18 09/08/18 09/08/18 08:29 08:30 08:45 Temperature Pulse Rate 61 60 59 L Pulse Rate [ From Monitor] Respiratory 14 8 L 12 Rate Blood Pressure 142/73 144/78 144/77 O2 Sat by Pulse 98 98 99 Oximetry 09/08/18 09/08/18 09:00 09:29 Temperature Pulse Rate 59 L 60 Pulse Rate [ From Monitor] Respiratory 13 Rate Blood Pressure 144/77 152/80 O2 Sat by Pulse 98 Oximetry - General Appearance General appearance: obese, sedated on ventilator EENT: mucous membranes dry Neck: no JVD, no carotid bruit Respiratory: Present: Decreased Breath Sounds Cardiology: regular, S1S2 Gastrointestinal: normoactive bowel sounds, no tenderness, no distended, obese Integumentary: no rash, warm and dry Neurologic: other (intubated) Musculoskeletal: other (trace pitting edema in BLE) Psychiatric: other (sedated) - Lab 09/07/18 04:15 09/08/18 05:20 Most recent lab results Calcium 8.7 mg/dL (8.4-10.2) 09/08/18 05:20 Phosphorus 4.60 mg/dL (2.5-4.5) H 09/07/18 04:15 Magnesium 2.10 mg/dL (1.7-2.3) 09/07/18 04:15 Urine Creatinine 70.8 mg/dL (0.1-20.0) H 09/06/18 Unknown Urine Sodium 81 mmol/L 09/06/18 Unknown Urine Total Protein 25 mg/dL (5-11.8) H 09/06/18 Unknown Medications & Allergies - Medications Allergies/Adverse Reactions: Allergies No Known Allergies Allergy (Unverified 10/02/17 17:09) Home Medications: Home Medications Medication Instructions Recorded Confirmed Last Taken Type Aspirin [Aspirin BABY CHEW TAB] 81 mg PO QDAY #30 tab.chew 08/04/18 09/07/18 Unknown Rx Furosemide [Lasix TAB] 40 mg PO BID #60 tablet 08/04/18 09/07/18 Unknown Rx Labetalol [Normodyne TAB] 300 mg PO Q8HR 30 Days tablet 08/04/18 09/07/18 Unknown Rx Levothyroxine [Synthroid] 50 mcg PO DAILY@0600 #30 tablet 08/04/18 09/07/18 Unknown Rx NIFEdipine XL [Procardia Xl] 90 mg PO BID #60 tablet 08/04/18 09/07/18 Unknown Rx Potassium Chloride [K-Dur] 10 meq PO BID #60 tablet 08/04/18 09/07/18 Unknown Rx cloNIDine-TTS PATCH 0.3 mg TRANSDERMA 1XW #4 08/04/18 09/07/18 Unknown Rx Active Medications: Generic Name Dose Route Start Last Admin Trade Name Freq PRN Reason Stop Dose Admin Acetaminophen 650 mg 09/04/18 23:45 09/05/18 00:41 Tylenol PO 650 mg Q6H PRN Administration Pain, Mild (1-3) Albuterol 2.5 mg 09/01/18 18:25 Proventil IH Q3HRT PRN Shortness Of Breath Amlodipine Besylate 10 mg 09/02/18 11:00 09/08/18 09:29 Norvasc PO 10 mg DAILY ELIEL Administration Lipase/Protease/Amylase 1 each 09/03/18 12:[address] 10,500 Unit FEEDTUBE PRN PRN For Clogged Feeding Tube Aspirin 81 mg 09/02/18 10:00 09/08/18 09:31 Baby Aspirin PO 81 mg QDAY ELIEL Administration Clonidine HCl 0.3 mg 09/01/18 22:00 09/02/18 03:10 Catapres-Tts Patch TD 0.3 mg Tu ELIEL Administration Enoxaparin Sodium 40 mg 09/07/18 15:00 09/08/18 09:28 Lovenox SUB-Q 40 mg BID ELIEL Administration Famotidine 20 mg 09/03/18 10:00 09/08/18 10:09 Pepcid PO 20 mg BID ELIEL Administration Glycopyrrolate 1 mg 09/07/18 14:00 09/08/18 09:30 Robinul PO 1 mg TID ELIEL Administration Hydralazine HCl 5 mg 09/03/18 03:10 09/07/18 11:25 Apresoline IV 5 mg Q4H PRN Administration Blood Pressure Hydrophilic Ointment 1 applic 09/01/18 19:56 Vaseline Lip Therapy TP Q2HR PRN Dry Lips Fentanyl Citrate 2,000 mcg in 100 mls @ 12.205 mls/hr 09/02/18 11:00 09/08/18 08:35 Fentanyl Drip Premix IV 1 mcg/kg/hr TITR ELIEL 12.205 mls/hr Titration Protocol 1 MCG/KG/HR Propofol 1,000 mg in 100 mls @ 7.344 mls/hr 09/06/18 11:00 09/06/18 21:30 Diprivan 10 Mg/Ml IV 0 mcg/kg/min TITR ELIEL 0 mls/hr Titration Protocol 5 MCG/KG/MIN Nicardipine HCl 50 mg/ Sodium 250 mls @ 25 mls/hr 09/06/18 11:00 09/08/18 09:17 Chloride IV 7.5 mg/hr TITR ELIEL 37.5 mls/hr Administration Protocol 5 MG/HR Labetalol HCl 200 mg/ Dextrose 200 mls @ 120 mls/hr 09/06/18 22:00 IV TITR ELIEL Protocol 2 MG/MIN Levothyroxine Sodium 50 mcg 09/02/18 06:00 09/08/18 06:38 Synthroid PO 50 mcg DAILY@0600 ELIEL Administration Metoclopramide HCl 5 mg 09/07/18 15:00 09/08/18 06:38 Reglan IV 5 mg Q6HR ELIEL Administration Metoprolol Tartrate 25 mg 09/05/18 14:00 09/08/18 06:51 Lopressor PO Not Given Q8H ELIEL Midazolam HCl 2 mg 09/04/18 11:19 09/07/18 10:18 Versed IV 09/09/18 11:18 2 mg Q2H PRN Administration Agitation Multi-Ingred Cream/Lotion/Oil/Oint 1 applic 09/01/18 19:56 Artificial Tears Ophth Oint OU Q4HR PRN Dry Eye(s) Quetiapine Fumarate 100 mg 09/07/18 22:00 09/08/18 09:31 Seroquel PO 100 mg BID ELIEL Administration Scopolamine 1 each 09/07/18 13:00 09/07/18 14:49 Transderm-Scop TD 1 each Q72H ELIEL Administration Simple Syrup 15 ml 09/03/18 12:10 09/07/18 12:08 Simple Syrup FEEDTUBE 15 ml PRN PRN Administration Hypoglycemia Simple Syrup 30 ml 09/03/18 12:10 Simple Syrup FEEDTUBE PRN PRN Hypoglycemia Sodium Bicarbonate 325 mg 09/03/18 12:10 Sodium Bicarbonate FEEDTUBE PRN PRN For Clogged Feeding Tube Sodium Chloride 10 ml 09/01/18 22:00 09/08/18 09:31 Sodium Chloride Flush Syringe 10 Ml IV 10 ml BID ELIEL Administration Sodium Chloride 10 ml 09/01/18 18:25 Sodium Chloride Flush Syringe 10 Ml IV PRN PRN LINE FLUSH
--- NOTE | 2018-09-08 11:25 | Progress Note ---
Assessment and Plan Vascular consultation noted - Recommend strict blood pressure control BP <120/80 and Heart rate < 60. Weight should be confirmed. Needs repeat CTA chest to assess progression of his dissection. MOMO is far less specific and sensitive to assess for progression en given the initial study was a CTA. Hemodynamically stable now. Renal indices trending upwards - nephrology following, IVF initiated. Will cont to follow closely. The patient has been seen in conjunction with Dr. Chavez who agrees with the assessment and plan of care. - Patient Problems (1) Respiratory failure with hypoxia and hypercapnia Current Visit: Yes Status: Acute Qualifiers: Chronicity: acute Qualified Code(s): J96.01 - Acute respiratory failure with hypoxia; J96.02 - Acute respiratory failure with hypercapnia (2) Hypertensive emergency Current Visit: Yes Status: Acute (3) Acute HFrEF (heart failure with reduced ejection fraction) Current Visit: Yes Status: Acute (4) Chronic thoracic aortic dissection Current Visit: Yes Status: Chronic (5) SHAWNA (acute kidney injury) Current Visit: Yes Status: Acute (6) NSTEMI (non-ST elevated myocardial infarction) Current Visit: Yes Status: Acute (7) Medical non-compliance Current Visit: Yes Status: Chronic (8) Morbid obesity Current Visit: Yes Status: Chronic (9) PAUL (obstructive sleep apnea) Current Visit: Yes Status: Chronic (10) Obesity hypoventilation syndrome Current Visit: Yes Status: Chronic (11) Diabetes Current Visit: Yes Status: Chronic Subjective Date of service: 09/08/18 Principal diagnosis: Ac Hypoxemic Hypercapnic Resp Failure; HTNsive Emergency; Type B dissection Interval history: pt remains intubated, on cardene gtt. Objective Last Vital Signs Temp 98.4 F 09/08/18 08:13 Pulse 60 09/08/18 11:00 Resp 13 09/08/18 11:00 BP 140/70 09/08/18 11:00 Pulse Ox 99 09/08/18 11:00 - Physical Examination General: Other (intubated, agitated ) HEENT: Positive: PERRL, Normocephaly, Mucus Membranes Moist Neck: Positive: neck supple Cardiac: Positive: Reg Rate and Rhythm, S1/S2 Lungs: Positive: Decreased Breath Sounds, Ventilated Respirations Neuro: Positive: Grossly Intact Abdomen: Positive: Soft. Negative: Tender Skin: Negative: Rash Musculoskeletal: No Pain Extremities: Present: +1 Edema (BLE, chronic skin changes) - Labs and Meds Comprehensive Metabolic Panel 09/08/18 Range/Units 05:20 Sodium 145 (137-145) mmol/L Potassium 4.5 (3.6-5.0) mmol/L Chloride 99.5 (98-107) mmol/L Carbon Dioxide 34 H (22-30) mmol/L BUN 55 H (9-20) mg/dL Creatinine 3.3 H D (0.8-1.5) mg/dL Glucose 118 H (75-100) mg/dL Calcium 8.7 (8.4-10.2) mg/dL - Imaging and Cardiology EKG: report reviewed, image reviewed Echo: report reviewed (05/10/2018 showed EF 45-50%, impaired relaxation, RV mildly dilated, RV systolic function mod reduced. ) - EKG Sinus rhythms and dysrhythmias: sinus rhythm - Allied health notes Allied health notes reviewed: nursing
--- NOTE | 2018-09-08 11:28 | Progress Note ---
Assessment and Plan Acute Hypoxemic Hypercapnic Respiratory Failure Hypertensive Emergency H/O Type B Aortic Dissection (No surgery recommended in October 2017) Morbid Obesity PAUL/OHS Acute exacerbation of SYSTOLIC CHF NSTEMI TYPE 2 Diabetes Mellitus - continue APRV ventilation but change settings to (Ph 35, Plow 8, Thigh 4.0s & Tlow 0.5 s) - continue seroquel to spare fentanyl for sedation - stopped propofol while on APRV and use fentanyl - continue tube feedings / oral meds - stop clonidine patch and switch to oral 0.2mg q8h - continue scheduled oral Metoprolol to target Pulse approx 60-70/min and target SBP </= 120 mmHg - continue scopolamine for secretions but added Robinul as still moderate secretions - Azotemia worsening and nephrology consulted - vascular surgery evaluation ongoing - stopped IV heparin re: risk of chronic dissection extension - continue ACS management otherwise per cardiology - CTA cancelled due to azotemia and he is to big for the scanner - changed lovenox to bid dosing re: morbid obesity - continue daily SBT evaluation - continue daily SAT's - sedation for target RASS 0 to -1 - continue bronchodilators with pulmonary hygiene per RT - continue to wean oxygen for target O2 Sat's > 89 - 90% - VAP bundle addressed - continue enteral nutrition as tolerated - discontinue dias catheter - get serum Mg & PO4 levels and adjust as necessary - mobility protocol for pressure ulcer prophylaxis - GI & VTE prophylaxis - re-introduce oral anti-hypertensives - glycemic control with SSI for target BG 140 - 180 mg/dL - continue other care per attending / other consultants ...... re-evaluate in am & prn ... care plan discussed with attending The high probability of a clinically significant, sudden or life threatening deterioration of the [Pulmonary,cardiac and Vascular] system(s) required my full and direct attention, intervention and personal management. The aggregate critical care time was [35] minutes. This time is in addition to time spent performing reported procedures but includes the following: [x] Data Review and interpretation [x] Patient assessment and monitoring of vital signs [x] Documentation Subjective Date of service: 09/08/18 Principal diagnosis: Ac Hypoxemic Hypercapnic Resp Failure; HTNsive Emergency; Type B dissection Interval history: Patient is seen today for: Acute Hypoxemic Hypercapnic Respiratory Failure; Hypertensive Emergency; H/O Type B Aortic Dissection (No surgery recommended in October 2017); Morbid Obesity Seen and examined at bedside; 24hour events reviewed; nursing and respiratory care staff consulted; no adverse overnight events reported to me; remains on APRV; oxygenation improved and remains on APRV; sabra acute chest pains; no emesis or overt aspiration; remains on cardene drip for BP control Objective Vital Signs - 12hr 09/07/18 09/07/18 09/08/18 23:30 23:45 00:00 Temperature Pulse Rate 62 64 63 Pulse Rate [ 63 From Monitor] Respiratory 13 14 13 Rate Blood Pressure 127/59 130/61 127/59 O2 Sat by Pulse 97 97 97 Oximetry 09/08/18 09/08/18 09/08/18 00:15 00:30 00:45 Temperature Pulse Rate 60 61 61 Pulse Rate [ From Monitor] Respiratory 13 13 13 Rate Blood Pressure 130/58 130/58 135/63 O2 Sat by Pulse 97 97 98 Oximetry 09/08/18 09/08/18 09/08/18 01:00 01:15 01:30 Temperature Pulse Rate 60 62 60 Pulse Rate [ From Monitor] Respiratory 13 13 13 Rate Blood Pressure 135/63 139/64 144/64 O2 Sat by Pulse 98 97 98 Oximetry 09/08/18 09/08/18 09/08/18 01:45 02:00 02:15 Temperature Pulse Rate 62 63 61 Pulse Rate [ From Monitor] Respiratory 9 L 13 13 Rate Blood Pressure 143/65 143/65 133/67 O2 Sat by Pulse 98 98 97 Oximetry 09/08/18 09/08/18 09/08/18 02:30 02:45 03:00 Temperature Pulse Rate 60 60 63 Pulse Rate [ From Monitor] Respiratory 13 13 13 Rate Blood Pressure 139/65 140/65 140/65 O2 Sat by Pulse 97 97 97 Oximetry 09/08/18 09/08/18 09/08/18 03:15 03:30 03:32 Temperature 99.5 F Pulse Rate 59 L 61 Pulse Rate [ From Monitor] Respiratory 13 13 Rate Blood Pressure 142/67 142/67 O2 Sat by Pulse 97 97 Oximetry 09/08/18 09/08/18 09/08/18 03:45 04:00 04:04 Temperature Pulse Rate 62 61 62 Pulse Rate [ 64 From Monitor] Respiratory 13 13 Rate Blood Pressure 142/70 142/70 137/66 O2 Sat by Pulse 97 97 97 Oximetry 09/08/18 09/08/18 09/08/18 04:16 04:30 04:46 Temperature Pulse Rate 75 77 86 Pulse Rate [ From Monitor] Respiratory 12 11 L 11 L Rate Blood Pressure 142/70 175/91 161/89 O2 Sat by Pulse 95 97 94 Oximetry 09/08/18 09/08/18 09/08/18 05:00 05:15 05:30 Temperature Pulse Rate 78 71 82 Pulse Rate [ From Monitor] Respiratory 13 13 20 Rate Blood Pressure 161/89 136/66 136/66 O2 Sat by Pulse 96 96 92 Oximetry 09/08/18 09/08/18 09/08/18 05:46 06:00 06:15 Temperature Pulse Rate 78 78 71 Pulse Rate [ From Monitor] Respiratory 14 10 L 12 Rate Blood Pressure 125/77 125/77 140/73 O2 Sat by Pulse 95 93 98 Oximetry 09/08/18 09/08/18 09/08/18 06:30 06:40 06:45 Temperature Pulse Rate 66 61 63 Pulse Rate [ From Monitor] Respiratory 13 13 Rate Blood Pressure 140/73 139/59 143/72 O2 Sat by Pulse 98 98 Oximetry 09/08/18 09/08/18 09/08/18 06:51 07:00 07:15 Temperature Pulse Rate 62 65 66 Pulse Rate [ From Monitor] Respiratory 13 12 Rate Blood Pressure 143/72 143/72 130/76 O2 Sat by Pulse 97 98 Oximetry 09/08/18 09/08/18 09/08/18 07:30 07:45 08:00 Temperature 98.4 F Pulse Rate 62 62 63 Pulse Rate [ 59 L From Monitor] Respiratory 13 13 10 L Rate Blood Pressure 130/76 139/74 139/74 O2 Sat by Pulse 97 97 98 Oximetry 09/08/18 09/08/18 09/08/18 08:13 08:15 08:29 Temperature 98.4 F Pulse Rate 66 61 Pulse Rate [ From Monitor] Respiratory 11 L 14 Rate Blood Pressure 144/78 142/73 O2 Sat by Pulse 98 98 Oximetry 09/08/18 09/08/18 09/08/18 08:30 08:45 09:00 Temperature Pulse Rate 60 59 L 59 L Pulse Rate [ From Monitor] Respiratory 8 L 12 13 Rate Blood Pressure 144/78 144/77 144/77 O2 Sat by Pulse 98 99 98 Oximetry 09/08/18 09/08/18 09/08/18 09:15 09:29 09:30 Temperature Pulse Rate 63 60 60 Pulse Rate [ From Monitor] Respiratory 15 13 Rate Blood Pressure 152/80 152/80 152/80 O2 Sat by Pulse 98 100 Oximetry 09/08/18 09/08/18 09/08/18 09:46 10:00 10:15 Temperature Pulse Rate 58 L 63 59 L Pulse Rate [ From Monitor] Respiratory 12 15 14 Rate Blood Pressure 141/73 136/71 124/67 O2 Sat by Pulse 95 99 99 Oximetry 09/08/18 09/08/18 09/08/18 10:30 10:46 11:00 Temperature Pulse Rate 61 60 60 Pulse Rate [ From Monitor] Respiratory 13 13 13 Rate Blood Pressure 124/67 140/70 140/70 O2 Sat by Pulse 99 99 99 Oximetry Constitutional: appears uncomfortable, other (young morbidly obese AAM, normocephalic and atraumatic on MVS) Eyes: non-icteric ENT: oropharynx moist, oropharyngeal exudate pre, other (ETT 23 cm JANE) Neck: supple, no lymphadenopathy, no JVD, other (large neck circumference) Effort: mildly labored Ascultation: Bilateral: diminished breath sounds, rhonchi (bases) Percussion: Bilateral: not dull Cardiovascular: regular rate and rhythm, other (No R/M) Gastrointestinal: normoactive bowel sounds, soft, non-tender, other (protuberant) Integumentary: rash Extremities: no cyanosis, pulses normal, no ischemia or petechiae, edema Neurologic: normal mental status, non-focal exam (grossly), pupils equal and round, motor strength normal and Psychiatric: mood appropriate, affect normal, other CBC and BMP: 09/09/18 05:20 09/09/18 05:20 ABG, PT/INR, D-dimer: ABG POC ABG pH 7.265 (7.35-7.45) L 09/08/18 04:15 POC ABG pCO2 80.4 (35-45) H 09/08/18 04:15 POC ABG pO2 185 (80-105) H 09/08/18 04:15 POC ABG HCO3 36.5 09/08/18 04:15 POC ABG Total CO2 39 09/08/18 04:15 POC ABG O2 Sat 99 09/08/18 04:15 PT/INR, D-dimer PT 15.1 Sec. (12.2-14.9) H 09/01/18 21:20 INR 1.15 (0.87-1.13) H 09/01/18 21:20 D-Dimer 869.27 ng/mlDDU (0-234) H 09/01/18 15:15 Abnormal lab findings: Abnormal Labs 09/01/18 09/01/18 09/01/18 15:15 15:15 15:15 RBC 5.37 H Hgb Hct 47.8 H MCH 27 L MCHC 31 L RDW 17.1 H Lymph % (Auto) [place] % (Auto) 11.0 H Lymph # 1.0 L [place] # Seg Neutrophils % 70.2 H PT 15.0 H INR 1.14 H D-Dimer Heparin Anti-Xa Level POC ABG pH POC ABG pCO2 POC ABG pO2 Sodium Potassium Chloride Carbon Dioxide 39 H BUN 21 H Creatinine Glucose 106 H POC Glucose Calcium Phosphorus Total Bilirubin AST Troponin T 0.125 H* NT-Pro-B Natriuret Pep Total Protein Albumin HDL Cholesterol 33 L PTH Intact Urine WBC (Auto) Urine Creatinine Urine Total Protein 09/01/18 09/01/18 09/01/18 15:15 15:15 15:28 RBC Hgb Hct MCH MCHC RDW Lymph % (Auto) [place] % (Auto) Lymph # [place] # Seg Neutrophils % PT INR D-Dimer 869.27 H Heparin Anti-Xa Level POC ABG pH 7.235 L POC ABG pCO2 89.8 H POC ABG pO2 Sodium Potassium Chloride Carbon Dioxide BUN Creatinine Glucose POC Glucose Calcium Phosphorus Total Bilirubin AST Troponin T NT-Pro-B Natriuret Pep 1764 H Total Protein Albumin HDL Cholesterol PTH Intact Urine WBC (Auto) Urine Creatinine Urine Total Protein 09/01/18 09/01/18 09/01/18 17:45 19:28 21:20 RBC Hgb Hct MCH MCHC RDW Lymph % (Auto) [place] % (Auto) Lymph # [place] # Seg Neutrophils % PT INR D-Dimer Heparin Anti-Xa Level POC ABG pH 7.175 L POC ABG pCO2 105.5 H POC ABG pO2 111 H Sodium Potassium Chloride Carbon Dioxide BUN Creatinine Glucose POC Glucose Calcium Phosphorus Total Bilirubin AST Troponin T 0.130 H* 0.132 H* NT-Pro-B Natriuret Pep Total Protein Albumin HDL Cholesterol PTH Intact Urine WBC (Auto) Urine Creatinine Urine Total Protein 09/01/18 09/01/18 09/01/18 21:20 21:20 23:29 RBC Hgb Hct 46.4 H MCH MCHC RDW Lymph % (Auto) [place] % (Auto) Lymph # [place] # Seg Neutrophils % PT 15.1 H INR 1.15 H D-Dimer Heparin Anti-Xa Level POC ABG pH 7.349 L POC ABG pCO2 76.4 H POC ABG pO2 35 L Sodium Potassium Chloride Carbon Dioxide BUN Creatinine Glucose POC Glucose Calcium Phosphorus Total Bilirubin AST Troponin T NT-Pro-B Natriuret Pep Total Protein Albumin HDL Cholesterol PTH Intact Urine WBC (Auto) Urine Creatinine Urine Total Protein 09/01/18 09/02/18 09/02/18 23:34 04:18 04:35 RBC 5.67 H Hgb 15.8 H Hct 50.6 H MCH MCHC 31 L RDW 17.9 H Lymph % (Auto) 12.2 L [place] % (Auto) 12.6 H Lymph # 1.0 L [place] # 1.0 H Seg Neutrophils % 73.5 H PT INR D-Dimer Heparin Anti-Xa Level POC ABG pH 7.294 L POC ABG pCO2 77.7 H 62.2 H POC ABG pO2 235 H Sodium Potassium Chloride Carbon Dioxide BUN Creatinine Glucose POC Glucose Calcium Phosphorus Total Bilirubin AST Troponin T NT-Pro-B Natriuret Pep Total Protein Albumin HDL Cholesterol PTH Intact Urine WBC (Auto) Urine Creatinine Urine Total Protein 09/02/18 09/02/18 09/02/18 04:35 08:16 08:16 RBC 5.68 H Hgb 15.4 H Hct 49.9 H MCH 27 L MCHC 31 L RDW 18.1 H Lymph % (Auto) [place] % (Auto) 12.7 H Lymph # 1.1 L [place] # 1.0 H Seg Neutrophils % 71.9 H PT INR D-Dimer Heparin Anti-Xa Level POC ABG pH POC ABG pCO2 POC ABG pO2 Sodium Potassium Chloride 97.7 L Carbon Dioxide 36 H 35 H BUN 21 H 21 H Creatinine Glucose 69 L POC Glucose Calcium Phosphorus Total Bilirubin 1.60 H AST 43 H Troponin T NT-Pro-B Natriuret Pep Total Protein 6.2 L Albumin 2.8 L HDL Cholesterol PTH Intact Urine WBC (Auto) Urine Creatinine Urine Total Protein 09/02/18 09/02/18 09/02/18 10:24 14:29 17:46 RBC Hgb Hct MCH MCHC RDW Lymph % (Auto) [place] % (Auto) Lymph # [place] # Seg Neutrophils % PT INR D-Dimer Heparin Anti-Xa Level < 0.10 L < 0.10 L POC ABG pH POC ABG pCO2 POC ABG pO2 Sodium Potassium Chloride Carbon Dioxide BUN Creatinine Glucose POC Glucose 69 L Calcium Phosphorus Total Bilirubin AST Troponin T NT-Pro-B Natriuret Pep Total Protein Albumin HDL Cholesterol PTH Intact Urine WBC (Auto) Urine Creatinine Urine Total Protein 09/03/18 09/03/18 09/03/18 03:20 03:20 05:48 RBC 5.57 H Hgb 15.5 H Hct 48.7 H MCH MCHC RDW 18.0 H Lymph % (Auto) [place] % (Auto) Lymph # [place] # Seg Neutrophils % PT INR D-Dimer Heparin Anti-Xa Level POC ABG pH POC ABG pCO2 62.0 H POC ABG pO2 Sodium Potassium 5.1 H D Chloride 97.2 L Carbon Dioxide 33 H BUN Creatinine Glucose 62 L POC Glucose Calcium Phosphorus Total Bilirubin AST Troponin T NT-Pro-B Natriuret Pep Total Protein Albumin HDL Cholesterol PTH Intact Urine WBC (Auto) Urine Creatinine Urine Total Protein 09/03/18 09/04/18 09/04/18 17:10 00:05 01:44 RBC Hgb Hct MCH MCHC RDW Lymph % (Auto) [place] % (Auto) Lymph # [place] # Seg Neutrophils % PT INR D-Dimer Heparin Anti-Xa Level 0.26 L POC ABG pH 7.304 L POC ABG pCO2 82.5 H POC ABG pO2 Sodium Potassium Chloride Carbon Dioxide BUN Creatinine Glucose POC Glucose Calcium Phosphorus Total Bilirubin AST Troponin T NT-Pro-B Natriuret Pep Total Protein Albumin HDL Cholesterol PTH Intact Urine WBC (Auto) 12.0 H Urine Creatinine Urine Total Protein 09/04/18 09/04/18 09/04/18 03:12 03:12 05:37 RBC 5.30 H Hgb Hct 47.1 H MCH 27 L MCHC 31 L RDW 18.3 H Lymph % (Auto) [place] % (Auto) Lymph # [place] # Seg Neutrophils % PT INR D-Dimer Heparin Anti-Xa Level POC ABG pH POC ABG pCO2 POC ABG pO2 Sodium Potassium Chloride Carbon Dioxide 32 H BUN 22 H Creatinine 1.6 H Glucose POC Glucose 115 H Calcium 8.1 L Phosphorus Total Bilirubin 1.90 H AST 72 H Troponin T NT-Pro-B Natriuret Pep Total Protein 6.0 L Albumin 2.3 L HDL Cholesterol PTH Intact Urine WBC (Auto) Urine Creatinine Urine Total Protein 09/04/18 09/04/18 09/05/18 05:48 11:31 04:00 RBC 5.16 H Hgb Hct MCH 27 L MCHC 31 L RDW 17.6 H Lymph % (Auto) [place] % (Auto) Lymph # [place] # Seg Neutrophils % PT INR D-Dimer Heparin Anti-Xa Level POC ABG pH 7.273 L 7.326 L POC ABG pCO2 89.9 H 70.4 H POC ABG pO2 78 L 155 H Sodium Potassium Chloride Carbon Dioxide BUN Creatinine Glucose POC Glucose Calcium Phosphorus Total Bilirubin AST Troponin T NT-Pro-B Natriuret Pep Total Protein Albumin HDL Cholesterol PTH Intact Urine WBC (Auto) Urine Creatinine Urine Total Protein 09/05/18 09/05/18 09/06/18 04:00 05:31 03:28 RBC Hgb Hct MCH MCHC RDW Lymph % (Auto) [place] % (Auto) Lymph # [place] # Seg Neutrophils % PT INR D-Dimer Heparin Anti-Xa Level POC ABG pH POC ABG pCO2 57.0 H 65.0 H POC ABG pO2 Sodium 146 H Potassium Chloride Carbon Dioxide 33 H BUN 27 H Creatinine 1.7 H Glucose 60 L POC Glucose Calcium Phosphorus Total Bilirubin AST Troponin T NT-Pro-B Natriuret Pep Total Protein Albumin HDL Cholesterol PTH Intact Urine WBC (Auto) Urine Creatinine Urine Total Protein 09/06/18 09/06/18 09/06/18 08:44 17:08 20:20 RBC Hgb Hct MCH MCHC RDW Lymph % (Auto) [place] % (Auto) Lymph # [place] # Seg Neutrophils % PT INR D-Dimer Heparin Anti-Xa Level POC ABG pH 7.497 H POC ABG pCO2 52.6 H 46.1 H POC ABG pO2 47 L 54 L Sodium Potassium Chloride 60.0 L Carbon Dioxide 32 H BUN 31 H Creatinine 1.9 H Glucose 199 H POC Glucose Calcium 7.9 L Phosphorus Total Bilirubin AST 63 H Troponin T NT-Pro-B Natriuret Pep Total Protein 5.9 L Albumin 2.3 L HDL Cholesterol PTH Intact Urine WBC (Auto) Urine Creatinine Urine Total Protein 09/06/18 09/06/18 09/06/18 23:32 Unknown Unknown RBC Hgb Hct MCH MCHC RDW Lymph % (Auto) [place] % (Auto) Lymph # [place] # Seg Neutrophils % PT INR D-Dimer Heparin Anti-Xa Level POC ABG pH 7.323 L POC ABG pCO2 72.2 H POC ABG pO2 Sodium Potassium Chloride Carbon Dioxide BUN Creatinine Glucose POC Glucose Calcium Phosphorus Total Bilirubin AST Troponin T NT-Pro-B Natriuret Pep Total Protein Albumin HDL Cholesterol PTH Intact Urine WBC (Auto) Urine Creatinine 70.7 H 70.8 H Urine Total Protein 25 H 09/07/18 09/07/18 09/07/18 04:15 04:15 04:15 RBC Hgb Hct MCH MCHC 31 L RDW 17.6 H Lymph % (Auto) [place] % (Auto) Lymph # [place] # Seg Neutrophils % PT INR D-Dimer Heparin Anti-Xa Level POC ABG pH POC ABG pCO2 POC ABG pO2 Sodium Potassium Chloride Carbon Dioxide 37 H 36 H BUN 35 H 35 H Creatinine 2.1 H 2.1 H Glucose POC Glucose Calcium Phosphorus 4.60 H Total Bilirubin 2.80 H AST 64 H Troponin T NT-Pro-B Natriuret Pep Total Protein 5.9 L Albumin 2.6 L HDL Cholesterol PTH Intact Urine WBC (Auto) Urine Creatinine Urine Total Protein 09/07/18 09/07/18 09/07/18 04:15 10:10 11:59 RBC Hgb Hct MCH MCHC RDW Lymph % (Auto) [place] % (Auto) Lymph # [place] # Seg Neutrophils % PT INR D-Dimer Heparin Anti-Xa Level POC ABG pH 7.317 L POC ABG pCO2 76.6 H POC ABG pO2 118 H Sodium Potassium Chloride Carbon Dioxide BUN Creatinine Glucose POC Glucose 68 L Calcium Phosphorus Total Bilirubin AST Troponin T NT-Pro-B Natriuret Pep Total Protein Albumin HDL Cholesterol PTH Intact 100.4 H Urine WBC (Auto) Urine Creatinine Urine Total Protein 09/07/18 09/08/18 09/08/18 23:51 04:15 05:20 RBC Hgb Hct MCH MCHC RDW Lymph % (Auto) [place] % (Auto) Lymph # [place] # Seg Neutrophils % PT INR D-Dimer Heparin Anti-Xa Level POC ABG pH 7.265 L POC ABG pCO2 80.4 H POC ABG pO2 185 H Sodium Potassium Chloride Carbon Dioxide 34 H BUN 55 H Creatinine 3.3 H D Glucose 118 H POC Glucose 118 H Calcium Phosphorus Total Bilirubin AST Troponin T NT-Pro-B Natriuret Pep Total Protein Albumin HDL Cholesterol PTH Intact Urine WBC (Auto) Urine Creatinine Urine Total Protein 09/08/18 05:30 RBC Hgb Hct MCH MCHC RDW Lymph % (Auto) [place] % (Auto) Lymph # [place] # Seg Neutrophils % PT INR D-Dimer Heparin Anti-Xa Level POC ABG pH POC ABG pCO2 POC ABG pO2 Sodium Potassium Chloride Carbon Dioxide BUN Creatinine Glucose POC Glucose 119 H Calcium Phosphorus Total Bilirubin AST Troponin T NT-Pro-B Natriuret Pep Total Protein Albumin HDL Cholesterol PTH Intact Urine WBC (Auto) Urine Creatinine Urine Total Protein Allied health notes reviewed: nursing
[2018-09-08] MEDS: NACL 0.9% 1000 ML 1,000 ML IV SCH (12:06)
[2018-09-08] MEDS: HEPARIN SUB-Q SCH ×2 (13:38→22:01)
[2018-09-08] MEDS: CATAPRES PO SCH ×2 (13:39→21:55)
[2018-09-08] MEDS ORDERED: SIMPLE SYRUP FEEDTUBE PRN ×2 (15:01)
[2018-09-08] MEDS ORDERED: SODIUM BICARBONATE FEEDTUBE PRN (15:01)
[2018-09-08] MEDS ORDERED: PANCREAZE DR 10,500 UNIT FEEDTUBE PRN (15:01)
--- NOTE | 2018-09-08 16:51 | Progress Note ---
Assessment and Plan Assessment and plan: 28 YO Male with MO, CHF, Obesity Hypoventilation, Chronic AORTIC DISSECTION, HTN, Hypothyrodism, Lymphedema presents to ED for evaluation. Pt states that he has experienced shortness of breath over the past three days with persistent symptoms over the same time frame. Pt acknowledges Orthopnea/PND, Decreased exercise tolerance, Dypsnea on exertion. Pt denies fever, chills, CP, Palpitations, NVD, Trauma, Productive cough or recent ill contacts. Pt denies back pain, or chest pain that radiates to his back. Pt transported to [facility] for further care and evaluation. Pt seen and evaluated in ED and found to have Hypercapnic Respiratory Failure, CHF. Pt initiated on NIPPV without improvement. Pt intubated and placed on vent support in ED. Pt admitted to ICU and placed on heparin drip protocol. Cardiology and Pulmonary teams consulted in ED. During this admission had a code blue secondary to self extubation. He did not have any loss of Pulse but was bradycardic requiring one atropine and one epinephrine. The patient was intubated again by the help of the ED physician. Mother who is at the bedside was updated Patient has been on BB and cardene to get stabilization of BP MOMO is still pending CTA CHEST TO ASSESS PROGRESSION PENDING- SHAWNA precluding Nephrology consulted for SHAWNA Vascular was consulted and recommended labetalol drip, this was unsuccessful in maintain the BP (1) Respiratory failure with hypoxia and hypercapnia Current Visit: Yes Status: Acute Qualifiers: Chronicity: acute Qualified Code(s): J96.01 - Acute respiratory failure with hypoxia; J96.02 - Acute respiratory failure with hypercapnia Plan to address problem: Continue with ICU. Pt intubated placed on vent support. CTA chest pending, now with shawna, will repeat when patient is more stable and renal function improved. Initiated on heparin drip protocol, ABG, wean vent as tolerated, (2) Hypertensive Urgency: LABETALOL DRIP RECOMMENDED BY VASCULAR. UPTITRATE ORAL MEDS, GOAL SBP 120 OR LESS. add cardene drip. Discussed importance of this management with nursing staff. (3) Acute exacerbation of SYSTOLIC CHF (congestive heart failure) Current Visit: Yes Status: Chronic Qualifiers: Heart failure type: unspecified Qualified Code(s): I50.9 - Heart failure, unspecified Plan to address problem: Cardiology consulted in ED, diuresis, Strict I/O, daily weight, afterload reduction, blood pressure control, monitor uop q shift, chest x ray. (4) NSTEMI TYPE 2: Cardiology following. PATIENT WITH KNOWN HX OF DISSECTION. IMAGING STUDIES PENDING. (5) Diabetes Mellitus: Hypoglycemia. Persist. Start patient on D5NS. (6) Obesity hypoventilation syndrome Current Visit: Yes Status: Acute Plan to address problem: Supplemental oxygen, nebulizer therapy, supportive care, pulmonary consulted (7) Tranaminitis- Monitor (8) Morbid Obesity but with Moderate Protein calorie Malnutrition- Started on Tube feeds (9) SHAWNA secondary to vasomotor nephropathy Hold lasix today Renal consult. DVT prophylaxis Current Visit: Yes Status: Acute Plan to address problem: SCD to BLE while in bed. The high probability of a clinically significant, sudden or life threatening deterioration of the [Pulmonary,cardiac,neuro] system(s) required my full and direct attention, intervention and personal management. The aggregate critical care time was [35] minutes. This time is in addition to time spent performing reported procedures but includes the following: [x] Data Review and interpretation [x] Patient assessment and monitoring of vital signs [x] Documentation [x] Medication orders and management History Interval history: Patient was seen and evaluated this morning, patient was intubated and mechanical ventilation. I have discussed the management plan with his mother who was in the room during examination. Hospitalist Physical - Physical exam Narrative exam: Patient was intubated, on mechanical ventilation. The patient morbidly obese. Vital signs as documented. Head exam is unremarkable. No scleral icterus . Neck is without jugular venous distension, thyromegaly, or carotid bruits. Lungs are clear to auscultation. Cardiac exam reveals regular rate and Rhythm. First and second heart sounds normal. No murmurs, rubs or gallops. Abdominal exam reveals normal bowel sounds, no masses, no organomegaly and no aortic enlargement. Extremities are nonedematous and both femoral and pedal pulses are normal. [employer] CO[employer]: Sedated. - Constitutional Vitals: Temp Pulse Resp BP Pulse Ox 98.3 F 67 11 L 130/73 95 09/08/18 12:00 09/08/18 15:30 09/08/18 15:30 09/08/18 15:30 09/08/18 15:30 General appearance: Present: no acute distress Results - Labs CBC & Chem 7: 01/28/19 04:15 09/08/18 05:20 Labs: Laboratory Last Values WBC 8.1 K/mm3 (4.5-11.0) 09/07/18 04:15 RBC 5.00 M/mm3 (3.65-5.03) 09/07/18 04:15 Hgb 13.8 gm/dl (11.8-15.2) 09/07/18 04:15 Hct 44.4 % (35.5-45.6) 09/07/18 04:15 MCV 89 fl (84-94) 09/07/18 04:15 MCH 28 pg (28-32) 09/07/18 04:15 MCHC 31 % (32-34) L 09/07/18 04:15 RDW 17.6 % (13.2-15.2) H 09/07/18 04:15 Plt Count 239 K/mm3 (140-440) 09/07/18 04:15 Lymph % (Auto) 13.8 % (13.4-35.0) 09/02/18 08:16 [place] % (Auto) 12.7 % (0.0-7.3) H 09/02/18 08:16 Eos % (Auto) 0.9 % (0.0-4.3) 09/02/18 08:16 Baso % (Auto) 0.7 % (0.0-1.8) 09/02/18 08:16 Lymph # 1.1 K/mm3 (1.2-5.4) L 09/02/18 08:16 [place] # 1.0 K/mm3 (0.0-0.8) H 09/02/18 08:16 Eos # 0.1 K/mm3 (0.0-0.4) 09/02/18 08:16 Baso # 0.1 K/mm3 (0.0-0.1) 09/02/18 08:16 Seg Neutrophils % 71.9 % (40.0-70.0) H 09/02/18 08:16 Seg Neutrophils # 5.6 K/mm3 (1.8-7.7) 09/02/18 08:16 PT 15.1 Sec. (12.2-14.9) H 09/01/18 21:20 INR 1.15 (0.87-1.13) H 09/01/18 21:20 APTT 30.2 Sec. (24.2-36.6) 09/01/18 21:20 D-Dimer 869.27 ng/mlDDU (0-234) H 09/01/18 15:15 Heparin Anti-Xa Level 0.26 U.I./ml (0.3-0.7) L 09/04/18 01:44 POC ABG pH 7.259 (7.35-7.45) L 09/08/18 14:25 POC ABG pCO2 84.9 (35-45) H 09/08/18 14:25 POC ABG pO2 84 (80-105) 09/08/18 14:25 POC ABG HCO3 38.0 09/08/18 14:25 POC ABG Total CO2 41 09/08/18 14:25 POC ABG O2 Sat 94 09/08/18 14:25 POC ABG Base Excess 11 09/08/18 14:25 FiO2 40 % 09/08/18 14:25 Sodium 145 mmol/L (137-145) 09/08/18 05:20 Potassium 4.5 mmol/L (3.6-5.0) 09/08/18 05:20 Chloride 99.5 mmol/L (98-107) 09/08/18 05:20 Carbon Dioxide 34 mmol/L (22-30) H 09/08/18 05:20 Anion Gap 16 mmol/L 09/08/18 05:20 BUN 55 mg/dL (9-20) H 09/08/18 05:20 Creatinine 3.3 mg/dL (0.8-1.5) H D 09/08/18 05:20 Estimated GFR 27 ml/min 09/08/18 05:20 BUN/Creatinine Ratio 17 % 09/08/18 05:20 Glucose 118 mg/dL (75-100) H 09/08/18 05:20 POC Glucose 94 (70-105) 09/08/18 11:44 Calcium 8.7 mg/dL (8.4-10.2) 09/08/18 05:20 Phosphorus 4.60 mg/dL (2.5-4.5) H 09/07/18 04:15 Magnesium 2.10 mg/dL (1.7-2.3) 09/07/18 04:15 Total Bilirubin 2.80 mg/dL (0.1-1.2) H 09/07/18 04:15 AST 64 units/L (5-40) H 09/07/18 04:15 ALT 30 units/L (7-56) 09/07/18 04:15 Alkaline Phosphatase 80 units/L (35-129) 09/07/18 04:15 Total Creatine Kinase 20 units/L (55-170) L 09/08/18 05:20 Troponin T 0.132 ng/mL (0.00-0.029) H* 09/01/18 21:20 NT-Pro-B Natriuret Pep 1764 pg/mL (0-450) H 09/01/18 15:15 Total Protein 5.9 g/dL (6.3-8.2) L 09/07/18 04:15 Albumin 2.6 g/dL (3.9-5) L 09/07/18 04:15 Albumin/Globulin Ratio 0.8 % 09/07/18 04:15 Triglycerides 68 mg/dL (2-149) 09/04/18 03:12 Cholesterol 93 mg/dL (50-199) 09/01/18 15:15 LDL Cholesterol Direct 62 mg/dL (50-130) 09/01/18 15:15 HDL Cholesterol 33 mg/dL (40-59) L 09/01/18 15:15 Cholesterol/HDL Ratio 2.81 % 09/01/18 15:15 PTH Intact 100.4 pg/mL (15-65) H 09/07/18 04:15 Urine Color Jennifer (Yellow) 09/04/18 00:05 Urine Turbidity Clear (Clear) 09/04/18 00:05 Urine pH 5.0 (5.0-7.0) 09/04/18 00:05 Ur Specific [place] 1.010 (1.003-1.030) 09/04/18 00:05 Urine Protein 30 mg/dl mg/dL (Negative) 09/04/18 00:05 Urine Glucose (UA) Neg mg/dL (Negative) 09/04/18 00:05 Urine Ketones Neg mg/dL (Negative) 09/04/18 00:05 Urine Blood Neg (Negative) 09/04/18 00:05 Urine Nitrite Neg (Negative) 09/04/18 00:05 Urine Bilirubin Neg (Negative) 09/04/18 00:05 Urine Urobilinogen 4.0 mg/dL (<2.0) 09/04/18 00:05 Ur Leukocyte Esterase Neg (Negative) 09/04/18 00:05 Urine WBC (Auto) 12.0 /HPF (0.0-6.0) H 09/04/18 00:05 Urine RBC (Auto) 10.0 /HPF (0.0-6.0) 09/04/18 00:05 U Epithel Cells (Auto) 1.0 /HPF (0-13.0) 09/04/18 00:05 Hyaline Casts 7 /LPF 09/04/18 00:05 Urine Mucus Few /HPF 09/04/18 00:05 Urine Sperm 2+ /HPF (HAND UMBRELLA TIPPER) 09/04/18 00:05 Urine Creatinine 70.8 mg/dL (0.1-20.0) H 09/06/18 Unknown Urine Microalbumin 8.4 mg/dL (0.1-34.0) 09/06/18 Unknown Microalb/Creat Ratio 118.6 ug/mg 09/06/18 Unknown Urine Sodium 81 mmol/L 09/06/18 Unknown Urine Urea Nitrogen 442 09/06/18 Unknown Urine Total Protein 25 mg/dL (5-11.8) H 09/06/18 Unknown Nutrition/Malnutrition Assess - Dietary Evaluation Nutrition/Malnutrition Findings: Nutrition Notes Start: 09/02/18 15:06 Freq: Status: Active Protocol: Document 09/08/18 14:51 [facility] (Rec: 09/08/18 15:01 [facility] SRW- [id number]) Nutrition Notes Initial or Follow up Brief Note Current Diet TF - Vital High Protein at 75ml/hr Labs/Tests BUN 55 Cr 3.3 K 4.5 Height 5 ft 9 in Weight 202.59 kg [employer] Body Weight (kg) 72.72 BMI 65.9 Weight change and time frame Current obtained from bed scale Subjective/Other Information TF infusing at goal rate. Reglan started yesterday. Is patient on ventilator? Yes Is Patient Ambulatory and/or Out of Bed No REE-([place]-confined to bed) 3571.980 Additional Notes Energy needs 60-70% of REE: [id number] kcal/day Pro needs 2.5g/kg IBW: 182g/ day Fluid needs per MD Nutrition Intervention Nutrition Support: Change TF formula to Nepro at 55ml/hr with 200ml water flush q4h. Kcal 2,376 Protein (gm) 107 Fluid (mL) 960 Goal #1 TF tolerance Goal #2 TF to meet at least 60-70% nutrient needs Follow-Up By: 09/09/18 Additional Comments F/U: TF formula change/rate, renal function
[2018-09-08] MEDS: APRESOLINE IV PRN (18:36)
[2018-09-09] MEDS: REGLAN IV SCH ×4 (00:45→17:36)
[2018-09-09] MEDS: NACL 0.9% 1000 ML 1,000 ML IV SCH ×2 (00:47→14:01)
[2018-09-09] MEDS: LOPRESSOR PO SCH ×4 (00:50→21:35)
[2018-09-09] MEDS: CARDENE 50 MG in NACL 0.9% 250ML 230 ML IV SCH ×5 (06:06→23:33)
[2018-09-09] MEDS: SYNTHROID PO SCH (06:36)
[2018-09-09] MEDS: CATAPRES PO SCH ×3 (06:36→21:35)
[2018-09-09] MEDS: HEPARIN SUB-Q SCH ×3 (06:37→21:36)
[2018-09-09 07:00] LABS: Hematocrit 46.4 % (35.5-45.6); Hemoglobin 13.6 gm/dl (11.8-15.2)
[2018-09-09 07:25] LABS: Calcium 8.7 mg/dL (8.4-10.2)
[2018-09-09] MEDS: ROBINUL PO SCH ×3 (08:46→21:35)
[2018-09-09] MEDS: PEPCID PO SCH ×2 (09:32→21:36)
[2018-09-09] MEDS: BABY ASPIRIN PO SCH (09:32)
[2018-09-09] MEDS: NORVASC PO SCH (09:32)
[2018-09-09] MEDS: SODIUM CHLORIDE FLUSH SYRINGE 10 ML IV SCH ×3 (09:34→21:36)
--- NOTE | 2018-09-09 11:17 | Progress Note ---
Assessment and Plan Vascular consultation noted - Recommend strict blood pressure control BP <120/80 and Heart rate < 60. Weight should be confirmed. Needs repeat CTA chest to assess progression of his dissection. MOMO is far less specific and sensitive to assess for progression en given the initial study was a CTA. Hemodynamically stable now. IVF per nephrology. Will cont to follow closely. The patient has been seen in conjunction with Dr. Chavez who agrees with the assessment and plan of care. - Patient Problems (1) Respiratory failure with hypoxia and hypercapnia Current Visit: Yes Status: Acute Qualifiers: Chronicity: acute Qualified Code(s): J96.01 - Acute respiratory failure with hypoxia; J96.02 - Acute respiratory failure with hypercapnia (2) Hypertensive emergency Current Visit: Yes Status: Acute (3) Acute HFrEF (heart failure with reduced ejection fraction) Current Visit: Yes Status: Acute (4) Chronic thoracic aortic dissection Current Visit: Yes Status: Chronic (5) SHAWNA (acute kidney injury) Current Visit: Yes Status: Acute (6) NSTEMI (non-ST elevated myocardial infarction) Current Visit: Yes Status: Acute (7) Medical non-compliance Current Visit: Yes Status: Chronic (8) Morbid obesity Current Visit: Yes Status: Chronic (9) PAUL (obstructive sleep apnea) Current Visit: Yes Status: Chronic (10) Obesity hypoventilation syndrome Current Visit: Yes Status: Chronic (11) Diabetes Current Visit: Yes Status: Chronic Subjective Date of service: 09/09/18 Principal diagnosis: Ac Hypoxemic Hypercapnic Resp Failure; HTNsive Emergency; Type B dissection Interval history: pt remains intubated, on cardene gtt. Objective Last Vital Signs Temp 100.2 F H 09/09/18 08:49 Pulse 74 09/09/18 11:00 Resp 20 09/09/18 11:00 BP 137/73 09/09/18 11:00 Pulse Ox 92 09/09/18 11:00 - Physical Examination General: Other (intubated, agitated ) HEENT: Positive: PERRL, Normocephaly, Mucus Membranes Moist Neck: Positive: neck supple Cardiac: Positive: Reg Rate and Rhythm, S1/S2 Lungs: Positive: Decreased Breath Sounds, Ventilated Respirations Neuro: Positive: Grossly Intact Abdomen: Positive: Soft. Negative: Tender Skin: Negative: Rash Musculoskeletal: No Pain Extremities: Present: +1 Edema (BLE, chronic skin changes) - Labs and Meds CBC 09/09/18 Range/Units 05:20 Hgb 13.6 (11.8-15.2) gm/dl Hct 46.4 H (35.5-45.6) % Plt Count 252 (140-440) K/mm3 Comprehensive Metabolic Panel 09/09/18 Range/Units 05:20 Sodium 146 H (137-145) mmol/L Potassium 4.7 (3.6-5.0) mmol/L Chloride 99.0 (98-107) mmol/L Carbon Dioxide 34 H (22-30) mmol/L BUN 63 H (9-20) mg/dL Creatinine 3.5 H (0.8-1.5) mg/dL Glucose 113 H (75-100) mg/dL Calcium 8.7 (8.4-10.2) mg/dL - Imaging and Cardiology EKG: report reviewed, image reviewed Echo: report reviewed (05/10/2018 showed EF 45-50%, impaired relaxation, RV mildly dilated, RV systolic function mod reduced. ) - EKG Sinus rhythms and dysrhythmias: sinus rhythm - Allied health notes Allied health notes reviewed: nursing
--- NOTE | 2018-09-09 12:45 | Progress Note ---
Assessment and Plan Acute Hypoxemic Hypercapnic Respiratory Failure Hypertensive Emergency H/O Type B Aortic Dissection (No surgery recommended in October 2017) Morbid Obesity PAUL/OHS Acute exacerbation of SYSTOLIC CHF NSTEMI TYPE 2 Diabetes Mellitus - transitioned to AC MODE; TV 500mls; Rate 20; Peep 15 and FiO2 to keep sat's > 90% - get ABG in 1-2 hours - continue tube feedings / oral meds - continue oral clonidine 0.2mg q8h - continue scheduled oral Metoprolol to target Pulse approx 60-70/min and target SBP </= 120 mmHg - continue scopolamine for secretions but added Robinul as still moderate secretions - Azotemia worsening and nephrology consulted - vascular surgery evaluation ongoing - stopped IV heparin re: risk of chronic dissection extension - continue ACS management otherwise per cardiology - CTA cancelled due to azotemia and he is to big for the scanner - changed lovenox to bid dosing re: morbid obesity - continue seroquel to spare fentanyl for sedation - continue daily SBT evaluation - continue daily SAT's - sedation for target RASS 0 to -1 - continue bronchodilators with pulmonary hygiene per RT - continue to wean oxygen for target O2 Sat's > 89 - 90% - VAP bundle addressed - continue enteral nutrition as tolerated - discontinue dias catheter - get serum Mg & PO4 levels and adjust as necessary - mobility protocol for pressure ulcer prophylaxis - GI & VTE prophylaxis - re-introduce oral anti-hypertensives - glycemic control with SSI for target BG 140 - 180 mg/dL - continue other care per attending / other consultants ...... re-evaluate in am & prn ... care plan discussed with attending The high probability of a clinically significant, sudden or life threatening deterioration of the [Pulmonary,cardiac and Vascular] system(s) required my full and direct attention, intervention and personal management. The aggregate critical care time was [34] minutes. This time is in addition to time spent performing reported procedures but includes the following: [x] Data Review and interpretation [x] Patient assessment and monitoring of vital signs [x] Documentation Subjective Date of service: 09/09/18 Principal diagnosis: Ac Hypoxemic Hypercapnic Resp Failure; HTNsive Emergency; Type B dissection Interval history: Patient is seen today for: Acute Hypoxemic Hypercapnic Respiratory Failure; Hypertensive Emergency; H/O Type B Aortic Dissection (No surgery recommended in October 2017); Morbid Obesity Seen and examined at bedside; 24hour events reviewed; nursing and respiratory care staff consulted; no adverse overnight events reported to me; remains on APRV; attempting to transition to conventional AC mode; responsive; denies acute chest pains or palpitations; No emesis or overt aspiration Objective Vital Signs - 12hr 09/09/18 09/09/18 09/09/18 00:50 01:00 01:15 Temperature Pulse Rate 88 85 81 Pulse Rate [ From Monitor] Respiratory 20 20 Rate Blood Pressure 150/78 150/78 156/76 O2 Sat by Pulse 92 93 Oximetry 09/09/18 09/09/18 09/09/18 01:30 01:45 02:00 Temperature Pulse Rate 81 86 84 Pulse Rate [ From Monitor] Respiratory 20 22 22 Rate Blood Pressure 156/76 150/70 150/70 O2 Sat by Pulse 92 91 91 Oximetry 09/09/18 09/09/18 09/09/18 02:15 02:30 02:45 Temperature Pulse Rate 90 88 88 Pulse Rate [ From Monitor] Respiratory 21 17 19 Rate Blood Pressure 157/82 157/82 161/69 O2 Sat by Pulse 90 93 91 Oximetry 09/09/18 09/09/18 09/09/18 03:00 03:15 03:30 Temperature Pulse Rate 88 88 90 Pulse Rate [ From Monitor] Respiratory 21 22 21 Rate Blood Pressure 161/69 162/86 162/86 O2 Sat by Pulse 91 91 91 Oximetry 09/09/18 09/09/18 09/09/18 03:45 03:59 04:00 Temperature Pulse Rate 91 H 91 H 99 H Pulse Rate [ From Monitor] Respiratory 21 25 H 23 Rate Blood Pressure 151/76 158/84 158/84 O2 Sat by Pulse 92 94 93 Oximetry 09/09/18 09/09/18 09/09/18 04:15 04:30 04:45 Temperature Pulse Rate 85 83 81 Pulse Rate [ From Monitor] Respiratory 17 15 16 Rate Blood Pressure 148/74 148/74 134/77 O2 Sat by Pulse 95 95 95 Oximetry 09/09/18 09/09/18 09/09/18 05:00 05:15 05:30 Temperature Pulse Rate 97 H 87 93 H Pulse Rate [ From Monitor] Respiratory 15 18 18 Rate Blood Pressure 156/91 159/75 159/75 O2 Sat by Pulse 96 94 87 Oximetry 09/09/18 09/09/18 09/09/18 05:46 06:00 06:15 Temperature Pulse Rate 113 H 104 H 95 H Pulse Rate [ From Monitor] Respiratory 24 28 H 25 H Rate Blood Pressure 228/105 228/105 178/85 O2 Sat by Pulse 90 90 90 Oximetry 09/09/18 09/09/18 09/09/18 06:30 06:36 06:37 Temperature Pulse Rate 94 H 84 85 Pulse Rate [ From Monitor] Respiratory 23 Rate Blood Pressure 178/85 175/73 175/73 O2 Sat by Pulse 90 Oximetry 09/09/18 09/09/18 09/09/18 06:45 07:00 07:15 Temperature Pulse Rate 81 80 84 Pulse Rate [ From Monitor] Respiratory 22 20 19 Rate Blood Pressure 153/69 153/69 161/73 O2 Sat by Pulse 91 90 93 Oximetry 09/09/18 09/09/18 09/09/18 07:16 07:30 07:46 Temperature Pulse Rate 83 82 83 Pulse Rate [ From Monitor] Respiratory 47 H 20 22 Rate Blood Pressure 161/73 139/70 160/79 O2 Sat by Pulse 92 92 94 Oximetry 09/09/18 09/09/18 09/09/18 08:00 08:15 08:30 Temperature 100.2 F H Pulse Rate 80 77 79 Pulse Rate [ 73 From Monitor] Respiratory 22 20 15 Rate Blood Pressure 160/79 152/76 152/76 O2 Sat by Pulse 93 93 92 Oximetry 09/09/18 09/09/18 09/09/18 08:45 08:49 09:00 Temperature 100.2 F H Pulse Rate 77 78 Pulse Rate [ From Monitor] Respiratory 19 21 Rate Blood Pressure 137/75 137/75 O2 Sat by Pulse 93 93 Oximetry 09/09/18 09/09/18 09/09/18 09:06 09:15 09:30 Temperature Pulse Rate 81 78 78 Pulse Rate [ From Monitor] Respiratory 39 H 19 21 Rate Blood Pressure 123/75 147/82 147/82 O2 Sat by Pulse 92 93 94 Oximetry 09/09/18 09/09/18 09/09/18 09:32 09:45 10:00 Temperature Pulse Rate 76 75 77 Pulse Rate [ From Monitor] Respiratory 20 14 Rate Blood Pressure 149/75 146/72 146/72 O2 Sat by Pulse 93 93 Oximetry 09/09/18 09/09/1809/09/19 10:15 10:30 10:39 Temperature Pulse Rate 75 73 76 Pulse Rate [ From Monitor] Respiratory 17 19 Rate Blood Pressure 138/67 146/72 142/71 O2 Sat by Pulse 91 91 90 Oximetry 09/09/18 09/09/18 09/09/18 10:46 11:00 12:33 Temperature Pulse Rate 74 74 74 Pulse Rate [ From Monitor] Respiratory 19 20 Rate Blood Pressure 137/73 137/73 142/74 O2 Sat by Pulse 91 92 Oximetry 09/09/18 12:44 Temperature 99.9 F H Pulse Rate Pulse Rate [ From Monitor] Respiratory Rate Blood Pressure O2 Sat by Pulse Oximetry Constitutional: appears uncomfortable, other (young morbidly obese AAM, normocephalic and atraumatic on MVS) Eyes: non-icteric ENT: oropharynx moist, oropharyngeal exudate pre, other (ETT 23 cm JANE) Neck: supple, no lymphadenopathy, no JVD, other (large neck circumference) Effort: mildly labored Ascultation: Bilateral: diminished breath sounds, rhonchi (bases) Percussion: Bilateral: not dull Cardiovascular: regular rate and rhythm, other (No R/M) Gastrointestinal: normoactive bowel sounds, soft, non-tender, other (protuberant) Integumentary: rash Extremities: no cyanosis, pulses normal, no ischemia or petechiae, edema Neurologic: normal mental status, non-focal exam (grossly), pupils equal and round, motor strength normal and Psychiatric: mood appropriate, affect normal, other CBC and BMP: 09/09/18 05:20 09/10/18 04:30 ABG, PT/INR, D-dimer: ABG POC ABG pH 7.259 (7.35-7.45) L 09/09/18 10:41 POC ABG pCO2 80.0 (35-45) H 09/09/18 10:41 POC ABG pO2 58 (80-105) L 09/09/18 10:41 POC ABG HCO3 35.8 09/09/18 10:41 POC ABG Total CO2 38 09/09/18 10:41 POC ABG O2 Sat 84 09/09/18 10:41 PT/INR, D-dimer PT 15.1 Sec. (12.2-14.9) H 09/01/18 21:20 INR 1.15 (0.87-1.13) H 09/01/18 21:20 D-Dimer 869.27 ng/mlDDU (0-234) H 09/01/18 15:15 Abnormal lab findings: Abnormal Labs 09/01/18 09/01/18 09/01/18 15:15 15:15 15:15 RBC 5.37 H Hgb Hct 47.8 H MCH 27 L MCHC 31 L RDW 17.1 H Lymph % (Auto) Colbert % (Auto) 11.0 H Lymph # 1.0 L Colbert # Seg Neutrophils % 70.2 H PT 15.0 H INR 1.14 H D-Dimer Heparin Anti-Xa Level POC ABG pH POC ABG pCO2 POC ABG pO2 Sodium Potassium Chloride Carbon Dioxide 39 H BUN 21 H Creatinine Glucose 106 H POC Glucose Calcium Phosphorus Total Bilirubin AST Total Creatine Kinase Troponin T 0.125 H* NT-Pro-B Natriuret Pep Total Protein Albumin HDL Cholesterol 33 L PTH Intact Urine WBC (Auto) Urine Creatinine Urine Total Protein 09/01/18 09/01/18 09/01/18 15:15 15:15 15:28 RBC Hgb Hct MCH MCHC RDW Lymph % (Auto) Colbert % (Auto) Lymph # Colbert # Seg Neutrophils % PT INR D-Dimer 869.27 H Heparin Anti-Xa Level POC ABG pH 7.235 L POC ABG pCO2 89.8 H POC ABG pO2 Sodium Potassium Chloride Carbon Dioxide BUN Creatinine Glucose POC Glucose Calcium Phosphorus Total Bilirubin AST Total Creatine Kinase Troponin T NT-Pro-B Natriuret Pep 1764 H Total Protein Albumin HDL Cholesterol PTH Intact Urine WBC (Auto) Urine Creatinine Urine Total Protein 09/01/18 09/01/18 09/01/18 17:45 19:28 21:20 RBC Hgb Hct MCH MCHC RDW Lymph % (Auto) Colbert % (Auto) Lymph # Colbert # Seg Neutrophils % PT INR D-Dimer Heparin Anti-Xa Level POC ABG pH 7.175 L POC ABG pCO2 105.5 H POC ABG pO2 111 H Sodium Potassium Chloride Carbon Dioxide BUN Creatinine Glucose POC Glucose Calcium Phosphorus Total Bilirubin AST Total Creatine Kinase Troponin T 0.130 H* 0.132 H* NT-Pro-B Natriuret Pep Total Protein Albumin HDL Cholesterol PTH Intact Urine WBC (Auto) Urine Creatinine Urine Total Protein 09/01/18 09/01/18 09/01/18 21:20 21:20 23:29 RBC Hgb Hct 46.4 H MCH MCHC RDW Lymph % (Auto) Colbert % (Auto) Lymph # Colbert # Seg Neutrophils % PT 15.1 H INR 1.15 H D-Dimer Heparin Anti-Xa Level POC ABG pH 7.349 L POC ABG pCO2 76.4 H POC ABG pO2 35 L Sodium Potassium Chloride Carbon Dioxide BUN Creatinine Glucose POC Glucose Calcium Phosphorus Total Bilirubin AST Total Creatine Kinase Troponin T NT-Pro-B Natriuret Pep Total Protein Albumin HDL Cholesterol PTH Intact Urine WBC (Auto) Urine Creatinine Urine Total Protein 09/01/18 09/02/18 09/02/18 23:34 04:18 04:35 RBC 5.67 H Hgb 15.8 H Hct 50.6 H MCH MCHC 31 L RDW 17.9 H Lymph % (Auto) 12.2 L Colbert % (Auto) 12.6 H Lymph # 1.0 L Colbert # 1.0 H Seg Neutrophils % 73.5 H PT INR D-Dimer Heparin Anti-Xa Level POC ABG pH 7.294 L POC ABG pCO2 77.7 H 62.2 H POC ABG pO2 235 H Sodium Potassium Chloride Carbon Dioxide BUN Creatinine Glucose POC Glucose Calcium Phosphorus Total Bilirubin AST Total Creatine Kinase Troponin T NT-Pro-B Natriuret Pep Total Protein Albumin HDL Cholesterol PTH Intact Urine WBC (Auto) Urine Creatinine Urine Total Protein 09/02/18 09/02/18 09/02/18 04:35 08:16 08:16 RBC 5.68 H Hgb 15.4 H Hct 49.9 H MCH 27 L MCHC 31 L RDW 18.1 H Lymph % (Auto) Colbert % (Auto) 12.7 H Lymph # 1.1 L Colbert # 1.0 H Seg Neutrophils % 71.9 H PT INR D-Dimer Heparin Anti-Xa Level POC ABG pH POC ABG pCO2 POC ABG pO2 Sodium Potassium Chloride 97.7 L Carbon Dioxide 36 H 35 H BUN 21 H 21 H Creatinine Glucose 69 L POC Glucose Calcium Phosphorus Total Bilirubin 1.60 H AST 43 H Total Creatine Kinase Troponin T NT-Pro-B Natriuret Pep Total Protein 6.2 L Albumin 2.8 L HDL Cholesterol PTH Intact Urine WBC (Auto) Urine Creatinine Urine Total Protein 09/02/18 09/02/18 09/02/18 10:24 14:29 17:46 RBC Hgb Hct MCH MCHC RDW Lymph % (Auto) Colbert % (Auto) Lymph # Colbert # Seg Neutrophils % PT INR D-Dimer Heparin Anti-Xa Level < 0.10 L < 0.10 L POC ABG pH POC ABG pCO2 POC ABG pO2 Sodium Potassium Chloride Carbon Dioxide BUN Creatinine Glucose POC Glucose 69 L Calcium Phosphorus Total Bilirubin AST Total Creatine Kinase Troponin T NT-Pro-B Natriuret Pep Total Protein Albumin HDL Cholesterol PTH Intact Urine WBC (Auto) Urine Creatinine Urine Total Protein 09/03/18 09/03/18 09/03/18 03:20 03:20 05:48 RBC 5.57 H Hgb 15.5 H Hct 48.7 H MCH MCHC RDW 18.0 H Lymph % (Auto) Colbert % (Auto) Lymph # Colbert # Seg Neutrophils % PT INR D-Dimer Heparin Anti-Xa Level POC ABG pH POC ABG pCO2 62.0 H POC ABG pO2 Sodium Potassium 5.1 H D Chloride 97.2 L Carbon Dioxide 33 H BUN Creatinine Glucose 62 L POC Glucose Calcium Phosphorus Total Bilirubin AST Total Creatine Kinase Troponin T NT-Pro-B Natriuret Pep Total Protein Albumin HDL Cholesterol PTH Intact Urine WBC (Auto) Urine Creatinine Urine Total Protein 09/03/18 09/04/18 09/04/18 17:10 00:05 01:44 RBC Hgb Hct MCH MCHC RDW Lymph % (Auto) Colbert % (Auto) Lymph # Colbert # Seg Neutrophils % PT INR D-Dimer Heparin Anti-Xa Level 0.26 L POC ABG pH 7.304 L POC ABG pCO2 82.5 H POC ABG pO2 Sodium Potassium Chloride Carbon Dioxide BUN Creatinine Glucose POC Glucose Calcium Phosphorus Total Bilirubin AST Total Creatine Kinase Troponin T NT-Pro-B Natriuret Pep Total Protein Albumin HDL Cholesterol PTH Intact Urine WBC (Auto) 12.0 H Urine Creatinine Urine Total Protein 09/04/18 09/04/18 09/04/18 03:12 03:12 05:37 RBC 5.30 H Hgb Hct 47.1 H MCH 27 L MCHC 31 L RDW 18.3 H Lymph % (Auto) Colbert % (Auto) Lymph # Colbert # Seg Neutrophils % PT INR D-Dimer Heparin Anti-Xa Level POC ABG pH POC ABG pCO2 POC ABG pO2 Sodium Potassium Chloride Carbon Dioxide 32 H BUN 22 H Creatinine 1.6 H Glucose POC Glucose 115 H Calcium 8.1 L Phosphorus Total Bilirubin 1.90 H AST 72 H Total Creatine Kinase Troponin T NT-Pro-B Natriuret Pep Total Protein 6.0 L Albumin 2.3 L HDL Cholesterol PTH Intact Urine WBC (Auto) Urine Creatinine Urine Total Protein 09/04/18 09/04/18 09/05/18 05:48 11:31 04:00 RBC 5.16 H Hgb Hct MCH 27 L MCHC 31 L RDW 17.6 H Lymph % (Auto) Colbert % (Auto) Lymph # Colbert # Seg Neutrophils % PT INR D-Dimer Heparin Anti-Xa Level POC ABG pH 7.273 L 7.326 L POC ABG pCO2 89.9 H 70.4 H POC ABG pO2 78 L 155 H Sodium Potassium Chloride Carbon Dioxide BUN Creatinine Glucose POC Glucose Calcium Phosphorus Total Bilirubin AST Total Creatine Kinase Troponin T NT-Pro-B Natriuret Pep Total Protein Albumin HDL Cholesterol PTH Intact Urine WBC (Auto) Urine Creatinine Urine Total Protein 09/05/18 09/05/18 09/06/18 04:00 05:31 03:28 RBC Hgb Hct MCH MCHC RDW Lymph % (Auto) Colbert % (Auto) Lymph # Colbert # Seg Neutrophils % PT INR D-Dimer Heparin Anti-Xa Level POC ABG pH POC ABG pCO2 57.0 H 65.0 H POC ABG pO2 Sodium 146 H Potassium Chloride Carbon Dioxide 33 H BUN 27 H Creatinine 1.7 H Glucose 60 L POC Glucose Calcium Phosphorus Total Bilirubin AST Total Creatine Kinase Troponin T NT-Pro-B Natriuret Pep Total Protein Albumin HDL Cholesterol PTH Intact Urine WBC (Auto) Urine Creatinine Urine Total Protein 09/06/18 09/06/18 09/06/18 08:44 17:08 20:20 RBC Hgb Hct MCH MCHC RDW Lymph % (Auto) Colbert % (Auto) Lymph # Colbert # Seg Neutrophils % PT INR D-Dimer Heparin Anti-Xa Level POC ABG pH 7.497 H POC ABG pCO2 52.6 H 46.1 H POC ABG pO2 47 L 54 L Sodium Potassium Chloride 60.0 L Carbon Dioxide 32 H BUN 31 H Creatinine 1.9 H Glucose 199 H POC Glucose Calcium 7.9 L Phosphorus Total Bilirubin AST 63 H Total Creatine Kinase Troponin T NT-Pro-B Natriuret Pep Total Protein 5.9 L Albumin 2.3 L HDL Cholesterol PTH Intact Urine WBC (Auto) Urine Creatinine Urine Total Protein 09/06/18 09/06/18 09/06/18 23:32 Unknown Unknown RBC Hgb Hct MCH MCHC RDW Lymph % (Auto) Colbert % (Auto) Lymph # Colbert # Seg Neutrophils % PT INR D-Dimer Heparin Anti-Xa Level POC ABG pH 7.323 L POC ABG pCO2 72.2 H POC ABG pO2 Sodium Potassium Chloride Carbon Dioxide BUN Creatinine Glucose POC Glucose Calcium Phosphorus Total Bilirubin AST Total Creatine Kinase Troponin T NT-Pro-B Natriuret Pep Total Protein Albumin HDL Cholesterol PTH Intact Urine WBC (Auto) Urine Creatinine 70.7 H 70.8 H Urine Total Protein 25 H 09/07/18 09/07/18 09/07/18 04:15 04:15 04:15 RBC Hgb Hct MCH MCHC 31 L RDW 17.6 H Lymph % (Auto) Colbert % (Auto) Lymph # Colbert # Seg Neutrophils % PT INR D-Dimer Heparin Anti-Xa Level POC ABG pH POC ABG pCO2 POC ABG pO2 Sodium Potassium Chloride Carbon Dioxide 37 H 36 H BUN 35 H 35 H Creatinine 2.1 H 2.1 H Glucose POC Glucose Calcium Phosphorus 4.60 H Total Bilirubin 2.80 H AST 64 H Total Creatine Kinase Troponin T NT-Pro-B Natriuret Pep Total Protein 5.9 L Albumin 2.6 L HDL Cholesterol PTH Intact Urine WBC (Auto) Urine Creatinine Urine Total Protein 09/07/18 09/07/18 09/07/18 04:15 10:10 11:59 RBC Hgb Hct MCH MCHC RDW Lymph % (Auto) Colbert % (Auto) Lymph # Colbert # Seg Neutrophils % PT INR D-Dimer Heparin Anti-Xa Level POC ABG pH 7.317 L POC ABG pCO2 76.6 H POC ABG pO2 118 H Sodium Potassium Chloride Carbon Dioxide BUN Creatinine Glucose POC Glucose 68 L Calcium Phosphorus Total Bilirubin AST Total Creatine Kinase Troponin T NT-Pro-B Natriuret Pep Total Protein Albumin HDL Cholesterol PTH Intact 100.4 H Urine WBC (Auto) Urine Creatinine Urine Total Protein 09/07/18 09/08/18 09/08/18 23:51 04:15 05:20 RBC Hgb Hct MCH MCHC RDW Lymph % (Auto) Colbert % (Auto) Lymph # Colbert # Seg Neutrophils % PT INR D-Dimer Heparin Anti-Xa Level POC ABG pH 7.265 L POC ABG pCO2 80.4 H POC ABG pO2 185 H Sodium Potassium Chloride Carbon Dioxide 34 H BUN 55 H Creatinine 3.3 H D Glucose 118 H POC Glucose 118 H Calcium Phosphorus Total Bilirubin AST Total Creatine Kinase Troponin T NT-Pro-B Natriuret Pep Total Protein Albumin HDL Cholesterol PTH Intact Urine WBC (Auto) Urine Creatinine Urine Total Protein 09/08/18 09/08/18 09/08/18 05:20 05:30 14:25 RBC Hgb Hct MCH MCHC RDW Lymph % (Auto) Colbert % (Auto) Lymph # Colbert # Seg Neutrophils % PT INR D-Dimer Heparin Anti-Xa Level POC ABG pH 7.259 L POC ABG pCO2 84.9 H POC ABG pO2 Sodium Potassium Chloride Carbon Dioxide BUN Creatinine Glucose POC Glucose 119 H Calcium Phosphorus Total Bilirubin AST Total Creatine Kinase 20 L Troponin T NT-Pro-B Natriuret Pep Total Protein Albumin HDL Cholesterol PTH Intact Urine WBC (Auto) Urine Creatinine Urine Total Protein 09/08/18 09/09/18 09/09/18 21:11 05:20 05:20 RBC Hgb Hct 46.4 H MCH MCHC RDW Lymph % (Auto) Colbert % (Auto) Lymph # Colbert # Seg Neutrophils % PT INR D-Dimer Heparin Anti-Xa Level POC ABG pH 7.252 L POC ABG pCO2 82.6 H POC ABG pO2 Sodium 146 H Potassium Chloride Carbon Dioxide 34 H BUN 63 H Creatinine 3.5 H Glucose 113 H POC Glucose Calcium Phosphorus 7.10 H Total Bilirubin AST Total Creatine Kinase Troponin T NT-Pro-B Natriuret Pep Total Protein Albumin HDL Cholesterol PTH Intact Urine WBC (Auto) Urine Creatinine Urine Total Protein 09/09/18 09/09/18 09:08 10:41 RBC Hgb Hct MCH MCHC RDW Lymph % (Auto) Colbert % (Auto) Lymph # Colbert # Seg Neutrophils % PT INR D-Dimer Heparin Anti-Xa Level POC ABG pH 7.180 L 7.259 L POC ABG pCO2 99.6 H 80.0 H POC ABG pO2 79 L 58 L Sodium Potassium Chloride Carbon Dioxide BUN Creatinine Glucose POC Glucose Calcium Phosphorus Total Bilirubin AST Total Creatine Kinase Troponin T NT-Pro-B Natriuret Pep Total Protein Albumin HDL Cholesterol PTH Intact Urine WBC (Auto) Urine Creatinine Urine Total Protein Chest x-ray: image reviewed (ETT in good position) Allied health notes reviewed: nursing
--- NOTE | 2018-09-09 12:50 | Progress Note ---
Addendum entered and electronically signed by CAMRYN PIÑA NP 09/09/18 14:58: Bladder scan revealed urine retained to be 410 ml at 2:49 p.m. Ordered bladder scan to be done every 4 hours and if urine is 300 ml or greater to perform straight cath. Original Note: Assessment and Plan Acute Kidney Injury possibly prerenal/ATN, diuretics, questionable underlying CKD due to HTN: - Renal function reviewed. Serum creatinine rising, serum creatinine today is 3.5, yesterday's was 3.3 - Will obtain bladder scan to evaluate for any urine retention - Urine eosinophils- none seen - Eventhough eosinophils are negative we still cannot rule out Acute Interstitial Nephritis, if renal function continues to worsen, may need renal biopsy when become stable - On gentle IVF NS@ 75 ml/hr - Lasix was stopped on 09/06/18 - Renal US negative for obstruction - Renally dose meds - Gabriel Catheter: No - Monitor renal function closely Acute hypercapnic respiratory failure: History of PAUL: - Intubated in ED on admission - Re-intubated s/p self-extubation on 09/04/18 - As per Pulmonology NSTEMI: Chest pain: Chronic thoracic type B aortic dissection: - Vascular surgery on board - Cardiology on board, recommended CTA chest to assess progression of dissection Hypertensive Urgency: - On Labetalol and nicardipine drip - Adjust meds as needed Acute on chronic heart failure: - Echo Apr 2018 showed EF 45-50% per cardiology note - Cardiology on board Hypothyroidism: - On Synthroid Subjective Date of service: 09/09/18 Principal diagnosis: Ac Hypoxemic Hypercapnic Resp Failure; HTNsive Emergency; Type B dissection Interval history: Patient seen lying in bed. Patient is intubated. Tries to speak. Obese. No family at bedside. Objective - Vital Signs Vital signs: Vital Signs - 12hr 09/09/18 09/09/18 09/09/18 00:50 01:00 01:15 Temperature Pulse Rate 88 85 81 Pulse Rate [ From Monitor] Respiratory 20 20 Rate Blood Pressure 150/78 150/78 156/76 O2 Sat by Pulse 92 93 Oximetry 09/09/18 09/09/18 09/09/18 01:30 01:45 02:00 Temperature Pulse Rate 81 86 84 Pulse Rate [ From Monitor] Respiratory 20 22 22 Rate Blood Pressure 156/76 150/70 150/70 O2 Sat by Pulse 92 91 91 Oximetry 09/09/18 09/09/18 09/09/18 02:15 02:30 02:45 Temperature Pulse Rate 90 88 88 Pulse Rate [ From Monitor] Respiratory 21 17 19 Rate Blood Pressure 157/82 157/82 161/69 O2 Sat by Pulse 90 93 91 Oximetry 09/09/18 09/09/18 09/09/18 03:00 03:15 03:30 Temperature Pulse Rate 88 88 90 Pulse Rate [ From Monitor] Respiratory 21 22 21 Rate Blood Pressure 161/69 162/86 162/86 O2 Sat by Pulse 91 91 91 Oximetry 09/09/18 09/09/18 09/09/18 03:45 03:59 04:00 Temperature Pulse Rate 91 H 91 H 99 H Pulse Rate [ From Monitor] Respiratory 21 25 H 23 Rate Blood Pressure 151/76 158/84 158/84 O2 Sat by Pulse 92 94 93 Oximetry 09/09/18 09/09/18 09/09/18 04:15 04:30 04:45 Temperature Pulse Rate 85 83 81 Pulse Rate [ From Monitor] Respiratory 17 15 16 Rate Blood Pressure 148/74 148/74 134/77 O2 Sat by Pulse 95 95 95 Oximetry 09/09/18 09/09/18 09/09/18 05:00 05:15 05:30 Temperature Pulse Rate 97 H 87 93 H Pulse Rate [ From Monitor] Respiratory 15 18 18 Rate Blood Pressure 156/91 159/75 159/75 O2 Sat by Pulse 96 94 87 Oximetry 09/09/18 09/09/18 09/09/18 05:46 06:00 06:15 Temperature Pulse Rate 113 H 104 H 95 H Pulse Rate [ From Monitor] Respiratory 24 28 H 25 H Rate Blood Pressure 228/105 228/105 178/85 O2 Sat by Pulse 90 90 90 Oximetry 09/09/18 09/09/18 09/09/18 06:30 06:36 06:37 Temperature Pulse Rate 94 H 84 85 Pulse Rate [ From Monitor] Respiratory 23 Rate Blood Pressure 178/85 175/73 175/73 O2 Sat by Pulse 90 Oximetry 09/09/18 09/09/18 09/09/18 06:45 07:00 07:15 Temperature Pulse Rate 81 80 84 Pulse Rate [ From Monitor] Respiratory 22 20 19 Rate Blood Pressure 153/69 153/69 161/73 O2 Sat by Pulse 91 90 93 Oximetry 09/09/18 09/09/18 09/09/18 07:16 07:30 07:46 Temperature Pulse Rate 83 82 83 Pulse Rate [ From Monitor] Respiratory 47 H 20 22 Rate Blood Pressure 161/73 139/70 160/79 O2 Sat by Pulse 92 92 94 Oximetry 09/09/18 09/09/18 09/09/18 08:00 08:15 08:30 Temperature 100.2 F H Pulse Rate 80 77 79 Pulse Rate [ 73 From Monitor] Respiratory 22 20 15 Rate Blood Pressure 160/79 152/76 152/76 O2 Sat by Pulse 93 93 92 Oximetry 09/09/18 09/09/18 09/09/18 08:45 08:49 09:00 Temperature 100.2 F H Pulse Rate 77 78 Pulse Rate [ From Monitor] Respiratory 19 21 Rate Blood Pressure 137/75 137/75 O2 Sat by Pulse 93 93 Oximetry 09/09/18 09/09/18 09/09/18 09:06 09:15 09:30 Temperature Pulse Rate 81 78 78 Pulse Rate [ From Monitor] Respiratory 39 H 19 21 Rate Blood Pressure 123/75 147/82 147/82 O2 Sat by Pulse 92 93 94 Oximetry 09/09/18 09/09/18 09/09/18 09:32 09:45 10:00 Temperature Pulse Rate 76 75 77 Pulse Rate [ From Monitor] Respiratory 20 14 Rate Blood Pressure 149/75 146/72 146/72 O2 Sat by Pulse 93 93 Oximetry 09/09/18 09/09/18 09/09/18 10:15 10:30 10:39 Temperature Pulse Rate 75 73 76 Pulse Rate [ From Monitor] Respiratory 17 19 Rate Blood Pressure 138/67 146/72 142/71 O2 Sat by Pulse 91 91 90 Oximetry 09/09/18 09/09/18 09/09/18 10:46 11:00 12:33 Temperature Pulse Rate 74 74 74 Pulse Rate [ From Monitor] Respiratory 19 20 Rate Blood Pressure 137/73 137/73 142/74 O2 Sat by Pulse 91 92 Oximetry 09/09/18 12:44 Temperature 99.9 F H Pulse Rate Pulse Rate [ From Monitor] Respiratory Rate Blood Pressure O2 Sat by Pulse Oximetry - General Appearance General appearance: well-developed, other (Intubated. Obese) EENT: ATNC Neck: no JVD, supple Respiratory: Present: Decreased Breath Sounds, Other (Intubated) Cardiology: S1S2 Gastrointestinal: other (Obese abdomen, has dobhoff tube intact) Integumentary: warm and dry, hyperpigmentation, hyperkeratosis Neurologic: other (Intubated, awake, tries to speak) Musculoskeletal: joint swelling - Lab 09/09/18 05:20 09/09/18 05:20 Most recent lab results Calcium 8.7 mg/dL (8.4-10.2) 09/09/18 05:20 Phosphorus 7.10 mg/dL (2.5-4.5) H 09/09/18 05:20 Magnesium 2.10 mg/dL (1.7-2.3) 09/07/18 04:15 Urine Creatinine 70.8 mg/dL (0.1-20.0) H 09/06/18 Unknown Urine Sodium 81 mmol/L 09/06/18 Unknown Urine Total Protein 25 mg/dL (5-11.8) H 09/06/18 Unknown Medications & Allergies - Medications Allergies/Adverse Reactions: Allergies No Known Allergies Allergy (Unverified 10/02/17 17:09) Home Medications: Home Medications Medication Instructions Recorded Confirmed Last Taken Type Aspirin [Aspirin BABY CHEW TAB] 81 mg PO QDAY #30 tab.chew 08/04/18 09/07/18 Unknown Rx Furosemide [Lasix TAB] 40 mg PO BID #60 tablet 08/04/18 09/07/18 Unknown Rx Labetalol [Normodyne TAB] 300 mg PO Q8HR 30 Days tablet 08/04/18 09/07/18 Unknown Rx Levothyroxine [Synthroid] 50 mcg PO DAILY@0600 #30 tablet 08/04/18 09/07/18 Unknown Rx NIFEdipine XL [Procardia Xl] 90 mg PO BID #60 tablet 08/04/18 09/07/18 Unknown Rx Potassium Chloride [K-Dur] 10 meq PO BID #60 tablet 08/04/18 09/07/18 Unknown Rx cloNIDine-TTS PATCH 0.3 mg TRANSDERMA 1XW #4 08/04/18 09/07/18 Unknown Rx Active Medications: Generic Name Dose Route Start Last Admin Trade Name Freq PRN Reason Stop Dose Admin Acetaminophen 650 mg 09/04/18 23:45 09/05/18 00:41 Tylenol PO 650 mg Q6H PRN Administration Pain, Mild (1-3) Albuterol 2.5 mg 09/01/18 18:25 Proventil IH Q3HRT PRN Shortness Of Breath Amlodipine Besylate 10 mg 09/02/18 11:00 09/09/18 09:32 Norvasc PO 10 mg DAILY ELIEL Administration Lipase/Protease/Amylase 1 each 09/03/18 12:[address] 10,500 Unit FEEDTUBE PRN PRN For Clogged Feeding Tube Aspirin 81 mg 09/02/18 10:00 09/09/18 09:32 Baby Aspirin PO 81 mg QDAY ELIEL Administration Clonidine HCl 0.3 mg 09/09/18 14:00 Catapres PO Q8HR ELIEL Famotidine 20 mg 09/03/18 10:00 09/09/18 09:32 Pepcid PO 20 mg BID ELIEL Administration Glycopyrrolate 1 mg 09/07/18 14:00 09/09/18 08:46 Robinul PO 1 mg TID ELIEL Administration Heparin Sodium (Porcine) 5,000 unit 09/08/18 14:00 09/09/18 06:37 Heparin SUB-Q 5,000 unit Q8HR ELIEL Administration Hydralazine HCl 5 mg 09/03/18 03:10 09/08/18 18:36 Apresoline IV 5 mg Q4H PRN Administration Blood Pressure Hydralazine HCl 50 mg 09/09/18 14:00 Apresoline PO Q8HR [facility] Hydrophilic Ointment 1 applic 09/01/18 19:56 Vaseline Lip Therapy TP Q2HR PRN Dry Lips Fentanyl Citrate 2,000 mcg in 100 mls @ 12.205 mls/hr 09/02/18 11:00 09/08/18 12:08 Fentanyl Drip Premix IV 0 mcg/kg/hr TITR ELIEL 0 mls/hr Titration Protocol 1 MCG/KG/HR Propofol 1,000 mg in 100 mls @ 7.344 mls/hr 09/06/18 11:00 09/06/18 21:30 Diprivan 10 Mg/Ml IV 0 mcg/kg/min TITR ELIEL 0 mls/hr Titration Protocol 5 MCG/KG/MIN Nicardipine HCl 50 mg/ Sodium 250 mls @ 25 mls/hr 09/06/18 11:00 09/09/18 09:37 Chloride IV 12.5 mg/hr TITR ELIEL 62.5 mls/hr Administration Protocol 5 MG/HR Labetalol HCl 200 mg/ Dextrose 200 mls @ 120 mls/hr 09/06/18 22:00 IV TITR ELIEL Protocol 2 MG/MIN Sodium Chloride 1,000 mls @ 75 mls/hr 09/08/18 12:00 09/09/18 00:47 Nacl 0.9% 1000 Ml IV 75 mls/hr DIRECT ELIEL Administration Levothyroxine Sodium 50 mcg 09/02/18 06:00 09/09/18 06:36 Synthroid PO 50 mcg DAILY@0600 ELIEL Administration Metoclopramide HCl 5 mg 09/07/18 15:00 09/09/18 12:18 Reglan IV 5 mg Q6HR ELIEL Administration Metoprolol Tartrate 50 mg 09/09/18 12:00 09/09/18 12:33 Lopressor PO 50 mg BID ELIEL Administration Multi-Ingred Cream/Lotion/Oil/Oint 1 applic 09/01/18 19:56 Artificial Tears Ophth Oint OU Q4HR PRN Dry Eye(s) Quetiapine Fumarate 100 mg 09/07/18 22:00 09/09/18 09:32 Seroquel PO 100 mg BID ELIEL Administration Scopolamine 1 each 09/07/18 13:00 09/07/18 14:49 Transderm-Scop TD 1 each Q72H ELIEL Administration Simple Syrup 15 ml 09/03/18 12:10 09/07/18 12:08 Simple Syrup FEEDTUBE 15 ml PRN PRN Administration Hypoglycemia Simple Syrup 30 ml 09/03/18 12:10 Simple Syrup FEEDTUBE PRN PRN Hypoglycemia Sodium Bicarbonate 325 mg 09/03/18 12:10 Sodium Bicarbonate FEEDTUBE PRN PRN For Clogged Feeding Tube Sodium Chloride 10 ml 09/01/18 22:00 09/09/18 09:35 Sodium Chloride Flush Syringe 10 Ml IV 10 ml BID ELIEL Administration Sodium Chloride 10 ml 09/01/18 18:25 Sodium Chloride Flush Syringe 10 Ml IV PRN PRN LINE FLUSH
--- NOTE | 2018-09-09 13:51 | XRay Report ---
AP CHEST: HISTORY: Hypoxemia, subcutaneous emphysema Lines and support devices remain in adequate position since yesterday's exam. Mild cardiomegaly has increased slightly. Moderate pulmonary venous congestion has developed. The lungs are grossly clear although the left lower lobe is poorly evaluated secondary to cardiomegaly. No large infiltrate or pleural effusion. No pneumothorax. IMPRESSION: Volume overload/CHF. No evidence for pneumothorax.
[2018-09-09] MEDS: APRESOLINE PO SCH ×2 (13:54→21:35)
--- NOTE | 2018-09-09 16:12 | Progress Note ---
Assessment and Plan Assessment and plan: 28 YO Male with MO, CHF, Obesity Hypoventilation, Chronic AORTIC DISSECTION, HTN, Hypothyrodism, Lymphedema presents to ED for evaluation. Pt states that he has experienced shortness of breath over the past three days with persistent symptoms over the same time frame. Pt acknowledges Orthopnea/PND, Decreased exercise tolerance, Dypsnea on exertion. Pt denies fever, chills, CP, Palpitations, NVD, Trauma, Productive cough or recent ill contacts. Pt denies back pain, or chest pain that radiates to his back. Pt transported to [facility] for further care and evaluation. Pt seen and evaluated in ED and found to have Hypercapnic Respiratory Failure, CHF. Pt initiated on NIPPV without improvement. Pt intubated and placed on vent support in ED. Pt admitted to ICU and placed on heparin drip protocol. Cardiology and Pulmonary teams consulted in ED. During this admission had a code blue secondary to self extubation. He did not have any loss of Pulse but was bradycardic requiring one atropine and one epinephrine. The patient was intubated again by the help of the ED physician. Mother who is at the bedside was updated Patient has been on BB and cardene to get stabilization of BP MOMO is still pending CTA CHEST TO ASSESS PROGRESSION PENDING- SHAWNA precluding Nephrology consulted for SHAWNA Vascular was consulted and recommended labetalol drip, this was unsuccessful in maintain the BP (1) Respiratory failure with hypoxia and hypercapnia Current Visit: Yes Status: Acute Qualifiers: Chronicity: acute Qualified Code(s): J96.01 - Acute respiratory failure with hypoxia; J96.02 - Acute respiratory failure with hypercapnia Plan to address problem: Continue with ICU. Pt intubated placed on vent support. CTA chest pending, now with shawna, will repeat when patient is more stable and renal function improved. Initiated on heparin drip protocol, ABG, wean vent as tolerated, (2) Hypertensive Urgency: LABETALOL DRIP RECOMMENDED BY VASCULAR. UPTITRATE ORAL MEDS, GOAL SBP 120 OR LESS. add cardene drip. Discussed importance of this management with nursing staff. (3) Acute exacerbation of SYSTOLIC CHF (congestive heart failure) Current Visit: Yes Status: Chronic Qualifiers: Heart failure type: unspecified Qualified Code(s): I50.9 - Heart failure, unspecified Plan to address problem: Cardiology consulted in ED, diuresis, Strict I/O, daily weight, afterload reduction, blood pressure control, monitor uop q shift, chest x ray. (4) NSTEMI TYPE 2: Cardiology following. PATIENT WITH KNOWN HX OF DISSECTION. IMAGING STUDIES PENDING. (5) Diabetes Mellitus: Hypoglycemia. Persist. Start patient on D5NS. (6) Obesity hypoventilation syndrome Current Visit: Yes Status: Acute Plan to address problem: Supplemental oxygen, nebulizer therapy, supportive care, pulmonary consulted (7) Tranaminitis- Monitor (8) Morbid Obesity but with Moderate Protein calorie Malnutrition- Started on Tube feeds (9) SHAWNA secondary to vasomotor nephropathy Hold lasix today Renal consult. DVT prophylaxis Current Visit: Yes Status: Acute Plan to address problem: SCD to BLE while in bed. The high probability of a clinically significant, sudden or life threatening deterioration of the [Pulmonary,cardiac,neuro] system(s) required my full and direct attention, intervention and personal management. The aggregate critical care time was [35] minutes. This time is in addition to time spent performing reported procedures but includes the following: [x] Data Review and interpretation [x] Patient assessment and monitoring of vital signs [x] Documentation [x] Medication orders and management History Interval history: Patient was seen and evaluated this morning, patient was intubated and mechanical ventilation. I have discussed the management plan yesterday with his mother who was in the room during examination. Hospitalist Physical - Physical exam Narrative exam: Patient was intubated, on mechanical ventilation. The patient morbidly obese. Vital signs as documented. Head exam is unremarkable. No scleral icterus . Neck is without jugular venous distension, thyromegaly, or carotid bruits. Lungs are clear to auscultation. Cardiac exam reveals regular rate and Rhythm. First and second heart sounds normal. No murmurs, rubs or gallops. Abdominal exam reveals normal bowel sounds, no masses, no organomegaly and no aortic enlargement. Extremities are nonedematous and both femoral and pedal pulses are normal. 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 - Constitutional Vitals: Temp Pulse Resp BP Pulse Ox 99.9 F H 76 20 154/62 94 09/09/18 12:44 09/09/18 14:36 09/09/18 11:00 09/09/18 14:36 09/09/18 14:36 General appearance: Present: no acute distress Results - Labs CBC & Chem 7: 09/09/18 05:20 09/09/18 05:20 Labs: Laboratory Last Values WBC 8.1 K/mm3 (4.5-11.0) 09/07/18 04:15 RBC 5.00 M/mm3 (3.65-5.03) 09/07/18 04:15 Hgb 13.6 gm/dl (11.8-15.2) 09/09/18 05:20 Hct 46.4 % (35.5-45.6) H 09/09/18 05:20 MCV 89 fl (84-94) 09/07/18 04:15 MCH 28 pg (28-32) 09/07/18 04:15 MCHC 31 % (32-34) L 09/07/18 04:15 RDW 17.6 % (13.2-15.2) H 09/07/18 04:15 Plt Count 252 K/mm3 (140-440) 09/09/18 05:20 Lymph % (Auto) 13.8 % (13.4-35.0) 09/02/18 08:16 [place] % (Auto) 12.7 % (0.0-7.3) H 09/02/18 08:16 Eos % (Auto) 0.9 % (0.0-4.3) 09/02/18 08:16 Baso % (Auto) 0.7 % (0.0-1.8) 09/02/18 08:16 Lymph # 1.1 K/mm3 (1.2-5.4) L 09/02/18 08:16 [place] # 1.0 K/mm3 (0.0-0.8) H 09/02/18 08:16 Eos # 0.1 K/mm3 (0.0-0.4) 09/02/18 08:16 Baso # 0.1 K/mm3 (0.0-0.1) 09/02/18 08:16 Seg Neutrophils % 71.9 % (40.0-70.0) H 09/02/18 08:16 Seg Neutrophils # 5.6 K/mm3 (1.8-7.7) 09/02/18 08:16 PT 15.1 Sec. (12.2-14.9) H 09/01/18 21:20 INR 1.15 (0.87-1.13) H 09/01/18 21:20 APTT 30.2 Sec. (24.2-36.6) 09/01/18 21:20 D-Dimer 869.27 ng/mlDDU (0-234) H 09/01/18 15:15 Heparin Anti-Xa Level 0.26 U.I./ml (0.3-0.7) L 09/04/18 01:44 POC ABG pH 7.259 (7.35-7.45) L 09/09/18 10:41 POC ABG pCO2 80.0 (35-45) H 09/09/18 10:41 POC ABG pO2 58 (80-105) L 09/09/18 10:41 POC ABG HCO3 35.8 09/09/18 10:41 POC ABG Total CO2 38 09/09/18 10:41 POC ABG O2 Sat 84 09/09/18 10:41 POC ABG Base Excess 9 09/09/18 10:41 FiO2 50 % 09/09/18 10:41 Sodium 146 mmol/L (137-145) H 09/09/18 05:20 Potassium 4.7 mmol/L (3.6-5.0) 09/09/18 05:20 Chloride 99.0 mmol/L (98-107) 09/09/18 05:20 Carbon Dioxide 34 mmol/L (22-30) H 09/09/18 05:20 Anion Gap 18 mmol/L 09/09/18 05:20 BUN 63 mg/dL (9-20) H 09/09/18 05:20 Creatinine 3.5 mg/dL (0.8-1.5) H 09/09/18 05:20 Estimated GFR 25 ml/min 09/09/18 05:20 BUN/Creatinine Ratio 18 % 09/09/18 05:20 Glucose 113 mg/dL (75-100) H 09/09/18 05:20 POC Glucose 97 (70-105) 09/09/18 11:47 Calcium 8.7 mg/dL (8.4-10.2) 09/09/18 05:20 Phosphorus 7.10 mg/dL (2.5-4.5) H 09/09/18 05:20 Magnesium 2.10 mg/dL (1.7-2.3) 09/07/18 04:15 Total Bilirubin 2.80 mg/dL (0.1-1.2) H 09/07/18 04:15 AST 64 units/L (5-40) H 09/07/18 04:15 ALT 30 units/L (7-56) 09/07/18 04:15 Alkaline Phosphatase 80 units/L (35-129) 09/07/18 04:15 Total Creatine Kinase 20 units/L (55-170) L 09/08/18 05:20 Troponin T 0.132 ng/mL (0.00-0.029) H* 09/01/18 21:20 NT-Pro-B Natriuret Pep 1764 pg/mL (0-450) H 09/01/18 15:15 Total Protein 5.9 g/dL (6.3-8.2) L 09/07/18 04:15 Albumin 2.6 g/dL (3.9-5) L 09/07/18 04:15 Albumin/Globulin Ratio 0.8 % 09/07/18 04:15 Triglycerides 68 mg/dL (2-149) 09/04/18 03:12 Cholesterol 93 mg/dL (50-199) 09/01/18 15:15 LDL Cholesterol Direct 62 mg/dL (50-130) 09/01/18 15:15 HDL Cholesterol 33 mg/dL (40-59) L 09/01/18 15:15 Cholesterol/HDL Ratio 2.81 % 09/01/18 15:15 PTH Intact 100.4 pg/mL (15-65) H 09/07/18 04:15 Urine Color Jennifer (Yellow) 09/04/18 00:05 Urine Turbidity Clear (Clear) 09/04/18 00:05 Urine pH 5.0 (5.0-7.0) 09/04/18 00:05 Ur Specific [place] 1.010 (1.003-1.030) 09/04/18 00:05 Urine Protein 30 mg/dl mg/dL (Negative) 09/04/18 00:05 Urine Glucose (UA) Neg mg/dL (Negative) 09/04/18 00:05 Urine Ketones Neg mg/dL (Negative) 09/04/18 00:05 Urine Blood Neg (Negative) 09/04/18 00:05 Urine Nitrite Neg (Negative) 09/04/18 00:05 Urine Bilirubin Neg (Negative) 09/04/18 00:05 Urine Urobilinogen 4.0 mg/dL (<2.0) 09/04/18 00:05 Ur Leukocyte Esterase Neg (Negative) 09/04/18 00:05 Urine WBC (Auto) 12.0 /HPF (0.0-6.0) H 09/04/18 00:05 Urine RBC (Auto) 10.0 /HPF (0.0-6.0) 09/04/18 00:05 U Epithel Cells (Auto) 1.0 /HPF (0-13.0) 09/04/18 00:05 Hyaline Casts 7 /LPF 09/04/18 00:05 Urine Mucus Few /HPF 09/04/18 00:05 Urine Sperm 2+ /HPF (EDUCATIONAL MANAGER) 09/04/18 00:05 Urine Eosinophils None seen (None Seen) 09/08/18 15:15 Urine Creatinine 70.8 mg/dL (0.1-20.0) H 09/06/18 Unknown Urine Microalbumin 8.4 mg/dL (0.1-34.0) 09/06/18 Unknown Microalb/Creat Ratio 118.6 ug/mg 09/06/18 Unknown Urine Sodium 81 mmol/L 09/06/18 Unknown Urine Urea Nitrogen 442 09/06/18 Unknown Urine Total Protein 25 mg/dL (5-11.8) H 09/06/18 Unknown Nutrition/Malnutrition Assess - Dietary Evaluation Nutrition/Malnutrition Findings: Nutrition Notes Start: 09/02/18 15:06 Freq: Status: Active Protocol: Document 09/09/18 09:18 TW (Rec: 09/09/18 10:26 TW [email or web address]) Co-Sign 09/09/18 09:18 RM Nutrition Notes Initial or Follow up Reassessment Current Diagnosis Acute Kidney Injury COPD Hypertension Heart Failure Respiratory Failure Other Pertinent Diagnosis Chronic aortic dissection Current Diet Nepro at 55ml/hr Labs/Tests Na 146 BUN 63 Cr 3.5 Pertinent Medications Reviewed Height 5 ft 9 in Weight 202.59 kg [place] Body Weight (kg) 72.72 BMI 65.9 Subjective/Other Information F/U for TF change. Per RN, pt had gastric residuals overnight so TF was on hold. RN restarted TF. Observed Nepro running at 55ml/hr. Burn Absent Trauma Absent Current % PO Negligible #1 Nutrition Diagnosis Inadequate oral intake Diagnosis Progress(for reassessment Continues documentation) Is patient on ventilator? Yes Is Patient Ambulatory and/or Out of Bed No REE-([place]-St. Jeor-confined to bed) 3571.980 Additional Notes Energy needs 60-70% of REE: 9062-4766 kcal/day Pro needs 2.5g/kg IBW: 182g/ day Fluid needs per MD Nutrition Intervention Change Diet Order: TF Nutrition Support: Continue Nepro at 55ml/hr with 200ml water flush q4h. Kcal 2,376 Protein (gm) 107 Fluid (mL) 960 Goal #1 TF tolerance Goal #2 TF to meet at least 60-70% nutrient needs Anticipated Discharge Needs: Unknown at this time Follow-Up By: 09/11/18 Additional Comments F/U stable TF
[2018-09-09] MEDS: APRESOLINE IV PRN (18:31)
[2018-09-10] MEDS: REGLAN IV SCH ×3 (00:55→13:02)
--- NOTE | 2018-09-10 02:09 | XRay Report ---
FINAL REPORT EXAM: XR ABDOMEN 1V AP HISTORY: Dobhoff placement confirmation. COMPARISON: September 06, 2018. FINDINGS: AP view of the upper abdomen obtained. Distal tip of feeding tube projects over the distal stomach. IMPRESSION: Distal tip of feeding tube projects over the distal stomach. This is grossly stable in positioning co mpared to prior study.
[2018-09-10] MEDS: CARDENE 50 MG in NACL 0.9% 250ML 230 ML IV SCH ×4 (03:09→14:44)
[2018-09-10] MEDS: NACL 0.9% 1000 ML 1,000 ML IV SCH (03:09)
[2018-09-10] MEDS: APRESOLINE IV PRN (04:33)
[2018-09-10] MEDS: APRESOLINE PO SCH (05:03)
[2018-09-10] MEDS: SYNTHROID PO SCH (05:03)
[2018-09-10] MEDS: HEPARIN SUB-Q SCH ×2 (05:04→13:02)
[2018-09-10] MEDS: CATAPRES PO SCH ×2 (05:04→13:09)
--- NOTE | 2018-09-10 08:57 | Progress Note ---
Assessment and Plan Acute Hypoxemic Hypercapnic Respiratory Failure on MVS Hypertensive Emergency H/O Type B Aortic Dissection (No surgery recommended in October 2017) Extreme Obesity PAUL/OHS Acute exacerbation of SYSTOLIC CHF NSTEMI TYPE 2 Diabetes Mellitus -VAP bundle addressed - continue PRVC ventilation but wean FIO2 for O2 sats>90% - continue tube feedings / oral meds -increase oral antihypertensives and wean off cardene infusion - increase scheduled oral Metoprolol to q8h dosing to target Pulse approx 60- 70/min and target SBP </= 120 mmHg - Azotemia worsening and nephrology consulted - vascular surgery evaluation ongoing - continue ACS management otherwise per cardiology - CTA cancelled due to azotemia and he is to big for the scanner - continue daily evaluation for readinsee to wean, currently on FIO70% and PEEP of 14. Need to wean down ventilatory demands prior to initiating liberation trials - continue daily SAT's - sedation for target RASS 0 to -1 - continue bronchodilators with pulmonary hygiene per RT - continue enteral nutrition as tolerated - replace dias catheter, patient has had bladder scanning with straight catheter q4 for the past 24 hours - get serum Mg & PO4 levels and adjust as necessary - mobility protocol for pressure ulcer prophylaxis - GI & VTE prophylaxis - glycemic control with SSI for target BG 140 - 180 mg/dL - continue other care per attending / other consultants ... care plan discussed with care team during ICU-IDT rounds CODE STATUS: FULL CONDITION: CRITICAL PROGNOSIS: GUARDED The high probability of a clinically significant, sudden or life threatening deterioration of the [Pulmonary,cardiac and Vascular] system(s) required my full and direct attention, intervention and personal management. The aggregate critical care time was [35] minutes. This time is in addition to time spent performing reported procedures but includes the following: [x] Data Review and interpretation [x] Patient assessment and monitoring of vital signs [x] Documentation Subjective Date of service: 09/10/18 Principal diagnosis: Ac Hypoxemic Hypercapnic Resp Failure; HTNsive Emergency; Type B dissection Interval history: Patient is seen today for: Acute Hypoxemic Hypercapnic Respiratory Failure; Hype rtensive Emergency; H/O Type B Aortic Dissection (No surgery recommended in October 2017); Extreme Obesity Seen and examined at bedside; 24hour events reviewed; nursing and respiratory care staff consulted; no adverse overnight events reported to me; remains on high ventilatory settings, FIO2 70% and PEEP 14. Awake and alert, Discussed in ICU-IDT bedside rounds Objective Vital Signs - 12hr 09/09/18 09/09/18 09/09/18 21:00 21:15 21:30 Temperature Pulse Rate 77 79 77 Respiratory 21 11 L 20 Rate Blood Pressure 149/74 151/79 155/73 O2 Sat by Pulse 91 88 Oximetry 09/09/18 09/09/18 09/09/18 21:33 21:45 22:00 Temperature Pulse Rate 78 83 83 Respiratory 16 13 Rate Blood Pressure 155/73 147/73 O2 Sat by Pulse 89 Oximetry 09/09/18 09/09/18 09/09/18 22:01 22:15 22:30 Temperature Pulse Rate 81 71 70 Respiratory 18 22 18 Rate Blood Pressure 147/73 141/64 133/64 O2 Sat by Pulse 90 92 Oximetry 09/09/18 09/09/18 09/09/18 22:45 23:00 23:15 Temperature Pulse Rate 68 68 68 Respiratory 21 17 20 Rate Blood Pressure 136/66 137/67 151/69 O2 Sat by Pulse 90 89 90 Oximetry 09/09/18 09/09/18 09/09/18 23:30 23:38 23:45 Temperature Pulse Rate 70 78 79 Respiratory 22 12 Rate Blood Pressure 149/124 165/57 165/57 O2 Sat by Pulse 89 92 92 Oximetry 09/10/18 09/10/18 09/10/18 00:00 00:01 00:15 Temperature 100.8 F H Pulse Rate 73 72 Respiratory 13 22 Rate Blood Pressure 188/53 146/62 O2 Sat by Pulse 90 92 Oximetry 09/10/18 09/10/18 09/10/18 00:31 00:45 01:01 Temperature Pulse Rate 76 72 82 Respiratory 10 L 13 21 Rate Blood Pressure 137/85 118/101 161/78 O2 Sat by Pulse 91 91 83 L Oximetry 09/10/18 09/10/18 09/10/18 01:15 01:31 01:45 Temperature Pulse Rate 79 75 80 Respiratory 12 14 13 Rate Blood Pressure 174/84 135/76 134/78 O2 Sat by Pulse 89 89 89 Oximetry 09/10/18 09/10/18 09/10/18 02:00 02:15 02:31 Temperature Pulse Rate 81 79 82 Respiratory 12 27 H 17 Rate Blood Pressure 155/78 165/88 165/88 O2 Sat by Pulse 91 91 92 Oximetry 09/10/18 09/10/18 09/10/18 02:45 03:01 03:15 Temperature Pulse Rate 84 84 84 Respiratory 23 18 12 Rate Blood Pressure 165/88 165/88 165/88 O2 Sat by Pulse 95 92 91 Oximetry 09/10/18 09/10/18 09/10/18 03:30 03:45 04:00 Temperature 100.1 F H Pulse Rate 81 76 75 Respiratory 11 L 16 15 Rate Blood Pressure 168/88 161/77 167/80 O2 Sat by Pulse 89 87 85 Oximetry 09/10/18 09/10/18 09/10/18 04:11 04:15 04:30 Temperature Pulse Rate 76 77 74 Respiratory 5 L 0 L Rate Blood Pressure 167/80 175/82 169/79 O2 Sat by Pulse 91 88 87 Oximetry 09/10/18 09/10/18 09/10/18 04:33 04:45 05:01 Temperature Pulse Rate 87 83 85 Respiratory 9 L 16 Rate Blood Pressure 169/79 168/88 168/77 O2 Sat by Pulse 88 87 Oximetry 09/10/18 09/10/18 09/10/18 05:15 05:30 05:45 Temperature Pulse Rate 82 79 78 Respiratory 13 14 24 Rate Blood Pressure 158/81 151/77 162/85 O2 Sat by Pulse 92 89 88 Oximetry 09/10/18 09/10/18 09/10/18 06:00 06:15 06:30 Temperature Pulse Rate 81 78 89 Respiratory 11 L 21 14 Rate Blood Pressure 155/83 167/79 176/92 O2 Sat by Pulse 92 88 91 Oximetry 09/10/18 09/10/18 09/10/18 06:45 07:00 07:15 Temperature Pulse Rate 88 83 84 Respiratory 21 18 14 Rate Blood Pressure 166/76 157/73 157/70 O2 Sat by Pulse 91 88 88 Oximetry 09/10/18 09/10/18 09/10/18 07:30 08:14 08:24 Temperature 99.9 F H Pulse Rate 87 92 H Respiratory 21 Rate Blood Pressure 150/76 160/75 O2 Sat by Pulse 90 92 Oximetry Constitutional: appears uncomfortable, other (young morbidly obese AAM, normocephalic and atraumatic on MVS) Eyes: non-icteric ENT: oropharynx moist, oropharyngeal exudate pre, other (ETT 23 cm JANE) Neck: supple, no lymphadenopathy, no JVD, other (large neck circumference) Effort: mildly labored Ascultation: Bilateral: diminished breath sounds, rhonchi (bases) Percussion: Bilateral: not dull Cardiovascular: regular rate and rhythm, other (No R/M) Gastrointestinal: normoactive bowel sounds, soft, non-tender, other (protuberant) Integumentary: rash Extremities: no cyanosis, pulses normal, no ischemia or petechiae, edema Neurologic: normal mental status, non-focal exam (grossly), pupils equal and round, motor strength normal and, other (writes on a notepad to make needs kno wn, also mouths words) Psychiatric: mood appropriate, affect normal CBC and BMP: 09/09/18 05:20 09/10/18 04:30 ABG, PT/INR, D-dimer: ABG POC ABG pH 7.323 (7.35-7.45) L 09/09/18 18:06 POC ABG pCO2 67.8 (35-45) H 09/09/18 18:06 POC ABG pO2 114 (80-105) H 09/09/18 18:06 POC ABG HCO3 35.2 09/09/18 18:06 POC ABG Total CO2 37 09/09/18 18:06 POC ABG O2 Sat 98 09/09/18 18:06 PT/INR, D-dimer PT 15.1 Sec. (12.2-14.9) H 09/01/18 21:20 INR 1.15 (0.87-1.13) H 09/01/18 21:20 D-Dimer 869.27 ng/mlDDU (0-234) H 09/01/18 15:15 Abnormal lab findings: Abnormal Labs 09/01/18 09/01/18 09/01/18 15:15 15:15 15:15 RBC 5.37 H Hgb Hct 47.8 H MCH 27 L MCHC 31 L RDW 17.1 H Lymph % (Auto) [place] % (Auto) 11.0 H Lymph # 1.0 L [place] # Seg Neutrophils % 70.2 H PT 15.0 H INR 1.14 H D-Dimer Heparin Anti-Xa Level POC ABG pH POC ABG pCO2 POC ABG pO2 Sodium Potassium Chloride Carbon Dioxide 39 H BUN 21 H Creatinine Glucose 106 H POC Glucose Calcium Phosphorus Total Bilirubin AST Total Creatine Kinase Troponin T 0.125 H* NT-Pro-B Natriuret Pep Total Protein Albumin HDL Cholesterol 33 L PTH Intact Urine WBC (Auto) Urine Creatinine Urine Total Protein 09/01/18 09/01/18 09/01/18 15:15 15:15 15:28 RBC Hgb Hct MCH MCHC RDW Lymph % (Auto) [place] % (Auto) Lymph # [place] # Seg Neutrophils % PT INR D-Dimer 869.27 H Heparin Anti-Xa Level POC ABG pH 7.235 L POC ABG pCO2 89.8 H POC ABG pO2 Sodium Potassium Chloride Carbon Dioxide BUN Creatinine Glucose POC Glucose Calcium Phosphorus Total Bilirubin AST Total Creatine Kinase Troponin T NT-Pro-B Natriuret Pep 1764 H Total Protein Albumin HDL Cholesterol PTH Intact Urine WBC (Auto) Urine Creatinine Urine Total Protein 09/01/18 09/01/18 09/01/18 17:45 19:28 21:20 RBC Hgb Hct MCH MCHC RDW Lymph % (Auto) [place] % (Auto) Lymph # [place] # Seg Neutrophils % PT INR D-Dimer Heparin Anti-Xa Level POC ABG pH 7.175 L POC ABG pCO2 105.5 H POC ABG pO2 111 H Sodium Potassium Chloride Carbon Dioxide BUN Creatinine Glucose POC Glucose Calcium Phosphorus Total Bilirubin AST Total Creatine Kinase Troponin T 0.130 H* 0.132 H* NT-Pro-B Natriuret Pep Total Protein Albumin HDL Cholesterol PTH Intact Urine WBC (Auto) Urine Creatinine Urine Total Protein 09/01/18 09/01/18 09/01/18 21:20 21:20 23:29 RBC Hgb Hct 46.4 H MCH MCHC RDW Lymph % (Auto) [place] % (Auto) Lymph # [place] # Seg Neutrophils % PT 15.1 H INR 1.15 H D-Dimer Heparin Anti-Xa Level POC ABG pH 7.349 L POC ABG pCO2 76.4 H POC ABG pO2 35 L Sodium Potassium Chloride Carbon Dioxide BUN Creatinine Glucose POC Glucose Calcium Phosphorus Total Bilirubin AST Total Creatine Kinase Troponin T NT-Pro-B Natriuret Pep Total Protein Albumin HDL Cholesterol PTH Intact Urine WBC (Auto) Urine Creatinine Urine Total Protein 09/01/18 09/02/18 09/02/18 23:34 04:18 04:35 RBC 5.67 H Hgb 15.8 H Hct 50.6 H MCH MCHC 31 L RDW 17.9 H Lymph % (Auto) 12.2 L [place] % (Auto) 12.6 H Lymph # 1.0 L [place] # 1.0 H Seg Neutrophils % 73.5 H PT INR D-Dimer Heparin Anti-Xa Level POC ABG pH 7.294 L POC ABG pCO2 77.7 H 62.2 H POC ABG pO2 235 H Sodium Potassium Chloride Carbon Dioxide BUN Creatinine Glucose POC Glucose Calcium Phosphorus Total Bilirubin AST Total Creatine Kinase Troponin T NT-Pro-B Natriuret Pep Total Protein Albumin HDL Cholesterol PTH Intact Urine WBC (Auto) Urine Creatinine Urine Total Protein 09/02/18 09/02/18 09/02/18 04:35 08:16 08:16 RBC 5.68 H Hgb 15.4 H Hct 49.9 H MCH 27 L MCHC 31 L RDW 18.1 H Lymph % (Auto) [place] % (Auto) 12.7 H Lymph # 1.1 L [place] # 1.0 H Seg Neutrophils % 71.9 H PT INR D-Dimer Heparin Anti-Xa Level POC ABG pH POC ABG pCO2 POC ABG pO2 Sodium Potassium Chloride 97.7 L Carbon Dioxide 36 H 35 H BUN 21 H 21 H Creatinine Glucose 69 L POC Glucose Calcium Phosphorus Total Bilirubin 1.60 H AST 43 H Total Creatine Kinase Troponin T NT-Pro-B Natriuret Pep Total Protein 6.2 L Albumin 2.8 L HDL Cholesterol PTH Intact Urine WBC (Auto) Urine Creatinine Urine Total Protein 09/02/18 09/02/18 09/02/18 10:24 14:29 17:46 RBC Hgb Hct MCH MCHC RDW Lymph % (Auto) [place] % (Auto) Lymph # [place] # Seg Neutrophils % PT INR D-Dimer Heparin Anti-Xa Level < 0.10 L < 0.10 L POC ABG pH POC ABG pCO2 POC ABG pO2 Sodium Potassium Chloride Carbon Dioxide BUN Creatinine Glucose POC Glucose 69 L Calcium Phosphorus Total Bilirubin AST Total Creatine Kinase Troponin T NT-Pro-B Natriuret Pep Total Protein Albumin HDL Cholesterol PTH Intact Urine WBC (Auto) Urine Creatinine Urine Total Protein 09/03/18 09/03/18 09/03/18 03:20 03:20 05:48 RBC 5.57 H Hgb 15.5 H Hct 48.7 H MCH MCHC RDW 18.0 H Lymph % (Auto) [place] % (Auto) Lymph # [place] # Seg Neutrophils % PT INR D-Dimer Heparin Anti-Xa Level POC ABG pH POC ABG pCO2 62.0 H POC ABG pO2 Sodium Potassium 5.1 H D Chloride 97.2 L Carbon Dioxide 33 H BUN Creatinine Glucose 62 L POC Glucose Calcium Phosphorus Total Bilirubin AST Total Creatine Kinase Troponin T NT-Pro-B Natriuret Pep Total Protein Albumin HDL Cholesterol PTH Intact Urine WBC (Auto) Urine Creatinine Urine Total Protein 09/03/18 09/04/18 09/04/18 17:10 00:05 01:44 RBC Hgb Hct MCH MCHC RDW Lymph % (Auto) [place] % (Auto) Lymph # [place] # Seg Neutrophils % PT INR D-Dimer Heparin Anti-Xa Level 0.26 L POC ABG pH 7.304 L POC ABG pCO2 82.5 H POC ABG pO2 Sodium Potassium Chloride Carbon Dioxide BUN Creatinine Glucose POC Glucose Calcium Phosphorus Total Bilirubin AST Total Creatine Kinase Troponin T NT-Pro-B Natriuret Pep Total Protein Albumin HDL Cholesterol PTH Intact Urine WBC (Auto) 12.0 H Urine Creatinine Urine Total Protein 09/04/18 09/04/18 09/04/18 03:12 03:12 05:37 RBC 5.30 H Hgb Hct 47.1 H MCH 27 L MCHC 31 L RDW 18.3 H Lymph % (Auto) [place] % (Auto) Lymph # [place] # Seg Neutrophils % PT INR D-Dimer Heparin Anti-Xa Level POC ABG pH POC ABG pCO2 POC ABG pO2 Sodium Potassium Chloride Carbon Dioxide 32 H BUN 22 H Creatinine 1.6 H Glucose POC Glucose 115 H Calcium 8.1 L Phosphorus Total Bilirubin 1.90 H AST 72 H Total Creatine Kinase Troponin T NT-Pro-B Natriuret Pep Total Protein 6.0 L Albumin 2.3 L HDL Cholesterol PTH Intact Urine WBC (Auto) Urine Creatinine Urine Total Protein 09/04/18 09/04/18 09/05/18 05:48 11:31 04:00 RBC 5.16 H Hgb Hct MCH 27 L MCHC 31 L RDW 17.6 H Lymph % (Auto) [place] % (Auto) Lymph # [place] # Seg Neutrophils % PT INR D-Dimer Heparin Anti-Xa Level POC ABG pH 7.273 L 7.326 L POC ABG pCO2 89.9 H 70.4 H POC ABG pO2 78 L 155 H Sodium Potassium Chloride Carbon Dioxide BUN Creatinine Glucose POC Glucose Calcium Phosphorus Total Bilirubin AST Total Creatine Kinase Troponin T NT-Pro-B Natriuret Pep Total Protein Albumin HDL Cholesterol PTH Intact Urine WBC (Auto) Urine Creatinine Urine Total Protein 09/05/18 09/05/18 09/06/18 04:00 05:31 03:28 RBC Hgb Hct MCH MCHC RDW Lymph % (Auto) [place] % (Auto) Lymph # [place] # Seg Neutrophils % PT INR D-Dimer Heparin Anti-Xa Level POC ABG pH POC ABG pCO2 57.0 H 65.0 H POC ABG pO2 Sodium 146 H Potassium Chloride Carbon Dioxide 33 H BUN 27 H Creatinine 1.7 H Glucose 60 L POC Glucose Calcium Phosphorus Total Bilirubin AST Total Creatine Kinase Troponin T NT-Pro-B Natriuret Pep Total Protein Albumin HDL Cholesterol PTH Intact Urine WBC (Auto) Urine Creatinine Urine Total Protein 09/06/18 09/06/18 09/06/18 08:44 17:08 20:20 RBC Hgb Hct MCH MCH RDW Lymph % (Auto) [place] % (Auto) Lymph # [place] # Seg Neutrophils % PT INR D-Dimer Heparin Anti-Xa Level POC ABG pH 7.497 H POC ABG pCO2 52.6 H 46.1 H POC ABG pO2 47 L 54 L Sodium Potassium Chloride 60.0 L Carbon Dioxide 32 H BUN 31 H Creatinine 1.9 H Glucose 199 H POC Glucose Calcium 7.9 L Phosphorus Total Bilirubin AST 63 H Total Creatine Kinase Troponin T NT-Pro-B Natriuret Pep Total Protein 5.9 L Albumin 2.3 L HDL Cholesterol PTH Intact Urine WBC (Auto) Urine Creatinine Urine Total Protein 09/06/18 09/06/18 09/06/18 23:32 Unknown Unknown RBC Hgb Hct MCH MCH RDW Lymph % (Auto) [place] % (Auto) Lymph # [place] # Seg Neutrophils % PT INR D-Dimer Heparin Anti-Xa Level POC ABG pH 7.323 L POC ABG pCO2 72.2 H POC ABG pO2 Sodium Potassium Chloride Carbon Dioxide BUN Creatinine Glucose POC Glucose Calcium Phosphorus Total Bilirubin AST Total Creatine Kinase Troponin T NT-Pro-B Natriuret Pep Total Protein Albumin HDL Cholesterol PTH Intact Urine WBC (Auto) Urine Creatinine 70.7 H 70.8 H Urine Total Protein 25 H 09/07/18 09/07/18 09/07/18 04:15 04:15 04:15 RBC Hgb Hct MCH MCHC 31 L RDW 17.6 H Lymph % (Auto) [place] % (Auto) Lymph # [place] # Seg Neutrophils % PT INR D-Dimer Heparin Anti-Xa Level POC ABG pH POC ABG pCO2 POC ABG pO2 Sodium Potassium Chloride Carbon Dioxide 37 H 36 H BUN 35 H 35 H Creatinine 2.1 H 2.1 H Glucose POC Glucose Calcium Phosphorus 4.60 H Total Bilirubin 2.80 H AST 64 H Total Creatine Kinase Troponin T NT-Pro-B Natriuret Pep Total Protein 5.9 L Albumin 2.6 L HDL Cholesterol PTH Intact Urine WBC (Auto) Urine Creatinine Urine Total Protein 09/07/18 09/07/18 09/07/18 04:15 10:10 11:59 RBC Hgb Hct MCH MCHC RDW Lymph % (Auto) [place] % (Auto) Lymph # [place] # Seg Neutrophils % PT INR D-Dimer Heparin Anti-Xa Level POC ABG pH 7.317 L POC ABG pCO2 76.6 H POC ABG pO2 118 H Sodium Potassium Chloride Carbon Dioxide BUN Creatinine Glucose POC Glucose 68 L Calcium Phosphorus Total Bilirubin AST Total Creatine Kinase Troponin T NT-Pro-B Natriuret Pep Total Protein Albumin HDL Cholesterol PTH Intact 100.4 H Urine WBC (Auto) Urine Creatinine Urine Total Protein 09/07/18 09/08/18 09/08/18 23:51 04:15 05:20 RBC Hgb Hct MCH MCHC RDW Lymph % (Auto) [place] % (Auto) Lymph # [place] # Seg Neutrophils % PT INR D-Dimer Heparin Anti-Xa Level POC ABG pH 7.265 L POC ABG pCO2 80.4 H POC ABG pO2 185 H Sodium Potassium Chloride Carbon Dioxide 34 H BUN 55 H Creatinine 3.3 H D Glucose 118 H POC Glucose 118 H Calcium Phosphorus Total Bilirubin AST Total Creatine Kinase Troponin T NT-Pro-B Natriuret Pep Total Protein Albumin HDL Cholesterol PTH Intact Urine WBC (Auto) Urine Creatinine Urine Total Protein 09/08/18 09/08/18 09/08/18 05:20 05:30 14:25 RBC Hgb Hct MCH MCHC RDW Lymph % (Auto) [place] % (Auto) Lymph # [place] # Seg Neutrophils % PT INR D-Dimer Heparin Anti-Xa Level POC ABG pH 7.259 L POC ABG pCO2 84.9 H POC ABG pO2 Sodium Potassium Chloride Carbon Dioxide BUN Creatinine Glucose POC Glucose 119 H Calcium Phosphorus Total Bilirubin AST Total Creatine Kinase 20 L Troponin T NT-Pro-B Natriuret Pep Total Protein Albumin HDL Cholesterol PTH Intact Urine WBC (Auto) Urine Creatinine Urine Total Protein 09/08/18 09/09/18 09/09/18 21:11 05:20 05:20 RBC Hgb Hct 46.4 H MCH MCHC RDW Lymph % (Auto) [place] % (Auto) Lymph # [place] # Seg Neutrophils % PT INR D-Dimer Heparin Anti-Xa Level POC ABG pH 7.252 L POC ABG pCO2 82.6 H POC ABG pO2 Sodium 146 H Potassium Chloride Carbon Dioxide 34 H BUN 63 H Creatinine 3.5 H Glucose 113 H POC Glucose Calcium Phosphorus 7.10 H Total Bilirubin AST Total Creatine Kinase Troponin T NT-Pro-B Natriuret Pep Total Protein Albumin HDL Cholesterol PTH Intact Urine WBC (Auto) Urine Creatinine Urine Total Protein 09/09/18 09/09/18 09/09/18 09:08 10:41 18:06 RBC Hgb Hct [facility] RDW Lymph % (Auto) [place] % (Auto) Lymph # [place] # Seg Neutrophils % PT INR D-Dimer Heparin Anti-Xa Level POC ABG pH 7.180 L 7.259 L 7.323 L POC ABG pCO2 99.6 H 80.0 H 67.8 H POC ABG pO2 79 L 58 L 114 H Sodium Potassium Chloride Carbon Dioxide BUN Creatinine Glucose POC Glucose Calcium Phosphorus Total Bilirubin AST Total Creatine Kinase Troponin T NT-Pro-B Natriuret Pep Total Protein Albumin HDL Cholesterol PTH Intact Urine WBC (Auto) Urine Creatinine Urine Total Protein 09/09/18 09/10/18 23:31 04:30 RBC Hgb Hct MCH MCHC RDW Lymph % (Auto) [place] % (Auto) Lymph # [place] # Seg Neutrophils % PT INR D-Dimer Heparin Anti-Xa Level POC ABG pH POC ABG pCO2 POC ABG pO2 Sodium Potassium Chloride Carbon Dioxide 31 H BUN 67 H Creatinine 3.2 H Glucose 106 H POC Glucose 117 H Calcium Phosphorus Total Bilirubin AST Total Creatine Kinase Troponin T NT-Pro-B Natriuret Pep Total Protein Albumin HDL Cholesterol PTH Intact Urine WBC (Auto) Urine Creatinine Urine Total Protein Chest x-ray: image reviewed Allied health notes reviewed: RT
[2018-09-10] MEDS: ROBINUL PO SCH ×2 (09:20→13:02)
--- NOTE | 2018-09-10 09:47 | XRay Report ---
PORTABLE CHEST INDICATION: Fever. COMPARISON: Yesterday. FINDINGS: Portable, frontal chest radiograph, 9:27 AM, 09/10/2018 limited due to patient positioning, though again suggests any combination of technical or congestive haziness, left more than right and more so centrally. Stable cardiomediastinal silhouette/cardiomegaly with possible left retrocardiac opacity, elevated right hemidiaphragm and EKG leads. Intact bones. Stable right upper extremity PICC as also endotracheal and Dobbhoff tubes. CONCLUSION: No significant interval change on this limited exam with stable supporting devices and pulmonary vascular congestion again suspected, as described. Thank you for the opportunity to participate in this patient's care.
[2018-09-10] MEDS ORDERED: NORMODYNE IV PRN (10:11)
[2018-09-10] MEDS: PEPCID PO SCH (10:52)
[2018-09-10] MEDS: LOPRESSOR PO SCH ×3 (10:52→13:30)
[2018-09-10] MEDS: NORVASC PO SCH (10:52)
[2018-09-10] MEDS: BABY ASPIRIN PO SCH (10:52)
[2018-09-10] MEDS: SODIUM CHLORIDE FLUSH SYRINGE 10 ML IV SCH (10:53)
--- NOTE | 2018-09-10 12:04 | Progress Note ---
Assessment and Plan Acute Kidney Injury possibly prerenal/ATN, diuretics, questionable underlying CKD due to HTN: - Renal function reviewed. Serum creatinine today is 3.2, yesterday's was 3.5 - Bladder scanned every 4 hours due to urine retention, he has underwent straight cath to remove a total of 1450 ml in 24 hours due to urine retention - Will order dias catheter placement - Urine eosinophils- none seen - D/C IVF today due to Hypertension and CHF - Renal US was negative for obstruction - Renally dose meds - Dias Catheter: No - Monitor renal function closely Acute hypercapnic respiratory failure: History of PAUL: - Intubated in ED on admission - S/P self-extubation on 09/04/18, was re-intubated - As per Pulmonology NSTEMI: Chest pain: Chronic thoracic type B aortic dissection: - Vascular surgery on board - Cardiology on board, recommended CTA chest to assess progression of dissection Hypertensive Urgency: - On Labetalol and nicardipine drip - Adjust meds as needed Acute on chronic heart failure: - Echo Apr 2018 showed EF 45-50% per cardiology note - Cardiology on board Hypothyroidism: - On Synthroid Subjective Date of service: 09/10/18 Principal diagnosis: Ac Hypoxemic Hypercapnic Resp Failure; HTNsive Emergency; Type B dissection Interval history: Patient seen lying in bed. Patient is intubated. No family at bedside. Retained 1450 ml of urine. Objective - Vital Signs Vital signs: Vital Signs - 12hr 09/10/18 09/10/18 09/10/18 00:15 00:31 00:45 Temperature Pulse Rate 72 76 72 Respiratory 22 10 L 13 Rate Blood Pressure 146/62 137/85 118/101 O2 Sat by Pulse 92 91 91 Oximetry 09/10/18 09/10/18 09/10/18 01:01 01:15 01:31 Temperature Pulse Rate 82 79 75 Respiratory 21 12 14 Rate Blood Pressure 161/78 174/84 135/76 O2 Sat by Pulse 83 L 89 89 Oximetry 09/10/18 09/10/18 09/10/18 01:45 02:00 02:15 Temperature Pulse Rate 80 81 79 Respiratory 13 12 27 H Rate Blood Pressure 134/78 155/78 165/88 O2 Sat by Pulse 89 91 91 Oximetry 09/10/18 09/10/18 09/10/18 02:31 02:45 03:01 Temperature Pulse Rate 82 84 84 Respiratory 17 23 18 Rate Blood Pressure 165/88 165/88 165/88 O2 Sat by Pulse 92 95 92 Oximetry 09/10/18 09/10/18 09/10/18 03:15 03:30 03:45 Temperature Pulse Rate 84 81 76 Respiratory 12 11 L 16 Rate Blood Pressure 165/88 168/88 161/77 O2 Sat by Pulse 91 89 87 Oximetry 09/10/18 09/10/18 09/10/18 04:00 04:11 04:15 Temperature 100.1 F H Pulse Rate 75 76 77 Respiratory 15 5 L Rate Blood Pressure 167/80 167/80 175/82 O2 Sat by Pulse 85 91 88 Oximetry 09/10/18 09/10/18 09/10/18 04:30 04:33 04:45 Temperature Pulse Rate 74 87 83 Respiratory 0 L 9 L Rate Blood Pressure 169/79 169/79 168/88 O2 Sat by Pulse 87 88 Oximetry 09/10/18 09/10/18 09/10/18 05:01 05:15 05:30 Temperature Pulse Rate 85 82 79 Respiratory 16 13 14 Rate Blood Pressure 168/77 158/81 151/77 O2 Sat by Pulse 87 92 89 Oximetry 09/10/18 09/10/18 09/10/18 05:45 06:00 06:15 Temperature Pulse Rate 78 81 78 Respiratory 24 11 L 21 Rate Blood Pressure 162/85 155/83 167/79 O2 Sat by Pulse 88 92 88 Oximetry 09/10/18 09/10/18 09/10/18 06:30 06:45 07:00 Temperature Pulse Rate 89 88 83 Respiratory 14 21 18 Rate Blood Pressure 176/92 166/76 157/73 O2 Sat by Pulse 91 91 88 Oximetry 09/10/18 09/10/18 09/10/18 07:15 07:30 07:45 Temperature Pulse Rate 84 87 84 Respiratory 14 21 13 Rate Blood Pressure 157/70 150/76 159/69 O2 Sat by Pulse 88 90 89 Oximetry 09/10/18 09/10/18 09/10/18 08:00 08:14 08:15 Temperature 99.9 F H Pulse Rate 84 78 Respiratory 17 19 Rate Blood Pressure 159/72 160/75 O2 Sat by Pulse 83 L 89 Oximetry 01/31/19 01/31/19 01/31/19 08:24 08:30 08:45 Temperature Pulse Rate 92 H 88 86 Respiratory 27 H 11 L Rate Blood Pressure 160/75 162/82 163/79 O2 Sat by Pulse 92 96 91 Oximetry 09/10/18 09/10/18 09/10/18 09:00 09:15 09:31 Temperature Pulse Rate 85 80 91 H Respiratory 12 31 H 15 Rate Blood Pressure 175/81 162/76 162/76 O2 Sat by Pulse 92 91 92 Oximetry 09/10/18 09/10/18 09/10/18 09:45 10:00 10:15 Temperature Pulse Rate 82 77 75 Respiratory 21 11 L 7 L Rate Blood Pressure 166/72 159/69 148/68 O2 Sat by Pulse 91 92 90 Oximetry 09/10/18 09/10/18 09/10/18 10:30 10:45 10:52 Temperature Pulse Rate 74 84 87 Respiratory 6 L 12 Rate Blood Pressure 148/67 161/76 161/76 O2 Sat by Pulse 90 91 Oximetry 09/10/18 09/10/18 09/10/18 11:00 11:15 11:30 Temperature Pulse Rate 85 84 79 Respiratory 10 L 22 20 Rate Blood Pressure 172/80 163/77 145/93 O2 Sat by Pulse 91 88 88 Oximetry 09/10/18 09/10/18 11:32 11:45 Temperature Pulse Rate 78 76 Respiratory 16 Rate Blood Pressure 145/93 156/74 O2 Sat by Pulse 90 88 Oximetry - General Appearance General appearance: well-developed, obese, intubated EENT: ATNC Neck: no JVD Respiratory: Present: Decreased Breath Sounds Cardiology: S1S2 Gastrointestinal: normoactive bowel sounds Integumentary: warm and dry Neurologic: other (Intubated) Musculoskeletal: joint swelling - Lab 09/09/18 05:20 09/10/18 04:30 Most recent lab results Calcium 9.0 mg/dL (8.4-10.2) 09/10/18 04:30 Phosphorus 3.60 mg/dL (2.5-4.5) D 09/10/18 04:30 Magnesium 2.10 mg/dL (1.7-2.3) 09/07/18 04:15 Urine Creatinine 70.8 mg/dL (0.1-20.0) H 09/06/18 Unknown Urine Sodium 81 mmol/L 09/06/18 Unknown Urine Total Protein 25 mg/dL (5-11.8) H 09/06/18 Unknown Medications & Allergies - Medications Allergies/Adverse Reactions: Allergies No Known Allergies Allergy (Unverified 10/02/17 17:09) Home Medications: Home Medications Medication Instructions Recorded Confirmed Last Taken Type Aspirin [Aspirin BABY CHEW TAB] 81 mg PO QDAY #30 tab.chew 08/04/18 09/07/18 Unknown Rx Furosemide [Lasix TAB] 40 mg PO BID #60 tablet 08/04/18 09/07/18 Unknown Rx Labetalol [Normodyne TAB] 300 mg PO Q8HR 30 Days tablet 08/04/18 09/07/18 Unknown Rx Levothyroxine [Synthroid] 50 mcg PO DAILY@0600 #30 tablet 08/04/18 09/07/18 Unknown Rx NIFEdipine XL [Procardia Xl] 90 mg PO BID #60 tablet 08/04/18 09/07/18 Unknown Rx Potassium Chloride [K-Dur] 10 meq PO BID #60 tablet 08/04/18 09/07/18 Unknown Rx cloNIDine-TTS PATCH 0.3 mg TRANSDERMA 1XW #4 08/04/18 09/07/18 Unknown Rx Active Medications: Generic Name Dose Route Start Last Admin Trade Name Freq PRN Reason Stop Dose Admin Acetaminophen 650 mg 09/04/18 23:45 09/05/18 00:41 Tylenol PO 650 mg Q6H PRN Administration Pain, Mild (1-3) Albuterol 2.5 mg 09/01/18 18:25 Proventil IH Q3HRT PRN Shortness Of Breath Amlodipine Besylate 10 mg 09/02/18 11:00 09/10/18 10:52 Norvasc PO 10 mg DAILY ELIEL Administration Lipase/Protease/Amylase 1 each 09/03/18 12:10 [place] 10,500 Unit FEEDTUBE PRN PRN For Clogged Feeding Tube Aspirin 81 mg 09/02/18 10:00 09/10/18 10:52 Baby Aspirin PO 81 mg QDAY ELIEL Administration Clonidine HCl 0.3 mg 09/09/18 14:00 09/10/18 05:04 Catapres PO 0.3 mg Q8HR ELIEL Administration Famotidine 20 mg 09/03/18 10:00 09/10/18 10:52 Pepcid PO 20 mg BID ELIEL Administration Glycopyrrolate 1 mg 09/07/18 14:00 09/10/18 09:20 Robinul PO 1 mg TID ELIEL Administration Heparin Sodium (Porcine) 5,000 unit 09/08/18 14:00 09/10/18 05:04 Heparin SUB-Q 5,000 unit Q8HR ELIEL Administration Hydralazine HCl 100 mg 09/10/18 14:00 Apresoline PO Q8HR ELIEL Hydrophilic Ointment 1 applic 09/01/18 19:56 Vaseline Lip Therapy TP Q2HR PRN Dry Lips Fentanyl Citrate 2,000 mcg in 100 mls @ 12.205 mls/hr 09/02/18 11:00 09/09/18 13:06 Fentanyl Drip Premix IV 0 mcg/kg/hr TITR ELIEL 0 mls/hr Titration Protocol 1 MCG/KG/HR Propofol 1,000 mg in 100 mls @ 7.344 mls/hr 09/06/18 11:00 09/06/18 21:30 Diprivan 10 Mg/Ml IV 0 mcg/kg/min TITR ELIEL 0 mls/hr Titration Protocol 5 MCG/KG/MIN Nicardipine HCl 50 mg/ Sodium 250 mls @ 25 mls/hr 09/06/18 11:00 09/10/18 10:54 Chloride IV 15 mg/hr TITR ELIEL 75 mls/hr Administration Protocol 5 MG/HR Sodium Chloride 1,000 mls @ 75 mls/hr 09/08/18 12:00 09/10/18 03:09 Nacl 0.9% 1000 Ml IV 75 mls/hr DIRECT ELIEL Administration Labetalol HCl 10 mg 09/10/18 10:11 Normodyne IV Q4H PRN SBP > 130 HR > 100 Levothyroxine Sodium 50 mcg 09/02/18 06:00 09/10/18 05:03 Synthroid PO 50 mcg DAILY@0600 ELIEL Administration Metoclopramide HCl 5 mg 09/07/18 15:00 09/10/18 05:03 Reglan IV 5 mg Q6HR ELIEL Administration Metoprolol Tartrate 50 mg 09/10/18 11:00 09/10/18 10:52 Lopressor PO 50 mg TID ELIEL Administration Multi-Ingred Cream/Lotion/Oil/Oint 1 applic 09/01/18 19:56 Artificial Tears Ophth Oint OU Q4HR PRN Dry Eye(s) Quetiapine Fumarate 100 mg 09/07/18 22:00 09/10/18 10:52 Seroquel PO 100 mg BID ELIEL Administration Scopolamine 1 each 09/07/18 13:00 09/07/18 14:49 Transderm-Scop TD 1 each Q72H ELIEL Administration Simple Syrup 15 ml 09/03/18 12:10 09/07/18 12:08 Simple Syrup FEEDTUBE 15 ml PRN PRN Administration Hypoglycemia Simple Syrup 30 ml 09/03/18 12:10 Simple Syrup FEEDTUBE PRN PRN Hypoglycemia Sodium Bicarbonate 325 mg 09/03/18 12:10 Sodium Bicarbonate FEEDTUBE PRN PRN For Clogged Feeding Tube Sodium Chloride 10 ml 09/01/18 22:00 09/10/18 10:53 Sodium Chloride Flush Syringe 10 Ml IV 10 ml BID ELIEL Administration Sodium Chloride 10 ml 09/01/18 18:25 Sodium Chloride Flush Syringe 10 Ml IV PRN PRN LINE FLUSH Tamsulosin HCl 0.4 mg 09/11/18 10:00 Flomax PO QDAY ELIEL
--- NOTE | 2018-09-10 12:15 | Progress Note ---
Assessment and Plan Vascular consultation noted - Recommend strict blood pressure control BP <120/80 and Heart rate < 60. Weight should be confirmed. Needs repeat CTA chest to assess progression of his dissection. MOMO is far less specific and sensitive to assess for progression en given the initial study was a CTA. Hemodynamically stable now. IVF per nephrology. Will cont to follow closely. The patient has been seen in conjunction with Dr. Chavez who agrees with the assessment and plan of care. - Patient Problems (1) Respiratory failure with hypoxia and hypercapnia Current Visit: Yes Status: Acute Qualifiers: Chronicity: acute Qualified Code(s): J96.01 - Acute respiratory failure with hypoxia; J96.02 - Acute respiratory failure with hypercapnia (2) Hypertensive emergency Current Visit: Yes Status: Acute (3) Acute HFrEF (heart failure with reduced ejection fraction) Current Visit: Yes Status: Acute (4) Chronic thoracic aortic dissection Current Visit: Yes Status: Chronic (5) SHAWNA (acute kidney injury) Current Visit: Yes Status: Acute (6) NSTEMI (non-ST elevated myocardial infarction) Current Visit: Yes Status: Acute (7) Medical non-compliance Current Visit: Yes Status: Chronic (8) Morbid obesity Current Visit: Yes Status: Chronic (9) PAUL (obstructive sleep apnea) Current Visit: Yes Status: Chronic (10) Obesity hypoventilation syndrome Current Visit: Yes Status: Chronic (11) Diabetes Current Visit: Yes Status: Chronic Subjective Date of service: 09/10/18 Principal diagnosis: Ac Hypoxemic Hypercapnic Resp Failure; HTNsive Emergency; Type B dissection Interval history: pt remains intubated, on cardene gtt. Objective Last Vital Signs Temp 99.9 F H 09/10/18 08:14 Pulse 73 09/10/18 12:00 Resp 20 09/10/18 12:00 BP 154/69 09/10/18 12:00 Pulse Ox 87 09/10/18 12:00 - Physical Examination General: Other (intubated, agitated ) HEENT: Positive: PERRL, Normocephaly, Mucus Membranes Moist Neck: Positive: neck supple Cardiac: Positive: Reg Rate and Rhythm, S1/S2 Lungs: Positive: clear to auscultation Neuro: Positive: Grossly Intact Abdomen: Positive: Soft. Negative: Tender Skin: Negative: Rash Musculoskeletal: No Pain Extremities: Present: +1 Edema (BLE, chronic skin changes) - Labs and Meds Comprehensive Metabolic Panel 09/10/18 Range/Units 04:30 Sodium 145 (137-145) mmol/L Potassium 4.2 (3.6-5.0) mmol/L Chloride 100.7 (98-107) mmol/L Carbon Dioxide 31 H (22-30) mmol/L BUN 67 H (9-20) mg/dL Creatinine 3.2 H (0.8-1.5) mg/dL Glucose 106 H (75-100) mg/dL Calcium 9.0 (8.4-10.2) mg/dL - Imaging and Cardiology EKG: report reviewed, image reviewed Echo: report reviewed (05/10/2018 showed EF 45-50%, impaired relaxation, RV mildly dilated, RV systolic function mod reduced. ) - Telemetry EKG Rhythm: Sinus Rhythm - EKG Sinus rhythms and dysrhythmias: sinus rhythm - Allied health notes Allied health notes reviewed: nursing
[2018-09-10] MEDS: TRANSDERM-SCOP TD SCH (13:01)
[2018-09-10] MEDS ORDERED: APRESOLINE PO SCH (14:00)
[2018-09-10] MEDS ORDERED: NACL 0.9% ONE (15:48)
[2018-09-10] MEDS ORDERED: ATROPINE 0.1% (CARDIAC) ONE (15:48)
[2018-09-10] MEDS ORDERED: ADRENALIN ONE (15:48)
--- NOTE | 2018-09-10 16:29 | Death Note ---
Note Date of : 09/10/18 Time of : 14:11 Time Pronounced: 14:11 - Preliminary Cause of (problem) (1) SHAWNA (acute kidney injury) Preliminary cause of (2) Acute HFrEF (heart failure with reduced ejection fraction) Preliminary cause of (3) Elevated troponin Preliminary cause of (4) Hypertensive emergency Preliminary cause of (5) NSTEMI (non-ST elevated myocardial infarction) Preliminary cause of (6) Respiratory failure with hypoxia and hypercapnia Qualifiers: Chronicity: acute Qualified Code(s): J96.01 - Acute respiratory failure with hypoxia; J96.02 - Acute respiratory failure with hypercapnia Preliminary cause of (7) Acute exacerbation of CHF (congestive heart failure) Qualifiers: Heart failure type: unspecified Qualified Code(s): I50.9 - Heart failure, unspecified Preliminary cause of (8) Chronic thoracic aortic dissection Preliminary cause of (9) Diabetes Preliminary cause of (10) Medical non-compliance Preliminary cause of (11) Morbid obesity Preliminary cause of (12) PAUL (obstructive sleep apnea) Preliminary cause of (13) Anasarca Preliminary cause of (14) H/O aortic dissection Preliminary cause of (15) Hypothyroidism Preliminary cause of (16) Right heart failure Preliminary cause of (17) NSVT (nonsustained ventricular tachycardia) Preliminary cause of
--- NOTE | 2018-09-10 16:39 | Death Summary ---
Summary - Providers Date of service: 09/10/18 Consults: 09/01/18 20:25 Consult to Cardiology [CONS] Routine Consulting Provider: LISA CORREA Reason For Exam: CHF, Elevated troponin 09/01/18 20:32 Consult to Physician [CONS] Routine Comment: Consulting Provider: HAILEE THOMAS Physician Instructions: Reason For Exam: respiratory failure 09/02/18 08:00 Consult to Wound/ET Nurse [CONS] Routine Reason For Exam: wound eval 09/02/18 14:55 Consult to Dietitian/Nutrition [CONS] Routine Physician Instructions: Reason For Exam: Reason for Consult: Write/Manage Tube Feeding 09/03/18 12:32 Consult to Physician [CONS] Routine Comment: Consulting Provider: BERNARDO ZAPIEN Physician Instructions: Reason For Exam: Aortic Dissection 09/04/18 10:37 Consult to PICC Line RN [CONS] Routine Reason For Exam: access for medications Type Line:: PICC 09/05/18 12:15 Consult to Physician [CONS] Routine Comment: Consulting Provider: BETH PIRES Physician Instructions: Reason For Exam: SHAWNA 09/07/18 14:13 Physical Therapy Evaluation and Treat [CONS] Routine Comment: Reason For Exam: evaluate and treat Attending: ABEL COTA MD - summary Date of admission: 09/01/18 18:25 Date of : 09/10/18 Reason for admission: acute on chronic respiratory failure, CHF exacerbation, morbid obesity Significant findings: [age] year old -[place] male with past medical history significant for morbid obesity with BMI of 66, chronic systolic CHF, obesity hypoventilation syndrome, history of artery dissection, COPD was admitted to the floor for the management of acute on chronic respiratory failure. Patient was intubated in the ICU and admitted to the floor and in the ICU he extubated himself and was coded briefly and resuscitated successfully. Patient was reintubated and management for respiratory failure, CHF, PAUL and patient showed improvement. This morning patient was alert. Around 15:55 PM patient extubated himself and CODE BLUE was called I have resuscitated him according to ACLS protocol but despite that the patient at 4:11, it was difficult to intubate him due to his body size and edematous throat. I have called his mother and told her. Procedures/treatments rendered: As stated above. - Final diagnosis (1) SHAWNA (acute kidney injury) Note: Final diagnosis: (2) Acute HFrEF (heart failure with reduced ejection fraction) Note: Final diagnosis: (3) Elevated troponin Note: Final diagnosis: (4) Hypertensive emergency Note: Final diagnosis: (5) NSTEMI (non-ST elevated myocardial infarction) Note: Final diagnosis: (6) Respiratory failure with hypoxia and hypercapnia Qualifiers: Chronicity: acute Qualified Code(s): J96.01 - Acute respiratory failure with hypoxia; J96.02 - Acute respiratory failure with hypercapnia Note: Final diagnosis: (7) Acute exacerbation of CHF (congestive heart failure) Qualifiers: Heart failure type: unspecified Qualified Code(s): I50.9 - Heart failure, unspecified Note: Final diagnosis: (8) Chronic thoracic aortic dissection Note: Final diagnosis: (9) Diabetes Note: Final diagnosis: (10) Medical non-compliance Note: Final diagnosis: (11) Morbid obesity Note: Final diagnosis: (12) PAUL (obstructive sleep apnea) Note: Final diagnosis: (13) Anasarca Note: Final diagnosis: (14) H/O aortic dissection Note: Final diagnosis: (15) Hypothyroidism Note: Final diagnosis: (16) Right heart failure Note: Final diagnosis: (17) NSVT (nonsustained ventricular tachycardia) Note: Final diagnosis:
--- NOTE | 2018-09-10 16:40 | Procedure Note ---
Date of procedure: 09/10/18 Pre-op diagnosis: cardiac arrest Post-op diagnosis: same Procedure: Patient is a 28-year-old male that a CODE BLUE was called on. I responded to the CODE BLUE the patient's hospitalist at bedside running the code. Patient did require intubation. Patient will be intubated. See procedure note. Procedure note: Patient was intubated with a 7.0 ET tube 24th alert. Positive color change on the CO2 detector. No breath sounds noted over epigastrium. Bilateral breath sounds noted colitis go initially used. However patient was very difficult intubation due to his body habitus and short neck. Patient was actually intubated with a standard laryngoscope. The scope was a 3 Mac. Cricoid pressure given. No complications Anesthesia: none Estimated blood loss: none Pathology: none Condition: Disposition: ICU
--- NOTE | 2018-09-10 17:11 | Event Note ---
Date: 09/10/18 Here in the ICU for evening rounds. Was notified that the patient self - extubated. He proceeded to have a respiratory arrest. ER physician re-intubated the patient. However, resuscitative efforts failed and there was no ROSC.
[2018-09-10 17:48] VITALS: BP 169/150
[2018-09-11] MEDS ORDERED: FLOMAX PO SCH (10:00)
== END 2018-09-10 16:11 | DRG 207 ==
LOC: ED 13:39 → IMCU 18:25 → CC1 23:05
PROVIDERS: ADMIT Internal Medicine; ATTEND Internal Medicine
PROC: 5A1955Z Respiratory Ventilation, Greater than 96 Consecutive Hours (ICD-10-PCS; 2018-09-01)
PROC: 4A033R1 Measurement of Arterial Saturation, Peripheral, Percutaneous Approach (ICD-10-PCS; 2018-09-01)
PROC: 0BH17EZ Insertion of Endotracheal Airway into Trachea, Via Natural or Artificial Opening (ICD-10-PCS; 2018-09-01)
PROC: 5A09357 Assistance with Respiratory Ventilation, Less than 24 Consecutive Hours, Continuous Positive Airway Pressure (ICD-10-PCS; 2018-09-01)
PROC: 3E0234Z Introduction of Serum, Toxoid and Vaccine into Muscle, Percutaneous Approach (ICD-10-PCS; principal; 2018-09-04)
PROC: 02HV33Z Insertion of Infusion Device into Superior Vena Cava, Percutaneous Approach (ICD-10-PCS; 2018-09-04)
PROC: 0BH18EZ Insertion of Endotracheal Airway into Trachea, Via Natural or Artificial Opening Endoscopic (ICD-10-PCS; 2018-09-04)
PROC: 0BH18EZ Insertion of Endotracheal Airway into Trachea, Via Natural or Artificial Opening Endoscopic (ICD-10-PCS; 2018-09-10)
DX: J96.02 Acute respiratory failure with hypercapnia (principal); I21.A1 Myocardial infarction type 2; I71.01 Dissection of thoracic aorta; I50.23 Acute on chronic systolic (congestive) heart failure; N17.0 Acute kidney failure with tubular necrosis; Z68.44 Body mass index [BMI] 60.0-69.9, adult; E66.2 Morbid (severe) obesity with alveolar hypoventilation; I47.2 Ventricular tachycardia; I16.1 Hypertensive emergency; E44.0 Moderate protein-calorie malnutrition; J96.01 Acute respiratory failure with hypoxia; E03.9 Hypothyroidism, unspecified; E11.649 Type 2 diabetes mellitus with hypoglycemia without coma; J44.9 Chronic obstructive pulmonary disease, unspecified; I11.0 Hypertensive heart disease with heart failure; I46.9 Cardiac arrest, cause unspecified; Z91.19 Patient's noncompliance with other medical treatment and regimen; Z23 Encounter for immunization; Z82.49 Family history of ischemic heart disease and other diseases of the circulatory system; Z79.899 Other long term (current) drug therapy; Z99.81 Dependence on supplemental oxygen; Z79.84 Long term (current) use of oral hypoglycemic drugs
CPT/HCPCS: 36415; 36600; 71045; 74018; 76770; 80048; 80053; 80061; 81001; 82043; 82550; 82570; 82803; 82962; 83735; 83880; 83970; 84100; 84156; 84300; 84478; 84484; 84520; 85014; 85018; 85025; 85027; 85049; 85379; 85520; 85610; 85730; 87040; 87070; 87205; 89050; 90686; 90732; 93005; 93010; 93880; 93930; 94002; 94003; 96374; 96375; G0378; J0171; J0330; J0360; J0461; J1644; J1650; J1940; J2250; J2704; J2765; J3010; J7030; J7042; J7050; J7060